=== PATIENT | female | born 1960 | race American Indian/Alaskan Native ===

== ENCOUNTER 2018-01-21 11:37 | Emergency (ER) | payer MEDICARE ==
[2018-01-21 12:00] VITALS: BP 120/43
--- NOTE | 2018-01-21 13:00 | Emergency Department Report ---
Blank Doc - Documentation Documentation: Patient is a 57-year-old black female who is presenting with shortness of breath. Patient has COPD and is on 3 L of oxygen at home at baseline but states that for the past 2 weeks she's had some increased shortness of breath feels like she just can't get enough air. Patient denies any cough but did have pneumonia approximately 2 weeks ago was only on antibiotics 5 days. Patient also was diagnosed with carbon monoxide poisoning as well. Patient's own brief focused physical exam does appear somewhat pale she has trace edema in the bilateral feet clear lungs. Patient be sent to the treatment room for continued workup and the patient be reassessed.
--- NOTE | 2018-01-21 13:11 | Emergency Department Report ---
ED Shortness of Breath HPI - General Chief Complaint: Dyspnea/Respdistress Stated Complaint: WEAK/BOTH FEET Time Seen by Provider: 01/21/18 12:41 Source: patient Mode of arrival: Ambulatory Limitations: No Limitations - History of Present Illness Initial Comments: Patient is a 57-year-old black female who is presenting with shortness of breath. Patient has COPD and is on 3 L of oxygen at home at baseline but states that for the past 2 weeks she's had some increased shortness of breath feels like she just can't get enough air. Patient denies any cough but did have pneumonia approximately 2 weeks ago was only on antibiotics 5 days. Patient also was diagnosed with carbon monoxide poisoning as well. Patient reports that she is having pain to both her feet at 8 out of 10 which is chronic. Pain is worse or walk-in better rest. She is currently at [facility] for substance abuse. 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 Patient still smoking and has multiple comorbidities MD Complaint: shortness of breath, cough (fatigue and burning to feet) Onset/Timin -: days(s) Radiation: other (none) Pain Scale: 8 Quality: burning Consistency: intermittent Improves With: rest Worsens With: nothing Known History Of: COPD, asthma, other (hepatitis C, mitral valve prolapse, bipolar, depression, PND, substance abuse) Context: smoke/fume exposure, other (pneumonia and carbon monoxide poisoning) Associated Symptoms: cough, sputum production, orhopnia, lower extremity pain ( burning to feet), other (feeling tired,) Treatments Prior to Arrival: oxygen, bronchodilator - Related Data Home Oxygen Therapy: Yes Home Oxygen Amount: 3 Liters Previous Rx's Medication Instructions Recorded Last Taken Type Amoxicillin/K Clav Tab [Augmentin 1 tab PO Q12HR 7 Days #14 tab 01/21/18 Unknown Rx 875 mg] Allergies Allergy/AdvReac Type Severity Reaction Status Date / Time No Known Allergies Allergy Verified 01/21/18 12:00 ED Review of Systems ROS: Stated complaint: WEAK/BOTH FEET Other details as noted in HPI Constitutional: weakness. denies: chills, fever Eyes: denies: eye pain, eye discharge, vision change ENT: denies: ear pain, throat pain, congestion Respiratory: cough, orthopnea, shortness of breath, SOB with exertion, SOB at rest. denies: stridor, wheezing Cardiovascular: dyspnea on exertion. denies: chest pain, palpitations, edema, syncope, paroxysmal nocturnal dyspnea Gastrointestinal: denies: abdominal pain, nausea, vomiting, diarrhea, constipation, hematemesis, melena, hematochezia Genitourinary: denies: urgency, dysuria, hematuria, discharge Musculoskeletal: arthralgia (burning pain to both feet). denies: back pain, joint swelling, myalgia Skin: denies: rash, lesions Neurological: weakness. denies: headache, numbness, paresthesias, abnormal gait , vertigo Psychiatric: depression. denies: anxiety, auditory hallucinations, visual hallucinations, homicidal thoughts, suicidal thoughts ED Past Medical Hx - Past Medical History Previous Medical History?: Yes Hx Hypertension: Yes Hx Psychiatric Treatment: Yes (bipolar, depression) Hx COPD: Yes ( on oxygen and she still smokes) Additional medical history: hep C, PNA, cocaine abuse, mitral valve prolapse - Surgical History Past Surgical History?: Yes Additional Surgical History: hysterectomy, back surgery - Family History Family history: hypertension - Social History Smoking Status: Current Every Day Smoker Substance Use Type: Cocaine (she is currently in a [facility] for substance abuse ) - Medications Home Medications: Home Medications Medication Instructions Recorded Confirmed Last Taken Type Amoxicillin/K Clav Tab [Augmentin 1 tab PO Q12HR 7 Days #14 tab 01/21/18 Unknown Rx 875 mg] ED Physical Exam - General Limitations: No Limitations General appearance: alert, in no apparent distress - Head Head exam: Present: atraumatic, normocephalic, normal inspection - Eye Eye exam: Present: normal appearance, PERRL, EOMI Pupils: Present: normal accommodation - ENT ENT exam: Present: normal exam, normal orophraynx, mucous membranes moist, normal external ear exam, other (bilateral nasal mucosa congested with clear drainage and no erythema. frontal and maxillary sinuses nontender to palpate). Absent: TM's normal bilaterally (bilateral team congested without erythema) - Neck Neck exam: Present: normal inspection, full ROM, other (no C-spine tenderness). Absent: tenderness, lymphadenopathy - Respiratory Respiratory exam: Present: respiratory distress, rhonchi (cleared with cough and ), decreased breath sounds, other (patient on O2 at 3 L 24 /7.). Absent: normal lung sounds bilaterally, wheezes, rales, stridor, chest wall tenderness, accessory muscle use, prolonged expiratory - Cardiovascular Cardiovascular Exam: Present: regular rate, normal rhythm, normal heart sounds. Absent: systolic murmur, diastolic murmur - GI/Abdominal GI/Abdominal exam: Present: soft, normal bowel sounds. Absent: distended, tenderness, guarding, rebound, rigid - Extremities Exam Extremities exam: Present: normal inspection, full ROM, normal capillary refill , pedal edema (trace swelling which is chronic), other (No cce. Except for trace sign to both feet which is chronic + 2 pulses in all extremities, no neurovascular compromise). Absent: tenderness, joint swelling, calf tenderness - Back Exam Back exam: Present: normal inspection, full ROM, other (ambulates without any difficulties). Absent: tenderness, CVA tenderness (R), CVA tenderness (L), muscle spasm, paraspinal tenderness, vertebral tenderness, rash noted - Neurological Exam Neurological exam: Present: alert, oriented X3, normal gait, reflexes normal, other (both feet normal exam. No restriction in movement. Nontender to palpate. She has trace swelling to both feet which is chronic). Absent: motor sensory deficit - Psychiatric Psychiatric exam: Present: normal affect, normal mood - Skin Skin exam: Present: warm, dry, intact, normal color. Absent: rash ED Course Vital Signs 01/21/18 01/21/18 11:42 13:08 Temperature 97.7 F Pulse Rate 76 Respiratory 18 Rate Blood Pressure 120/43 O2 Sat by Pulse 100 100 Oximetry - Reevaluation(s) Reevaluation #1: 01/21/18 15:35 Patient stable throughout ED course. ED Medical Decision Making - Lab Data Result diagrams: 01/21/18 13:03 01/21/18 13:03 Lab Results 01/21/18 01/21/18 01/21/18 Range/Units 13:03 13:03 13:08 WBC 8.9 (4.5-11.0) K/mm3 RBC 4.38 (3.65-5.03) M/mm3 Hgb 14.3 (10.1-14.3) gm/dl Hct 41.8 (30.3-42.9) % MCV 96 (79-97) fl MCH 33 H (28-32) pg MCHC 34 (30-34) % RDW 13.8 (13.2-15.2) % Plt Count 233 (140-440) K/mm3 Lymph % (Auto) 28.1 (13.4-35.0) % Divide % (Auto) 9.2 H (0.0-7.3) % Eos % (Auto) 4.7 H (0.0-4.3) % Baso % (Auto) 0.5 (0.0-1.8) % Lymph # 2.5 (1.2-5.4) K/mm3 Divide # 0.8 (0.0-0.8) K/mm3 Eos # 0.4 (0.0-0.4) K/mm3 Baso # 0.0 (0.0-0.1) K/mm3 Seg Neutrophils % 57.5 (40.0-70.0) % Seg Neutrophils # 5.1 (1.8-7.7) K/mm3 Sodium 140 (137-145) mmol/L Potassium 4.9 (3.6-5.0) mmol/L Chloride 103.4 (98-107) mmol/L Carbon Dioxide 25 (22-30) mmol/L Anion Gap 17 mmol/L BUN 23 H (7-17) mg/dL Creatinine 1.1 (0.7-1.2) mg/dL Estimated GFR > 60 ml/min BUN/Creatinine Ratio 21 % Glucose 72 (65-100) mg/dL Calcium 9.4 (8.4-10.2) mg/dL Urine Color Yellow (Yellow) Urine Turbidity Clear (Clear) Urine pH 5.0 (5.0-7.0) Ur Specific [place] 1.020 (1.003-1.030) Urine Protein <15 mg/dl (Negative) mg/dL Urine Glucose (UA) Neg (Negative) mg/dL Urine Ketones Neg (Negative) mg/dL Urine Blood Neg (Negative) Urine Nitrite Neg (Negative) Urine Bilirubin Neg (Negative) Urine Urobilinogen < 2.0 (<2.0) mg/dL Ur Leukocyte Esterase Mod (Negative) Urine WBC (Auto) 5.0 (0.0-6.0) /HPF Urine RBC (Auto) 3.0 (0.0-6.0) /HPF U Epithel Cells (Auto) 5.0 (0-13.0) /HPF Urine Bacteria (Auto) 1+ (Negative) /HPF Urine Mucus Few /HPF Urine culture sent - Radiology Data Radiology results: report reviewed Patient had chest x-ray done that was stated by radiologist and reported to myself. No acute processes. Chronic emphysema XRay Report Signed Patient: PETER GONZALES MR#: [id number] : 1960 Acct:[id number] Age/Sex: 57 / F ADM Date: 01/21/18 Loc: ED Attending Dr: Ordering Physician: SARAH VICTORIA MD Date of Service: 01/21/18 Procedure(s): XR chest 1V ap Accession Number(s): [id number] cc: SARAH VICTORIA MD Fluoro Time In Minutes: AP CHEST: HISTORY: Dyspnea No comparison. The lungs are hyperinflated suggesting underlying COPD. No evidence for pneumonia, pleural effusion or pneumothorax. Heart and mediastinal structures are within normal limits. The bony thorax is grossly intact. IMPRESSION: Emphysematous changes. No acute process. Transcribed By: TTR Dictated By: JOAQUÍN HURD JR, MD Electronically Authenticated By: JOAQUÍN HURD JR, MD Signed Date/Time: 01/21/181413 DD/ 13 TD/TT: 01/21/181413 - Medical Decision Making This is a 57-year-old female that was treated recently for carbon monoxide poisoning and pneumonia. She states she was on antibiotic. Patient's chief complaint shortness of breath and she has chronic emphysema and still smokes. She says she is feeling fatigued and she has burning to her feet which is chronic. Patient is here to be evaluated. Patient was screened by Dr. Nevarez orders placed. Patient examined by myself and she is stable with light exam with decreased air entry throughout from chronic emphysema she has cough with some rhonchi that is cleared with coughing. Her chemistry exam is normal to include CO2 and anion gap. CBC stable without any anemia. Neurologically patient is intact. Patient bilateral foot pain has decreased and she has been here she says she only has foot pain when she walks too much. She has trace pedal edema which she said is chronic but worse is when she stands on her feet too much. Patient also has urinary tract infection and urine culture sent. X-ray of chest done and dictated by radiologist and report reviewed by myself and normal findings except patient with chronic emphysema. Labs and x-ray communicative patient that she was nondistended. Patient will be started on antibiotic and discharged back to [facility]. Chronic emphysema with shortness of [id number] shows chronic emphysema with no acute findings. CO2 is normal and her anion gap was normal Increased fatigue-patient's stable. Upper respiratory with cough and congestion-patient will be placed on antibiotic due to increased risk of infection. She is to continue her nebulizer and Spiriva. A consultation on smoking cessation and she says she is trying. Arthralgia both feet-better since today. Nicotine ABuse-smoking cessation encouraged because the patient has chronic COPD and O2. I discussed the adverse effect that smoking can have on her and that her COPD is a progressive disease but cannot slow down with the cessation of smoking . I will also refer her to a pulmonary doctor as she does not have one Acute cystitis-patient will be started on medication to cover lung and bladder. Urine culture sent Patient voice understanding of all information that she was given and she will be discharged back home to review what hospital to continue her rehabilitation. PT discharged back to [facility] in stable condition. Her vital signs are stable she is afebrile and her O2 sat is 100% on 3 L nasal cannula. She reports that she will try to stop smoking and I discussed with her that she needs to follow-up with a pulmonary doctor which I will refer her to one. I encouraged her to continue with her albuterol nebulizer and her Spiriva and to keep oxygen on at all times until further notice from her primary care and for pulmonary doctor. She voiced understanding. Discharged home with prescription for Augmentin and Zyrtec. - Differential Diagnosis PNA, CO2 abnormality, COPD exacerbation, anemia. URI Critical care attestation.: If time is entered above; I have spent that time in minutes in the direct care of this critically ill patient, excluding procedure time. ED Disposition Clinical Impression: URI with cough and congestion, Supplemental oxygen dependent, Arthralgia of both feet, Acute cystitis without hematuria, Nicotine abuse Emphysema/COPD Qualifiers: Emphysema type: unspecified Qualified Code(s): J43.9 - Emphysema, unspecified Fatigue Qualifiers: Fatigue type: unspecified Qualified Code(s): R53.83 - Other fatigue Disposition: DC-01 TO HOME OR SELFCARE Is pt being admited?: No Does the pt Need Aspirin: No Condition: Stable Instructions: Chronic Obstructive Pulmonary Disease (ED), Arthralgia (ED), Cold Symptoms (ED), Urinary Tract Infection in Women (ED), Using Oxygen at Home (ED), Fatigue (ED), How to Stop Smoking (ED) Additional Instructions: Please stop smoking Follow-up with primary care and 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 See referral to pulmonary doctor and call on Wednesday to schedule appointment for visit regarding chronic emphysema, smoking status and chronic shortness of breath. Take Augmentin and this will cover upper respiratory infection and also urinary tract infection If you condition worsens, return to the emergency room Prescriptions: Amoxicillin/K Clav Tab [Augmentin 875 mg] 1 tab PO Q12HR 7 Days #14 tab Referrals: GRETCHEN GUTIERREZ MD [Staff Physician] - 3-5 Days PRIMARY CARE, [Primary Care Provider] - 01/24/18 follow-up, non emergency services ambulance driver in 3 days [Other] - 01/24/18 Forms: Accompanied Note
[2018-01-21 13:41] LABS: Basophils % (Auto) 0.5 % (0.0-1.8); Eosinophils # (Auto) 0.4 K/mm3 (0.0-0.4); Eosinophils % (Auto) 4.7 % (0.0-4.3); Hematocrit 41.8 % (30.3-42.9); Hemoglobin 14.3 gm/dl (10.1-14.3); Lymphocytes # (Auto) 2.5 K/mm3 (1.2-5.4); Lymphocytes % (Auto) 28.1 % (13.4-35.0); Mean Corpuscular HGB Conc 34 % (30-34); Mean Corpuscular Hemoglobin 33 pg (28-32); Mean Corpuscular Volume 96 fl (79-97); Monocytes # (Auto) 0.8 K/mm3 (0.0-0.8); Monocytes % (Auto) 9.2 % (0.0-7.3); Platelet Count 233 K/mm3 (140-440); Red Blood Count 4.38 M/mm3 (3.65-5.03); Red Cell Distribution Width 13.8 % (13.2-15.2)
[2018-01-21 13:42] LABS: Bacteria,Urine 1+ /HPF (Negative); Bilirubin,Urine NEG (Negative); Blood,Urine NEG (Negative); Color,Urine Yellow (Yellow); Mucus,Urine FEW /HPF; Protein,Urine <15 mg/dL mg/dL (Negative); Urobilinogen,Urine < 2.0 mg/dL (<2.0)
[2018-01-21 13:53] LABS: BUN/Creatinine Ratio 21; Blood Urea Nitrogen 23 mg/dL (7-17); Calcium 9.4 mg/dL (8.4-10.2); Hemolysis Index 7
--- NOTE | 2018-01-21 14:21 | XRay Report ---
AP CHEST: HISTORY: Dyspnea No comparison. The lungs are hyperinflated suggesting underlying COPD. No evidence for pneumonia, pleural effusion or pneumothorax. Heart and mediastinal structures are within normal limits. The bony thorax is grossly intact. IMPRESSION: Emphysematous changes. No acute process.
== END 2018-01-21 15:55 | disposition home or self-care (01) ==
LOC: ED 11:37
DX: J43.9 Emphysema, unspecified (principal); J06.9 Acute upper respiratory infection, unspecified; N30.00 Acute cystitis without hematuria; F17.200 Nicotine dependence, unspecified, uncomplicated; M79.671 Pain in right foot; M79.672 Pain in left foot; I10 Essential (primary) hypertension; F14.10 Cocaine abuse, uncomplicated; Z90.710 Acquired absence of both cervix and uterus; Z99.81 Dependence on supplemental oxygen
CPT/HCPCS: 36415; 71045; 80048; 81001; 85025; 87086; 99284

== ENCOUNTER 2018-02-02 10:29 | Emergency (ER) | payer MEDICARE ==
[2018-02-02 17:49] LABS: Basophils % (Auto) 0.3 % (0.0-1.8); Eosinophils # (Auto) 0.5 K/mm3 (0.0-0.4); Eosinophils % (Auto) 5.2 % (0.0-4.3); Hematocrit 48.2 % (30.3-42.9); Hemoglobin 15.5 gm/dl (10.1-14.3); Lymphocytes # (Auto) 3.2 K/mm3 (1.2-5.4); Lymphocytes % (Auto) 31.2 % (13.4-35.0); Mean Corpuscular HGB Conc 32 % (30-34); Mean Corpuscular Hemoglobin 32 pg (28-32); Mean Corpuscular Volume 100 fl (79-97); Monocytes # (Auto) 0.8 K/mm3 (0.0-0.8); Platelet Count 144 K/mm3 (140-440); Red Cell Distribution Width 14.7 % (13.2-15.2)
[2018-02-02 18:09] LABS: Alanine Aminotransferase 51 units/L (7-56); Albumin 4.2 g/dL (3.9-5); BUN/Creatinine Ratio 24; Blood Urea Nitrogen 19 mg/dL (7-17); Calcium 9.6 mg/dL (8.4-10.2); Hemolysis Index 80
--- NOTE | 2018-02-02 20:13 | Emergency Department Report ---
ED Medical Clearance HPI - General Chief complaint: Medical Clearance Stated complaint: BURNING SENSATION Time Seen by Provider: 02/02/18 20:08 Source: patient Mode of arrival: Ambulatory - History of Present Illness Initial comments: There is a 57-year-old [place]yan[place] female presented initially for bilateral foot tingling and burning now states mild cramps but states I hate water denies chest pain or shortness of breath with O2 2 L currently on oxygen tank patient a and O 3 and was irrigated steady no acute distress denies foot pain or burning at this time there is no cramping at this time patient is actually tolerating by mouth intake patient requested tooth be DC'd home Onset/Timin -: days(s) Reason for Medical Clearance: other ("dehydration") Place: home Alledged Intoxication: No Traumatic Symptoms: denies traumatic injury Associated Symptoms: other (leg cramps ). denies: chest pain, shortness of breath, palpitations, diaphoresis, denies other symptoms, confusion, cough, fever/chills, headaches, anorexia, malaise, nausea/vomiting, rash, seizure, syncope, weakness Treatments Prior to Arrival: none Home medications: Previous Rx's Medication Instructions Recorded Last Taken Type Amoxicillin/K Clav Tab [Augmentin 1 tab PO Q12HR 7 Days #14 tab 01/21/18 Unknown Rx 875 mg] Cetirizine HCl [ZyrTEC] 10 mg PO QDAY 14 Days #14 capsule 01/21/18 Unknown Rx Allergies/Adverse reactions: Allergies Allergy/AdvReac Type Severity Reaction Status Date / Time No Known Allergies Allergy Verified 01/21/18 12:00 ED Review of Systems ROS: Stated complaint: BURNING SENSATION Other details as noted in HPI Constitutional: denies: chills, fever Eyes: denies: eye pain, eye discharge, vision change ENT: denies: ear pain, throat pain Respiratory: denies: cough, shortness of breath, wheezing Cardiovascular: denies: chest pain, palpitations Endocrine: no symptoms reported Gastrointestinal: denies: abdominal pain, nausea, diarrhea Genitourinary: denies: urgency, dysuria, discharge Musculoskeletal: other (muscle spasm ). denies: back pain, joint swelling, arthralgia Skin: denies: rash, lesions Neurological: denies: headache, weakness, paresthesias Psychiatric: denies: anxiety, depression Hematological/Lymphatic: denies: easy bleeding, easy bruising ED Past Medical Hx - Past Medical History Hx Hypertension: Yes Hx Psychiatric Treatment: Yes (bipolar, depression) Hx COPD: Yes ( on oxygen and she still smokes) Additional medical history: hep C, PNA, cocaine abuse, mitral valve prolapse - Surgical History Additional Surgical History: hysterectomy, back surgery - Social History Smoking Status: Current Every Day Smoker Substance Use Type: None - Medications Home Medications: Home Medications Medication Instructions Recorded Confirmed Last Taken Type Amoxicillin/K Clav Tab [Augmentin 1 tab PO Q12HR 7 Days #14 tab 01/21/18 Unknown Rx 875 mg] Cetirizine HCl [ZyrTEC] 10 mg PO QDAY 14 Days #14 capsule 01/21/18 Unknown Rx ED Physical Exam - General Limitations: No Limitations General appearance: alert, in no apparent distress - Head Head exam: Present: atraumatic, normocephalic - Eye Eye exam: Present: normal appearance - ENT ENT exam: Present: mucous membranes moist - Neck Neck exam: Present: normal inspection - Respiratory Respiratory exam: Present: normal lung sounds bilaterally. Absent: respiratory distress, wheezes, stridor, chest wall tenderness - Cardiovascular Cardiovascular Exam: Present: regular rate, normal rhythm. Absent: systolic murmur, diastolic murmur, rubs, gallop - GI/Abdominal GI/Abdominal exam: Present: soft, normal bowel sounds. Absent: distended, tenderness, guarding, rebound, rigid, organomegaly, mass, bruit, pulsatile mass , hernia - Rectal Rectal exam: Present: deferred - External exam: Present: normal external exam - Extremities Exam Extremities exam: Present: normal inspection, full ROM, normal capillary refill. Absent: tenderness, pedal edema, joint swelling, calf tenderness - Expanded Lower Extremity Exam Left Lower Leg exam: Present: normal inspection, full ROM. Absent: tenderness Foot/Toe exam: Present: normal inspection, full ROM Neuro vascular tendon exam: Present: no vascular compromise. Absent: pulse deficit, abnormal cap refill, motor deficit, sensory deficit, tendon deficit, extremity cold to touch, pallor, abnormal 2-point discrimination, decreased fine /light touch, foot drop, peroneal nerve deficit, significant pain with passive ROM of distal joint Gait: Positive: observed and normal Right Lower Leg exam: Present: normal inspection, full ROM. Absent: tenderness Neuro vascular tendon exam: Present: no vascular compromise. Absent: pulse deficit, abnormal cap refill, motor deficit, sensory deficit, tendon deficit, extremity cold to touch, pallor, abnormal 2-point discrimination, decreased fine /light touch, foot drop, significant pain with passive ROM of distal joint Gait: Positive: observed and normal - Back Exam Back exam: Present: normal inspection, full ROM. Absent: tenderness, muscle spasm, paraspinal tenderness, vertebral tenderness - Expanded Back Exam Expanded Back exam: Absent: saddle anesthesia - Neurological Exam Neurological exam: Present: alert, oriented X3 - Expanded Neurological Exam Expanded Patient oriented to: Present: person, place, time Speech: Present: fluid speech Cranial nerves: EOM's Intact: Normal, Gag Reflex: Normal, Tongue Deviation: Normal, Nystagmus: Normal, Facial Sensation: Normal Cerebellar function: Finger to Nose: Normal, Heel to Bowden: Normal, Romberg: Normal Upper motor neuron: Carlos Neglect: Normal, Pronator Drift: Normal, Babinski Sign : Normal, Sensory Extinction: Normal Sensory exam: Upper Extremity Light Touch: Normal, Upper Extremity Pin Prick: Normal, Upper Extremity Temperature: Normal, UE 2 Point Discrimination: Normal, Lower Extremity Light Touch: Normal, Lower Extremity Pin Prick: Normal, Lower Extremity Temperature: Normal, LE 2 Point Discrimination: Normal Motor strength exam: RUE: 5, LUE: 5, RLE: 5, LLE: 5 DTR: bicep (R): 2+, bicep (L): 2+, tricep (R): 2+, tricep (L): 2+, knee (R): 2+ , knee (L): 2+, ankle (R): 2+, ankle (L): 2+ Best Eye Response (Des): (4) open spontaneously Best Motor Response (Bovey): (6) obeys commands Best Verbal Response (Des): (5) oriented Des Total: 15 - Psychiatric Psychiatric exam: Present: normal affect, normal mood. Absent: depressed, agitated, anxious, flat affect, manic, homicidal ideation, suicidal ideation - Skin Skin exam: Present: warm, dry, intact, normal color. Absent: rash ED Course Vital Signs 02/02/18 02/02/18 10:43 17:43 Temperature 98.4 F Pulse Rate 88 Respiratory 17 18 Rate Blood Pressure 129/61 O2 Sat by Pulse 95 99 Oximetry ED Medical Decision Making - Lab Data Result diagrams: 02/02/18 17:23 02/02/18 17:23 Laboratory Tests 02/02/18 02/02/18 02/02/18 17:23 17:23 17:23 WBC 10.3 RBC 4.80 Hgb 15.5 H Hct 48.2 H MCV 100 H MCH 32 MCHC 32 RDW 14.7 Plt Count 144 Lymph % (Auto) 31.2 [place] % (Auto) 8.0 H Eos % (Auto) 5.2 H Baso % (Auto) 0.3 Lymph # 3.2 [place]yer # 0.8 Eos # 0.5 H Baso # 0.0 Seg Neutrophils % 55.3 Seg Neutrophils # 5.7 Sodium 137 Potassium 5.1 H Chloride 99.8 Carbon Dioxide 21 L Anion Gap 21 BUN 19 H Creatinine 0.8 Estimated GFR > 60 BUN/Creatinine Ratio 24 Glucose 79 Calcium 9.6 Phosphorus 3.90 Magnesium 2.10 Total Bilirubin 0.30 AST 45 H ALT 51 Alkaline Phosphatase 125 Total Protein 7.9 Albumin 4.2 Albumin/Globulin Ratio 1.1 - Medical Decision Making Patient is by mouth hydrating at this time there is no nausea vomiting no diarrhea patient refuses IV fluids patient directed continue to hydrate as directed follow with PCP in 2-3 days return to ED if symptoms worsen or verbalized understanding and agreement with same DC to home in stable condition at this time patient is currently a and O 3 and with her gait is steady there is no muscle spasms no pain ED Disposition Clinical Impression: Muscle spasm, Mild dehydration Disposition: DC-01 TO HOME OR SELFCARE Is pt being admited?: No Does the pt Need Aspirin: No Condition: Good Instructions: Dehydration (ED), Muscle Spasm (ED) Referrals: KARLEY MORGAN MD [Primary Care Provider] - 3-5 Days Forms: Work/School Release Form(ED) Time of Disposition: 20:19
[2018-02-02 20:31] VITALS: BP 128/86
== END 2018-02-02 20:31 | disposition home or self-care (01) ==
LOC: ED 10:29
DX: E86.0 Dehydration (principal); M62.838 Other muscle spasm; I10 Essential (primary) hypertension; F31.9 Bipolar disorder, unspecified; F32.9 Major depressive disorder, single episode, unspecified; J44.9 Chronic obstructive pulmonary disease, unspecified; F17.200 Nicotine dependence, unspecified, uncomplicated; F14.10 Cocaine abuse, uncomplicated; I34.1 Nonrheumatic mitral (valve) prolapse; Z90.710 Acquired absence of both cervix and uterus
CPT/HCPCS: 36415; 80053; 83735; 84100; 85025; 99283

== ENCOUNTER 2018-02-14 10:21 | Emergency (ER) | payer MEDICARE ==
[2018-02-14] MEDS ORDERED: LIDOCAINE VISCOUS 2% PO ONE (11:18)
[2018-02-14] MEDS ORDERED: PROVENTIL IH ONE (11:18)
[2018-02-14] MEDS ORDERED: TYLENOL PO ONE (11:18)
--- NOTE | 2018-02-14 11:19 | Emergency Department Report ---
ED General Adult HPI - General Chief complaint: Dyspnea/Respdistress Stated complaint: HARD BREATHING/FEET SWELLING Time Seen by Provider: 02/14/18 10:55 Source: patient, RN notes reviewed Mode of arrival: Ambulatory Limitations: No Limitations - History of Present Illness Initial comments: This is a 57-year-old female who is not known to this provider previously, she endorses a past medical history of COPD, on chronic home oxygen, tobacco use, bipolar and polysubstance use. She presents to ER with complaint of painless shortness of breath, cough, mucus production, nontraumatic lower extremity swelling. She denies DVT, pulmonary embolus risk factors. Her symptoms are constant over the past few days, and do not have exacerbating or relieving factors and do not radiate anywhere. -: Gradual Location: left, right, lower extremity Radiation: non-radiation Quality: constant Consistency: constant Improves with: none Worsens with: none Associated Symptoms: cough, malaise, shortness of breath. denies: confusion, chest pain, diaphoresis, headaches, loss of appetite, nausea/vomiting, rash, seizure, syncope, weakness - Related Data Previous Rx's Medication Instructions Recorded Last Taken Type Amoxicillin/K Clav Tab [Augmentin 1 tab PO Q12HR 7 Days #14 tab 01/21/18 Unknown Rx 875 mg] Cetirizine HCl [ZyrTEC] 10 mg PO QDAY 14 Days #14 capsule 01/21/18 Unknown Rx Albuterol Sulfate [Proair 90 mcg IH Q4HR PRN #2 aer.pow.ba 02/14/18 Unknown Rx Respiclick] Benzonatate [Tessalon Perles] 100 mg PO Q8HR PRN #30 capsule 02/14/18 Unknown Rx Furosemide [Lasix] 20 mg PO QDAY #14 tablet 02/14/18 Unknown Rx Allergies Allergy/AdvReac Type Severity Reaction Status Date / Time laughing gas Allergy Unknown Uncoded 02/14/18 10:27 ED Review of Systems ROS: Stated complaint: HARD BREATHING/FEET SWELLING Other details as noted in HPI Comment: All other systems reviewed and negative ED Past Medical Hx - Past Medical History Previous Medical History?: Yes Hx Hypertension: Yes Hx Psychiatric Treatment: Yes (bipolar, depression) Hx COPD: Yes ( on oxygen and she still smokes) Additional medical history: hep C, PNA, cocaine abuse, mitral valve prolapse - Surgical History Past Surgical History?: Yes Additional Surgical History: hysterectomy, back surgery - Social History Smoking Status: Current Every Day Smoker Substance Use Type: None - Medications Home Medications: Home Medications Medication Instructions Recorded Confirmed Last Taken Type Amoxicillin/K Clav Tab [Augmentin 1 tab PO Q12HR 7 Days #14 tab 01/21/18 Unknown Rx 875 mg] Cetirizine HCl [ZyrTEC] 10 mg PO QDAY 14 Days #14 capsule 01/21/18 Unknown Rx Albuterol Sulfate [Proair 90 mcg IH Q4HR PRN #2 aer.pow.ba 02/14/18 Unknown Rx Respiclick] Benzonatate [Tessalon Perles] 100 mg PO Q8HR PRN #30 capsule 02/14/18 Unknown Rx Furosemide [Lasix] 20 mg PO QDAY #14 tablet 02/14/18 Unknown Rx ED Physical Exam - General Limitations: No Limitations General appearance: alert, in no apparent distress - Head Head exam: Present: atraumatic, normocephalic - Eye Eye exam: Present: normal appearance, EOMI. Absent: nystagmus - ENT ENT exam: Present: normal exam, normal orophraynx, mucous membranes moist, normal external ear exam - Neck Neck exam: Present: normal inspection, full ROM - Respiratory Respiratory exam: Present: decreased breath sounds. Absent: respiratory distress, wheezes, rales, rhonchi, stridor - Cardiovascular Cardiovascular Exam: Present: regular rate, normal rhythm, normal heart sounds. Absent: bradycardia, tachycardia, irregular rhythm, systolic murmur, diastolic murmur, rubs, gallop - GI/Abdominal GI/Abdominal exam: Present: soft, normal bowel sounds. Absent: distended, tenderness, guarding, rebound, rigid, pulsatile mass - Extremities Exam Extremities exam: Present: normal inspection, full ROM, normal capillary refill , pedal edema, other (2+ pulses noted in the bilateral upper, lower extremities. Compartments soft. No long bony tenderness. The pelvis is stable.). Absent: tenderness, calf tenderness - Back Exam Back exam: Present: normal inspection, full ROM. Absent: tenderness, CVA tenderness (R), paraspinal tenderness, vertebral tenderness - Neurological Exam Neurological exam: Present: alert, oriented X3, CN II-XII intact, other ( Extraocular movements intact. Tongue midline. No facial droop. Facial sensation intact to light touch in the V1, V2, V3 distribution bilaterally. 5 and 5 strength in 4 extremities.. Sensation is intact to light touch in 4 extremities.). Absent: motor sensory deficit - Psychiatric Psychiatric exam: Present: normal affect, normal mood - Skin Skin exam: Present: warm, dry, intact, normal color. Absent: rash ED Course Vital Signs 02/14/18 02/14/18 02/14/18 10:27 11:19 11:21 Temperature 98.5 F 97.6 F Pulse Rate 91 H 83 Respiratory 18 18 18 Rate Blood Pressure 108/64 Blood Pressure 104/45 [Right] O2 Sat by Pulse 93 100 100 Oximetry ED Medical Decision Making - Lab Data Result diagrams: 02/14/18 10:59 02/14/18 10:59 Vital Signs 02/14/18 02/14/18 02/14/18 10:27 11:19 11:21 Temperature 98.5 F 97.6 F Pulse Rate 91 H 83 Respiratory 18 18 18 Rate Blood Pressure 108/64 Blood Pressure 104/45 [Right] O2 Sat by Pulse 93 100 100 Oximetry Lab Results 02/14/18 02/14/18 02/14/18 Range/Units 10:59 10:59 10:59 WBC 10.9 (4.5-11.0) K/mm3 RBC 4.39 (3.65-5.03) M/mm3 Hgb 14.8 H (10.1-14.3) gm/dl Hct 42.1 (30.3-42.9) % MCV 96 (79-97) fl MCH 34 H (28-32) pg MCHC 35 H (30-34) % RDW 14.0 (13.2-15.2) % Plt Count 181 (140-440) K/mm3 Lymph % (Auto) 17.4 (13.4-35.0) % Bollinger % (Auto) 9.1 H (0.0-7.3) % Eos % (Auto) 5.3 H (0.0-4.3) % Baso % (Auto) 0.7 (0.0-1.8) % Lymph # 1.9 (1.2-5.4) K/mm3 Bollinger # 1.0 H (0.0-0.8) K/mm3 Eos # 0.6 H (0.0-0.4) K/mm3 Baso # 0.1 (0.0-0.1) K/mm3 Seg Neutrophils % 67.5 (40.0-70.0) % Seg Neutrophils # 7.3 (1.8-7.7) K/mm3 Sodium 139 (137-145) mmol/L Potassium 4.8 (3.6-5.0) mmol/L Chloride 105.6 (98-107) mmol/L Carbon Dioxide 23 (22-30) mmol/L Anion Gap 15 mmol/L BUN 24 H (7-17) mg/dL Creatinine 0.9 (0.7-1.2) mg/dL Estimated GFR > 60 ml/min BUN/Creatinine Ratio 27 % Glucose 91 (65-100) mg/dL Calcium 9.5 (8.4-10.2) mg/dL Total Bilirubin 0.40 (0.1-1.2) mg/dL Direct Bilirubin < 0.2 (0-0.2) mg/dL Indirect Bilirubin 0.2 mg/dL AST 50 H (5-40) units/L ALT 61 H (7-56) units/L Alkaline Phosphatase 119 (35-129) units/L NT-Pro-B Natriuret Pep 11.88 (0-900) pg/mL Total Protein 7.9 (6.3-8.2) g/dL Albumin 4.0 (3.9-5) g/dL Albumin/Globulin Ratio 1.0 % - EKG Data -: EKG Interpreted by Sd EKG shows normal: sinus rhythm Rate: normal - EKG Data 02/14/18 14:09 Sinus, 74 bpm, normal axis, QTC prolonged, poor wave progression, not a stemi - Radiology Data Radiology results: report reviewed, image reviewed X-ray of the chest demonstrates chronic emphysematous changes, no acute disease , no obvious pneumothorax LIVE [facility] PETER GONZALES Female : 1960 [facility]# [id number] 02/14/18 12:06 - Radiology Dept. Note by ELAINE EMMANUEL Acct Num: [id number] : 1960 Patient Age: 57 BLE VENOUS DUPLEX COMPLETED. VAS LAB PRELIMINARY REPORT; NO EVIDENCE OF DVT/SVT NOTED IN VESSELS/SEGMENTS EXAMINED, BLE. PHYSICIANS REPORT TO FOLLOW....(RSk) Initialized on 02/14/18 12:06 - END OF NOTE - Medical Decision Making Differential diagnosis, including but not limited to: Dependent edema, venous insufficiency, renal insufficiency, hepatic insufficiency, DVT, congestive heart failure, bronchitis, COPD, emphysema, pneumonia, pneumothorax Assessment and plan: 57-year-old female with chronic COPD, who denies DVT, pulmonary embolus risk factors, who is low risk by well's criteria, with a negative lower extremity DVT study, who is most likely having progression of her chronic emphysema. She is afebrile with reassuring vital signs, speaking in full sentences and is not in acute respiratory distress. Her objective laboratory studies did not demonstrate evidence of renal or liver insufficiency, and based on her exam, her lower extremity edema is more likely secondary to dependent edema rather than overt congestive heart failure. May have a minor component of right-sided dysfunction as well as pulmonary hypertension, but given her work of breathing which is normal, lack of JVD, lack of crackles, lack of rales, she does not require emergent workup or evaluation for this. I will start her empirically on low-dose Lasix, and sent her with outpatient instructions to follow-up with pulmonology, cardiology, as well as as needed albuterol. The patient is observed in the ER for hours without clinical decompensation and is medically suitable to follow-up. Critical care attestation.: If time is entered above; I have spent that time in minutes in the direct care of this critically ill patient, excluding procedure time. ED Disposition Clinical Impression: Edema, Emphysema lung Disposition: DC-01 TO HOME OR SELFCARE Is pt being admited?: No Does the pt Need Aspirin: No Condition: Stable Instructions: Heart Failure (ED), Chronic Obstructive Pulmonary Disease (ED) Additional Instructions: Continue current outpatient medications. Use the albuterol as needed for cough , wheezing, shortness of breath. Use Tessalon Perles as directed for cough. Take Lasix as directed for lower extremity peripheral edema. All with the primary care doctor or a lung specialist, such as Dr. Flores, within the next 2 weeks. Follow up with a heart doctor/manager women within the next month for lower extremity edema and evaluation for possible right-sided heart failure and pulmonary hypertension. Return to the ER right away with new pain, worsened pain, migration of pain, projectile vomiting, change in mental status, confusion , inability to tolerate liquid feeds, new, worsening or different symptoms. Prescriptions: Albuterol Sulfate [Proair Respiclick] 90 mcg IH Q4HR PRN #2 aer.pow.ba PRN Reason: Wheezing Benzonatate [Tessalon Perles] 100 mg PO Q8HR PRN #30 capsule PRN Reason: Cough Furosemide [Lasix] 20 mg PO QDAY #14 tablet Referrals: PRIMARY CAREMD [Primary Care Provider] - 3-5 Days VY FLORES MD [Staff Physician] - 3-5 Days [facility] [Provider Group] - 3-5 Days [facility] [Provider Group] - 3-5 Days
--- NOTE | 2018-02-14 11:21 | XRay Report ---
CHEST TWO VIEWS: 02/14/18 10:21:00 CLINICAL: Shortness of breath. COMPARISON: 01/21/18 FINDINGS: Normal heart and pulmonary vasculature. The lungs are mildly hyperexpanded and hyperlucent. Stable mild bibasal fibrotic changes and scattered tiny calcified granulomata. No airspace disease or pleural effusion. The bones and soft tissues are normal. IMPRESSION: Emphysematous changes and old granulomatous disease.No acute cardiopulmonary process.
[2018-02-14 11:25] LABS: Basophils # (Auto) 0.1 K/mm3 (0.0-0.1); Basophils % (Auto) 0.7 % (0.0-1.8); Eosinophils # (Auto) 0.6 K/mm3 (0.0-0.4); Eosinophils % (Auto) 5.3 % (0.0-4.3); Hematocrit 42.1 % (30.3-42.9); Hemoglobin 14.8 gm/dl (10.1-14.3); Lymphocytes # (Auto) 1.9 K/mm3 (1.2-5.4); Lymphocytes % (Auto) 17.4 % (13.4-35.0); Mean Corpuscular HGB Conc 35 % (30-34); Mean Corpuscular Hemoglobin 34 pg (28-32); Mean Corpuscular Volume 96 fl (79-97); Monocytes % (Auto) 9.1 % (0.0-7.3); Platelet Count 181 K/mm3 (140-440); Red Blood Count 4.39 M/mm3 (3.65-5.03)
[2018-02-14 11:35] LABS: BUN/Creatinine Ratio 27; Blood Urea Nitrogen 24 mg/dL (7-17); Calcium 9.5 mg/dL (8.4-10.2); Hemolysis Index 8
[2018-02-14 13:55] LABS: Alanine Aminotransferase 61 units/L (7-56)
[2018-02-14 13:59] LABS: Bilirubin,Direct < 0.2 mg/dL (0-0.2)
[2018-02-14 15:09] VITALS: BP 117/64
== END 2018-02-14 15:13 | disposition home or self-care (01) ==
LOC: ED 10:21
DX: J44.9 Chronic obstructive pulmonary disease, unspecified (principal); R22.43 Localized swelling, mass and lump, lower limb, bilateral; I10 Essential (primary) hypertension; F31.9 Bipolar disorder, unspecified; F17.200 Nicotine dependence, unspecified, uncomplicated; F14.10 Cocaine abuse, uncomplicated; Z90.710 Acquired absence of both cervix and uterus; Z79.899 Other long term (current) drug therapy; Z91.048 Other nonmedicinal substance allergy status
CPT/HCPCS: 36415; 71046; 80048; 80074; 83880; 85025; 93005; 93010; 93970

== ENCOUNTER 2018-10-04 22:34 | Emergency (ER) | payer SELFPAY ==
[2018-10-04] MEDS ORDERED: CARAFATE PO ONE (22:51)
[2018-10-04] MEDS ORDERED: PEPCID IV ONE (22:51)
[2018-10-04] MEDS ORDERED: PROVENTIL IH ONE (22:51)
--- NOTE | 2018-10-04 22:52 | Emergency Department Report ---
ED General Adult HPI - General Chief complaint: Adult Asthma Stated complaint: WILLIS Time Seen by Provider: 10/04/18 22:44 Source: patient, EMS, RN notes reviewed Mode of arrival: Stretcher Limitations: No Limitations - History of Present Illness Initial comments: This is a 57-year-old female. I have evaluated her in the past. She has a past medical history of COPD, emphysema. She also reportedly has a history of sleep apnea, and is noncompliant with her CPAP. She intermittently uses home oxygen. The patient presents to the hospital today with emergency medical services for resolved shortness of breath. In the field, EMS gave Solu-Medrol, 5 mg of albuterol, and 2 g of magnesium. they also give the patient positive pressure, CPAP. These interventions essentially resolved her symptoms. The patient denies DVT, pulmonary embolus risk factors. She denies headache, neck pain, abdominal pain, extremity weakness, numbness. The patient does admit to chronic epigastric pain which radiates to her back for one year. She reports this pain is typically improved with gabapentin. Of note, I have evaluated this patient for similar symptoms in 2018. The patient had extensive workup at that time, including a negative lower extremity DVT study. Patient reports that her symptoms today feel similar to the prior episode. -: Gradual, hour(s), week(s), month(s) Location: abdomen Radiation: back Quality: aching Consistency: other Improves with: other Worsens with: other Associated Symptoms: shortness of breath - Related Data Previous Rx's Medication Instructions Recorded Last Taken Type Amoxicillin/K Clav Tab [Augmentin 1 tab PO Q12HR 7 Days #14 tab 01/21/18 Unknown Rx 875 mg] Cetirizine HCl [ZyrTEC] 10 mg PO QDAY 14 Days #14 capsule 01/21/18 Unknown Rx Albuterol Sulfate [Proair 90 mcg IH Q4HR PRN #2 aer.pow.ba 02/14/18 Unknown Rx Respiclick] Benzonatate [Tessalon Perles] 100 mg PO Q8HR PRN #30 capsule 02/14/18 Unknown Rx Furosemide [Lasix] 20 mg PO QDAY #14 tablet 02/14/18 Unknown Rx Albuterol Sulfate [Proair 90 mcg IH Q4HR PRN #2 aer.pow.ba 10/05/18 Unknown Rx Respiclick] Aspirin [Aspirin BABY CHEW TAB] 81 mg PO QDAY #30 tab.chew 10/05/18 Unknown Rx Ipratropium [place] [Atrovent Hfa] 12.9 gm IH Q4HR PRN #1 hfa.aer.ad 10/05/18 Unknown Rx predniSONE [Deltasone] 40 mg PO QDAY #8 tab 10/05/18 Unknown Rx Allergies Allergy/AdvReac Type Severity Reaction Status Date / Time laughing gas Allergy Unknown Uncoded 02/14/18 10:27 ED Review of Systems ROS: Stated complaint: WILLIS Other details as noted in HPI Constitutional: denies: fever Eyes: denies: eye discharge ENT: denies: epistaxis Respiratory: shortness of breath Cardiovascular: denies: chest pain Musculoskeletal: back pain Skin: denies: lesions Psychiatric: denies: anxiety ED Past Medical Hx - Past Medical History Hx Hypertension: Yes Hx Psychiatric Treatment: Yes (bipolar, depression) Hx COPD: Yes ( on oxygen and she still smokes) Additional medical history: hep C, PNA, cocaine abuse, mitral valve prolapse - Surgical History Additional Surgical History: hysterectomy, back surgery - Social History Smoking Status: Current Every Day Smoker Substance Use Type: None - Medications Home Medications: Home Medications Medication Instructions Recorded Confirmed Last Taken Type Amoxicillin/K Clav Tab [Augmentin 1 tab PO Q12HR 7 Days #14 tab 01/21/18 Unknown Rx 875 mg] Cetirizine HCl [ZyrTEC] 10 mg PO QDAY 14 Days #14 capsule 01/21/18 Unknown Rx Albuterol Sulfate [Proair 90 mcg IH Q4HR PRN #2 aer.pow.ba 02/14/18 Unknown Rx Respiclick] Benzonatate [Tessalon Perles] 100 mg PO Q8HR PRN #30 capsule 02/14/18 Unknown Rx Furosemide [Lasix] 20 mg PO QDAY #14 tablet 02/14/18 Unknown Rx Albuterol Sulfate [Proair 90 mcg IH Q4HR PRN #2 aer.pow.ba 10/05/18 Unknown Rx Respiclick] Aspirin [Aspirin BABY CHEW TAB] 81 mg PO QDAY #30 tab.chew 10/05/18 Unknown Rx Ipratropium [place] [Atrovent Hfa] 12.9 gm IH Q4HR PRN #1 hfa.aer.ad 10/05/18 Unknown Rx predniSONE [Deltasone] 40 mg PO QDAY #8 tab 10/05/18 Unknown Rx ED Physical Exam - General General appearance: alert, in no apparent distress - Head Head exam: Present: atraumatic, normocephalic - Eye Eye exam: Present: normal appearance, EOMI - ENT ENT exam: Present: normal exam, normal orophraynx, mucous membranes moist, normal external ear exam - Neck Neck exam: Present: normal inspection, full ROM. Absent: tenderness, meningismus - Respiratory Respiratory exam: Present: decreased breath sounds. Absent: respiratory distress, rales, rhonchi, stridor - Cardiovascular Cardiovascular Exam: Present: regular rate, normal rhythm, normal heart sounds. Absent: bradycardia, tachycardia, irregular rhythm, systolic murmur, diastolic murmur, rubs, gallop - GI/Abdominal GI/Abdominal exam: Present: soft. Absent: distended, tenderness, guarding, rebound, rigid, pulsatile mass - Extremities Exam Extremities exam: Present: normal inspection, full ROM, other (2+ pulses noted in the bilateral upper, lower extremities. Compartments soft. No long bony tenderness. The pelvis is stable.). Absent: joint swelling - Back Exam Back exam: Present: normal inspection, full ROM. Absent: tenderness, CVA tenderness (R), paraspinal tenderness, vertebral tenderness - Neurological Exam Neurological exam: Present: alert, normal gait, other (Extraocular movements intact. Tongue midline. No facial droop. Facial sensation intact to light touch in the V1, V2, V3 distribution bilaterally. 5 and 5 strength in 4 extremities.. Sensation is intact to light touch in 4 extremities.). Absent: motor sensory deficit - Psychiatric Psychiatric exam: Present: anxious - Skin Skin exam: Present: warm, dry, intact, normal color. Absent: rash ED Course Vital Signs 10/04/18 22:53 Temperature 98.3 F Pulse Rate 80 Respiratory 20 Rate Blood Pressure 133/68 [Right] O2 Sat by Pulse 96 Oximetry ED Medical Decision Making - Lab Data Result diagrams: 10/04/18 23:18 Vital Signs 10/04/18 22:53 Temperature 98.3 F Pulse Rate 80 Respiratory 20 Rate Blood Pressure 133/68 [Right] O2 Sat by Pulse 96 Oximetry Lab Results 10/04/18 10/04/18 Range/Units 23:18 23:18 WBC 7.5 (4.5-11.0) K/mm3 RBC 4.84 (3.65-5.03) M/mm3 Hgb 15.7 H (10.1-14.3) gm/dl Hct 47.0 H (30.3-42.9) % MCV 97 (79-97) fl MCH 32 (28-32) pg MCHC 33 (30-34) % RDW 13.9 (13.2-15.2) % Plt Count 216 (140-440) K/mm3 Troponin T < 0.010 (0.00-0.029) ng/mL - EKG Data -: EKG Interpreted by Ny EKG shows normal: sinus rhythm Rate: normal - EKG Data 10/05/18 00:10 EKG #1 demonstrates normal sinus, 77 bpm, normal axis, QTC prolonged, poor R- wave progression, this is an abnormal EKG, this EKG is not consistent with ST elevation myocardial infarction. This EKG is unchanged from prior EKG from 04/16/2018. EKG #2 was unchanged from prior EKG an EKG from 2018. - Radiology Data Radiology results: report reviewed, image reviewed X-ray of the chest is negative for acute disease - Medical Decision Making Differential diagnosis, including but not limited to: COPD exacerbation, emphys luca, hiatal hernia, GERD, gastritis, pneumonia, acute coronary syndrome Assessment and plan: 57-year-old female with recurrent COPD exacerbation, now resolved. No pulmonary embolus/ DVT risk factors, low risk by well's criteria. Patient reports epigastric pain radiating to the back has been present for months to years. Patient low risk by the BRIANA score, low risk by heart score. Troponin negative 1, EKG unchanged 2, patient resting comfortably in her stretcher, and in no acute distress. Patient able to walk without significant desaturation or difficulty. Patient was counseled to follow up with outpatient pulmonology for her chronic emphysema and obstructive sleep apnea. She can follow up with a primary care doctor or a electronic calibration technician for her epigastric pain and abnormal EKG. Patient is observed in the emergency room for hours without clinical decompensation, and is medically suitable for follow-up at this point in time. Critical care attestation.: If time is entered above; I have spent that time in minutes in the direct care of this critically ill patient, excluding procedure time. ED Disposition Clinical Impression: COPD (chronic obstructive pulmonary disease), Chronic epigastric pain Disposition: DC-01 TO HOME OR SELFCARE Is pt being admited?: No Does the pt Need Aspirin: No Condition: Good Instructions: Chronic Obstructive Pulmonary Disease (ED) Additional Instructions: Take medications as needed/directed. Avoid consumption of Motrin, ibuprofen, Naprosyn, Aleve, heavy, spicy foods. Follow-up with a sheep or calf grader, sleep specialist within the next 7-[address] Flores is a local pulmonology specialist. Patient should remain compliant with the CPAP device. Long-term complications of untreated sleep apnea include pulmonary hypertension, stroke, heart disease, disability. Please follow up with any of the listed cardiologists for epigastric pain and abnormal EKG within the next 7-10 days. Please follow up with a primary care doctor within the next month. Return to the emergency room right away with new, worsening or different symptoms. Referrals: VY FLORES MD [Staff Physician] - 3-5 Days MARIOLA RAO MD [Staff Physician] - 3-5 Days DAR ELDER MD [Staff Physician] - 3-5 Days [facility] [Provider Group] - 3-5 Days [facility] [Provider Group] - 3-5 Days
--- NOTE | 2018-10-04 23:23 | XRay Report ---
PROCEDURE: Chest. TECHNIQUE: Portable AP view. HISTORY: Dyspnea. COMPARISONS: Chest 01/21/2018. FINDINGS: The heart and mediastinum appear normal. The lungs are clear and well expanded. There are no pleural effusions. The soft tissues and regional skeleton are unremarkable. IMPRESSION: Negative portable chest. This document is electronically signed by Arun Trevino MD., October 04 2018 11:21:28 PM ET
[2018-10-04 23:35] LABS: Hemoglobin 15.7 gm/dl (10.1-14.3); Mean Corpuscular HGB Conc 33 % (30-34); Mean Corpuscular Volume 97 fl (79-97); Platelet Count 216 K/mm3 (140-440); Red Blood Count 4.84 M/mm3 (3.65-5.03); Red Cell Distribution Width 13.9 % (13.2-15.2)
[2018-10-05 01:55] VITALS: BP 134/60
== END 2018-10-05 00:37 | disposition home or self-care (01) ==
LOC: ED 22:34
DX: J44.9 Chronic obstructive pulmonary disease, unspecified (principal); I10 Essential (primary) hypertension; F31.9 Bipolar disorder, unspecified; F17.200 Nicotine dependence, unspecified, uncomplicated; R10.13 Epigastric pain; G89.29 Other chronic pain; Z90.710 Acquired absence of both cervix and uterus; Z79.899 Other long term (current) drug therapy; Z91.09 Other allergy status, other than to drugs and biological substances
CPT/HCPCS: 36415; 71045; 84484; 85027

== ENCOUNTER 2018-10-05 02:33 | Inpatient (IN) | payer MEDICARE ==
[2018-10-05] MEDS ORDERED: PROVENTIL IH ONE (02:48)
[2018-10-05] MEDS ORDERED: ATROVENT IH ONE (02:48)
[2018-10-05] MEDS ORDERED: SUBLIMAZE IV PRN (02:50)
[2018-10-05] MEDS ORDERED: VASELINE LIP THERAPY TP PRN (02:50)
[2018-10-05] MEDS ORDERED: fentaNYL DRIP Premix 2,000 MCG/100 ML BAG IV ONE (02:50)
[2018-10-05] MEDS: fentaNYL DRIP Premix 2,000 MCG/100 ML BAG IV SCH ×3 (02:50→22:28)
[2018-10-05] MEDS ORDERED: ARTIFICIAL TEARS OPHTH OINT OU PRN (02:50)
[2018-10-05] MEDS: DIPRIVAN 10 MG/ML 1,000 MG/100 ML BOTTLE IV SCH ×2 (03:00→19:15)
[2018-10-05] MEDS ORDERED: NACL 0.9% 1000 ML 1,000 ML IV ONE (03:00)
--- NOTE | 2018-10-05 03:06 | Emergency Department Report ---
ED Shortness of Breath HPI - General Stated Complaint: RESPIRATORY DISTRESS Time Seen by Provider: 10/05/18 02:48 - History of Present Illness Initial Comments: Patient is 57 years old female with history of emphysema and obstructive sleep apnea, noncompliant with her CPAP. Patient brought to the emergency room via EMS after patient was found to be in respiratory arrest with oxygen saturation of 60%. EMS started patient on BiPAP. Upon arrival to the ER patient with oxygen saturation in the 80s and patient looks fatigued and altered. I immediately decided to intubate the patient due to acute respiratory failure. Patient intubated by me using a glidoscope. MD Complaint: shortness of breath - Related Data Previous Rx's Medication Instructions Recorded Last Taken Type Amoxicillin/K Clav Tab [Augmentin 1 tab PO Q12HR 7 Days #14 tab 01/21/18 Unknown Rx 875 mg] Cetirizine HCl [ZyrTEC] 10 mg PO QDAY 14 Days #14 capsule 01/21/18 Unknown Rx Albuterol Sulfate [Proair 90 mcg IH Q4HR PRN #2 aer.pow.ba 02/14/18 Unknown Rx Respiclick] Benzonatate [Tessalon Perles] 100 mg PO Q8HR PRN #30 capsule 02/14/18 Unknown Rx Furosemide [Lasix] 20 mg PO QDAY #14 tablet 02/14/18 Unknown Rx Albuterol Sulfate [Proair 90 mcg IH Q4HR PRN #2 aer.pow.ba 10/05/18 Unknown Rx Respiclick] Aspirin [Aspirin BABY CHEW TAB] 81 mg PO QDAY #30 tab.chew 10/05/18 Unknown Rx Famotidine [Pepcid] 20 mg PO BID #30 tablet 10/05/18 Unknown Rx Ipratropium Quail [Atrovent Hfa] 12.9 gm IH Q4HR PRN #1 hfa.aer.ad 10/05/18 Unknown Rx predniSONE [Deltasone] 40 mg PO QDAY #8 tab 10/05/18 Unknown Rx Allergies Allergy/AdvReac Type Severity Reaction Status Date / Time laughing gas Allergy Unknown Uncoded 02/14/18 10:27 ED Review of Systems ROS: Stated complaint: RESPIRATORY DISTRESS Other details as noted in HPI Comment: Unobtainable due to pts medical conditions ED Past Medical Hx - Past Medical History Hx Hypertension: Yes Hx Heart Attack/AMI: Yes (10 yrs ago) Hx Psychiatric Treatment: Yes (bipolar, depression) Hx Asthma: Yes Hx COPD: Yes ( on oxygen and she still smokes) Additional medical history: hep C, PNA, cocaine abuse, mitral valve prolapse - Surgical History Additional Surgical History: hysterectomy, back surgery - Social History Smoking Status: Current Every Day Smoker Substance Use Type: None - Medications Home Medications: Home Medications Medication Instructions Recorded Confirmed Last Taken Type Amoxicillin/K Clav Tab [Augmentin 1 tab PO Q12HR 7 Days #14 tab 01/21/18 Unknown Rx 875 mg] Cetirizine HCl [ZyrTEC] 10 mg PO QDAY 14 Days #14 capsule 01/21/18 Unknown Rx Albuterol Sulfate [Proair 90 mcg IH Q4HR PRN #2 aer.pow.ba 02/14/18 Unknown Rx Respiclick] Benzonatate [Tessalon Perles] 100 mg PO Q8HR PRN #30 capsule 02/14/18 Unknown Rx Furosemide [Lasix] 20 mg PO QDAY #14 tablet 02/14/18 Unknown Rx Albuterol Sulfate [Proair 90 mcg IH Q4HR PRN #2 aer.pow.ba 10/05/18 Unknown Rx Respiclick] Aspirin [Aspirin BABY CHEW TAB] 81 mg PO QDAY #30 tab.chew 10/05/18 Unknown Rx Famotidine [Pepcid] 20 mg PO BID #30 tablet 10/05/18 Unknown Rx Ipratropium Quail [Atrovent Hfa] 12.9 gm IH Q4HR PRN #1 hfa.aer.ad 10/05/18 Unknown Rx predniSONE [Deltasone] 40 mg PO QDAY #8 tab 10/05/18 Unknown Rx ED Physical Exam - General General appearance: lethargic, obtunded, in distress (acute respiratory distress) - Head Head exam: Present: atraumatic, normocephalic, normal inspection - Eye Eye exam: Present: PERRL - ENT ENT exam: Present: normal exam, normal orophraynx, mucous membranes moist - Neck Neck exam: Present: normal inspection, full ROM. Absent: tenderness, meningismus, lymphadenopathy, thyromegaly - Respiratory Respiratory exam: Present: respiratory distress, wheezes, rhonchi, accessory muscle use, decreased breath sounds, prolonged expiratory. Absent: stridor - Cardiovascular Cardiovascular Exam: Present: tachycardia - GI/Abdominal GI/Abdominal exam: Present: soft, normal bowel sounds. Absent: distended, tenderness, guarding, rebound, rigid, organomegaly, mass, bruit, pulsatile mass - Extremities Exam Extremities exam: Present: normal inspection, full ROM, normal capillary refill - Back Exam Back exam: Present: normal inspection, full ROM. Absent: tenderness, CVA tenderness (R), CVA tenderness (L), muscle spasm, paraspinal tenderness, vertebral tenderness - Neurological Exam Neurological exam: Present: altered - Skin Skin exam: Present: warm, intact, normal color ED Course Vital Signs 10/05/18 10/05/18 10/05/18 02:34 03:05 04:00 Pulse Rate 95 H 78 Respiratory 32 H Rate Blood Pressure 124/52 109/52 O2 Sat by Pulse 88 93 100 Oximetry - Intubation Time Out Performed: Yes Sedative: Etomidate Paralytic: Succinylcholine Laryngoscope: fiberoptic video scope Size: 4 ET Tube Size: 7.5 Tube Secured Location: teeth Tube Placement Confirmation: visualized tube passing t, equal breath sounds bilat, no breath sounds over epi, confirmation by capnometr Patient Tolerated Procedure: well, no complications ED Medical Decision Making - Lab Data Result diagrams: 10/05/18 03:23 10/05/18 03:23 - EKG Data -: EKG Interpreted by Me EKG shows normal: sinus rhythm Rate: normal - Radiology Data Radiology results: report reviewed This x-ray showed Endotracheal tube in good placement - Medical Decision Making Patient is 57 years old female with history of emphysema and obstructive sleep apnea, noncompliant with her CPAP. Patient brought to the emergency room via EMS after patient was found to be in respiratory arrest with oxygen saturation of 60%. EMS started patient on BiPAP. Upon arrival to the ER patient with oxygen saturation in the 80s and patient looks fatigued and altered. I immediately decided to intubate the patient due to acute respiratory failure. Patient intubated by me using a glidoscope. I discussed the patient is Dr. Betty Kelly, Dr. Betty Kelly accepted the patient to be admitted to medical service for further management. Critical Care Time: Yes Critical care time in (mins) excluding proc time.: 30 Critical care attestation.: If time is entered above; I have spent that time in minutes in the direct care of this critically ill patient, excluding procedure time. ED Disposition Clinical Impression: Respiratory arrest, Acute and chronic respiratory failure, Sepsis Disposition: [id number] OP ADMIT IP TO THIS HOSP Is pt being admited?: Yes Condition: Stable
[2018-10-05] MEDS ORDERED: VERSED IV ONE (03:14)
[2018-10-05] MEDS ORDERED: NACL 0.9% 1000 ML 1,000 ML ONE ×5 (03:15→14:08)
[2018-10-05] MEDS ORDERED: DIPRIVAN 10 MG/ML 1,000 MG/100 ML BOTTLE IV ONE (03:15)
--- NOTE | 2018-10-05 03:21 | XRay Report ---
PROCEDURE: XR CHEST 1V AP TECHNIQUE: A portable upright view the chest was obtained and compared to the study of 10/04/2018 HISTORY: T tube placement COMPARISONS: 10/04/2018 FINDINGS: Since the previous study the patient has been intubated with the tip of the ET tube 3.7 cm above the soha. There is also an NG tube coursing well into the stomach. The heart size is normal. The lungs are hyperinflated with interstitial changes. There are no localized infiltrates or effusions. The ske letal structures do not show any acute changes. IMPRESSION: Satisfactory intubation and placement of NG tube. Hyperinflation with bilateral interstitial changes. No acute infiltrates or effusions.. This document is electronically signed by Mihai Corona MD., October 05 2018 03:19:36 AM ET
[2018-10-05 03:38] LABS: Hematocrit 43.3 % (30.3-42.9); Hemoglobin 14.5 gm/dl (10.1-14.3); Mean Corpuscular HGB Conc 34 % (30-34); Mean Corpuscular Volume 98 fl (79-97); Platelet Count 213 K/mm3 (140-440); Red Blood Count 4.43 M/mm3 (3.65-5.03); Red Cell Distribution Width 14.1 % (13.2-15.2)
[2018-10-05 04:02] LABS: BUN/Creatinine Ratio 16; Blood Urea Nitrogen 14 mg/dL (7-17); Hemolysis Index 35
[2018-10-05] MEDS ORDERED: NACL 0.9% 1000 ML IV ONE (04:02)
[2018-10-05] MEDS ORDERED: ZOSYN/NS 3.375GM/50ML 3.375 GM/50 ML BAG IV ONE (04:04)
[2018-10-05 04:28] LABS: Eosinophils % (Manual) 0 % (0.0-4.3); Large Platelets Few; Platelet Estimate Consistent w Auto; RBC Morphology Normal; Total Cells Counted 100
[2018-10-05] MEDS ORDERED: AMIDATE IV ONE (05:00)
[2018-10-05] MEDS ORDERED: DIPRIVAN 10 MG/ML 1,000 MG/100 ML BOTTLE IV SCH (05:00)
[2018-10-05] MEDS ORDERED: QUELICIN ONE (05:00)
[2018-10-05] MEDS ORDERED: SODIUM CHLORIDE FLUSH SYRINGE 10 ML IV PRN (05:16)
[2018-10-05] MEDS ORDERED: ZOFRAN IV PRN (05:16)
[2018-10-05] MEDS ORDERED: TYLENOL PO PRN (05:16)
--- NOTE | 2018-10-05 05:19 | History and Physical Report ---
History of Present Illness Date of examination: 10/05/18 History of present illness: History was obtained from the chart. 57 -year-old woman with a history of COPD on home oxygen, hep C, mitral valve prolapse, bipolar was seen in the emergency room last night and was treated for COPD and discharged from the hospital. Lori fernandez went to check on her and found her in respiratory distress, EMS was called, she was placed on BiPAP and brought to the emergency room where she was intubated. History and review of system unobtainable, patient was given steroids, nebulizer treatments PAST MEDICAL HISTORY:COPD on home oxygen, hep C, mitral valve prolapse, bipolar PAST SURGICAL HISTORY: Unknown SOCIAL HISTORY: Unknown FAMILY HISTORY: Unknown Medications and Allergies Allergies Allergy/AdvReac Type Severity Reaction Status Date / Time laughing gas Allergy Unknown Uncoded 02/14/18 10:27 Home Medications Medication Instructions Recorded Confirmed Last Taken Type Cetirizine HCl [ZyrTEC] 10 mg PO QDAY 14 Days #14 capsule 01/21/18 10/11/18 Unknown Rx Albuterol Sulfate [Proair 90 mcg IH Q4HR PRN #2 aer.pow.ba 02/14/18 10/11/18 Unknown Rx Respiclick] Benzonatate [Tessalon Perles] 100 mg PO Q8HR PRN #30 capsule 02/14/18 10/11/18 Unknown Rx Aspirin [Aspirin BABY CHEW TAB] 81 mg PO QDAY #30 tab.chew 10/05/18 10/11/18 Unknown Rx Cymbalta 60 mg PO DAILY 10/05/18 10/11/18 Unknown History Albuterol 0.63% NEBS 3 ml INHALATION Q4H PRN 10/11/18 10/11/18 Unknown History Amlodipine Besylate 10 mg PO DAILY 10/11/18 10/11/18 Unknown History Metoprolol Tartrate 100 mg PO DAILY 10/11/18 10/11/18 Unknown History Protonix 40 mg PO DAILY 10/11/18 10/11/18 Unknown History SEROquel XR 50 mg PO DAILY 10/11/18 10/11/18 Unknown History Sucralfate [Carafate] 1 gm PO QID 10/11/18 10/11/18 Unknown History Active Meds: Active Medications Acetaminophen (Tylenol) 650 mg PO Q4H PRN PRN Reason: Pain MILD(1-3)/Fever >100.5/MIMS Albuterol/Ipratropium (Duoneb *Not For Prn Use*) 1 ampul IH Q6HRT [facility] Enoxaparin Sodium (Lovenox) 30 mg SUB-Q QDAY [facility] Fentanyl (Sublimaze) 50 mcg IV Q10MIN PRN PRN Reason: ANALGESIA Hydrophilic Ointment (Vaseline Lip Therapy) 1 applic TP Q2HR PRN PRN Reason: Dry Lips Fentanyl Citrate (Fentanyl Drip Premix) 2,000 mcg in 100 mls @ 4.035 mls/hr IV TITR [facility]; Protocol Last Titration: 10/05/18 03:25 Dose: 3 mcg/kg/hr, 12.105 mls/hr Documented by: Propofol (Diprivan 10 Mg/Ml) 1,000 mg in 100 mls @ 2.421 mls/hr IV TITR [facility]; Protocol Last Admin: 10/05/18 03:00 Dose: 5 mcg/kg/min, 2.421 mls/hr Documented by: Multi-Ingred Cream/Lotion/Oil/Oint (Artificial Tears Ophth Oint) 1 applic OU Q4HR PRN PRN Reason: Dry Eye(s) Ondansetron HCl (Zofran) 4 mg IV Q8H PRN PRN Reason: Nausea And Vomiting Sodium Chloride (Sodium Chloride Flush Syringe 10 Ml) 10 ml IV BID [facility] Sodium Chloride (Sodium Chloride Flush Syringe 10 Ml) 10 ml IV PRN PRN PRN Reason: LINE FLUSH Exam - Physical Exam Narrative exam: General Apperance: The patient lying in bed, breathing comfortable, intubated HEENT: Normocephalic, atraumatic. Pupils equally round and reactive to light, unable to do EOM, no sclericterus or JVD or thyromegaly or nodule. , no carotid bruit, mucous membranes moist, unable to examine oral cavity, ET tube in place Heart: S1-S2, regular is rhythm Lungs: Wheezing bilaterally, breathing comfortable Abdomen: Positive bowel sounds, soft, nondistended, no organomegaly Extremities: No edema cyanosis clubbing Skin: no rash, nodule, warm and dry Neuro: Sedated - Constitutional Vitals: Temp Pulse Resp BP Pulse Ox 97.6 F 76 20 109/52 100 10/05/18 03:00 10/05/18 04:00 10/05/18 04:00 10/05/18 04:00 10/05/18 04:00 Results - Labs CBC & Chem 7: 10/14/18 06:25 10/14/18 06:25 Labs: Abnormal lab results 10/05/18 10/05/18 10/05/18 Range/Units 03:23 03:23 03:23 Hgb 14.5 H (10.1-14.3) gm/dl Hct 43.3 H (30.3-42.9) % MCV 98 H (79-97) fl MCH 33 H (28-32) pg Seg Neuts % (Manual) 96.0 H (40.0-70.0) % Lymphocytes % (Manual) 2.0 L (13.4-35.0) % Seg Neutrophils # Man 8.3 H (1.8-7.7) K/mm3 Lymphocytes # (Manual) 0.2 L (1.2-5.4) K/mm3 POC ABG pH (7.35-7.45) POC ABG pO2 (80-105) Chloride 107.9 H (98-107) mmol/L Carbon Dioxide 20 L (22-30) mmol/L Glucose 157 H (65-100) mg/dL Lactic Acid 3.30 H* (0.7-2.0) mmol/L Calcium 8.0 L (8.4-10.2) mg/dL 10/05/18 Range/Units 04:21 Hgb (10.1-14.3) gm/dl Hct (30.3-42.9) % MCV (79-97) fl MCH (28-32) pg Seg Neuts % (Manual) (40.0-70.0) % Lymphocytes % (Manual) (13.4-35.0) % Seg Neutrophils # Man (1.8-7.7) K/mm3 Lymphocytes # (Manual) (1.2-5.4) K/mm3 POC ABG pH 7.096 L (7.35-7.45) POC ABG pO2 166 H (80-105) Chloride (98-107) mmol/L Carbon Dioxide (22-30) mmol/L Glucose (65-100) mg/dL Lactic Acid (0.7-2.0) mmol/L Calcium (8.4-10.2) mg/dL - Imaging and Cardiology EKG: image reviewed Chest x-ray: report reviewed Assessment and Plan Assessment Acute respiratory failure COPD exacerbation Bipolar History of mitral valve prolapse, hepatitis C Plan Admit to medicine Start high-dose steroids, nebulizer treatments Continue sedation, consult critical care DVT prophylaxis Patient was given Zosyn in the ER for elevated lactic acid, no sign of infection hold further antibiotic
[2018-10-05 05:28] LABS: Bilirubin,Urine NEG (Negative); Blood,Urine SM (Negative); Color,Urine Yellow (Yellow); Hyaline Casts,Urine 16 /LPF; Mucus,Urine 1+ /HPF; Urobilinogen,Urine < 2.0 mg/dL (<2.0); White Blood Cell Casts,Urine 3 /LPF
[2018-10-05] MEDS ORDERED: SOLU-Medrol IV SCH (06:00)
[2018-10-05] MEDS: DUONEB *Not for PRN Use IH SCH ×3 (07:42→19:33)
[2018-10-05] MEDS ORDERED: LOVENOX SUB-Q ONE (09:23)
[2018-10-05] MEDS ORDERED: PEPCID IV ONE (09:23)
[2018-10-05] MEDS: SODIUM CHLORIDE FLUSH SYRINGE 10 ML IV SCH ×2 (09:35→21:09)
[2018-10-05] MEDS: PEPCID IV SCH ×2 (09:35→21:07)
[2018-10-05] MEDS: LOVENOX SUB-Q SCH (09:35)
[2018-10-05] MEDS ORDERED: LOVENOX SUB-Q SCH (10:00)
--- NOTE | 2018-10-05 10:33 | Consultation ---
History of Present Illness Consult date: 10/05/18 Requesting physician: RULA SMILEY Reason for consult: COPD, other (acute hypoxemic resp failure) History of present illness: History was obtained from the medical records. She is orally intubated and sedated at this time. 57 -year-old woman with a history of COPD on home oxygen, hep C, mitral valve prolapse, bipolar was seen in the emergency room last night and was treated for COPD and discharged from the hospital. Family went to check on her and found her in respiratory distress, EMS was called, she was placed on BiPAP and brought to the emergency room where she was intubated. History and review of system unobtainable, patient was given steroids, nebulizer treatments. She has been admitted to the ICU, and I have been consulted for critical care and ventilator management. Patient was seen and examined. Vitals, labs, medications, chart and imaging were reviewed. PAST MEDICAL HISTORY: COPD on home oxygen, hep C, mitral valve prolapse, bipolar PAST SURGICAL HISTORY: Unknown SOCIAL HISTORY: Unknown FAMILY HISTORY: Unknown Medications and Allergies Allergies Allergy/AdvReac Type Severity Reaction Status Date / Time laughing gas Allergy Unknown Uncoded 02/14/18 10:27 Home Medications Medication Instructions Recorded Confirmed Last Taken Type Cetirizine HCl [ZyrTEC] 10 mg PO QDAY 14 Days #14 capsule 01/21/18 10/11/18 Unknown Rx Albuterol Sulfate [Proair 90 mcg IH Q4HR PRN #2 aer.pow.ba 02/14/18 10/11/18 Unknown Rx Respiclick] Benzonatate [Tessalon Perles] 100 mg PO Q8HR PRN #30 capsule 02/14/18 10/11/18 Unknown Rx Aspirin [Aspirin BABY CHEW TAB] 81 mg PO QDAY #30 tab.chew 10/05/18 10/11/18 Unknown Rx Cymbalta 60 mg PO DAILY 10/05/18 10/11/18 Unknown History Albuterol 0.63% NEBS 3 ml INHALATION Q4H PRN 10/11/18 10/11/18 Unknown History Amlodipine Besylate 10 mg PO DAILY 10/11/18 10/11/18 Unknown History Metoprolol Tartrate 100 mg PO DAILY 10/11/18 10/11/18 Unknown History Protonix 40 mg PO DAILY 10/11/18 10/11/18 Unknown History SEROquel XR 50 mg PO DAILY 10/11/18 10/11/18 Unknown History Sucralfate [Carafate] 1 gm PO QID 10/11/18 10/11/18 Unknown History Active Meds: Active Medications Acetaminophen (Tylenol) 650 mg PO Q4H PRN PRN Reason: Pain MILD(1-3)/Fever >100.5/MIMS Albuterol/Ipratropium (Duoneb *Not For Prn Use*) 1 ampul IH Q6HRT [facility] Last Admin: 10/05/18 07:42 Dose: 1 ampul Documented by: Enoxaparin Sodium (Lovenox) 40 mg SUB-Q QDAY@1000 [facility] Last Admin: 10/05/18 09:35 Dose: 40 mg Documented by: Famotidine (Pepcid) 20 mg IV BID [facility] Last Admin: 10/05/18 09:35 Dose: 20 mg Documented by: Fentanyl (Sublimaze) 50 mcg IV Q10MIN PRN PRN Reason: ANALGESIA Hydrophilic Ointment (Vaseline Lip Therapy) 1 applic TP Q2HR PRN PRN Reason: Dry Lips Fentanyl Citrate (Fentanyl Drip Premix) 2,000 mcg in 100 mls @ 4.035 mls/hr IV TITR [facility]; Protocol Last Titration: 10/05/18 03:25 Dose: 4 mcg/kg/hr, 16.14 mls/hr Documented by: Propofol (Diprivan 10 Mg/Ml) 1,000 mg in 100 mls @ 2.421 mls/hr IV TITR [facility]; Protocol Last Titration: 10/05/18 08:06 Dose: 2.5 mcg/kg/min, 1.211 mls/hr Documented by: Methylprednisolone Sodium Succinate (Solu-Medrol) 125 mg IV Q6H [facility] Last Admin: 10/05/18 07:20 Dose: 125 mg Documented by: Multi-Ingred Cream/Lotion/Oil/Oint (Artificial Tears Ophth Oint) 1 applic OU Q4HR PRN PRN Reason: Dry Eye(s) Ondansetron HCl (Zofran) 4 mg IV Q8H PRN PRN Reason: Nausea And Vomiting Sodium Chloride (Sodium Chloride Flush Syringe 10 Ml) 10 ml IV BID [facility] Last Admin: 10/05/18 09:35 Dose: 10 ml Documented by: Sodium Chloride (Sodium Chloride Flush Syringe 10 Ml) 10 ml IV PRN PRN PRN Reason: LINE FLUSH Review of Systems ROS unobtainable: due to endotracheal tube, due to mental status Physical Examination Vital signs: Vital Signs Pulse Ox 88 10/05/18 02:34 Constitutional: no acute distress, other (elderly looking AAF, normocephalic and with mildly increased resp effort at rest) Eyes: non-icteric ENT: oropharynx moist, other (ETT 23 cm JOHNNY) Neck: supple, no lymphadenopathy, no JVD, other (no thyromegaly) Effort: mildly labored Ascultation: Bilateral: diminished breath sounds, rhonchi, other (prolonged exp phase) Percussion: Bilateral: not dull Cardiovascular: regular rate and rhythm Gastrointestinal: normoactive bowel sounds, soft, non-tender, non-distended Integumentary: normal Extremities: no cyanosis, no edema, pulses normal, no ischemia or petechiae Neurologic: non-focal exam (grossly), pupils equal and round, motor strength normal and Psychiatric: other (sedated) Results - Laboratory Findings CBC and BMP: 10/14/18 06:25 10/14/18 06:25 ABG POC ABG pH 7.241 (7.35-7.45) L 10/05/18 06:39 POC ABG pCO2 45.2 (35-45) H 10/05/18 06:39 POC ABG pO2 57 (80-105) L 10/05/18 06:39 POC ABG HCO3 19.4 (22-26 mml/L) 10/05/18 06:39 POC ABG Total CO2 21 (23-27mmol/L) 10/05/18 06:39 POC ABG O2 Sat 84 10/05/18 06:39 Abnormal lab findings: Abnormal Labs 10/05/18 10/05/18 10/05/18 03:23 03:23 03:23 Hgb 14.5 H Hct 43.3 H MCV 98 H MCH 33 H Seg Neuts % (Manual) 96.0 H Lymphocytes % (Manual) 2.0 L Seg Neutrophils # Man 8.3 H Lymphocytes # (Manual) 0.2 L POC ABG pH POC ABG pCO2 POC ABG pO2 Chloride 107.9 H Carbon Dioxide 20 L Glucose 157 H Lactic Acid 3.30 H* Calcium 8.0 L Ur Specific [place] 10/05/18 10/05/18 10/05/18 03:47 04:21 06:10 Hgb Hct MCV MCH Seg Neuts % (Manual) Lymphocytes % (Manual) Seg Neutrophils # Man Lymphocytes # (Manual) POC ABG pH 7.096 L POC ABG pCO2 POC ABG pO2 166 H Chloride Carbon Dioxide Glucose Lactic Acid 2.60 H* Calcium Ur Specific [place] 1.031 H 10/05/18 10/05/18 06:39 07:09 Hgb Hct MCV MCH Seg Neuts % (Manual) Lymphocytes % (Manual) Seg Neutrophils # Man Lymphocytes # (Manual) POC ABG pH 7.241 L POC ABG pCO2 45.2 H POC ABG pO2 57 L Chloride Carbon Dioxide Glucose Lactic Acid 2.80 H* Calcium Ur Specific [place] - Diagnostic Findings Chest x-ray: image reviewed Assessment and Plan Acute Hypoxic Respiratory failure Polysubstance abuse, Cocaine and Benzos Pulmonary Edema Acute Toxic metabolic Encephalopathy ?secondary to drug abuse or other etiology Metabolic Acidosis Leukocytosis Vasogenic shock Bradycardia Hyperkalemia COPD- with acute exacerbatione Active Smoker Hepatitis C Bipolar disorder Atrial Fibrillation by hx Anxiety- and on Valium per family - continue MVS -Daily SAT and assessment for readiness for liberation from MVS trials -VAP bundle addressed - continue bronchodilators with pulmonary hygiene per RT - discontinue kwon - empiric antibiotics, follow up cultures, de-escalate based on JULIANNE and ID - get 2D ECHO - monitor for benzodiazepine withdrawal - Enteric nutrition -Analgesia and agitation management -VTE prophylaxis -Stress ulcer prophylaxis -Volume resuscitate, the patient continues to have metabolic acidosis with a large base deficit -Mobility for pressure ulcer prevention - Counselling on Drug abuse when more awake - smoking cessation counselling when liberated from MVS -Lung protective strategies -ABG and CXR in am -Accuchecks with glycemic control. Target blood glucose 140-180 mg/dL - flu & pneumovax per protocol .... care plan discussed at length with daughter and RN by bedside CONDITION: CRITICAL PROGNOSIS: GUARDED CODE STATUS: FULL The high probability of a clinically significant, sudden or life threatening deterioration of the [pulmonary, neurology] system(s) required my full and direct attention, intervention and personal management. The aggregate critical care time was [35] minutes. This time is in addition to time spent performing reported procedures but includes the following: [x] Data Review and interpretation [x] Patient assessment and monitoring of vital signs [x] Documentation [x] Medication orders and management
[2018-10-05] MEDS ORDERED: NACL 0.9% 250ML 250 ML IV SCH (11:00)
[2018-10-05] MEDS ORDERED: LEVAQUIN 750MG/150ML 750 MG/150 ML BAG IV SCH (11:00)
[2018-10-05] MEDS: SOLU-Medrol IV SCH ×2 (12:06→17:07)
--- NOTE | 2018-10-05 12:21 | XRay Report ---
AP ABDOMEN: HISTORY: Dobbhoff tube placement. The Dobbhoff tube is coiled in the proximal stomach with its tip in the gastric cardia. The abdominal gas pattern is unremarkable. No masses or organomegaly is identified and there is no gross evidence of free air or fluid. No significant soft tissue calcifications are noted. IMPRESSION: Unremarkable abdomen. Feeding tube as described.
[2018-10-05 13:02] LABS: Bacteria,Urine 1+ /HPF (Negative); Bilirubin,Urine NEG (Negative); Blood,Urine SM (Negative); Color,Urine Yellow (Yellow); Granular Casts,Urine 4 /LPF; Hyaline Casts,Urine 6 /LPF; Mucus,Urine 2+ /HPF; Urobilinogen,Urine < 2.0 mg/dL (<2.0)
[2018-10-05] MEDS ORDERED: PANCREAZE DR 10,500 UNIT FEEDTUBE PRN (13:59)
[2018-10-05] MEDS ORDERED: SODIUM BICARBONATE FEEDTUBE PRN (13:59)
[2018-10-05] MEDS ORDERED: SIMPLE SYRUP FEEDTUBE PRN ×2 (13:59)
[2018-10-05 14:29] LABS: Amphetamine Screen,Urine PRESUMPTIVE NEGATIVE; Cannabinoid Screen,Urine PRESUMPTIVE NEGATIVE; Methadone Screen,Urine PRESUMPTIVE NEGATIVE; Opiate Screen,Urine PRESUMPTIVE NEGATIVE
[2018-10-05 14:56] LABS: Benzodiazepines Screen,Urine PRESUMPTIVE POSITIVE; Cocaine Screen,Urine PRESUMPTIVE POSITIVE
[2018-10-05] MEDS ORDERED: NACL 0.9% 250ML 250 ML IV ONE (18:43)
[2018-10-05] MEDS ORDERED: NACL 0.9% 500 ML 500 ML IV ONE (19:46)
[2018-10-05] MEDS: ROCEPHIN/NS 1 GM/50 ML 1 GM/50 ML BAG IV SCH (21:10)
[2018-10-05] MEDS: ZITHROMAX 500 MG in NACL 0.9% 250ML 250 ML IV SCH (22:30)
[2018-10-06] MEDS: SOLU-Medrol IV SCH ×4 (00:22→20:52)
[2018-10-06] MEDS ORDERED: NACL 0.9% 1000 ML 1,000 ML IV SCH (01:00)
[2018-10-06] MEDS: DUONEB *Not for PRN Use IH SCH ×4 (02:00→19:54)
--- NOTE | 2018-10-06 03:48 | XRay Report ---
PROCEDURE: XR CHEST 1V AP TECHNIQUE: Chest radiograph single view. HISTORY: follow up respiratory failure COMPARISONS: 10/05/2018 . FINDINGS: Heart: The heart is enlarged. Mediastinum/Vessels: Normal. Lungs/Pleural space: There is bilateral perihilar pulmonary edema. There are no effusions or pneumot horaces.. Bony thorax: No acute osseous abnormality. Life support devices: Endotracheal tube is in the mid trachea. NG tube is in the stomach.. IMPRESSION: The heart is enlarged. There is bilateral perihilar pulmonary edema. There are no effusions or pneumothoraces.. Endotracheal tube is in the mid trachea. NG tube is in the stomach... This document is electronically signed by Ryne Betancourt MD., October 06 2018 03:46:27 AM ET
[2018-10-06 04:37] LABS: Hematocrit 39.9 % (30.3-42.9); Hemoglobin 12.9 gm/dl (10.1-14.3); Mean Corpuscular HGB Conc 32 % (30-34); Mean Corpuscular Volume 99 fl (79-97); Platelet Count 172 K/mm3 (140-440); Red Blood Count 4.03 M/mm3 (3.65-5.03); Red Cell Distribution Width 14.9 % (13.2-15.2)
[2018-10-06 05:07] LABS: Alanine Aminotransferase 20 units/L (7-56); Albumin 2.7 g/dL (3.9-5); BUN/Creatinine Ratio 16; Blood Urea Nitrogen 14 mg/dL (7-17); Calcium 7.8 mg/dL (8.4-10.2); Hemolysis Index 34
[2018-10-06] MEDS: fentaNYL DRIP Premix 2,000 MCG/100 ML BAG IV SCH ×2 (06:55→20:47)
[2018-10-06] MEDS: DIPRIVAN 10 MG/ML 1,000 MG/100 ML BOTTLE IV SCH ×2 (08:22→22:09)
--- NOTE | 2018-10-06 09:18 | Progress Note ---
Assessment and Plan Assessment and plan: 57 -year-old woman with a history of COPD on home oxygen, hep C, mitral valve prolapse, bipolar was seen in the emergency room last night and was treated for COPD and discharged from the hospital. Family went to check on her and found her in respiratory distress, EMS was called, she was placed on BiPAP and brought to the emergency room where she was intubated. History and review of system unobtainable, patient was given steroids, nebulizer treatments CXR: IMPRESSION: The heart is enlarged. There is bilateral perihilar pulmonary edema. There are no effusions or pneumothoraces.. Endotracheal tube is in the mid trachea. NG tube is in the stomach. Acute Hypoxic Respiratory failure Polysubstance abuse, Cocain and Benzos Pulmonary Edema Acute Toxic metabolic Encephalopathy ?secondary to drug abuse or other etiology Metabolic Acidosis Leukocytosis ?Aspiration- Per nursing staff, patient yesterday had some emesis and coughing prompting increase in sedation. Non so far since then Vasogenic shock Bradycardia Hyperkalemia COPD- with acute exacerbation. (Per Daughter) Active Smoker Hepatitis C Bipolar disorder Atrial Fibrillation by hx Anxiety- and on Valium per family Rollers still in Hair Per daughter patient just got large some of money and has a side of mouth burned likely from crack cocaine. She leaves with a roommate friend at home and is supposed to be on home oxygen due to emphysema but is not complaint. Plan: Continue ICU care Continue empiric abx, although imaging studies pulmonary edema, not sure if underlying PNA, although doubt VAP bundle and Aspiration precautions Sodium Bicarb given, monitor labs Dairy Feed Sales Consultant input Counselling on Drug abuse when more awake Check ECHO Give Kayxalate Continue Restraints for patient safety Will consult cardiology if condition is not improving Will obtain record from [place] The high probability of a clinically significant, sudden or life threatening deterioration of the [pulmonary, neurol] system(s) required my full and direct attention, intervention and personal management. The aggregate critical care time was [35] minutes. This time is in addition to time spent performing reported procedures but includes the following: [x] Data Review and interpretation [x] Patient assessment and monitoring of vital signs [x] Documentation [x] Medication orders and management History Interval history: Patient seen and examined, remains on mechanical ventilation. no other acute event reported Hospitalist Physical - Physical exam Narrative exam: VITAL SIGNS: Reviewed. GENERAL: The patient appeared well nourished and normally developed, on full mechanical ventilatory support Vital signs as documented. HEAD: No signs of head trauma. EYES: Pupils are equal. EARS: Hearing grossly intact. MOUTH: ET tube in place NECK: No adenopathy, no JVD. CHEST: Chest with bronchiovesicular breathsounds bilaterally. No wheezes, rales, or rhonchi. CARDIAC: Regular rate and rhythm. S1 and S2, without murmurs, gallops, or rubs. VASCULAR: No Edema. Peripheral pulses normal and equal in all extremities. ABDOMEN: Soft, non tender and non distended. No rebound or guarding, and no masses palpated. Bowel Sounds normal. MUSCULOSKELETAL: Extremities without clubbing, cyanosis or edema. NEUROLOGIC EXAM: sedated PSYCHIATRIC: sedated SKIN: oral lesion, burn appearance - Constitutional Vitals: Temp Pulse Resp BP Pulse Ox 98.4 F 57 L 30 H 97/45 92 10/06/18 08:00 10/06/18 08:30 10/06/18 08:30 10/06/18 08:30 10/06/18 08:30 Results - Labs CBC & Chem 7: 10/07/18 04:44 10/07/18 04:44 Labs: Laboratory Last Values WBC 14.0 K/mm3 (4.5-11.0) H 10/06/18 04:11 RBC 4.03 M/mm3 (3.65-5.03) 10/06/18 04:11 Hgb 12.9 gm/dl (10.1-14.3) 10/06/18 04:11 Hct 39.9 % (30.3-42.9) 10/06/18 04:11 MCV 99 fl (79-97) H 10/06/18 04:11 MCH 32 pg (28-32) 10/06/18 04:11 MCHC 32 % (30-34) 10/06/18 04:11 RDW 14.9 % (13.2-15.2) 10/06/18 04:11 Plt Count 172 K/mm3 (140-440) 10/06/18 04:11 Add Manual Diff Complete 10/05/18 03:23 Total Counted 100 10/05/18 03:23 Seg Neutrophils % Nuclear Logging Engineer 10/05/18 03:23 Seg Neuts % (Manual) 96.0 % (40.0-70.0) H 10/05/18 03:23 Band Neutrophils % 0 % 10/05/18 03:23 Lymphocytes % (Manual) 2.0 % (13.4-35.0) L 10/05/18 03:23 Reactive Lymphs % (Man) 0 % 10/05/18 03:23 Monocytes % (Manual) 1.0 % (0.0-7.3) 10/05/18 03:23 Eosinophils % (Manual) 0 % (0.0-4.3) 10/05/18 03:23 Basophils % (Manual) 1.0 % (0.0-1.8) 10/05/18 03:23 Metamyelocytes % 0 % 10/05/18 03:23 Myelocytes % 0 % 10/05/18 03:23 Promyelocytes % 0 % 10/05/18 03:23 Blast Cells % 0 % 10/05/18 03:23 Nucleated RBC % Not Reportable 10/05/18 03:23 Seg Neutrophils # Man 8.3 K/mm3 (1.8-7.7) H 10/05/18 03:23 Band Neutrophils # 0.0 K/mm3 10/05/18 03:23 Lymphocytes # (Manual) 0.2 K/mm3 (1.2-5.4) L 10/05/18 03:23 Abs React Lymphs (Man) 0.0 K/mm3 10/05/18 03:23 Monocytes # (Manual) 0.1 K/mm3 (0.0-0.8) 10/05/18 03:23 Eosinophils # (Manual) 0.0 K/mm3 (0.0-0.4) 10/05/18 03:23 Basophils # (Manual) 0.1 K/mm3 (0.0-0.1) 10/05/18 03:23 Metamyelocytes # 0.0 K/mm3 10/05/18 03:23 Myelocytes # 0.0 K/mm3 10/05/18 03:23 Promyelocytes # 0.0 K/mm3 10/05/18 03:23 Blast Cells # 0.0 K/mm3 10/05/18 03:23 WBC Morphology Not Reportable 10/05/18 03:23 Hypersegmented Neuts Not Reportable 10/05/18 03:23 Hyposegmented Neuts Not Reportable 10/05/18 03:23 Hypogranular Neuts Not Reportable 10/05/18 03:23 Smudge Cells Not Reportable 10/05/18 03:23 Toxic Granulation Not Reportable 10/05/18 03:23 Toxic Vacuolation Not Reportable 10/05/18 03:23 Dohle Bodies Not Reportable 10/05/18 03:23 Pelger-Huet Anomaly Not Reportable 10/05/18 03:23 Amanda Rods Not Reportable 10/05/18 03:23 Platelet Estimate Consistent w auto 10/05/18 03:23 Clumped Platelets Not Reportable 10/05/18 03:23 Plt Clumps, EDTA Not Reportable 10/05/18 03:23 Large Platelets Few 10/05/18 03:23 Giant Platelets Not Reportable 10/05/18 03:23 Platelet Satelliting Not Reportable 10/05/18 03:23 Plt Morphology Comment Not Reportable 10/05/18 03:23 RBC Morphology Normal 10/05/18 03:23 Dimorphic RBCs Not Reportable 10/05/18 03:23 Polychromasia Not Reportable 10/05/18 03:23 Hypochromasia Not Reportable 10/05/18 03:23 Poikilocytosis Not Reportable 10/05/18 03:23 Anisocytosis Not Reportable 10/05/18 03:23 Microcytosis Not Reportable 10/05/18 03:23 Macrocytosis Not Reportable 10/05/18 03:23 Spherocytes Not Reportable 10/05/18 03:23 Pappenheimer Bodies Not Reportable 10/05/18 03:23 Sickle Cells Not Reportable 10/05/18 03:23 Target Cells Not Reportable 10/05/18 03:23 Tear Drop Cells Not Reportable 10/05/18 03:23 Ovalocytes Not Reportable 10/05/18 03:23 Helmet Cells Not Reportable 10/05/18 03:23 [place] Bodies Not Reportable 10/05/18 03:23 [place] Rings Not Reportable 10/05/18 03:23 Doug Cells Not Reportable 10/05/18 03:23 Bite Cells Not Reportable 10/05/18 03:23 Crenated Cell Not Reportable 10/05/18 03:23 Elliptocytes Not Reportable 10/05/18 03:23 Acanthocytes (Spur) Not Reportable 10/05/18 03:23 Rouleaux Not Reportable 10/05/18 03:23 Hemoglobin C Crystals Not Reportable 10/05/18 03:23 Schistocytes Not Reportable 10/05/18 03:23 Malaria parasites Not Reportable 10/05/18 03:23 Polo Bodies Not Reportable 10/05/18 03:23 Hem Pathologist Commnt No 10/05/18 03:23 POC ABG pH 7.270 (7.35-7.45) L 10/06/18 04:18 POC ABG pCO2 42.3 (35-45) 10/06/18 04:18 POC ABG pO2 67 (80-105) L 10/06/18 04:18 POC ABG HCO3 19.4 (22-26 mml/L) 10/06/18 04:18 POC ABG Total CO2 21 (23-27mmol/L) 10/06/18 04:18 POC ABG O2 Sat 90 10/06/18 04:18 POC ABG Base Excess -7 ((-2) - (+3)mmol/L) 10/06/18 04:18 FiO2 50 % 10/06/18 04:18 Sodium 142 mmol/L (137-145) 10/06/18 04:11 Potassium 5.2 mmol/L (3.6-5.0) H D 10/06/18 04:11 Chloride 116.1 mmol/L (98-107) H 10/06/18 04:11 Carbon Dioxide 17 mmol/L (22-30) L 10/06/18 04:11 Anion Gap 14 mmol/L 10/06/18 04:11 BUN 14 mg/dL (7-17) 10/06/18 04:11 Creatinine 0.9 mg/dL (0.7-1.2) 10/06/18 04:11 Estimated GFR > 60 ml/min 10/06/18 04:11 BUN/Creatinine Ratio 16 % 10/06/18 04:11 Glucose 132 mg/dL (65-100) H 10/06/18 04:11 Lactic Acid 2.80 mmol/L (0.7-2.0) H* 10/05/18 07:09 Calcium 7.8 mg/dL (8.4-10.2) L 10/06/18 04:11 Total Bilirubin < 0.20 mg/dL (0.1-1.2) 10/06/18 04:11 AST 15 units/L (5-40) 10/06/18 04:11 ALT 20 units/L (7-56) 10/06/18 04:11 Alkaline Phosphatase 59 units/L (35-129) 10/06/18 04:11 Troponin T < 0.010 ng/mL (0.00-0.029) 10/05/18 06:10 Total Protein 6.4 g/dL (6.3-8.2) 10/06/18 04:11 Albumin 2.7 g/dL (3.9-5) L 10/06/18 04:11 Albumin/Globulin Ratio 0.7 % 10/06/18 04:11 Urine Color Yellow (Yellow) 10/05/18 12:42 Urine Turbidity Clear (Clear) 10/05/18 12:42 Urine pH 5.0 (5.0-7.0) 10/05/18 12:42 Ur Specific [place] 1.035 (1.003-1.030) H 10/05/18 12:42 Urine Protein 100 mg/dl mg/dL (Negative) 10/05/18 12:42 Urine Glucose (UA) 50 mg/dL (Negative) 10/05/18 12:42 Urine Ketones Neg mg/dL (Negative) 10/05/18 12:42 Urine Blood Sm (Negative) 10/05/18 12:42 Urine Nitrite Neg (Negative) 10/05/18 12:42 Urine Bilirubin Neg (Negative) 10/05/18 12:42 Urine Urobilinogen < 2.0 mg/dL (<2.0) 10/05/18 12:42 Ur Leukocyte Esterase Neg (Negative) 10/05/18 12:42 Urine WBC (Auto) 3.0 /HPF (0.0-6.0) 10/05/18 12:42 Urine RBC (Auto) 11.0 /HPF (0.0-6.0) 10/05/18 12:42 U Epithel Cells (Auto) 1.0 /HPF (0-13.0) 10/05/18 12:42 Urine Bacteria (Auto) 1+ /HPF (Negative) 10/05/18 12:42 Hyaline Casts 6 /LPF 10/05/18 12:42 Granular Casts 4 /LPF 10/05/18 12:42 WBC Casts 3 /LPF 10/05/18 03:47 Urine Mucus 2+ /HPF 10/05/18 12:42 Urine Opiates Screen Presumptive negative 10/05/18 12:42 Urine Methadone Screen Presumptive negative 10/05/18 12:42 Ur Barbiturates Screen Presumptive negative 10/05/18 12:42 Ur Phencyclidine Scrn Presumptive negative 10/05/18 12:42 Ur Amphetamines Screen Presumptive negative 10/05/18 12:42 U Benzodiazepines Scrn Presumptive positive 10/05/18 12:42 Urine Cocaine Screen Presumptive positive 10/05/18 12:42 U Marijuana (THC) Screen Presumptive negative 10/05/18 12:42 Drugs of Abuse Note Disclamer 10/05/18 12:42 Blood Type B POSITIVE 10/05/18 04:32 Antibody Screen Negative 10/05/18 04:32 Active Medications - Current Medications Current Medications: Generic Name Dose Route Start Last Admin Trade Name Freq PRN Reason Stop Dose Admin Acetaminophen 650 mg 10/05/18 05:16 Tylenol PO Q4H PRN Pain MILD(1-3)/Fever >100.5/MIMS Albuterol/Ipratropium 1 ampul 10/05/18 08:00 10/06/18 07:54 Duoneb *Not For Prn Use* IH 1 ampul Q6HRT HUMBERTO Administration Lipase/Protease/Amylase 1 each 10/05/18 13:59 Pancreaze 10,500 Unit FEEDTUBE PRN PRN For Clogged Feeding Tube Enoxaparin Sodium 40 mg 10/05/18 10:00 10/05/18 09:35 Lovenox SUB-Q 40 mg QDAY@1000 HUMBERTO Administration Famotidine 20 mg 10/05/18 10:00 10/05/18 21:07 Pepcid IV 20 mg BID HUMBERTO Administration Fentanyl 50 mcg 10/05/18 02:50 Sublimaze IV Q10MIN PRN ANALGESIA Hydrophilic Ointment 1 applic 10/05/18 02:50 Vaseline Lip Therapy TP Q2HR PRN Dry Lips Fentanyl Citrate 2,000 mcg in 100 mls @ 4.035 mls/hr 10/05/18 03:00 10/06/18 06:55 Fentanyl Drip Premix IV 3 mcg/kg/hr TITR HUMBERTO 12.105 mls/hr Administration Protocol 1 MCG/KG/HR Propofol 1,000 mg in 100 mls @ 2.421 mls/hr 10/05/18 03:15 10/06/18 08:22 Diprivan 10 Mg/Ml IV 15 mcg/kg/min TITR HUMBERTO 7.263 mls/hr Administration Protocol 5 MCG/KG/MIN Azithromycin 500 mg/ Sodium 250 mls @ 250 mls/hr 10/05/18 21:00 10/05/18 22:30 Chloride IV 250 mls/hr Q24H HUMBERTO Administration Ceftriaxone Sodium 1 gm in 50 mls @ 100 mls/hr 10/05/18 20:00 10/05/18 21:10 Rocephin/Ns 1 Gm/50 Ml IV 100 mls/hr Q24H HUMBERTO Administration Protocol Sodium Chloride 1,000 mls @ 75 mls/hr 10/06/18 01:00 10/06/18 01:15 Nacl 0.9% 1000 Ml IV 75 mls/hr DIRECT HUMBERTO Administration Methylprednisolone Sodium Succinate 60 mg 10/05/18 12:00 10/06/18 05:01 Solu-Medrol IV 60 mg Q6HR HUMBERTO Administration Multi-Ingred Cream/Lotion/Oil/Oint 1 applic 10/05/18 02:50 Artificial Tears Ophth Oint OU Q4HR PRN Dry Eye(s) Ondansetron HCl 4 mg 10/05/18 05:16 Zofran IV Q8H PRN Nausea And Vomiting Simple Syrup 15 ml 10/05/18 13:59 Simple Syrup FEEDTUBE PRN PRN Hypoglycemia Simple Syrup 30 ml 10/05/18 13:59 Simple Syrup FEEDTUBE PRN PRN Hypoglycemia Sodium Bicarbonate 325 mg 10/05/18 13:59 Sodium Bicarbonate FEEDTUBE PRN PRN For Clogged Feeding Tube Sodium Chloride 10 ml 10/05/18 10:00 10/05/18 21:09 Sodium Chloride Flush Syringe 10 Ml IV 10 ml BID HUMBERTO Administration Sodium Chloride 10 ml 10/05/18 05:16 Sodium Chloride Flush Syringe 10 Ml IV PRN PRN LINE FLUSH Sodium Polystyrene Sulfonate 30 gm 10/06/18 09:13 Kionex PO 10/06/18 09:14 ONCE ONE Nutrition/Malnutrition Assess - Dietary Evaluation Nutrition/Malnutrition Findings: Nutrition Notes Start: 10/05/18 12:40 Freq: Status: Active Protocol: Document 10/05/18 12:40 CT (Rec: 10/05/18 13:19 CT [id number]) Co-Sign 10/05/18 12:40 LP Nutrition Notes Need for Assessment generated from: MD Order Initial or Follow up Assessment Current Diagnosis COPD,Hypertension Other Pertinent Diagnosis lung CA, Asthma, [place], biploar Current Diet NPO Labs/Tests glucose: 157 Pertinent Medications Propofol. Solu-Medrol Height 5 ft 6 in Weight 80.7 kg [place] Body Weight (kg) 59.09 BMI 28.7 Weight Status Overweight Subjective/Other Information MD consult to write/manage TF. Burn Absent Trauma Absent #1 Nutrition Diagnosis Inadequate oral intake Etiology mechanical ventilation As Evidenced by Signs and Symptoms NPO Is patient on ventilator? Yes Is Patient Ambulatory and/or Out of Bed No REE-([facility]-confined to bed) 1683.192 Kcal/Kg value to use for calculation 14 Approximate Energy Requirements Using 1130 kcal/Kg Calculation Used for Recommendations [facility] Additional Notes PRO: 97g-161g PRO (1.2 - 2.0 g /day) Fluid: 1 mL/kcal or per MD Nutrition Intervention Change Diet Order: TF Nutrition Support: Vital AF 1.2 at 60mL/hr Water Flush 150 mL q4h Kcal 1,728 Protein (gm) 128 Fluid (mL) 811 Goal #1 TF tolerance Goal #2 TF to meet 75-100% of kcal and PRO needs Anticipated Discharge Needs: unable to determine at this time. Follow-Up By: 10/07/18 Additional Comments F/U: new TF
[2018-10-06] MEDS ORDERED: KIONEX PO ONE (10:00)
[2018-10-06] MEDS: LOVENOX SUB-Q SCH (10:35)
[2018-10-06] MEDS: PEPCID IV SCH (10:36)
[2018-10-06] MEDS: SODIUM CHLORIDE FLUSH SYRINGE 10 ML IV SCH ×2 (10:36→22:00)
--- NOTE | 2018-10-06 11:21 | Progress Note ---
Assessment and Plan Acute Hypoxic Respiratory failure Polysubstance abuse, Cocaine and Benzos Pulmonary Edema Acute Toxic metabolic Encephalopathy ?secondary to drug abuse or other etiology Metabolic Acidosis Leukocytosis ?Aspiration- Per nursing staff, patient yesterday had some emesis and coughing prompting increase in sedation. Non so far since then Vasogenic shock Bradycardia Hyperkalemia COPD- with acute exacerbatione Active Smoker Hepatitis C Bipolar disorder Atrial Fibrillation by hx Anxiety- and on Valium per family - continue weaning oxygen for sat's > 90% - continue bronchodilators with pulmonary hygiene per RT - clamp kwon catheter; discontinue if no retention - get CRP and trend lactic acid levels - begin D5W + 3 Amps MaHCO3/L at 75 mls/hr X 2 liters - get 2D ECHO - repeat ABG at 9 pm - Continue empiric abx ( ? underlying PNA) - VAP bundle and Aspiration precautions addressed - continue mobility protocol for pressure ulcer prophylaxis - enteral nutrition - Counselling on Drug abuse when more awake - tobacco absue counseling once improved - prn blood draws Continue Restraints for patient safety - GI & VTE prophylaxis - flu & pneumovax per protocol .... care plan discussed at length with daughter and RN by bedside The high probability of a clinically significant, sudden or life threatening deterioration of the [pulmonary, neurol] system(s) required my full and direct attention, intervention and personal management. The aggregate critical care time was [35] minutes. This time is in addition to time spent performing reported procedures but includes the following: [x] Data Review and interpretation [x] Patient assessment and monitoring of vital signs [x] Documentation [x] Medication orders and management Subjective Date of service: 10/06/18 Principal diagnosis: Acute Hypoxemic Resp failure; Polysubstance abuse;Acute Pulm Edema Interval history: Patient is seen today for: Acute Hypoxemic Respiratory failure; Polysubstance abuse (Cocaine and Benzos); Acute Pulmonary Edema; Acute Toxic metabolic Encephalopathy ?secondary to drug abuse or other etiology; Metabolic Acidosis; Leukocytosis Seen and examined at bedside; 24hour events reviewed; nursing and respiratory care staff consulted; no adverse overnight events reported to me; resting peacefully in bed; on propofol drip at 15 mics/min; no emesis or overt aspiration; agitated during sedation holiday; still with metabolic acidosis and lactic acidemia Objective Vital Signs - 12hr 10/05/18 10/05/18 10/05/18 23:30 23:41 23:51 Temperature Pulse Rate 70 67 61 Pulse Rate [ Bilateral] Pulse Rate [ Right Dorsalis Pedis] Respiratory 30 H 30 H 30 H Rate Respiratory Rate [Bilateral ] Blood Pressure 98/58 98/58 98/58 O2 Sat by Pulse 96 97 97 Oximetry 10/06/18 10/06/18 10/06/18 00:00 00:11 00:21 Temperature Pulse Rate 67 62 61 Pulse Rate [ Bilateral] Pulse Rate [ Right Dorsalis Pedis] Respiratory 27 H 30 H 30 H Rate Respiratory Rate [Bilateral ] Blood Pressure 98/58 98/49 98/49 O2 Sat by Pulse 97 96 97 Oximetry 10/06/18 10/06/18 10/06/18 00:30 00:41 00:51 Temperature Pulse Rate 59 L 56 L 56 L Pulse Rate [ Bilateral] Pulse Rate [ Right Dorsalis Pedis] Respiratory 30 H 30 H 30 H Rate Respiratory Rate [Bilateral ] Blood Pressure 101/59 101/59 98/49 O2 Sat by Pulse 93 96 96 Oximetry 10/06/18 10/06/18 10/06/18 01:00 01:11 01:21 Temperature 98.9 F Pulse Rate 59 L 58 L 56 L Pulse Rate [ Bilateral] Pulse Rate [ Right Dorsalis Pedis] Respiratory 30 H 30 H 30 H Rate Respiratory Rate [Bilateral ] Blood Pressure 101/57 101/57 101/57 O2 Sat by Pulse 91 96 Oximetry 10/06/18 10/06/18 10/06/18 01:30 01:41 01:51 Temperature Pulse Rate 61 69 66 Pulse Rate [ Bilateral] Pulse Rate [ Right Dorsalis Pedis] Respiratory 17 25 H 30 H Rate Respiratory Rate [Bilateral ] Blood Pressure 99/58 99/58 99/58 O2 Sat by Pulse 86 92 92 Oximetry 10/06/18 10/06/18 10/06/18 02:00 02:11 02:15 Temperature Pulse Rate 65 66 Pulse Rate [ 60 62 Bilateral] Pulse Rate [ Right Dorsalis Pedis] Respiratory 21 22 Rate Respiratory 30 H 30 H Rate [Bilateral ] Blood Pressure 104/55 104/55 O2 Sat by Pulse 91 91 Oximetry 10/06/18 10/06/18 10/06/18 02:21 02:30 02:41 Temperature Pulse Rate 86 68 67 Pulse Rate [ Bilateral] Pulse Rate [ Right Dorsalis Pedis] Respiratory 19 28 H 30 H Rate Respiratory Rate [Bilateral ] Blood Pressure 104/55 103/54 103/54 O2 Sat by Pulse 96 89 92 Oximetry 10/06/18 10/06/18 10/06/18 02:51 03:00 03:11 Temperature Pulse Rate 66 64 63 Pulse Rate [ Bilateral] Pulse Rate [ 60 Right Dorsalis Pedis] Respiratory 30 H 30 H 30 H Rate Respiratory Rate [Bilateral ] Blood Pressure 103/54 104/51 104/51 O2 Sat by Pulse 92 89 93 Oximetry 10/06/18 10/06/18 10/06/18 03:21 03:30 03:41 Temperature Pulse Rate 69 67 68 Pulse Rate [ Bilateral] Pulse Rate [ Right Dorsalis Pedis] Respiratory 30 H 30 H 30 H Rate Respiratory Rate [Bilateral ] Blood Pressure 104/51 103/48 103/48 O2 Sat by Pulse 93 90 92 Oximetry 10/06/18 10/06/18 10/06/18 03:51 03:53 04:00 Temperature Pulse Rate 59 L 64 59 L Pulse Rate [ Bilateral] Pulse Rate [ Right Dorsalis Pedis] Respiratory 30 H 30 H Rate Respiratory Rate [Bilateral ] Blood Pressure 104/51 103/48 98/45 O2 Sat by Pulse 94 94 95 Oximetry 10/06/18 10/06/18 10/06/18 04:11 04:20 04:30 Temperature Pulse Rate 54 L 59 L 61 Pulse Rate [ Bilateral] Pulse Rate [ Right Dorsalis Pedis] Respiratory 30 H 30 H 30 H Rate Respiratory Rate [Bilateral ] Blood Pressure 98/45 98/45 95/45 O2 Sat by Pulse 95 95 93 Oximetry 10/06/18 10/06/18 10/06/18 04:40 04:51 05:00 Temperature Pulse Rate 64 63 64 Pulse Rate [ Bilateral] Pulse Rate [ Right Dorsalis Pedis] Respiratory 30 H 30 H 30 H Rate Respiratory Rate [Bilateral ] Blood Pressure 95/45 95/45 102/48 O2 Sat by Pulse 94 94 92 Oximetry 10/06/18 10/06/18 10/06/18 05:11 05:21 05:30 Temperature Pulse Rate 64 63 63 Pulse Rate [ Bilateral] Pulse Rate [ Right Dorsalis Pedis] Respiratory 30 H 30 H 30 H Rate Respiratory Rate [Bilateral ] Blood Pressure 102/48 102/48 101/44 O2 Sat by Pulse 93 92 90 Oximetry 10/06/18 10/06/1810/06/19 05:41 05:51 06:00 Temperature Pulse Rate 71 67 67 Pulse Rate [ Bilateral] Pulse Rate [ Right Dorsalis Pedis] Respiratory 30 H 30 H 30 H Rate Respiratory Rate [Bilateral ] Blood Pressure 101/44 101/44 98/44 O2 Sat by Pulse 90 91 89 Oximetry 10/06/18 10/06/18 10/06/18 06:11 06:16 06:21 Temperature 98.8 F Pulse Rate 64 60 Pulse Rate [ Bilateral] Pulse Rate [ Right Dorsalis Pedis] Respiratory 30 H 30 H Rate Respiratory Rate [Bilateral ] Blood Pressure 98/44 98/44 O2 Sat by Pulse 92 92 Oximetry 10/06/18 10/06/18 10/06/18 06:30 06:41 06:51 Temperature Pulse Rate 60 56 L 55 L Pulse Rate [ Bilateral] Pulse Rate [ Right Dorsalis Pedis] Respiratory 30 H 30 H 30 H Rate Respiratory Rate [Bilateral ] Blood Pressure 93/41 93/41 93/41 O2 Sat by Pulse 92 93 94 Oximetry 10/06/18 10/06/18 10/06/18 07:00 07:11 07:20 Temperature Pulse Rate 56 L 57 L 72 Pulse Rate [ Bilateral] Pulse Rate [ Right Dorsalis Pedis] Respiratory 30 H 30 H 30 H Rate Respiratory Rate [Bilateral ] Blood Pressure 96/44 96/44 96/44 O2 Sat by Pulse 92 94 86 Oximetry 10/06/18 10/06/18 10/06/18 07:30 07:40 07:50 Temperature Pulse Rate 60 59 L 59 L Pulse Rate [ Bilateral] Pulse Rate [ Right Dorsalis Pedis] Respiratory 30 H 30 H 30 H Rate Respiratory Rate [Bilateral ] Blood Pressure 95/43 96/44 96/44 O2 Sat by Pulse 93 93 93 Oximetry 10/06/18 10/06/18 10/06/18 07:54 08:00 08:06 Temperature 98.4 F Pulse Rate 59 L 57 L Pulse Rate [ 60 59 L Bilateral] Pulse Rate [ Right Dorsalis Pedis] Respiratory 30 H Rate Respiratory 30 H 30 H Rate [Bilateral ] Blood Pressure 95/43 95/46 O2 Sat by Pulse 94 92 Oximetry 10/06/18 10/06/18 10/06/18 08:10 08:20 08:30 Temperature Pulse Rate 55 L 58 L 57 L Pulse Rate [ Bilateral] Pulse Rate [ Right Dorsalis Pedis] Respiratory 30 H 30 H 30 H Rate Respiratory Rate [Bilateral ] Blood Pressure 95/46 95/43 97/45 O2 Sat by Pulse 93 94 92 Oximetry 10/06/18 10/06/18 10/06/18 08:40 08:50 09:00 Temperature Pulse Rate 60 66 62 Pulse Rate [ Bilateral] Pulse Rate [ Right Dorsalis Pedis] Respiratory 30 H 30 H 30 H Rate Respiratory Rate [Bilateral ] Blood Pressure 97/45 97/45 96/44 O2 Sat by Pulse 93 93 92 Oximetry 10/06/18 10/06/18 10/06/18 09:10 09:20 09:30 Temperature Pulse Rate 64 60 55 L Pulse Rate [ Bilateral] Pulse Rate [ Right Dorsalis Pedis] Respiratory 22 30 H 30 H Rate Respiratory Rate [Bilateral ] Blood Pressure 96/44 96/44 98/46 O2 Sat by Pulse 93 94 95 Oximetry 10/06/18 10/06/18 10/06/18 09:40 09:50 10:00 Temperature Pulse Rate 62 57 L 57 L Pulse Rate [ Bilateral] Pulse Rate [ Right Dorsalis Pedis] Respiratory 30 H 30 H 30 H Rate Respiratory Rate [Bilateral ] Blood Pressure 98/46 98/46 98/44 O2 Sat by Pulse 93 95 93 Oximetry 10/06/18 10/06/18 10/06/18 10:10 10:20 10:30 Temperature Pulse Rate 55 L 53 L 55 L Pulse Rate [ Bilateral] Pulse Rate [ Right Dorsalis Pedis] Respiratory 30 H 30 H 30 H Rate Respiratory Rate [Bilateral ] Blood Pressure 98/44 98/44 100/45 O2 Sat by Pulse 95 96 93 Oximetry 10/06/18 10/06/18 10/06/18 10:40 10:50 11:00 Temperature Pulse Rate 55 L 56 L 58 L Pulse Rate [ Bilateral] Pulse Rate [ Right Dorsalis Pedis] Respiratory 30 H 30 H 30 H Rate Respiratory Rate [Bilateral ] Blood Pressure 100/45 100/45 99/46 O2 Sat by Pulse 95 96 92 Oximetry 10/06/18 11:10 Temperature Pulse Rate 58 L Pulse Rate [ Bilateral] Pulse Rate [ Right Dorsalis Pedis] Respiratory 30 H Rate Respiratory Rate [Bilateral ] Blood Pressure 99/46 O2 Sat by Pulse 94 Oximetry Constitutional: no acute distress, other (elderly looking AAF, normocephalic and with mildly increased resp effort at rest) Eyes: non-icteric ENT: oropharynx moist, other (ETT 23 cm JOHNNY) Neck: supple, no lymphadenopathy, no JVD, other (no thyromegaly) Effort: mildly labored Ascultation: Bilateral: diminished breath sounds, rhonchi, other (prolonged exp phase) Percussion: Bilateral: not dull Cardiovascular: regular rate and rhythm Gastrointestinal: normoactive bowel sounds, soft, non-tender, non-distended Integumentary: normal Extremities: no cyanosis, no edema, pulses normal, no ischemia or petechiae Neurologic: non-focal exam (grossly), pupils equal and round, motor strength no rmal and Psychiatric: other (sedated) CBC and BMP: 10/06/18 04:11 10/06/18 12:24 ABG, PT/INR, D-dimer: ABG POC ABG pH 7.270 (7.35-7.45) L 10/06/18 04:18 POC ABG pCO2 42.3 (35-45) 10/06/18 04:18 POC ABG pO2 67 (80-105) L 10/06/18 04:18 POC ABG HCO3 19.4 (22-26 mml/L) 10/06/18 04:18 POC ABG Total CO2 21 (23-27mmol/L) 10/06/18 04:18 POC ABG O2 Sat 90 10/06/18 04:18 Abnormal lab findings: Abnormal Labs 10/05/18 10/05/18 10/05/18 03:23 03:23 03:23 WBC Hgb 14.5 H Hct 43.3 H MCV 98 H MCH 33 H Seg Neuts % (Manual) 96.0 H Lymphocytes % (Manual) 2.0 L Seg Neutrophils # Man 8.3 H Lymphocytes # (Manual) 0.2 L POC ABG pH POC ABG pCO2 POC ABG pO2 Potassium Chloride 107.9 H Carbon Dioxide 20 L Glucose 157 H Lactic Acid 3.30 H* Calcium 8.0 L Albumin Ur Specific [place] 10/05/18 10/05/18 10/05/18 03:47 04:21 06:10 WBC Hgb Hct MCV MCH Seg Neuts % (Manual) Lymphocytes % (Manual) Seg Neutrophils # Man Lymphocytes # (Manual) POC ABG pH 7.096 L POC ABG pCO2 POC ABG pO2 166 H Potassium Chloride Carbon Dioxide Glucose Lactic Acid 2.60 H* Calcium Albumin Ur Specific [place] 1.031 H 10/05/18 10/05/18 10/05/18 06:39 07:09 10:48 WBC Hgb Hct MCV MCH Seg Neuts % (Manual) Lymphocytes % (Manual) Seg Neutrophils # Man Lymphocytes # (Manual) POC ABG pH 7.241 L 7.178 L POC ABG pCO2 45.2 H 49.3 H POC ABG pO2 57 L 62 L Potassium Chloride Carbon Dioxide Glucose Lactic Acid 2.80 H* Calcium Albumin Ur Specific [place] 10/05/18 10/05/18 10/06/18 12:42 17:11 04:11 WBC 14.0 H Hgb Hct MCV 99 H MCH Seg Neuts % (Manual) Lymphocytes % (Manual) Seg Neutrophils # Man Lymphocytes # (Manual) POC ABG pH 7.206 L POC ABG pCO2 POC ABG pO2 74 L Potassium Chloride Carbon Dioxide Glucose Lactic Acid Calcium Albumin Ur Specific [place] 1.035 H 10/06/18 10/06/18 10/06/18 04:11 04:18 09:32 WBC Hgb Hct MCV MCH Seg Neuts % (Manual) Lymphocytes % (Manual) Seg Neutrophils # Man Lymphocytes # (Manual) POC ABG pH 7.270 L POC ABG pCO2 POC ABG pO2 67 L Potassium 5.2 H D Chloride 116.1 H Carbon Dioxide 17 L Glucose 132 H Lactic Acid 2.70 H* Calcium 7.8 L Albumin 2.7 L Ur Specific [place] Chest x-ray: image reviewed (increased interstitial markings; mild interstitial edema; ? atypical pneunmonia; : aspiration) Allied health notes reviewed: nursing
--- NOTE | 2018-10-06 12:38 | Consultation ---
History of Present Illness Consult date: 10/06/18 Consult reason: congestive heart failure History of present illness: Patient is a 57 year old woman who was seen in the emergency department 10/04 with reports of shortness of breath ongoing to 2 weeks. It's reported the patient was out of her medications. She was treated for COPD exacerbation and discharged from the emergency department and advised to follow up as an outpatient with her it support consultant for her chronic emphysema and obstructive sleep apnea. Patient returned to the emergency department less than 12 hours later with respiratory distress with oxygen saturation of 80%. Patient was subsequently intubated and placed on mechanical ventilation. Chest x-ray shows pulmonary edema. Initial labs for lactic acidosis. Urine drug screen positive for poly- substance abuse. Her ECG shows a normal sinus rhythm. No acute ischemic changes. Medications and Allergies Allergies Allergy/AdvReac Type Severity Reaction Status Date / Time laughing gas Allergy Unknown Uncoded 02/14/18 10:27 Home Medications Medication Instructions Recorded Confirmed Last Taken Type Amoxicillin/K Clav Tab [Augmentin 1 tab PO Q12HR 7 Days #14 tab 01/21/18 Unknown Rx 875 mg] Cetirizine HCl [ZyrTEC] 10 mg PO QDAY 14 Days #14 capsule 01/21/18 Unknown Rx Albuterol Sulfate [Proair 90 mcg IH Q4HR PRN #2 aer.pow.ba 02/14/18 Unknown Rx Respiclick] Benzonatate [Tessalon Perles] 100 mg PO Q8HR PRN #30 capsule 02/14/18 Unknown Rx Furosemide [Lasix] 20 mg PO QDAY #14 tablet 02/14/18 Unknown Rx Albuterol Sulfate [Proair 90 mcg IH Q4HR PRN #2 aer.pow.ba 10/05/18 Unknown Rx Respiclick] Aspirin [Aspirin BABY CHEW TAB] 81 mg PO QDAY #30 tab.chew 10/05/18 Unknown Rx Cymbalta 60 mg PO DAILY 10/05/18 10/05/18 Unknown History Famotidine [Pepcid] 20 mg PO BID #30 tablet 10/05/18 Unknown Rx Gabapentin [Neurontin] 300 mg PO BID 10/05/18 10/05/18 Unknown History Ipratropium [place] [Atrovent Hfa] 12.9 gm IH Q4HR PRN #1 hfa.aer.ad 10/05/18 Unknown Rx Metoprolol [Lopressor] 100 mg PO DAILY 10/05/18 10/05/18 Unknown History Quetiapine Fumarate [Seroquel] 100 mg PO DAILY 10/05/18 10/05/18 Unknown History predniSONE [Deltasone] 40 mg PO QDAY #8 tab 10/05/18 Unknown Rx Active Meds: Active Medications Acetaminophen (Tylenol) 650 mg PO Q4H PRN PRN Reason: Pain MILD(1-3)/Fever >100.5/MIMS Albuterol/Ipratropium (Duoneb *Not For Prn Use*) 1 ampul IH Q6HRT [facility] Last Admin: 10/06/18 07:54 Dose: 1 ampul Documented by: Lipase/Protease/Amylase (Wandy Whittaker 10,500 Unit) 1 each FEEDTUBE PRN PRN PRN Reason: For Clogged Feeding Tube Enoxaparin Sodium (Lovenox) 40 mg SUB-Q QDAY@1000 HUMBERTO Last Admin: 10/06/18 10:35 Dose: 40 mg Documented by: Famotidine (Pepcid) 20 mg PO BID [facility] Fentanyl (Sublimaze) 50 mcg IV Q10MIN PRN PRN Reason: ANALGESIA Hydrophilic Ointment (Vaseline Lip Therapy) 1 applic TP Q2HR PRN PRN Reason: Dry Lips Fentanyl Citrate (Fentanyl Drip Premix) 2,000 mcg in 100 mls @ 4.035 mls/hr IV TITR [facility]; Protocol Last Admin: 10/06/18 06:55 Dose: 3 mcg/kg/hr, 12.105 mls/hr Documented by: Propofol (Diprivan 10 Mg/Ml) 1,000 mg in 100 mls @ 2.421 mls/hr IV TITR [facility]; P rotocol Last Admin: 10/06/18 08:22 Dose: 15 mcg/kg/min, 7.263 mls/hr Documented by: Azithromycin 500 mg/ Sodium (Chloride) 250 mls @ 250 mls/hr IV Q24H HUMBERTO Last Admin: 10/05/18 22:30 Dose: 250 mls/hr Documented by: Ceftriaxone Sodium (Rocephin/Ns 1 Gm/50 Ml) 1 gm in 50 mls @ 100 mls/hr IV Q24H [facility]; Protocol Last Admin: 10/05/18 21:10 Dose: 100 mls/hr Documented by: Sodium Bicarbonate 150 meq/ (Dextrose) 1,150 mls @ 75 mls/hr IV DIRECT HUMBERTO Stop: 10/08/18 04:19 Methylprednisolone Sodium Succinate (Solu-Medrol) 60 mg IV Q6HR [facility] Last Admin: 10/06/18 11:24 Dose: 60 mg Documented by: Multi-Ingred Cream/Lotion/Oil/Oint (Artificial Tears Ophth Oint) 1 applic OU Q4HR PRN PRN Reason: Dry Eye(s) Ondansetron HCl (Zofran) 4 mg IV Q8H PRN PRN Reason: Nausea And Vomiting Simple Syrup (Simple Syrup) 15 ml FEEDTUBE PRN PRN PRN Reason: Hypoglycemia Simple Syrup (Simple Syrup) 30 ml FEEDTUBE PRN PRN PRN Reason: Hypoglycemia Sodium Bicarbonate (Sodium Bicarbonate) 325 mg FEEDTUBE PRN PRN PRN Reason: For Clogged Feeding Tube Sodium Chloride (Sodium Chloride Flush Syringe 10 Ml) 10 ml IV BID [facility] Last Admin: 10/06/18 10:36 Dose: 10 ml Documented by: Sodium Chloride (Sodium Chloride Flush Syringe 10 Ml) 10 ml IV PRN PRN PRN Reason: LINE FLUSH Physical Examination Vital Signs Pulse Ox 88 10/05/18 02:34 General appearance: other (intubated on the vent) Cardiac: Positive: Bradycardia Results 10/06/18 04:11 10/06/18 12:24 Cardiac Enzymes 10/06/18 Range/Units 04:11 AST 15 (5-40) units/L CBC 10/06/18 Range/Units 04:11 WBC 14.0 H (4.5-11.0) K/mm3 RBC 4.03 (3.65-5.03) M/mm3 Hgb 12.9 (10.1-14.3) gm/dl Hct 39.9 (30.3-42.9) % Plt Count 172 (140-440) K/mm3 Comprehensive Metabolic Panel 10/06/18 Range/Units 04:11 Sodium 142 (137-145) mmol/L Potassium 5.2 H D (3.6-5.0) mmol/L Chloride 116.1 H (98-107) mmol/L Carbon Dioxide 17 L (22-30) mmol/L BUN 14 (7-17) mg/dL Creatinine 0.9 (0.7-1.2) mg/dL Glucose 132 H (65-100) mg/dL Calcium 7.8 L (8.4-10.2) mg/dL AST 15 (5-40) units/L ALT 20 (7-56) units/L Alkaline Phosphatase 59 (35-129) units/L Total Protein 6.4 (6.3-8.2) g/dL Albumin 2.7 L (3.9-5) g/dL Assessment and Plan Acute respiratory failure Pulmonary edema FRANCINE/Emphysema Poly-substance abuse Lactic acidosis Recommendations: Medical therapy for heart failure to include IV diuretics, afterload reduction agents and beta blockers with holding parameters. We will obtain an echocardiogram for LVEF assessment.
[2018-10-06 13:48] LABS: BUN/Creatinine Ratio 16; Blood Urea Nitrogen 14 mg/dL (7-17); Calcium 8.4 mg/dL (8.4-10.2); Hemolysis Index 5
[2018-10-06] MEDS: SODIUM BICARBONATE 150 MEQ in D5W 1,000 ML IV SCH (14:00)
[2018-10-06] MEDS ORDERED: ATIVAN IV PRN (16:46)
[2018-10-06] MEDS: LASIX IV SCH (18:23)
[2018-10-06] MEDS: ROCEPHIN/NS 1 GM/50 ML 1 GM/50 ML BAG IV SCH (20:52)
[2018-10-06] MEDS: COREG PO SCH (22:00)
[2018-10-06] MEDS: PEPCID PO SCH (22:00)
[2018-10-06] MEDS: ZITHROMAX 500 MG in NACL 0.9% 250ML 250 ML IV SCH (23:15)
[2018-10-07] MEDS: SOLU-Medrol IV SCH ×5 (00:47→23:08)
[2018-10-07] MEDS: fentaNYL DRIP Premix 2,000 MCG/100 ML BAG IV SCH ×4 (01:40→19:37)
[2018-10-07] MEDS: DUONEB *Not for PRN Use IH SCH ×4 (03:15→19:23)
[2018-10-07 05:06] LABS: BUN/Creatinine Ratio 14; Blood Urea Nitrogen 15 mg/dL (7-17); Calcium 8.7 mg/dL (8.4-10.2); Hemolysis Index 316
[2018-10-07 05:08] LABS: Hematocrit 41.8 % (30.3-42.9); Hemoglobin 13.5 gm/dl (10.1-14.3); Mean Corpuscular HGB Conc 32 % (30-34); Mean Corpuscular Volume 99 fl (79-97); Platelet Count 185 K/mm3 (140-440); Red Blood Count 4.21 M/mm3 (3.65-5.03); Red Cell Distribution Width 14.7 % (13.2-15.2)
[2018-10-07] MEDS: LASIX IV SCH ×2 (05:22→18:29)
[2018-10-07] MEDS ORDERED: D50W (25GM) Syringe IV ONE (08:00)
[2018-10-07] MEDS ORDERED: CALCIUM GLUCONATE 1,000 MG in NACL 0.9% 100 ML IV ONE (08:00)
[2018-10-07] MEDS: SODIUM BICARBONATE 150 MEQ in D5W 1,000 ML IV SCH (08:26)
[2018-10-07] MEDS ORDERED: KIONEX PO ONE (08:30)
[2018-10-07] MEDS ORDERED: HumuLIN R IV ONE (08:30)
[2018-10-07] MEDS ORDERED: LASIX IV ONE (08:30)
[2018-10-07] MEDS: DIPRIVAN 10 MG/ML 1,000 MG/100 ML BOTTLE IV SCH ×2 (08:44→19:15)
--- NOTE | 2018-10-07 09:15 | Progress Note ---
Assessment and Plan Acute Hypoxic Respiratory failure Polysubstance abuse, Cocaine and Benzos Pulmonary Edema Acute Toxic metabolic Encephalopathy ?secondary to drug abuse or other etiology Metabolic Acidosis Leukocytosis ?Aspiration- Per nursing staff, patient yesterday had some emesis and coughing prompting increase in sedation. Non so far since then Vasogenic shock Bradycardia Hyperkalemia COPD- with acute exacerbatione Active Smoker Hepatitis C Bipolar disorder Atrial Fibrillation by hx Anxiety- and on Valium per family - continue weaning oxygen for oxygen saturations > 90% - continue bronchodilators with pulmonary hygiene per RT - daily ABG, prn CXR - Continue empiric antibiotics for possible aspiration - VAP bundle addressed - continue mobility protocol for pressure ulcer prophylaxis - enteral nutrition - Aspiration precautions -Glycemic control, target blood glucose 140-180mg/dL -Stress ulcer prophylaxis -VTE prophylaxis -Daily SAT and SBT as tolerated -Early mobility per protocol - flu & pneumovax per protocol -Smoking cessation and substance abuse counselling when she is more awake -Monitor closely for benzodiazepine withdrawal .... care plan discussed at length with ICU-IDT on bedside rounds The high probability of a clinically significant, sudden or life threatening deterioration of the [pulmonary, neurology] system(s) required my full and direct attention, intervention and personal management. The aggregate critical care time was [35] minutes. This time is in addition to time spent performing reported procedures but includes the following: [x] Data Review and interpretation [x] Patient assessment and monitoring of vital signs [x] Documentation [x] Medication orders and management Subjective Date of service: 10/07/18 Principal diagnosis: Acute Hypoxemic Resp failure; Polysubstance abuse;Acute Pulm Edema Interval history: Patient is seen today for: Acute Hypoxemic Respiratory failure; Polysubstance abuse (Cocaine and Benzos); Acute Pulmonary Edema; Acute Toxic metabolic Encephalopathy ?secondary to drug abuse or other etiology; Metabolic Acidosis; Leukocytosis Seen and examined at bedside; 24hour events reviewed; nursing and respiratory care staff consulted; no adverse overnight events reported to me; resting peacefully in bed; on propofol ; no emesis or overt aspiration; agitated during sedation holiday; no fevers, no diarrhea, no patient-ventilator dys-synchrony Objective Vital Signs - 12hr 10/06/18 10/06/18 10/06/18 21:20 21:30 21:40 Temperature Pulse Rate 65 65 61 Pulse Rate [ Bilateral] Pulse Rate [ Right Dorsalis Pedis] Respiratory 30 H 30 H 30 H Rate Respiratory Rate [Bilateral ] Blood Pressure 102/46 103/44 102/46 O2 Sat by Pulse 96 96 97 Oximetry 10/06/18 10/06/18 10/06/18 21:50 22:00 22:10 Temperature Pulse Rate 67 68 57 L Pulse Rate [ Bilateral] Pulse Rate [ Right Dorsalis Pedis] Respiratory 30 H 30 H 30 H Rate Respiratory Rate [Bilateral ] Blood Pressure 102/46 102/46 103/44 O2 Sat by Pulse 93 97 97 Oximetry 10/06/18 10/06/18 10/06/18 22:20 22:30 22:39 Temperature Pulse Rate 54 L 54 L 52 L Pulse Rate [ Bilateral] Pulse Rate [ Right Dorsalis Pedis] Respiratory 30 H 30 H 30 H Rate Respiratory Rate [Bilateral ] Blood Pressure 103/44 103/48 103/48 O2 Sat by Pulse 96 95 96 Oximetry 10/06/18 10/06/18 10/06/18 22:40 22:50 23:00 Temperature Pulse Rate 53 L 52 L 67 Pulse Rate [ Bilateral] Pulse Rate [ Right Dorsalis Pedis] Respiratory 30 H 30 H 30 H Rate Respiratory Rate [Bilateral ] Blood Pressure 103/48 103/48 105/47 O2 Sat by Pulse 96 96 96 Oximetry 10/06/18 10/06/18 10/06/18 23:10 23:20 23:30 Temperature Pulse Rate 65 62 62 Pulse Rate [ Bilateral] Pulse Rate [ Right Dorsalis Pedis] Respiratory 30 H 30 H 30 H Rate Respiratory Rate [Bilateral ] Blood Pressure 103/48 103/48 113/53 O2 Sat by Pulse 97 97 95 Oximetry 10/06/18 10/06/18 10/06/18 23:38 23:40 23:50 Temperature Pulse Rate 62 61 61 Pulse Rate [ Bilateral] Pulse Rate [ Right Dorsalis Pedis] Respiratory 30 H 30 H Rate Respiratory Rate [Bilateral ] Blood Pressure 113/53 113/53 113/53 O2 Sat by Pulse 96 95 97 Oximetry 10/07/18 10/07/18 10/07/18 00:00 00:10 00:20 Temperature 98.5 F Pulse Rate 66 79 82 Pulse Rate [ Bilateral] Pulse Rate [ 62 Right Dorsalis Pedis] Respiratory 30 H 30 H 30 H Rate Respiratory Rate [Bilateral ] Blood Pressure 113/53 116/46 116/46 O2 Sat by Pulse 95 91 93 Oximetry 10/07/18 10/07/18 10/07/18 00:30 00:40 00:50 Temperature Pulse Rate 68 65 60 Pulse Rate [ Bilateral] Pulse Rate [ Right Dorsalis Pedis] Respiratory 22 30 H 30 H Rate Respiratory Rate [Bilateral ] Blood Pressure 116/46 106/49 106/49 O2 Sat by Pulse 93 95 96 Oximetry 10/07/18 10/07/18 10/07/18 01:00 01:10 01:20 Temperature Pulse Rate 55 L 57 L 56 L Pulse Rate [ Bilateral] Pulse Rate [ Right Dorsalis Pedis] Respiratory 30 H 30 H 30 H Rate Respiratory Rate [Bilateral ] Blood Pressure 107/48 107/48 107/48 O2 Sat by Pulse 96 96 97 Oximetry 10/07/18 10/07/18 10/07/18 01:30 01:40 01:50 Temperature Pulse Rate 52 L 52 L 52 L Pulse Rate [ Bilateral] Pulse Rate [ Right Dorsalis Pedis] Respiratory 30 H 30 H 30 H Rate Respiratory Rate [Bilateral ] Blood Pressure 108/58 108/58 108/58 O2 Sat by Pulse 96 96 96 Oximetry 10/07/18 10/07/18 10/07/18 02:00 02:10 02:20 Temperature Pulse Rate 53 L 63 61 Pulse Rate [ Bilateral] Pulse Rate [ Right Dorsalis Pedis] Respiratory 30 H 30 H 30 H Rate Respiratory Rate [Bilateral ] Blood Pressure 116/54 116/54 116/54 O2 Sat by Pulse 95 96 95 Oximetry 10/07/18 10/07/18 10/07/18 02:30 02:40 02:50 Temperature Pulse Rate 59 L 54 L 52 L Pulse Rate [ Bilateral] Pulse Rate [ Right Dorsalis Pedis] Respiratory 30 H 30 H 30 H Rate Respiratory Rate [Bilateral ] Blood Pressure 118/57 118/57 118/57 O2 Sat by Pulse 95 95 96 Oximetry 10/07/18 10/07/18 10/07/18 03:00 03:10 03:15 Temperature Pulse Rate 52 L 50 L 50 L Pulse Rate [ 50 L Bilateral] Pulse Rate [ Right Dorsalis Pedis] Respiratory 30 H 30 H Rate Respiratory 30 H Rate [Bilateral ] Blood Pressure 109/53 109/53 109/53 O2 Sat by Pulse 94 95 95 Oximetry 10/07/18 10/07/18 10/07/18 03:20 03:30 03:40 Temperature Pulse Rate 52 L 52 L 53 L Pulse Rate [ Bilateral] Pulse Rate [ Right Dorsalis Pedis] Respiratory 30 H 30 H 30 H Rate Respiratory Rate [Bilateral ] Blood Pressure 109/53 116/56 116/56 O2 Sat by Pulse 95 92 94 Oximetry 10/07/18 10/07/18 10/07/18 03:50 04:00 04:10 Temperature 98.3 F Pulse Rate 52 L 55 L 49 L Pulse Rate [ Bilateral] Pulse Rate [ 56 L Right Dorsalis Pedis] Respiratory 30 H 30 H 30 H Rate Respiratory Rate [Bilateral ] Blood Pressure 116/56 116/56 83/53 O2 Sat by Pulse 94 93 94 Oximetry 10/07/18 10/07/18 10/07/18 04:20 04:30 04:40 Temperature Pulse Rate 61 65 72 Pulse Rate [ Bilateral] Pulse Rate [ Right Dorsalis Pedis] Respiratory 30 H 30 H 30 H Rate Respiratory Rate [Bilateral ] Blood Pressure 116/56 116/56 116/56 O2 Sat by Pulse 95 94 94 Oximetry 10/07/18 10/07/18 10/07/18 04:50 05:00 05:10 Temperature Pulse Rate 68 67 63 Pulse Rate [ Bilateral] Pulse Rate [ Right Dorsalis Pedis] Respiratory 30 H 30 H 30 H Rate Respiratory Rate [Bilateral ] Blood Pressure 116/56 118/55 118/55 O2 Sat by Pulse 93 92 97 Oximetry 10/07/18 10/07/18 10/07/18 05:20 05:30 05:40 Temperature Pulse Rate 60 71 66 Pulse Rate [ Bilateral] Pulse Rate [ Right Dorsalis Pedis] Respiratory 30 H 30 H 30 H Rate Respiratory Rate [Bilateral ] Blood Pressure 118/55 126/85 126/85 O2 Sat by Pulse 97 91 96 Oximetry 10/07/18 10/07/18 10/07/18 05:50 06:00 06:10 Temperature Pulse Rate 61 54 L 54 L Pulse Rate [ Bilateral] Pulse Rate [ Right Dorsalis Pedis] Respiratory 30 H 30 H 30 H Rate Respiratory Rate [Bilateral ] Blood Pressure 126/85 120/55 120/55 O2 Sat by Pulse 96 94 94 Oximetry 10/07/18 10/07/18 10/07/18 06:20 06:30 06:40 Temperature Pulse Rate 52 L 52 L 54 L Pulse Rate [ Bilateral] Pulse Rate [ Right Dorsalis Pedis] Respiratory 30 H 30 H 30 H Rate Respiratory Rate [Bilateral ] Blood Pressure 126/85 126/85 107/60 O2 Sat by Pulse 94 96 95 Oximetry 10/07/18 10/07/18 10/07/18 06:50 08:51 09:01 Temperature Pulse Rate 54 L Pulse Rate [ 84 83 Bilateral] Pulse Rate [ Right Dorsalis Pedis] Respiratory 30 H Rate Respiratory 28 H 30 H Rate [Bilateral ] Blood Pressure 107/60 O2 Sat by Pulse 94 Oximetry Constitutional: no acute distress, other (elderly looking AAF, normocephalic and with mildly increased resp effort at rest) Eyes: non-icteric ENT: oropharynx moist, other (ETT 23 cm JOHNNY) Neck: supple, no lymphadenopathy, no JVD, other (no thyromegaly) Effort: mildly labored Ascultation: Bilateral: diminished breath sounds, rhonchi, other (prolonged exp phase) Percussion: Bilateral: not dull Cardiovascular: regular rate and rhythm Gastrointestinal: normoactive bowel sounds, soft, non-tender, non-distended Integumentary: normal Extremities: no cyanosis, no edema, pulses normal, no ischemia or petechiae Neurologic: non-focal exam (grossly), pupils equal and round, motor strength normal and Psychiatric: other (sedated) CBC and BMP: 10/14/18 06:25 10/14/18 06:25 ABG, PT/INR, D-dimer: ABG POC ABG pH 7.314 (7.35-7.45) L 10/06/18 22:10 POC ABG pCO2 48.5 (35-45) H 10/06/18 22:10 POC ABG pO2 64 (80-105) L 10/06/18 22:10 POC ABG HCO3 24.7 (22-26 mml/L) 10/06/18 22:10 POC ABG Total CO2 26 (23-27mmol/L) 10/06/18 22:10 POC ABG O2 Sat 90 10/06/18 22:10 Abnormal lab findings: Abnormal Labs 10/05/18 10/05/18 10/05/18 03:23 03:23 03:23 WBC Hgb 14.5 H Hct 43.3 H MCV 98 H MCH 33 H Seg Neuts % (Manual) 96.0 H Lymphocytes % (Manual) 2.0 L Seg Neutrophils # Man 8.3 H Lymphocytes # (Manual) 0.2 L POC ABG pH POC ABG pCO2 POC ABG pO2 Potassium Chloride 107.9 H Carbon Dioxide 20 L Glucose 157 H POC Glucose Lactic Acid 3.30 H* Calcium 8.0 L C-Reactive Protein Albumin Ur Specific [place] 10/05/18 10/05/18 10/05/18 03:47 04:21 06:10 WBC Hgb Hct MCV MCH Seg Neuts % (Manual) Lymphocytes % (Manual) Seg Neutrophils # Man Lymphocytes # (Manual) POC ABG pH 7.096 L POC ABG pCO2 POC ABG pO2 166 H Potassium Chloride Carbon Dioxide Glucose POC Glucose Lactic Acid 2.60 H* Calcium C-Reactive Protein Albumin Ur Specific [place] 1.031 H 10/05/18 10/05/18 10/05/18 06:39 07:09 10:48 WBC Hgb Hct MCV MCH Seg Neuts % (Manual) Lymphocytes % (Manual) Seg Neutrophils # Man Lymphocytes # (Manual) POC ABG pH 7.241 L 7.178 L POC ABG pCO2 45.2 H 49.3 H POC ABG pO2 57 L 62 L Potassium Chloride Carbon Dioxide Glucose POC Glucose Lactic Acid 2.80 H* Calcium C-Reactive Protein Albumin Ur Specific [place] 10/05/18 10/05/18 10/06/18 12:42 17:11 04:11 WBC 14.0 H Hgb Hct MCV 99 H MCH Seg Neuts % (Manual) Lymphocytes % (Manual) Seg Neutrophils # Man Lymphocytes # (Manual) POC ABG pH 7.206 L POC ABG pCO2 POC ABG pO2 74 L Potassium Chloride Carbon Dioxide Glucose POC Glucose Lactic Acid Calcium C-Reactive Protein Albumin Ur Specific [place] 1.035 H 10/06/18 10/06/18 10/06/18 04:11 04:18 09:32 WBC Hgb Hct MCV MCH Seg Neuts % (Manual) Lymphocytes % (Manual) Seg Neutrophils # Man Lymphocytes # (Manual) POC ABG pH 7.270 L POC ABG pCO2 POC ABG pO2 67 L Potassium 5.2 H D Chloride 116.1 H Carbon Dioxide 17 L Glucose 132 H POC Glucose Lactic Acid 2.70 H* Calcium 7.8 L C-Reactive Protein Albumin 2.7 L Ur Specific [place] 10/06/18 10/06/18 10/06/18 12:24 12:24 22:10 WBC Hgb Hct MCV MCH Seg Neuts % (Manual) Lymphocytes % (Manual) Seg Neutrophils # Man Lymphocytes # (Manual) POC ABG pH 7.314 L POC ABG pCO2 48.5 H POC ABG pO2 64 L Potassium Chloride 113.9 H Carbon Dioxide 20 L Glucose 134 H POC Glucose Lactic Acid Calcium C-Reactive Protein 3.70 H Albumin Ur Specific [place] 10/06/18 10/07/18 10/07/18 23:46 04:44 04:44 WBC 12.7 H Hgb Hct MCV 99 H MCH Seg Neuts % (Manual) Lymphocytes % (Manual) Seg Neutrophils # Man Lymphocytes # (Manual) POC ABG pH POC ABG pCO2 POC ABG pO2 Potassium 6.3 H* D Chloride 110.1 H Carbon Dioxide Glucose 168 H POC Glucose 135 H Lactic Acid Calcium C-Reactive Protein Albumin Ur Specific [place] 10/07/18 04:44 WBC Hgb Hct MCV MCH Seg Neuts % (Manual) Lymphocytes % (Manual) Seg Neutrophils # Man Lymphocytes # (Manual) POC ABG pH POC ABG pCO2 POC ABG pO2 Potassium Chloride Carbon Dioxide Glucose POC Glucose Lactic Acid 2.20 H* Calcium C-Reactive Protein Albumin Ur Specific [place] Allied health notes reviewed: nursing
--- NOTE | 2018-10-07 10:02 | XRay Report ---
ABDOMEN RADIOGRAPHS INDICATION: Tube placement. COMPARISON: 10/05/2018 FINDINGS: Frontal abdominal radiograph demonstrates mild retraction of the Dobbhoff tube, though its distal end again noted in the proximal stomach with its tip directed medially toward the GE junction. Nonobstructive bowel gas pattern. Coarse bibasilar lung markings/infiltrates. EKG leads. Demineralized bones. CONCLUSION: 1. Dobbhoff tube tip in the proximal stomach, as described. Further advancement/repositioning advised to attempt placement along the distal stomach, if so warranted. 2. Other findings, including bibasilar infiltrates. Thank you for the opportunity to participate in this patient's care.
[2018-10-07] MEDS: SODIUM CHLORIDE FLUSH SYRINGE 10 ML IV SCH ×2 (10:13→23:09)
[2018-10-07] MEDS: COREG PO SCH ×2 (10:19→23:09)
[2018-10-07] MEDS: LOVENOX SUB-Q SCH (10:29)
--- NOTE | 2018-10-07 11:31 | XRay Report ---
ABDOMEN RADIOGRAPH INDICATION: Dobbhoff placement. COMPARISON: 9:21 AM earlier today. FINDINGS: Frontal abdominal radiograph, 10:37 AM, 10/07/2018 now demonstrates Dobbhoff tube tip along the distal stomach pointing toward the pylorus, projecting over L3 vertebral body in the midline. Stable bibasilar prominent markings/infiltrates. CONCLUSION: Satisfactory Dobbhoff tube placement, as described. Thank you for the opportunity to participate in this patient's care.
[2018-10-07] MEDS: ZESTRIL PO SCH (11:42)
[2018-10-07] MEDS: PEPCID PO SCH ×2 (11:42→23:09)
--- NOTE | 2018-10-07 12:20 | Progress Note ---
Assessment and Plan Acute respiratory failure Pulmonary edema FRANCINE/Emphysema Poly-substance abuse Lactic acidosis An echocardiogram this admission reveals evidence of at least moderate pulmonary hypertension, RVSP 58 mmHg. Normal left ventricular systolic function, EF 60- 65%. Conservative cardiac management. Subjective Date of service: 10/07/18 Principal diagnosis: Acute Hypoxemic Resp failure; Polysubstance abuse;Acute Pulm Edema Interval history: Patient remains intubated on the vent. No cardiac events overnight. Objective Vital Signs Temp Pulse Pulse Pulse Resp Resp BP 10/07/18 11:42 50 L 115/59 10/07/18 10:19 55 L 112/45 10/07/18 09:14 77 141/98 10/07/18 09:01 83 30 H 10/07/18 08:51 84 28 H 10/07/18 06:50 54 L 30 H 107/60 10/07/18 06:40 54 L 30 H 107/60 10/07/18 06:30 52 L 30 H 126/85 10/07/18 06:20 52 L 30 H 126/85 10/07/18 06:10 54 L 30 H 120/55 10/07/18 06:00 54 L 30 H 120/55 10/07/18 05:50 61 30 H 126/85 10/07/18 05:40 66 30 H 126/85 10/07/18 05:30 71 30 H 126/85 10/07/18 05:20 60 30 H 118/55 10/07/18 05:10 63 30 H 118/55 10/07/18 05:00 67 30 H 118/55 10/07/18 04:50 68 30 H 116/56 10/07/18 04:40 72 30 H 116/56 10/07/18 04:30 65 30 H 116/56 10/07/18 04:20 61 30 H 116/56 10/07/18 04:10 49 L 30 H 83/53 10/07/18 04:00 98.3 F 55 L 56 L 30 H 116/56 10/07/18 03:50 52 L 30 H 116/56 10/07/18 03:40 53 L 30 H 116/56 10/07/18 03:30 52 L 30 H 116/56 10/07/18 03:20 52 L 30 H 109/53 10/07/18 03:15 50 L 50 L 30 H 109/53 10/07/18 03:10 50 L 30 H 109/53 10/07/18 03:00 52 L 30 H 109/53 10/07/18 02:50 52 L 30 H 118/57 10/07/18 02:40 54 L 30 H 118/57 10/07/18 02:30 59 L 30 H 118/57 10/07/18 02:20 61 30 H 116/54 10/07/18 02:10 63 30 H 116/54 10/07/18 02:00 53 L 30 H 116/54 10/07/18 01:50 52 L 30 H 108/58 10/07/18 01:40 52 L 30 H 108/58 10/07/18 01:30 52 L 30 H 108/58 10/07/18 01:20 56 L 30 H 107/48 10/07/18 01:10 57 L 30 H 107/48 10/07/18 01:00 55 L 30 H 107/48 10/07/18 00:50 60 30 H 106/49 10/07/18 00:40 65 30 H 106/49 10/07/18 00:30 68 22 116/46 10/07/18 00:20 82 30 H 116/46 10/07/18 00:10 79 30 H 116/46 10/07/18 00:00 98.5 F 66 62 30 H 113/53 10/06/18 23:50 61 30 H 113/53 10/06/18 23:40 61 30 H 113/53 10/06/18 23:38 62 113/53 10/06/18 23:30 62 30 H 113/53 10/06/18 23:20 62 30 H 103/48 10/06/18 23:10 65 30 H 103/48 10/06/18 23:00 67 30 H 105/47 10/06/18 22:50 52 L 30 H 103/48 10/06/18 22:40 53 L 30 H 103/48 10/06/18 22:39 52 L 30 H 103/48 10/06/18 22:30 54 L 30 H 103/48 10/06/18 22:20 54 L 30 H 103/44 10/06/18 22:10 57 L 30 H 103/44 10/06/18 22:00 68 30 H 102/46 04/18/19 21:50 67 30 H 102/46 04/18/19 21:40 61 30 H 102/46 04/18/19 21:30 65 30 H 103/44 04/18/19 21:20 65 30 H 102/46 04/18/19 21:10 60 30 H 102/46 04/18/19 21:00 62 30 H 102/46 04/18/19 20:50 62 30 H 99/44 04/18/19 20:40 56 L 30 H 99/44 04/18/19 20:30 60 30 H 99/44 04/18/19 20:20 59 L 30 H 106/53 04/18/19 20:10 64 30 H 106/53 04/18/19 20:05 76 30 H 0418/19 20:00 98.3 F 68 60 30 H 106/53 04/18/19 19:55 62 100/49 04/18/19 19:54 62 30 H 0418/19 19:50 62 30 H 108/48 04/18/19 19:40 70 30 H 108/48 04/18/19 19:30 66 30 H 100/49 04/18/19 19:20 60 30 H 101/46 04/18/19 19:10 59 L 30 H 101/46 04/18/19 19:00 60 30 H 108/48 04/18/19 18:50 59 L 30 H 101/46 04/18/19 18:40 59 L 30 H 101/46 04/18/19 18:30 54 L 30 H 101/46 04/18/19 18:20 56 L 30 H 100/49 04/18/19 18:10 53 L 30 H 100/49 04/18/19 18:00 58 L 30 H 100/49 04/18/19 17:50 64 30 H 104/46 04/18/19 17:40 64 30 H 104/46 04/18/19 17:30 66 30 H 104/46 04/18/19 17:23 67 112/49 04/18/19 17:20 69 30 H 112/49 04/18/19 17:10 70 30 H 112/49 04/18/19 17:00 73 30 H 112/49 04/18/19 16:50 76 30 H 97/46 04/18/19 16:40 72 27 H 97/46 04/18/19 16:30 58 L 30 H 97/46 04/18/19 16:20 61 30 H 110/48 0418/ 16:10 64 30 H 110/48 0418/ 16:00 63 30 H 110/48 04/ 15:50 67 30 H 104/45 04/18/19 15:40 67 30 H 104/45 04/18/19 15:30 66 30 H 104/45 04/18/19 15:20 66 30 H 98/48 0418/ 15:10 68 27 H 98/48 04/ 15:00 68 30 H 98/48 0418/ 14:50 68 30 H 106/46 04/18/ 14:40 66 30 H 106/46 0418/19 14:30 69 30 H 106/46 04/ 14:20 68 30 H 104/46 0418/19 14:10 68 30 H 104/46 04/ 14:00 70 30 H 104/46 04/18/19 13:50 83 30 H 104/45 18/19 13:45 83 30 H 0418/19 13:40 63 30 H 104/45 0418/19 13:32 67 30 H 10/06/ 13:30 66 30 H 104/45 18/19 13:20 66 30 H 100/46 10/06/19 13:10 65 30 H 100/46 0418/19 13:00 58 L 30 H 100/46 10/06/19 12:50 59 L 30 H 97/46 10/06/ 12:40 52 L 30 H 97/46 10/06/ 12:30 52 L 30 H 97/46 10/06/ 12:20 53 L 30 H 98/46 Pulse Ox 10/07/18 11:42 10/07/18 10:19 10/07/18 09:14 93 10/07/18 09:01 10/07/18 08:51 10/07/18 06:50 94 10/07/18 06:40 95 10/07/18 06:30 96 10/07/18 06:20 94 10/07/18 06:10 94 10/07/18 06:00 94 10/07/18 05:50 96 10/07/18 05:40 96 10/07/18 05:30 91 10/07/18 05:20 97 10/07/18 05:10 97 10/07/18 05:00 92 10/07/18 04:50 93 10/07/18 04:40 94 10/07/18 04:30 94 10/07/18 04:20 95 10/07/18 04:10 94 10/07/18 04:00 93 10/07/18 03:50 94 10/07/18 03:40 94 10/07/18 03:30 92 10/07/18 03:20 95 10/07/18 03:15 95 10/07/18 03:10 95 10/07/18 03:00 94 10/07/18 02:50 96 10/07/18 02:40 95 10/07/18 02:30 95 10/07/18 02:20 95 10/07/18 02:10 96 10/07/18 02:00 95 10/07/18 01:50 96 10/07/18 01:40 96 10/07/18 01:30 96 10/07/18 01:20 97 10/07/18 01:10 96 10/07/18 01:00 96 10/07/18 00:50 96 10/07/18 00:40 95 10/07/18 00:30 93 10/07/18 00:20 93 10/07/18 00:10 91 10/07/18 00:00 95 10/06/18 23:50 97 10/06/18 23:40 95 10/06/18 23:38 96 10/06/18 23:30 95 10/06/18 23:20 97 10/06/18 23:10 97 10/06/18 23:00 96 10/06/18 22:50 96 10/06/18 22:40 96 10/06/18 22:39 96 10/06/18 22:30 95 10/06/18 22:20 96 10/06/18 22:10 97 10/06/18 22:00 97 10/06/18 21:50 93 10/06/18 21:40 97 10/06/18 21:30 96 10/06/18 21:20 96 10/06/18 21:10 96 0418/19 21:00 94 10/06/18 20:50 96 10/06/18 20:40 96 10/06/18 20:30 95 10/06/18 20:20 96 10/06/18 20:10 94 10/06/18 20:05 10/06/18 20:00 92 10/06/18 19:55 94 10/06/18 19:54 10/06/18 19:50 94 10/06/18 19:40 93 10/06/18 19:30 89 10/06/18 19:20 96 10/06/18 19:10 96 10/06/18 19:00 95 10/06/18 18:50 96 10/06/18 18:40 96 10/06/18 18:30 96 10/06/18 18:20 97 10/06/18 18:10 96 10/06/18 18:00 95 10/06/18 17:50 97 10/06/18 17:40 96 10/06/18 17:30 94 10/06/18 17:23 95 10/06/18 17:20 95 10/06/18 17:10 94 10/06/18 17:00 90 10/06/18 16:50 93 10/06/18 16:40 92 10/06/18 16:30 93 10/06/18 16:20 95 10/06/18 16:10 95 10/06/18 16:00 93 10/06/18 15:50 94 10/06/18 15:40 94 10/06/18 15:30 91 10/06/18 15:20 94 10/06/18 15:10 95 10/06/18 15:00 91 10/06/18 14:50 94 10/06/18 14:40 95 10/06/18 14:30 94 10/06/18 14:20 96 10/06/18 14:10 96 10/06/18 14:00 93 10/06/18 13:50 59 L 10/06/18 13:45 18 13:40 94 10/06/18 13:32 10/06/18 13:30 92 10/06/18 13:20 94 10/06/18 13:10 94 10/06/18 13:00 93 10/06/18 12:50 96 04/18/19 12:40 95 10/06/18 12:30 91 10/06/18 12:20 93 - Physical Examination General: Other (intubated on mechanical ventilation) Cardiac: Positive: Bradycardia - Labs and Meds CBC 10/07/18 Range/Units 04:44 WBC 12.7 H (4.5-11.0) K/mm3 RBC 4.21 (3.65-5.03) M/mm3 Hgb 13.5 (10.1-14.3) gm/dl Hct 41.8 (30.3-42.9) % Plt Count 185 (140-440) K/mm3 Comprehensive Metabolic Panel 10/06/18 10/07/18 10/07/18 Range/Units 12:24 04:44 09:30 Sodium 143 144 (137-145) mmol/L Potassium 4.8 6.3 H* D 3.2 L D (3.6-5.0) mmol/L Chloride 113.9 H 110.1 H (98-107) mmol/L Carbon Dioxide 20 L 23 (22-30) mmol/L BUN 14 15 (7-17) mg/dL Creatinine 0.9 1.1 (0.7-1.2) mg/dL Glucose 134 H 168 H (65-100) mg/dL Calcium 8.4 8.7 (8.4-10.2) mg/dL - Allied health notes Allied health notes reviewed: nursing
[2018-10-07] MEDS: KCL 10MEQ/100ML 10 MEQ/100 ML BAG IV SCH ×2 (12:33→14:34)
--- NOTE | 2018-10-07 15:03 | XRay Report ---
AP CHEST: 10/07/18 14:24 CLINICAL: PICC line insertion. FINDINGS: Since the same day exam at 02:09, a left PICC line has been inserted. The PICC line tip appears to be in the right atrium. The endotracheal tube and the feeding tube are satisfactory and unchanged. No pneumothorax. He streaky opacities in the right lung base. IMPRESSION: Satisfactory placement of the PICC line. Right basal atelectasis or pneumonia.
--- NOTE | 2018-10-07 16:11 | XRay Report ---
AP CHEST: 10/07/18 15:35 CLINICAL: Readjustment of PICC line . FINDINGS: The PICC line tip is in the lower SVC at the cavoatrial junction. Improved aeration of the right lung base compared to the last exam. No pneumothorax. IMPRESSION: Satisfactory position of the PICC line at the cavoatrial junction. No right basal pneumonia.
--- NOTE | 2018-10-07 16:59 | Progress Note ---
Assessment and Plan Assessment and plan: 57 -year-old woman with a history of COPD on home oxygen, hep C, mitral valve prolapse, bipolar was seen in the emergency room last night and was treated for COPD and discharged from the hospital. Family went to check on her and found her in respiratory distress, EMS was called, she was placed on BiPAP and brought to the emergency room where she was intubated. History and review of system unobtainable, patient was given steroids, nebulizer treatments CXR: IMPRESSION: The heart is enlarged. There is bilateral perihilar pulmonary edema. There are no effusions or pneumothoraces.. Endotracheal tube is in the mid trachea. NG tube is in the stomach. Acute Hypoxic Respiratory failure Polysubstance abuse, Cocain and Benzos Pulmonary Edema Acute Toxic metabolic Encephalopathy ?secondary to drug abuse or other etiology Metabolic Acidosis Leukocytosis ?Aspiration- Per nursing staff, patient yesterday had some emesis and coughing prompting increase in sedation. Non so far since then Vasogenic shock Bradycardia Hyperkalemia COPD- with acute exacerbation. (Per Daughter) Active Smoker Hepatitis C Bipolar disorder Atrial Fibrillation by hx Anxiety- and on Valium per family Rollers still in Hair Per daughter patient just got large some of money and has a side of mouth burned likely from crack cocaine. She leaves with a roommate friend at home and is supposed to be on home oxygen due to emphysema but is not complaint. Plan: Continue ICU care Continue empiric abx, although imaging studies pulmonary edema, not sure if underlying PNA, although doubt VAP bundle and Aspiration precautions Sodium Bicarb given, monitor labs Photographic Lithographer input Counselling on Drug abuse when more awake Check ECHO Give Kayxalate Continue Restraints for patient safety Will consult cardiology if condition is not improving Will obtain record from [place] The high probability of a clinically significant, sudden or life threatening deterioration of the [pulmonary, neurol] system(s) required my full and direct attention, intervention and personal management. The aggregate critical care time was [35] minutes. This time is in addition to time spent performing reported procedures but includes the following: [x] Data Review and interpretation [x] Patient assessment and monitoring of vital signs [x] Documentation [x] Medication orders and management History Interval history: Patient seen and examined, remains on mechanical ventilation. no other acute event reported, NO SEIZURE EVENT NOTED Hospitalist Physical - Physical exam Narrative exam: VITAL SIGNS: Reviewed. GENERAL: The patient appeared well nourished and normally developed, on full mechanical ventilatory support Vital signs as documented. HEAD: No signs of head trauma. EYES: Pupils are equal. EARS: Hearing grossly intact. MOUTH: ET tube in place NECK: No adenopathy, no JVD. CHEST: Chest with bronchiovesicular breathsounds bilaterally. No wheezes, rales, or rhonchi. CARDIAC: Regular rate and rhythm. S1 and S2, without murmurs, gallops, or rubs. VASCULAR: No Edema. Peripheral pulses normal and equal in all extremities. ABDOMEN: Soft, non tender and non distended. No rebound or guarding, and no masses palpated. Bowel Sounds normal. MUSCULOSKELETAL: Extremities without clubbing, cyanosis or edema. NEUROLOGIC EXAM: sedated PSYCHIATRIC: sedated SKIN: oral lesion, burn appearance - Constitutional Vitals: Temp Pulse Resp BP Pulse Ox 98.5 F 57 L 30 H 109/48 93 10/07/18 16:00 10/07/18 16:30 10/07/18 16:30 10/07/18 16:30 10/07/18 16:30 General appearance: Present: other (intubated on the vent) Results - Labs CBC & Chem 7: 10/07/18 04:44 10/07/18 09:30 Labs: Laboratory Last Values WBC 12.7 K/mm3 (4.5-11.0) H 10/07/18 04:44 RBC 4.21 M/mm3 (3.65-5.03) 10/07/18 04:44 Hgb 13.5 gm/dl (10.1-14.3) 10/07/18 04:44 Hct 41.8 % (30.3-42.9) 10/07/18 04:44 MCV 99 fl (79-97) H 10/07/18 04:44 MCH 32 pg (28-32) 10/07/18 04:44 MCHC 32 % (30-34) 10/07/18 04:44 RDW 14.7 % (13.2-15.2) 10/07/18 04:44 Plt Count 185 K/mm3 (140-440) 10/07/18 04:44 Add Manual Diff Complete 10/05/18 03:23 Total Counted 100 10/05/18 03:23 Seg Neutrophils % Purchase Request Editor 10/05/18 03:23 Seg Neuts % (Manual) 96.0 % (40.0-70.0) H 10/05/18 03:23 Band Neutrophils % 0 % 10/05/18 03:23 Lymphocytes % (Manual) 2.0 % (13.4-35.0) L 10/05/18 03:23 Reactive Lymphs % (Man) 0 % 10/05/18 03:23 Monocytes % (Manual) 1.0 % (0.0-7.3) 10/05/18 03:23 Eosinophils % (Manual) 0 % (0.0-4.3) 10/05/18 03:23 Basophils % (Manual) 1.0 % (0.0-1.8) 10/05/18 03:23 Metamyelocytes % 0 % 10/05/18 03:23 Myelocytes % 0 % 10/05/18 03:23 Promyelocytes % 0 % 10/05/18 03:23 Blast Cells % 0 % 10/05/18 03:23 Nucleated RBC % Not Reportable 10/05/18 03:23 Seg Neutrophils # Man 8.3 K/mm3 (1.8-7.7) H 10/05/18 03:23 Band Neutrophils # 0.0 K/mm3 10/05/18 03:23 Lymphocytes # (Manual) 0.2 K/mm3 (1.2-5.4) L 10/05/18 03:23 Abs React Lymphs (Man) 0.0 K/mm3 10/05/18 03:23 Monocytes # (Manual) 0.1 K/mm3 (0.0-0.8) 10/05/18 03:23 Eosinophils # (Manual) 0.0 K/mm3 (0.0-0.4) 10/05/18 03:23 Basophils # (Manual) 0.1 K/mm3 (0.0-0.1) 10/05/18 03:23 Metamyelocytes # 0.0 K/mm3 10/05/18 03:23 Myelocytes # 0.0 K/mm3 10/05/18 03:23 Promyelocytes # 0.0 K/mm3 10/05/18 03:23 Blast Cells # 0.0 K/mm3 10/05/18 03:23 WBC Morphology Not Reportable 10/05/18 03:23 Hypersegmented Neuts Not Reportable 10/05/18 03:23 Hyposegmented Neuts Not Reportable 10/05/18 03:23 Hypogranular Neuts Not Reportable 10/05/18 03:23 Smudge Cells Not Reportable 10/05/18 03:23 Toxic Granulation Not Reportable 10/05/18 03:23 Toxic Vacuolation Not Reportable 10/05/18 03:23 Dohle Bodies Not Reportable 10/05/18 03:23 Pelger-Huet Anomaly Not Reportable 10/05/18 03:23 Amanda Rods Not Reportable 10/05/18 03:23 Platelet Estimate Consistent w auto 10/05/18 03:23 Clumped Platelets Not Reportable 10/05/18 03:23 Plt Clumps, EDTA Not Reportable 10/05/18 03:23 Large Platelets Few 10/05/18 03:23 Giant Platelets Not Reportable 10/05/18 03:23 Platelet Satelliting Not Reportable 10/05/18 03:23 Plt Morphology Comment Not Reportable 10/05/18 03:23 RBC Morphology Normal 10/05/18 03:23 Dimorphic RBCs Not Reportable 10/05/18 03:23 Polychromasia Not Reportable 10/05/18 03:23 Hypochromasia Not Reportable 10/05/18 03:23 Poikilocytosis Not Reportable 10/05/18 03:23 Anisocytosis Not Reportable 10/05/18 03:23 Microcytosis Not Reportable 10/05/18 03:23 Macrocytosis Not Reportable 10/05/18 03:23 Spherocytes Not Reportable 10/05/18 03:23 Pappenheimer Bodies Not Reportable 10/05/18 03:23 Sickle Cells Not Reportable 10/05/18 03:23 Target Cells Not Reportable 10/05/18 03:23 Tear Drop Cells Not Reportable 10/05/18 03:23 Ovalocytes Not Reportable 10/05/18 03:23 Helmet Cells Not Reportable 10/05/18 03:23 Clark-Ferrum Bodies Not Reportable 10/05/18 03:23 [place] Rings Not Reportable 10/05/18 03:23 [place] Cells Not Reportable 10/05/18 03:23 Bite Cells Not Reportable 10/05/18 03:23 Crenated Cell Not Reportable 10/05/18 03:23 Elliptocytes Not Reportable 10/05/18 03:23 Acanthocytes (Spur) Not Reportable 10/05/18 03:23 Rouleaux Not Reportable 10/05/18 03:23 Hemoglobin C Crystals Not Reportable 10/05/18 03:23 Schistocytes Not Reportable 10/05/18 03:23 Malaria parasites Not Reportable 10/05/18 03:23 Polo Bodies Not Reportable 10/05/18 03:23 Hem Pathologist Commnt No 10/05/18 03:23 POC ABG pH 7.335 (7.35-7.45) L 10/07/18 09:44 POC ABG pCO2 56.3 (35-45) H 10/07/18 09:44 POC ABG pO2 64 (80-105) L 10/07/18 09:44 POC ABG HCO3 30.0 (22-26 mml/L) 10/07/18 09:44 POC ABG Total CO2 32 (23-27mmol/L) 10/07/18 09:44 POC ABG O2 Sat 90 10/07/18 09:44 POC ABG Base Excess 4 ((-2) - (+3)mmol/L) 10/07/18 09:44 FiO2 50 % 10/07/18 09:44 Sodium 144 mmol/L (137-145) 10/07/18 04:44 Potassium 3.2 mmol/L (3.6-5.0) L D 10/07/18 09:30 Chloride 110.1 mmol/L (98-107) H 10/07/18 04:44 Carbon Dioxide 23 mmol/L (22-30) 10/07/18 04:44 Anion Gap 17 mmol/L 10/07/18 04:44 BUN 15 mg/dL (7-17) 10/07/18 04:44 Creatinine 1.1 mg/dL (0.7-1.2) 10/07/18 04:44 Estimated GFR > 60 ml/min 10/07/18 04:44 BUN/Creatinine Ratio 14 % 10/07/18 04:44 Glucose 168 mg/dL (65-100) H 10/07/18 04:44 POC Glucose 131 (70-105) H 10/07/18 12:06 Lactic Acid 2.00 mmol/L (0.7-2.0) 10/07/18 06:08 Calcium 8.7 mg/dL (8.4-10.2) 10/07/18 04:44 Total Bilirubin < 0.20 mg/dL (0.1-1.2) 10/06/18 04:11 AST 15 units/L (5-40) 10/06/18 04:11 ALT 20 units/L (7-56) 10/06/18 04:11 Alkaline Phosphatase 59 units/L (35-129) 10/06/18 04:11 Troponin T < 0.010 ng/mL (0.00-0.029) 10/05/18 06:10 C-Reactive Protein 3.70 mg/dL (0.00-1.30) H 10/06/18 12:24 Total Protein 6.4 g/dL (6.3-8.2) 10/06/18 04:11 Albumin 2.7 g/dL (3.9-5) L 10/06/18 04:11 Albumin/Globulin Ratio 0.7 % 10/06/18 04:11 Urine Color Yellow (Yellow) 10/05/18 12:42 Urine Turbidity Clear (Clear) 10/05/18 12:42 Urine pH 5.0 (5.0-7.0) 10/05/18 12:42 Ur Specific [place] 1.035 (1.003-1.030) H 10/05/18 12:42 Urine Protein 100 mg/dl mg/dL (Negative) 10/05/18 12:42 Urine Glucose (UA) 50 mg/dL (Negative) 10/05/18 12:42 Urine Ketones Neg mg/dL (Negative) 10/05/18 12:42 Urine Blood Sm (Negative) 10/05/18 12:42 Urine Nitrite Neg (Negative) 10/05/18 12:42 Urine Bilirubin Neg (Negative) 10/05/18 12:42 Urine Urobilinogen < 2.0 mg/dL (<2.0) 10/05/18 12:42 Ur Leukocyte Esterase Neg (Negative) 10/05/18 12:42 Urine WBC (Auto) 3.0 /HPF (0.0-6.0) 10/05/18 12:42 Urine RBC (Auto) 11.0 /HPF (0.0-6.0) 10/05/18 12:42 U Epithel Cells (Auto) 1.0 /HPF (0-13.0) 10/05/18 12:42 Urine Bacteria (Auto) 1+ /HPF (Negative) 10/05/18 12:42 Hyaline Casts 6 /LPF 10/05/18 12:42 Granular Casts 4 /LPF 10/05/18 12:42 WBC Casts 3 /LPF 10/05/18 03:47 Urine Mucus 2+ /HPF 10/05/18 12:42 Urine Opiates Screen Presumptive negative 10/05/18 12:42 Urine Methadone Screen Presumptive negative 10/05/18 12:42 Ur Barbiturates Screen Presumptive negative 10/05/18 12:42 Ur Phencyclidine Scrn Presumptive negative 10/05/18 12:42 Ur Amphetamines Screen Presumptive negative 10/05/18 12:42 U Benzodiazepines Scrn Presumptive positive 10/05/18 12:42 Urine Cocaine Screen Presumptive positive 10/05/18 12:42 U Marijuana (THC) Screen Presumptive negative 10/05/18 12:42 Drugs of Abuse Note Disclamer 10/05/18 12:42 Blood Type B POSITIVE 10/05/18 04:32 Antibody Screen Negative 10/05/18 04:32 Active Medications - Current Medications Current Medications: Generic Name Dose Route Start Last Admin Trade Name Freq PRN Reason Stop Dose Admin Acetaminophen 650 mg 10/05/18 05:16 Tylenol PO Q4H PRN Pain MILD(1-3)/Fever >100.5/MIMS Albuterol/Ipratropium 1 ampul 10/05/18 08:00 10/07/18 14:30 Duoneb *Not For Prn Use* IH 1 ampul Q6HRT [facility] Administration Lipase/Protease/Amylase 1 each 10/05/18 13:59 Pancreazsatya Whittaker 10,500 Unit FEEDTUBE PRN PRN For Clogged Feeding Tube Carvedilol 3.125 mg 10/06/18 22:00 10/07/18 10:19 Coreg PO Not Given BID [facility] Enoxaparin Sodium 40 mg 10/05/18 10:00 10/07/18 10:29 Lovenox SUB-Q 40 mg QDAY@1000 [facility] Administration Famotidine 20 mg 10/06/18 22:00 10/07/18 11:42 Pepcid PO Not Given BID HUMBERTO Fentanyl 50 mcg 10/05/18 02:50 Sublimaze IV Q10MIN PRN ANALGESIA Furosemide 20 mg 10/06/18 18:00 10/07/18 05:22 Lasix IV 20 mg 0600,1800 HUMBERTO Administration Hydrophilic Ointment 1 applic 10/05/18 02:50 Vaseline Lip Therapy TP Q2HR PRN Dry Lips Fentanyl Citrate 2,000 mcg in 100 mls @ 4.035 mls/hr 10/05/18 03:00 10/07/18 14:34 Fentanyl Drip Premix IV 4 mcg/kg/hr TITR HUMBERTO 16.14 mls/hr Administration Protocol 1 MCG/KG/HR Propofol 1,000 mg in 100 mls @ 2.421 mls/hr 10/05/18 03:15 10/07/18 13:14 Diprivan 10 Mg/Ml IV 20 mcg/kg/min TITR HUMBERTO 9.684 mls/hr Titration Protocol 5 MCG/KG/MIN Azithromycin 500 mg/ Sodium 250 mls @ 250 mls/hr 10/05/18 21:00 10/06/18 23:15 Chloride IV 250 mls/hr Q24H HUMBERTO Administration Ceftriaxone Sodium 1 gm in 50 mls @ 100 mls/hr 10/05/18 20:00 10/06/18 20:52 Rocephin/Ns 1 Gm/50 Ml IV 100 mls/hr Q24H HUMBERTO Administration Protocol Sodium Bicarbonate 150 meq/ 1,150 mls @ 75 mls/hr 10/06/18 13:00 10/07/18 08:26 Dextrose IV 10/08/18 04:19 75 mls/hr DIRECT HUMBERTO Administration Lisinopril 2.5 mg 10/07/18 10:00 10/07/18 11:42 Zestril PO Not Given QDAY HUMBERTO Lorazepam 1 mg 10/06/18 16:46 Ativan IV Q4H PRN Seizures Methylprednisolone Sodium Succinate 60 mg 10/05/18 12:00 10/07/18 11:52 Solu-Medrol IV 60 mg Q6HR HUMBERTO Administration Multi-Ingred Cream/Lotion/Oil/Oint 1 applic 10/05/18 02:50 Artificial Tears Ophth Oint OU Q4HR PRN Dry Eye(s) Ondansetron HCl 4 mg 10/05/18 05:16 Zofran IV Q8H PRN Nausea And Vomiting Simple Syrup 15 ml 10/05/18 13:59 Simple Syrup FEEDTUBE PRN PRN Hypoglycemia Simple Syrup 30 ml 10/05/18 13:59 Simple Syrup FEEDTUBE PRN PRN Hypoglycemia Sodium Bicarbonate 325 mg 10/05/18 13:59 Sodium Bicarbonate FEEDTUBE PRN PRN For Clogged Feeding Tube Sodium Chloride 10 ml 10/05/18 10:00 10/07/18 10:13 Sodium Chloride Flush Syringe 10 Ml IV 10 ml BID HUMBERTO Administration Sodium Chloride 10 ml 10/05/18 05:16 Sodium Chloride Flush Syringe 10 Ml IV PRN PRN LINE FLUSH Nutrition/Malnutrition Assess - Dietary Evaluation Nutrition/Malnutrition Findings: Nutrition Notes Start: 10/05/18 12:40 Freq: Status: Active Protocol: Document 10/07/18 10:31 TW (Rec: 10/07/18 10:41 TW [id number]) Co-Sign 10/07/18 10:31 LP Nutrition Notes Initial or Follow up Reassessment Current Diagnosis COPD,Hypertension Other Pertinent Diagnosis lung CA, Asthma, [place], biploar Current Diet Vital AF @ 60mL/hr Labs/Tests reviewed Pertinent Medications Propofol. Solu-Medrol Lasix Height 5 ft 6 in Weight 80.7 kg [place] Body Weight (kg) 59.09 BMI 28.7 Weight Status Overweight Subjective/Other Information F/U for TF tolerance/goal. Noted TF running at 30mL/hr. TF put on hold this am due to inadequate flow through tube. Per RN, pt was tolerating TF at goal preiously and rate will continue to goal today. Burn Absent Trauma Absent #1 Nutrition Diagnosis Inadequate oral intake Diagnosis Progress(for reassessment Continues documentation) Is patient on ventilator? Yes Is Patient Ambulatory and/or Out of Bed No REE-([facility]-confined to bed) 1683.192 Kcal/Kg value to use for calculation 14 Approximate Energy Requirements Using 1130 kcal/Kg Calculation Used for Recommendations [facility] Additional Notes PRO: 97g-161g PRO (1.2 - 2.0 g /day) Fluid: 1 mL/kcal or per MD Nutrition Intervention Change Diet Order: TF Nutrition Support: Vital AF 1.2 at 60mL/hr Water Flush 150 mL q4h Kcal 1,728 Protein (gm) 108 Fluid (mL) 1,168 Goal #1 TF tolerance Goal #2 TF to meet 75-100% of kcal and PRO needs Anticipated Discharge Needs: unable to determine at this time. Follow-Up By: 10/11/18 Additional Comments F/U stable TF
[2018-10-07] MEDS: ROCEPHIN/NS 1 GM/50 ML 1 GM/50 ML BAG IV SCH (19:45)
--- NOTE | 2018-10-07 20:49 | XRay Report ---
PROCEDURE: XR CHEST 1V AP TECHNIQUE: Chest AP HISTORY: follow up respiratory failure COMPARISONS: Comparison is October 06, 2018 FINDINGS: There is feeding tube present distal end overlying the body of the stomach. ET tube no longer identif ied. Cardiac and mediastinal contours unremarkable. There is mild vascular and interstitial prominenc e may reflect CHF IMPRESSION: NG tube in the stomach Findings suggestive of mild CHF. This document is electronically signed by Edu Watkins MD., October 07 2018 08:46:58 PM ET
[2018-10-07] MEDS: ZITHROMAX 500 MG in NACL 0.9% 250ML 250 ML IV SCH (21:00)
[2018-10-08] MEDS: DUONEB *Not for PRN Use IH SCH ×4 (02:31→19:14)
[2018-10-08] MEDS: DIPRIVAN 10 MG/ML 1,000 MG/100 ML BOTTLE IV SCH ×3 (02:48→20:30)
[2018-10-08] MEDS: fentaNYL DRIP Premix 2,000 MCG/100 ML BAG IV SCH ×4 (02:49→20:30)
--- NOTE | 2018-10-08 03:04 | XRay Report ---
PROCEDURE: XR CHEST 1V AP TECHNIQUE: Chest radiograph single view. HISTORY: Follow-up respiratory failure COMPARISONS: 10/07/2018 . FINDINGS: There is endotracheal tube in place that appears adequately positioned. There is a feeding tube in pl lucero and courses below the diaphragm below the lower margin of the film. There is a left arm PICC line in place with the tip in the distal SVC. There is left basilar linear opacity consistent with subsegmental atelectasis without change. The car diomediastinal silhouette appears normal. The bones and soft tissues are unremarkable. IMPRESSION: Stable chest x-ray. Mild left basilar subsegmental atelectasis This document is electronically signed by Erin Palmer MD., October 08 2018 03:02:11 AM ET
[2018-10-08] MEDS: LASIX IV SCH ×2 (05:33→17:56)
[2018-10-08] MEDS: SOLU-Medrol IV SCH ×3 (05:33→17:57)
[2018-10-08] MEDS: HumuLIN R SUB-Q SCH ×4 (08:21→21:55)
[2018-10-08 09:19] LABS: Basophils % (Auto) 0.2 % (0.0-1.8); Hematocrit 39.7 % (30.3-42.9); Hemoglobin 13.3 gm/dl (10.1-14.3); Lymphocytes # (Auto) 0.9 K/mm3 (1.2-5.4); Lymphocytes % (Auto) 7.5 % (13.4-35.0); Mean Corpuscular HGB Conc 34 % (30-34); Mean Corpuscular Volume 95 fl (79-97); Monocytes # (Auto) 0.7 K/mm3 (0.0-0.8); Monocytes % (Auto) 6.3 % (0.0-7.3); Platelet Count 199 K/mm3 (140-440); Red Blood Count 4.19 M/mm3 (3.65-5.03); Red Cell Distribution Width 14.2 % (13.2-15.2)
[2018-10-08 09:37] LABS: BUN/Creatinine Ratio 23; Blood Urea Nitrogen 18 mg/dL (7-17); Calcium 8.3 mg/dL (8.4-10.2); Hemolysis Index 8
--- NOTE | 2018-10-08 09:52 | Progress Note ---
Assessment and Plan Acute Hypoxic Respiratory failure Polysubstance abuse, Cocaine and Benzos Pulmonary Edema Acute Toxic metabolic Encephalopathy ?secondary to drug abuse or other etiology Metabolic Acidosis Leukocytosis ?Aspiration- Per nursing staff, patient yesterday had some emesis and coughing prompting increase in sedation. Non so far since then Vasogenic shock Bradycardia Hyperkalemia COPD- with acute exacerbatione Active Smoker Hepatitis C Bipolar disorder Atrial Fibrillation by hx Anxiety- and on Valium per family - continue weaning oxygen for sat's > 90% - will increase Peep to 8 if no progress weaning oxygen by tomorrow - continue bronchodilators with pulmonary hygiene per RT - kwon catheter in place due to retention; will clamp and pull if improved - CRP unremarkable and lactic acid level now WNL - complete empiric CAP AB's course - 2D ECHO reveals moderate pulm HTN - repeat ABG in am - VAP bundle and Aspiration precautions addressed - continue mobility protocol for pressure ulcer prophylaxis - enteral nutrition - Counselling on Drug abuse when more awake - tobacco absue counseling once improved - prn blood draws Continue Restraints for patient safety - GI & VTE prophylaxis - flu & pneumovax per protocol .... care plan discussed at length with daughter and RN by bedside The high probability of a clinically significant, sudden or life threatening deterioration of the [pulmonary, neurol] system(s) required my full and direct attention, intervention and personal management. The aggregate critical care t rboin was [32] minutes. This time is in addition to time spent performing reported procedures but includes the following: [x] Data Review and interpretation [x] Patient assessment and monitoring of vital signs [x] Documentation [x] Medication orders and management Subjective Date of service: 10/08/18 Principal diagnosis: Acute Hypoxemic Resp failure; Polysubstance abuse;Acute Pulm Edema Interval history: Patient is seen today for: Acute Hypoxemic Respiratory failure; Polysubstance abuse (Cocaine and Benzos); Acute Pulmonary Edema; Acute Toxic metabolic Encephalopathy ?secondary to drug abuse or other etiology; Metabolic Acidosis; Leukocytosis Seen and examined at bedside; 24hour events reviewed; nursing and respiratory care staff consulted; no adverse overnight events reported to me; remains opn MVS; FiO2 at 60% with some room to wean; No emesis or overt aspiration; agitated during SAT; no seizures and tolerating tube feeds Objective Vital Signs - 12hr 10/07/18 10/07/18 10/07/18 22:00 22:10 22:20 Temperature Pulse Rate 62 62 58 L Pulse Rate [ Bilateral] Pulse Rate [ Right Dorsalis Pedis] Respiratory 30 H 30 H 30 H Rate Respiratory Rate [Bilateral ] Blood Pressure 121/56 121/56 121/56 O2 Sat by Pulse 93 93 94 Oximetry 10/07/18 10/07/18 10/07/18 22:30 22:40 22:50 Temperature Pulse Rate 62 66 68 Pulse Rate [ Bilateral] Pulse Rate [ Right Dorsalis Pedis] Respiratory 30 H 30 H 30 H Rate Respiratory Rate [Bilateral ] Blood Pressure 124/57 124/57 124/57 O2 Sat by Pulse 94 94 93 Oximetry 10/07/18 10/07/18 10/07/18 23:00 23:08 23:09 Temperature 98.7 F Pulse Rate 76 68 66 Pulse Rate [ Bilateral] Pulse Rate [ 68 Right Dorsalis Pedis] Respiratory 30 H 30 H Rate Respiratory Rate [Bilateral ] Blood Pressure 138/62 129/66 138/62 O2 Sat by Pulse 94 92 Oximetry 10/07/18 10/07/18 10/07/18 23:10 23:20 23:30 Temperature Pulse Rate 72 74 69 Pulse Rate [ Bilateral] Pulse Rate [ Right Dorsalis Pedis] Respiratory 30 H 30 H 30 H Rate Respiratory Rate [Bilateral ] Blood Pressure 138/62 138/62 122/53 O2 Sat by Pulse 96 95 94 Oximetry 10/07/18 10/07/18 10/08/18 23:40 23:50 00:00 Temperature Pulse Rate 63 62 66 Pulse Rate [ Bilateral] Pulse Rate [ 68 Right Dorsalis Pedis] Respiratory 30 H 30 H 30 H Rate Respiratory Rate [Bilateral ] Blood Pressure 122/53 122/53 122/62 O2 Sat by Pulse 94 94 92 Oximetry 10/08/18 10/08/18 10/08/18 00:09 00:10 00:20 Temperature Pulse Rate 64 103 H 80 Pulse Rate [ Bilateral] Pulse Rate [ Right Dorsalis Pedis] Respiratory 28 H 30 H Rate Respiratory Rate [Bilateral ] Blood Pressure 122/62 122/62 122/62 O2 Sat by Pulse 94 96 95 Oximetry 10/08/18 10/08/18 10/08/18 00:30 00:40 00:50 Temperature Pulse Rate 74 68 67 Pulse Rate [ Bilateral] Pulse Rate [ Right Dorsalis Pedis] Respiratory 30 H 30 H 30 H Rate Respiratory Rate [Bilateral ] Blood Pressure 129/66 129/66 129/66 O2 Sat by Pulse 95 94 93 Oximetry 10/08/18 10/08/18 10/08/18 01:00 01:10 01:20 Temperature Pulse Rate 67 63 72 Pulse Rate [ Bilateral] Pulse Rate [ Right Dorsalis Pedis] Respiratory 30 H 30 H 30 H Rate Respiratory Rate [Bilateral ] Blood Pressure 129/66 125/70 125/70 O2 Sat by Pulse 94 94 95 Oximetry 10/08/18 10/08/18 10/08/18 01:30 01:40 01:50 Temperature Pulse Rate 76 125 H 110 H Pulse Rate [ Bilateral] Pulse Rate [ Right Dorsalis Pedis] Respiratory 26 H 20 22 Rate Respiratory Rate [Bilateral ] Blood Pressure 142/70 142/70 142/70 O2 Sat by Pulse 94 95 94 Oximetry 10/08/18 10/08/18 10/08/18 02:00 02:10 02:20 Temperature Pulse Rate 93 H 108 H 132 H Pulse Rate [ Bilateral] Pulse Rate [ Right Dorsalis Pedis] Respiratory 30 H 25 H 24 Rate Respiratory Rate [Bilateral ] Blood Pressure 144/64 144/64 144/64 O2 Sat by Pulse 93 95 94 Oximetry 10/08/18 10/08/18 10/08/18 02:30 02:31 02:40 Temperature Pulse Rate 114 H 102 H Pulse Rate [ 109 H Bilateral] Pulse Rate [ Right Dorsalis Pedis] Respiratory 20 29 H Rate Respiratory 30 H Rate [Bilateral ] Blood Pressure 144/64 169/79 O2 Sat by Pulse 95 95 Oximetry 10/08/18 10/08/18 10/08/18 02:41 02:48 02:50 Temperature Pulse Rate 72 80 Pulse Rate [ 100 H Bilateral] Pulse Rate [ Right Dorsalis Pedis] Respiratory 30 H 30 H Rate Respiratory 30 H Rate [Bilateral ] Blood Pressure 169/79 O2 Sat by Pulse 92 92 Oximetry 10/08/18 10/08/18 10/08/18 03:00 03:10 03:20 Temperature Pulse Rate 72 68 65 Pulse Rate [ Bilateral] Pulse Rate [ Right Dorsalis Pedis] Respiratory 30 H 30 H 30 H Rate Respiratory Rate [Bilateral ] Blood Pressure 117/49 117/49 117/49 O2 Sat by Pulse 93 92 92 Oximetry 10/08/18 10/08/18 10/08/18 03:30 03:40 03:50 Temperature Pulse Rate 64 63 62 Pulse Rate [ Bilateral] Pulse Rate [ Right Dorsalis Pedis] Respiratory 30 H 30 H 30 H Rate Respiratory Rate [Bilateral ] Blood Pressure 113/53 113/53 113/53 O2 Sat by Pulse 92 92 92 Oximetry 10/08/18 10/08/18 10/08/18 04:00 04:10 04:20 Temperature 98.7 F Pulse Rate 61 59 L 62 Pulse Rate [ Bilateral] Pulse Rate [ Right Dorsalis Pedis] Respiratory 30 H 30 H 30 H Rate Respiratory Rate [Bilateral ] Blood Pressure 120/55 120/55 120/55 O2 Sat by Pulse 92 93 94 Oximetry 10/08/18 10/08/18 10/08/18 04:30 04:40 04:49 Temperature Pulse Rate 88 76 62 Pulse Rate [ Bilateral] Pulse Rate [ Right Dorsalis Pedis] Respiratory 29 H 30 H Rate Respiratory Rate [Bilateral ] Blood Pressure 158/78 158/78 120/55 O2 Sat by Pulse 96 94 94 Oximetry 10/08/18 10/08/18 10/08/18 04:50 05:00 05:10 Temperature Pulse Rate 62 60 60 Pulse Rate [ Bilateral] Pulse Rate [ Right Dorsalis Pedis] Respiratory 30 H 30 H 30 H Rate Respiratory Rate [Bilateral ] Blood Pressure 158/78 119/54 119/54 O2 Sat by Pulse 96 95 95 Oximetry 10/08/18 10/08/18 10/08/18 05:20 05:30 05:40 Temperature Pulse Rate 58 L 59 L 55 L Pulse Rate [ Bilateral] Pulse Rate [ Right Dorsalis Pedis] Respiratory 30 H 30 H 30 H Rate Respiratory Rate [Bilateral ] Blood Pressure 119/54 123/52 123/52 O2 Sat by Pulse 94 94 94 Oximetry 10/08/18 10/08/18 10/08/18 05:50 06:00 06:10 Temperature Pulse Rate 57 L 55 L 55 L Pulse Rate [ Bilateral] Pulse Rate [ Right Dorsalis Pedis] Respiratory 30 H 30 H 30 H Rate Respiratory Rate [Bilateral ] Blood Pressure 123/52 113/52 113/52 O2 Sat by Pulse 93 93 93 Oximetry 10/08/18 10/08/18 10/08/18 06:20 06:30 07:37 Temperature Pulse Rate 55 L 54 L 65 Pulse Rate [ Bilateral] Pulse Rate [ Right Dorsalis Pedis] Respiratory 30 H 30 H Rate Respiratory Rate [Bilateral ] Blood Pressure 113/52 112/48 139/71 O2 Sat by Pulse 92 92 94 Oximetry 10/08/18 10/08/18 10/08/18 07:45 07:50 08:00 Temperature 98.6 F Pulse Rate Pulse Rate [ 65 66 Bilateral] Pulse Rate [ Right Dorsalis Pedis] Respiratory Rate Respiratory 30 H 30 H Rate [Bilateral ] Blood Pressure O2 Sat by Pulse Oximetry Constitutional: no acute distress, other (elderly looking AAF, normocephalic and with mildly increased resp effort at rest) Eyes: non-icteric ENT: oropharynx moist, other (ETT 23 cm JOHNNY) Neck: supple, no lymphadenopathy, no JVD, other (no thyromegaly) Effort: mildly labored Ascultation: Bilateral: diminished breath sounds, rhonchi, other (prolonged exp phase) Percussion: Bilateral: not dull Cardiovascular: regular rate and rhythm Gastrointestinal: normoactive bowel sounds, soft, non-tender, non-distended Integumentary: normal Extremities: no cyanosis, pulses normal, no ischemia or petechiae, edema (L > R lower extremity) Neurologic: non-focal exam (grossly), pupils equal and round, motor strength normal and Psychiatric: other (sedated) CBC and BMP: 10/09/18 04:20 10/09/18 04:20 ABG, PT/INR, D-dimer: ABG POC ABG pH 7.430 (7.35-7.45) 10/08/18 04:49 POC ABG pCO2 53.6 (35-45) H 10/08/18 04:49 POC ABG pO2 69 (80-105) L 10/08/18 04:49 POC ABG HCO3 35.6 (22-26 mml/L) 10/08/18 04:49 POC ABG Total CO2 37 (23-27mmol/L) 10/08/18 04:49 POC ABG O2 Sat 94 10/08/18 04:49 Abnormal lab findings: Abnormal Labs 10/05/18 10/05/18 10/05/18 03:23 03:23 03:23 WBC Hgb 14.5 H Hct 43.3 H MCV 98 H MCH 33 H Lymph % (Auto) Lymph # Seg Neutrophils % Seg Neuts % (Manual) 96.0 H Lymphocytes % (Manual) 2.0 L Seg Neutrophils # Seg Neutrophils # Man 8.3 H Lymphocytes # (Manual) 0.2 L POC ABG pH POC ABG pCO2 POC ABG pO2 Potassium Chloride 107.9 H Carbon Dioxide 20 L BUN Glucose 157 H POC Glucose Lactic Acid 3.30 H* Calcium 8.0 L C-Reactive Protein Albumin Ur Specific [place] 10/05/18 10/05/18 10/05/18 03:47 04:21 06:10 WBC Hgb Hct MCV MCH Lymph % (Auto) Lymph # Seg Neutrophils % Seg Neuts % (Manual) Lymphocytes % (Manual) Seg Neutrophils # Seg Neutrophils # Man Lymphocytes # (Manual) POC ABG pH 7.096 L POC ABG pCO2 POC ABG pO2 166 H Potassium Chloride Carbon Dioxide BUN Glucose POC Glucose Lactic Acid 2.60 H* Calcium C-Reactive Protein Albumin Ur Specific [place] 1.031 H 10/05/18 10/05/18 10/05/18 06:39 07:09 10:48 WBC Hgb Hct MCV MCH Lymph % (Auto) Lymph # Seg Neutrophils % Seg Neuts % (Manual) Lymphocytes % (Manual) Seg Neutrophils # Seg Neutrophils # Man Lymphocytes # (Manual) POC ABG pH 7.241 L 7.178 L POC ABG pCO2 45.2 H 49.3 H POC ABG pO2 57 L 62 L Potassium Chloride Carbon Dioxide BUN Glucose POC Glucose Lactic Acid 2.80 H* Calcium C-Reactive Protein Albumin Ur Specific [place] 10/05/18 10/05/18 10/06/18 12:42 17:11 04:11 WBC 14.0 H Hgb Hct MCV 99 H MCH Lymph % (Auto) Lymph # Seg Neutrophils % Seg Neuts % (Manual) Lymphocytes % (Manual) Seg Neutrophils # Seg Neutrophils # Man Lymphocytes # (Manual) POC ABG pH 7.206 L POC ABG pCO2 POC ABG pO2 74 L Potassium Chloride Carbon Dioxide BUN Glucose POC Glucose Lactic Acid Calcium C-Reactive Protein Albumin Ur Specific [place] 1.035 H 10/06/18 10/06/18 10/06/18 04:11 04:18 09:32 WBC Hgb Hct MCV MCH Lymph % (Auto) Lymph # Seg Neutrophils % Seg Neuts % (Manual) Lymphocytes % (Manual) Seg Neutrophils # Seg Neutrophils # Man Lymphocytes # (Manual) POC ABG pH 7.270 L POC ABG pCO2 POC ABG pO2 67 L Potassium 5.2 H D Chloride 116.1 H Carbon Dioxide 17 L BUN Glucose 132 H POC Glucose Lactic Acid 2.70 H* Calcium 7.8 L C-Reactive Protein Albumin 2.7 L Ur Specific [place] 10/06/18 10/06/18 10/06/18 12:24 12:24 22:10 WBC Hgb Hct MCV MCH Lymph % (Auto) Lymph # Seg Neutrophils % Seg Neuts % (Manual) Lymphocytes % (Manual) Seg Neutrophils # Seg Neutrophils # Man Lymphocytes # (Manual) POC ABG pH 7.314 L POC ABG pCO2 48.5 H POC ABG pO2 64 L Potassium Chloride 113.9 H Carbon Dioxide 20 L BUN Glucose 134 H POC Glucose Lactic Acid Calcium C-Reactive Protein 3.70 H Albumin Ur Specific [place] 10/06/18 10/07/18 10/07/18 23:46 04:44 04:44 WBC 12.7 H Hgb Hct MCV 99 H MCH Lymph % (Auto) Lymph # Seg Neutrophils % Seg Neuts % (Manual) Lymphocytes % (Manual) Seg Neutrophils # Seg Neutrophils # Man Lymphocytes # (Manual) POC ABG pH POC ABG pCO2 POC ABG pO2 Potassium 6.3 H* D Chloride 110.1 H Carbon Dioxide BUN Glucose 168 H POC Glucose 135 H Lactic Acid Calcium C-Reactive Protein Albumin Ur Specific [place] 10/07/18 10/07/18 10/07/18 04:44 09:30 09:44 WBC Hgb Hct MCV MCH Lymph % (Auto) Lymph # Seg Neutrophils % Seg Neuts % (Manual) Lymphocytes % (Manual) Seg Neutrophils # Seg Neutrophils # Man Lymphocytes # (Manual) POC ABG pH 7.335 L POC ABG pCO2 56.3 H POC ABG pO2 64 L Potassium 3.2 L D Chloride Carbon Dioxide BUN Glucose POC Glucose Lactic Acid 2.20 H* Calcium C-Reactive Protein Albumin Ur Specific [place] 10/07/18 10/07/18 10/08/18 12:06 18:38 04:33 WBC Hgb Hct MCV MCH Lymph % (Auto) Lymph # Seg Neutrophils % Seg Neuts % (Manual) Lymphocytes % (Manual) Seg Neutrophils # Seg Neutrophils # Man Lymphocytes # (Manual) POC ABG pH 7.510 H POC ABG pCO2 POC ABG pO2 50 L Potassium Chloride Carbon Dioxide BUN Glucose POC Glucose 131 H 134 H Lactic Acid Calcium C-Reactive Protein Albumin Ur Specific [place] 10/08/18 10/08/18 10/08/18 04:49 05:38 08:24 WBC 11.7 H Hgb Hct MCV MCH Lymph % (Auto) 7.5 L Lymph # 0.9 L Seg Neutrophils % 86.0 H Seg Neuts % (Manual) Lymphocytes % (Manual) Seg Neutrophils # 10.0 H Seg Neutrophils # Man Lymphocytes # (Manual) POC ABG pH POC ABG pCO2 53.6 H POC ABG pO2 69 L Potassium Chloride Carbon Dioxide BUN Glucose POC Glucose 179 H Lactic Acid Calcium C-Reactive Protein Albumin Ur Specific [place] 10/08/18 10/08/18 08:24 09:12 WBC Hgb Hct MCV MCH Lymph % (Auto) Lymph # Seg Neutrophils % Seg Neuts % (Manual) Lymphocytes % (Manual) Seg Neutrophils # Seg Neutrophils # Man Lymphocytes # (Manual) POC ABG pH POC ABG pCO2 POC ABG pO2 Potassium 2.7 L* Chloride Carbon Dioxide 33 H D BUN 18 H Glucose 182 H POC Glucose 194 H Lactic Acid Calcium 8.3 L C-Reactive Protein Albumin Ur Specific [place] Chest x-ray: image reviewed (basilar infiltrates) Allied health notes reviewed: nursing
--- NOTE | 2018-10-08 10:23 | Progress Note ---
Assessment and Plan Assessment and plan: 57 -year-old woman with a history of COPD on home oxygen, hep C, mitral valve prolapse, bipolar was seen in the emergency room last night and was treated for COPD and discharged from the hospital. Family went to check on her and found her in respiratory distress, EMS was called, she was placed on BiPAP and brought to the emergency room where she was intubated. History and review of system unobtainable, patient was given steroids, nebulizer treatments CXR: IMPRESSION: The heart is enlarged. There is bilateral perihilar pulmonary edema. There are no effusions or pneumothoraces.. Endotracheal tube is in the mid trachea. NG tube is in the stomach. Acute Hypoxic Respiratory failure Polysubstance abuse, Cocain and Benzos Pulmonary Edema Acute Toxic metabolic Encephalopathy ?secondary to drug abuse or other etiology Metabolic Acidosis Leukocytosis ?Aspiration- Per nursing staff, patient yesterday had some emesis and coughing prompting increase in sedation. Non so far since then Vasogenic shock Bradycardia Hyperkalemia COPD- with acute exacerbation. (Per Daughter) Active Smoker Hepatitis C Bipolar disorder Atrial Fibrillation by hx Anxiety- and on Valium per family Rollers still in Hair Per daughter patient just got large some of money and has a side of mouth burned likely from crack cocaine. She leaves with a roommate friend at home and is supposed to be on home oxygen due to emphysema but is not complaint. Plan: Continue ICU care Continue empiric abx, although imaging studies pulmonary edema, not sure if underlying PNA, although doubt VAP bundle and Aspiration precautions Sodium Bicarb given, monitor labs Bandoleer Packer input Counselling on Drug abuse when more awake Check ECHO Give Kayxalate Continue Restraints for patient safety Will consult cardiology if condition is not improving Will obtain record from [place] The high probability of a clinically significant, sudden or life threatening deterioration of the [pulmonary, neurol] system(s) required my full and direct attention, intervention and personal management. The aggregate critical care time was [35] minutes. This time is in addition to time spent performing reported procedures but includes the following: [x] Data Review and interpretation [x] Patient assessment and monitoring of vital signs [x] Documentation [x] Medication orders and management History Interval history: Patient seen and examined, remains on mechanical ventilation. no other acute event reported, NO SEIZURE EVENT NOTED Hospitalist Physical - Physical exam Narrative exam: VITAL SIGNS: Reviewed. GENERAL: The patient appeared well nourished and normally developed, on full mechanical ventilatory support Vital signs as documented. HEAD: No signs of head trauma. EYES: Pupils are equal. EARS: Hearing grossly intact. MOUTH: ET tube in place NECK: No adenopathy, no JVD. CHEST: Chest with bronchiovesicular breathsounds bilaterally. No wheezes, rales, or rhonchi. CARDIAC: Regular rate and rhythm. S1 and S2, without murmurs, gallops, or rubs. VASCULAR: No Edema. Peripheral pulses normal and equal in all extremities. ABDOMEN: Soft, non tender and non distended. No rebound or guarding, and no masses palpated. Bowel Sounds normal. MUSCULOSKELETAL: Extremities without clubbing, cyanosis or edema. NEUROLOGIC EXAM: sedated PSYCHIATRIC: sedated SKIN: oral lesion, burn appearance - Constitutional Vitals: Temp Pulse Resp BP Pulse Ox 98.6 F 66 30 H 139/71 94 10/08/18 08:00 10/08/18 07:50 10/08/18 07:50 10/08/18 07:37 10/08/18 07:37 General appearance: Present: other (intubated on the vent) Results - Labs CBC & Chem 7: 10/09/18 04:20 10/09/18 04:20 Labs: Laboratory Last Values WBC 11.7 K/mm3 (4.5-11.0) H 10/08/18 08:24 RBC 4.19 M/mm3 (3.65-5.03) 10/08/18 08:24 Hgb 13.3 gm/dl (10.1-14.3) 10/08/18 08:24 Hct 39.7 % (30.3-42.9) 10/08/18 08:24 MCV 95 fl (79-97) 10/08/18 08:24 MCH 32 pg (28-32) 10/08/18 08:24 MCHC 34 % (30-34) 10/08/18 08:24 RDW 14.2 % (13.2-15.2) 10/08/18 08:24 Plt Count 199 K/mm3 (140-440) 10/08/18 08:24 Lymph % (Auto) 7.5 % (13.4-35.0) L 10/08/18 08:24 [place] % (Auto) 6.3 % (0.0-7.3) 10/08/18 08:24 Eos % (Auto) 0.0 % (0.0-4.3) 10/08/18 08:24 Baso % (Auto) 0.2 % (0.0-1.8) 10/08/18 08:24 Lymph # 0.9 K/mm3 (1.2-5.4) L 10/08/18 08:24 [place] # 0.7 K/mm3 (0.0-0.8) 10/08/18 08:24 Eos # 0.0 K/mm3 (0.0-0.4) 10/08/18 08:24 Baso # 0.0 K/mm3 (0.0-0.1) 10/08/18 08:24 Add Manual Diff Complete 10/05/18 03:23 Total Counted 100 10/05/18 03:23 Seg Neutrophils % 86.0 % (40.0-70.0) H 10/08/18 08:24 Seg Neuts % (Manual) 96.0 % (40.0-70.0) H 10/05/18 03:23 Band Neutrophils % 0 % 10/05/18 03:23 Lymphocytes % (Manual) 2.0 % (13.4-35.0) L 10/05/18 03:23 Reactive Lymphs % (Man) 0 % 10/05/18 03:23 Monocytes % (Manual) 1.0 % (0.0-7.3) 10/05/18 03:23 Eosinophils % (Manual) 0 % (0.0-4.3) 10/05/18 03:23 Basophils % (Manual) 1.0 % (0.0-1.8) 10/05/18 03:23 Metamyelocytes % 0 % 10/05/18 03:23 Myelocytes % 0 % 10/05/18 03:23 Promyelocytes % 0 % 10/05/18 03:23 Blast Cells % 0 % 10/05/18 03:23 Nucleated RBC % Not Reportable 10/05/18 03:23 Seg Neutrophils # 10.0 K/mm3 (1.8-7.7) H 10/08/18 08:24 Seg Neutrophils # Man 8.3 K/mm3 (1.8-7.7) H 10/05/18 03:23 Band Neutrophils # 0.0 K/mm3 10/05/18 03:23 Lymphocytes # (Manual) 0.2 K/mm3 (1.2-5.4) L 10/05/18 03:23 Abs React Lymphs (Man) 0.0 K/mm3 10/05/18 03:23 Monocytes # (Manual) 0.1 K/mm3 (0.0-0.8) 10/05/18 03:23 Eosinophils # (Manual) 0.0 K/mm3 (0.0-0.4) 10/05/18 03:23 Basophils # (Manual) 0.1 K/mm3 (0.0-0.1) 10/05/18 03:23 Metamyelocytes # 0.0 K/mm3 10/05/18 03:23 Myelocytes # 0.0 K/mm3 10/05/18 03:23 Promyelocytes # 0.0 K/mm3 10/05/18 03:23 Blast Cells # 0.0 K/mm3 10/05/18 03:23 WBC Morphology Not Reportable 10/05/18 03:23 Hypersegmented Neuts Not Reportable 10/05/18 03:23 Hyposegmented Neuts Not Reportable 10/05/18 03:23 Hypogranular Neuts Not Reportable 10/05/18 03:23 Smudge Cells Not Reportable 10/05/18 03:23 Toxic Granulation Not Reportable 10/05/18 03:23 Toxic Vacuolation Not Reportable 10/05/18 03:23 Dohle Bodies Not Reportable 10/05/18 03:23 Pelger-Huet Anomaly Not Reportable 10/05/18 03:23 Amanda Rods Not Reportable 10/05/18 03:23 Platelet Estimate Consistent w auto 10/05/18 03:23 Clumped Platelets Not Reportable 10/05/18 03:23 Plt Clumps, EDTA Not Reportable 10/05/18 03:23 Large Platelets Few 10/05/18 03:23 Giant Platelets Not Reportable 10/05/18 03:23 Platelet Satelliting Not Reportable 10/05/18 03:23 Plt Morphology Comment Not Reportable 10/05/18 03:23 RBC Morphology Normal 10/05/18 03:23 Dimorphic RBCs Not Reportable 10/05/18 03:23 Polychromasia Not Reportable 10/05/18 03:23 Hypochromasia Not Reportable 10/05/18 03:23 Poikilocytosis Not Reportable 10/05/18 03:23 Anisocytosis Not Reportable 10/05/18 03:23 Microcytosis Not Reportable 10/05/18 03:23 Macrocytosis Not Reportable 10/05/18 03:23 Spherocytes Not Reportable 10/05/18 03:23 Pappenheimer Bodies Not Reportable 10/05/18 03:23 Sickle Cells Not Reportable 10/05/18 03:23 Target Cells Not Reportable 10/05/18 03:23 Tear Drop Cells Not Reportable 10/05/18 03:23 Ovalocytes Not Reportable 10/05/18 03:23 Helmet Cells Not Reportable 10/05/18 03:23 [place] Bodies Not Reportable 10/05/18 03:23 [place] Rings Not Reportable 10/05/18 03:23 [place] Cells Not Reportable 10/05/18 03:23 Bite Cells Not Reportable 10/05/18 03:23 Crenated Cell Not Reportable 10/05/18 03:23 Elliptocytes Not Reportable 10/05/18 03:23 Acanthocytes (Spur) Not Reportable 10/05/18 03:23 Rouleaux Not Reportable 10/05/18 03:23 Hemoglobin C Crystals Not Reportable 10/05/18 03:23 Schistocytes Not Reportable 10/05/18 03:23 Malaria parasites Not Reportable 10/05/18 03:23 Polo Bodies Not Reportable 10/05/18 03:23 Hem Pathologist Commnt No 10/05/18 03:23 POC ABG pH 7.430 (7.35-7.45) 10/08/18 04:49 POC ABG pCO2 53.6 (35-45) H 10/08/18 04:49 POC ABG pO2 69 (80-105) L 10/08/18 04:49 POC ABG HCO3 35.6 (22-26 mml/L) 10/08/18 04:49 POC ABG Total CO2 37 (23-27mmol/L) 10/08/18 04:49 POC ABG O2 Sat 94 10/08/18 04:49 POC ABG Base Excess 11 ((-2) - (+3)mmol/L) 10/08/18 04:49 FiO2 50 % 10/08/18 04:49 Sodium 144 mmol/L (137-145) 10/08/18 08:24 Potassium 2.7 mmol/L (3.6-5.0) L* 10/08/18 08:24 Chloride 100.6 mmol/L (98-107) 10/08/18 08:24 Carbon Dioxide 33 mmol/L (22-30) H D 10/08/18 08:24 Anion Gap 13 mmol/L 10/08/18 08:24 BUN 18 mg/dL (7-17) H 10/08/18 08:24 Creatinine 0.8 mg/dL (0.7-1.2) 10/08/18 08:24 Estimated GFR > 60 ml/min 10/08/18 08:24 BUN/Creatinine Ratio 23 % 10/08/18 08:24 Glucose 182 mg/dL (65-100) H 10/08/18 08:24 POC Glucose 194 (70-105) H 10/08/18 09:12 Lactic Acid 2.00 mmol/L (0.7-2.0) 10/07/18 06:08 Calcium 8.3 mg/dL (8.4-10.2) L 10/08/18 08:24 Total Bilirubin < 0.20 mg/dL (0.1-1.2) 10/06/18 04:11 AST 15 units/L (5-40) 10/06/18 04:11 ALT 20 units/L (7-56) 10/06/18 04:11 Alkaline Phosphatase 59 units/L (35-129) 10/06/18 04:11 Troponin T < 0.010 ng/mL (0.00-0.029) 10/05/18 06:10 C-Reactive Protein 3.70 mg/dL (0.00-1.30) H 10/06/18 12:24 Total Protein 6.4 g/dL (6.3-8.2) 10/06/18 04:11 Albumin 2.7 g/dL (3.9-5) L 10/06/18 04:11 Albumin/Globulin Ratio 0.7 % 10/06/18 04:11 Urine Color Yellow (Yellow) 10/05/18 12:42 Urine Turbidity Clear (Clear) 10/05/18 12:42 Urine pH 5.0 (5.0-7.0) 10/05/18 12:42 Ur Specific [place] 1.035 (1.003-1.030) H 10/05/18 12:42 Urine Protein 100 mg/dl mg/dL (Negative) 10/05/18 12:42 Urine Glucose (UA) 50 mg/dL (Negative) 10/05/18 12:42 Urine Ketones Neg mg/dL (Negative) 10/05/18 12:42 Urine Blood Sm (Negative) 10/05/18 12:42 Urine Nitrite Neg (Negative) 10/05/18 12:42 Urine Bilirubin Neg (Negative) 10/05/18 12:42 Urine Urobilinogen < 2.0 mg/dL (<2.0) 10/05/18 12:42 Ur Leukocyte Esterase Neg (Negative) 10/05/18 12:42 Urine WBC (Auto) 3.0 /HPF (0.0-6.0) 10/05/18 12:42 Urine RBC (Auto) 11.0 /HPF (0.0-6.0) 10/05/18 12:42 U Epithel Cells (Auto) 1.0 /HPF (0-13.0) 10/05/18 12:42 Urine Bacteria (Auto) 1+ /HPF (Negative) 10/05/18 12:42 Hyaline Casts 6 /LPF 10/05/18 12:42 Granular Casts 4 /LPF 10/05/18 12:42 WBC Casts 3 /LPF 10/05/18 03:47 Urine Mucus 2+ /HPF 10/05/18 12:42 Urine Opiates Screen Presumptive negative 10/05/18 12:42 Urine Methadone Screen Presumptive negative 10/05/18 12:42 Ur Barbiturates Screen Presumptive negative 10/05/18 12:42 Ur Phencyclidine Scrn Presumptive negative 10/05/18 12:42 Ur Amphetamines Screen Presumptive negative 10/05/18 12:42 U Benzodiazepines Scrn Presumptive positive 10/05/18 12:42 Urine Cocaine Screen Presumptive positive 10/05/18 12:42 U Marijuana (THC) Screen Presumptive negative 10/05/18 12:42 Drugs of Abuse Note Disclamer 10/05/18 12:42 Blood Type B POSITIVE 10/05/18 04:32 Antibody Screen Negative 10/05/18 04:32 Active Medications - Current Medications Current Medications: Generic Name Dose Route Start Last Admin Trade Name Echo PRN Reason Stop Dose Admin Acetaminophen 650 mg 10/05/18 05:16 Tylenol PO Q4H PRN Pain MILD(1-3)/Fever >100.5/MIMS Albuterol/Ipratropium 1 ampul 10/05/18 08:00 10/08/18 07:45 Duoneb *Not For Prn Use* IH 1 ampul Q6HRT HUMBERTO Administration Lipase/Protease/Amylase 1 each 10/05/18 13:[address] 10,500 Unit FEEDTUBE PRN PRN For Clogged Feeding Tube Carvedilol 3.125 mg 10/06/18 22:00 10/07/18 23:09 Coreg PO 3.125 mg BID HUMBERTO Administration Enoxaparin Sodium 40 mg 10/05/18 10:00 10/07/18 10:29 Lovenox SUB-Q 40 mg QDAY@1000 HUMBERTO Administration Famotidine 20 mg 10/06/18 22:00 10/07/18 23:09 Pepcid PO 20 mg BID HUMBERTO Administration Fentanyl 50 mcg 10/05/18 02:50 Sublimaze IV Q10MIN PRN ANALGESIA Furosemide 20 mg 10/06/18 18:00 10/08/18 05:33 Lasix IV 20 mg 0600,1800 HUMBERTO Administration Hydrophilic Ointment 1 applic 10/05/18 02:50 Vaseline Lip Therapy TP Q2HR PRN Dry Lips Fentanyl Citrate 2,000 mcg in 100 mls @ 4.035 mls/hr 10/05/18 03:00 10/08/18 07:44 Fentanyl Drip Premix IV 4 mcg/kg/hr TITR HUMBERTO 16.14 mls/hr Administration Protocol 1 MCG/KG/HR Propofol 1,000 mg in 100 mls @ 2.421 mls/hr 10/05/18 03:15 10/08/18 02:48 Diprivan 10 Mg/Ml IV 20 mcg/kg/min TITR HUMBERTO 9.684 mls/hr Administration Protocol 5 MCG/KG/MIN Azithromycin 500 mg/ Sodium 250 mls @ 250 mls/hr 10/05/18 21:00 10/07/18 21:0 0 Chloride IV 250 mls/hr Q24H HUMBEROT Administration Ceftriaxone Sodium 1 gm in 50 mls @ 100 mls/hr 10/05/18 20:00 10/07/18 19:45 Rocephin/Ns 1 Gm/50 Ml IV 100 mls/hr Q24H HUMBERTO Administration Protocol Insulin Human Regular 0 units 10/08/18 07:30 Humulin R SUB-Q ACHS [facility] Protocol Lisinopril 2.5 mg 10/07/18 10:00 10/07/18 11:42 Zestril PO Not Given QDAY HUMBERTO Lorazepam 1 mg 10/06/18 16:46 Ativan IV Q4H PRN Seizures Methylprednisolone Sodium Succinate 60 mg 10/05/18 12:00 10/08/18 05:33 Solu-Medrol IV 60 mg Q6HR HUMBERTO Administration Multi-Ingred Cream/Lotion/Oil/Oint 1 applic 10/05/18 02:50 Artificial Tears Ophth Oint OU Q4HR PRN Dry Eye(s) Ondansetron HCl 4 mg 10/05/18 05:16 Zofran IV Q8H PRN Nausea And Vomiting Simple Syrup 15 ml 10/05/18 13:59 Simple Syrup FEEDTUBE PRN PRN Hypoglycemia Simple Syrup 30 ml 10/05/18 13:59 Simple Syrup FEEDTUBE PRN PRN Hypoglycemia Sodium Bicarbonate 325 mg 10/05/18 13:59 Sodium Bicarbonate FEEDTUBE PRN PRN For Clogged Feeding Tube Sodium Chloride 10 ml 10/05/18 10:00 10/07/18 23:09 Sodium Chloride Flush Syringe 10 Ml IV 10 ml BID HUMBERTO Administration Sodium Chloride 10 ml 10/05/18 05:16 Sodium Chloride Flush Syringe 10 Ml IV PRN PRN LINE FLUSH Nutrition/Malnutrition Assess - Dietary Evaluation Nutrition/Malnutrition Findings: Nutrition Notes Start: 10/05/18 12:40 Freq: Status: Active Protocol: Document 10/07/18 10:31 TW (Rec: 10/07/18 10:41 TW [id number]) Co-Sign 10/07/18 10:31 LP Nutrition Notes Initial or Follow up Reassessment Current Diagnosis COPD,Hypertension Other Pertinent Diagnosis lung CA, Asthma, ME, biploar Current Diet Vital AF @ 60mL/hr Labs/Tests reviewed Pertinent Medications Propofol. Solu-Medrol Lasix Height 5 ft 6 in Weight 80.7 kg [place] Body Weight (kg) 59.09 BMI 28.7 Weight Status Overweight Subjective/Other Information F/U for TF tolerance/goal. Noted TF running at 30mL/hr. TF put on hold this am due to inadequate flow through tube. Per RN, pt was tolerating TF at goal preiously and rate will continue to goal today. Burn Absent Trauma Absent #1 Nutrition Diagnosis Inadequate oral intake Diagnosis Progress(for reassessment Continues documentation) Is patient on ventilator? Yes Is Patient Ambulatory and/or Out of Bed No REE-([place]-confined to bed) 1683.192 Kcal/Kg value to use for calculation 14 Approximate Energy Requirements Using 1130 kcal/Kg Calculation Used for Recommendations [facility] Additional Notes PRO: 97g-161g PRO (1.2 - 2.0 g /day) Fluid: 1 mL/kcal or per MD Nutrition Intervention Change Diet Order: TF Nutrition Support: Vital AF 1.2 at 60mL/hr Water Flush 150 mL q4h Kcal 1,728 Protein (gm) 108 Fluid (mL) 1,168 Goal #1 TF tolerance Goal #2 TF to meet 75-100% of kcal and PRO needs Anticipated Discharge Needs: unable to determine at this time. Follow-Up By: 10/11/18 Additional Comments F/U stable TF
[2018-10-08] MEDS: LOVENOX SUB-Q SCH (10:55)
[2018-10-08] MEDS: ZESTRIL PO SCH (10:55)
[2018-10-08] MEDS: PEPCID PO SCH ×2 (10:55→21:52)
[2018-10-08] MEDS: COREG PO SCH ×2 (10:56→21:52)
[2018-10-08] MEDS: SODIUM CHLORIDE FLUSH SYRINGE 10 ML IV SCH ×2 (10:58→21:53)
[2018-10-08] MEDS: KCL 10MEQ/100ML 10 MEQ/100 ML BAG IV SCH ×4 (11:18→15:11)
--- NOTE | 2018-10-08 11:40 | Progress Note ---
Assessment and Plan Acute respiratory failure currently intubated Pulmonary edema FRANCINE/Emphysema Poly-substance abuse Lactic acidosis Recommendations: Medical therapy for heart failure to include IV diuretics, afterload reduction agents and beta blockers with holding parameters. Supportive care. Subjective Date of service: 10/08/18 Principal diagnosis: Acute Hypoxemic Resp failure; Polysubstance abuse;Acute Pulm Edema Interval history: Gen. condition the same Objective Vital Signs Temp Pulse Pulse Pulse Resp Resp BP 10/08/18 10:56 50 L 121/55 10/08/18 10:55 50 L 121/55 10/08/18 10:43 68 10/08/18 08:00 98.6 F 10/08/18 07:50 66 30 H 10/08/18 07:45 65 30 H 10/08/18 07:37 65 139/71 10/08/18 06:30 54 L 30 H 112/48 10/08/18 06:20 55 L 30 H 113/52 10/08/18 06:10 55 L 30 H 113/52 10/08/18 06:00 55 L 30 H 113/52 10/08/18 05:50 57 L 30 H 123/52 10/08/18 05:40 55 L 30 H 123/52 10/08/18 05:30 59 L 30 H 123/52 10/08/18 05:20 58 L 30 H 119/54 10/08/18 05:10 60 30 H 119/54 10/08/18 05:00 60 30 H 119/54 10/08/18 04:50 62 30 H 158/78 10/08/18 04:49 62 120/55 10/08/18 04:40 76 30 H 158/78 10/08/18 04:30 88 29 H 158/78 10/08/18 04:20 62 30 H 120/55 10/08/18 04:10 59 L 30 H 120/55 10/08/18 04:00 98.7 F 61 30 H 120/55 10/08/18 03:50 62 30 H 113/53 10/08/18 03:40 63 30 H 113/53 10/08/18 03:30 64 30 H 113/53 10/08/18 03:20 65 30 H 117/49 10/08/18 03:10 68 30 H 117/49 10/08/18 03:00 72 30 H 117/49 04/20/19 02:50 80 30 H 169/79 10/08/18 02:48 72 30 H 10/08/18 02:41 100 H 30 H 10/08/18 02:40 102 H 29 H 169/79 10/08/18 02:31 109 H 30 H 10/08/18 02:30 114 H 20 144/64 10/08/18 02:20 132 H 24 144/64 10/08/18 02:10 108 H 25 H 144/64 10/08/18 02:00 93 H 30 H 144/64 10/08/18 01:50 110 H 22 142/70 10/08/18 01:40 125 H 20 142/70 10/08/18 01:30 76 26 H 142/70 10/08/18 01:20 72 30 H 125/70 10/08/18 01:10 63 30 H 125/70 10/08/18 01:00 67 30 H 129/66 10/08/18 00:50 67 30 H 129/66 10/08/18 00:40 68 30 H 129/66 10/08/18 00:30 74 30 H 129/66 10/08/18 00:20 80 30 H 122/62 10/08/18 00:10 103 H 28 H 122/62 10/08/18 00:09 64 122/62 10/08/18 00:00 66 68 30 H 122/62 10/07/18 23:50 62 30 H 122/53 10/07/18 23:40 63 30 H 122/53 10/07/18 23:30 69 30 H 122/53 10/07/18 23:20 74 30 H 138/62 10/07/18 23:10 72 30 H 138/62 10/07/18 23:09 66 138/62 10/07/18 23:08 98.7 F 68 68 30 H 129/66 10/07/18 23:00 76 30 H 138/62 10/07/18 22:50 68 30 H 124/57 10/07/18 22:40 66 30 H 124/57 10/07/18 22:30 62 30 H 124/57 10/07/18 22:20 58 L 30 H 121/56 10/07/18 22:10 62 30 H 121/56 10/07/18 22:00 62 30 H 121/56 10/07/18 21:50 64 30 H 116/55 10/07/18 21:40 65 30 H 116/55 10/07/18 21:30 61 30 H 116/55 10/07/18 21:20 66 30 H 120/54 10/07/18 21:10 62 30 H 120/54 10/07/18 21:00 63 30 H 120/54 10/07/18 20:50 66 30 H 120/57 10/07/18 20:40 68 30 H 120/57 10/07/18 20:30 65 30 H 120/57 10/07/18 20:20 69 30 H 110/47 10/07/18 20:10 69 30 H 110/47 10/07/18 20:04 72 30 H 116/47 10/07/18 20:00 71 30 H 110/47 10/07/18 19:50 69 30 H 116/47 10/07/18 19:40 66 24 107/45 10/07/18 19:33 66 30 H 10/07/18 19:30 64 30 H 107/45 10/07/18 19:23 61 61 30 H 116/47 10/07/18 19:20 60 23 118/55 10/07/18 19:15 98.7 F 57 L 68 30 H 116/47 10/07/18 19:10 53 L 30 H 116/47 10/07/18 19:00 54 L 30 H 116/47 10/07/18 18:50 59 L 30 H 111/57 10/07/18 18:40 60 30 H 111/57 10/07/18 18:30 59 L 30 H 118/55 10/07/18 18:20 62 30 H 108/51 10/07/18 18:10 70 30 H 108/51 10/07/18 18:00 63 30 H 111/57 10/07/18 17:50 62 30 H 108/51 10/07/18 17:40 69 13 108/51 10/07/18 17:30 54 L 30 H 108/51 10/07/18 17:20 57 L 30 H 109/48 10/07/18 17:10 61 30 H 109/48 10/07/18 17:00 61 30 H 112/52 10/07/18 16:50 62 30 H 109/48 10/07/18 16:40 55 L 30 H 109/48 10/07/18 16:30 57 L 30 H 109/48 10/07/18 16:20 63 30 H 117/58 10/07/18 16:10 68 30 H 117/58 10/07/18 16:05 68 10/07/18 16:00 98.5 F 67 57 L 30 H 112/50 10/07/18 15:50 66 30 H 118/59 10/07/18 15:40 61 30 H 118/59 10/07/18 15:30 59 L 30 H 117/58 10/07/18 15:20 53 L 30 H 110/73 10/07/18 15:10 59 L 30 H 110/73 10/07/18 15:00 58 L 30 H 118/59 10/07/18 14:50 61 30 H 101/45 10/07/18 14:40 57 L 30 H 101/45 10/07/18 14:36 77 22 10/07/18 14:30 50 L 30 H 110/73 10/07/18 14:28 88 28 H 10/07/18 14:20 53 L 30 H 122/97 10/07/18 14:10 55 L 30 H 122/97 10/07/18 14:00 55 L 30 H 101/45 10/07/18 13:50 62 30 H 122/97 10/07/18 13:40 62 30 H 122/97 10/07/18 13:30 76 30 H 122/97 10/07/18 13:20 69 30 H 118/63 10/07/18 13:10 78 25 H 118/63 10/07/18 13:00 49 L 30 H 118/63 10/07/18 12:50 51 L 30 H 124/62 10/07/18 12:40 50 L 30 H 124/62 10/07/18 12:30 50 L 30 H 124/62 10/07/18 12:20 50 L 30 H 115/59 10/07/18 12:10 51 L 30 H 115/59 10/07/18 12:00 98.5 F 62 60 30 H 122/97 10/07/18 11:50 52 L 30 H 115/59 10/07/18 11:42 50 L 115/59 10/07/18 11:40 53 L 30 H 115/59 Pulse Ox 10/08/18 10:56 10/08/18 10:55 10/08/18 10:43 93 10/08/18 08:00 10/08/18 07:50 10/08/18 07:45 10/08/18 07:37 94 10/08/18 06:30 92 10/08/18 06:20 92 10/08/18 06:10 93 10/08/18 06:00 93 10/08/18 05:50 93 10/08/18 05:40 94 10/08/18 05:30 94 10/08/18 05:20 94 10/08/18 05:10 95 10/08/18 05:00 95 10/08/18 04:50 96 10/08/18 04:49 94 10/08/18 04:40 94 10/08/18 04:30 96 10/08/18 04:20 94 10/08/18 04:10 93 10/08/18 04:00 92 10/08/18 03:50 92 10/08/18 03:40 92 10/08/18 03:30 92 10/08/18 03:20 92 10/08/18 03:10 92 10/08/18 03:00 93 10/08/18 02:50 92 10/08/18 02:48 92 10/08/18 02:41 10/08/18 02:40 95 10/08/18 02:31 10/08/18 02:30 95 10/08/18 02:20 94 10/08/18 02:10 95 10/08/18 02:00 93 10/08/18 01:50 94 10/08/18 01:40 95 10/08/18 01:30 94 10/08/18 01:20 95 10/08/18 01:10 94 10/08/18 01:00 94 10/08/18 00:50 93 10/08/18 00:40 94 10/08/18 00:30 95 10/08/18 00:20 95 10/08/18 00:10 96 10/08/18 00:09 94 10/08/18 00:00 92 10/07/18 23:50 94 10/07/18 23:40 94 10/07/18 23:30 94 10/07/18 23:20 95 10/07/18 23:10 96 10/07/18 23:09 10/07/18 23:08 92 10/07/18 23:00 94 10/07/18 22:50 93 10/07/18 22:40 94 10/07/18 22:30 94 10/07/18 22:20 94 10/07/18 22:10 93 10/07/18 22:00 93 10/07/18 21:50 93 10/07/18 21:40 93 10/07/18 21:30 93 10/07/18 21:20 93 10/07/18 21:10 93 10/07/18 21:00 93 10/07/18 20:50 94 10/07/18 20:40 94 10/07/18 20:30 93 10/07/18 20:20 93 10/07/18 20:10 93 10/07/18 20:04 92 10/07/18 20:00 92 10/07/18 19:50 91 10/07/18 19:40 92 10/07/18 19:33 10/07/18 19:30 95 10/07/18 19:23 94 10/07/18 19:20 92 10/07/18 19:15 92 10/07/18 19:10 94 10/07/18 19:00 94 10/07/18 18:50 95 10/07/18 18:40 96 10/07/18 18:30 96 10/07/18 18:20 97 10/07/18 18:10 94 10/07/18 18:00 93 10/07/18 17:50 95 10/07/18 17:40 90 10/07/18 17:30 90 10/07/18 17:20 92 10/07/18 17:10 92 10/07/18 17:00 93 10/07/18 16:50 92 10/07/18 16:40 93 10/07/18 16:30 93 10/07/18 16:20 93 10/07/18 16:10 93 10/07/18 16:05 95 10/07/18 16:00 94 10/07/18 15:50 94 10/07/18 15:40 92 10/07/18 15:30 92 10/07/18 15:20 10/07/18 15:10 89 10/07/18 15:00 91 10/07/18 14:50 90 10/07/18 14:40 90 10/07/18 14:36 10/07/18 14:30 92 10/07/18 14:28 10/07/18 14:20 92 10/07/18 14:10 92 10/07/18 14:00 93 10/07/18 13:50 92 10/07/18 13:40 92 10/07/18 13:30 90 10/07/18 13:20 92 10/07/18 13:10 88 10/07/18 13:00 88 10/07/18 12:50 90 10/07/18 12:40 92 10/07/18 12:30 90 10/07/18 12:20 92 10/07/18 12:10 92 10/07/18 12:00 92 10/07/18 11:50 94 10/07/18 11:42 10/07/18 11:40 94 - Physical Examination Narrative exam: Physical examination Vitals reviewed GEN: Patient intubated HEENT: Carotids 2+ NECK: Supple CVS: S1 and S2 heard no significant murmur or gallop noted LUNGS/CHEST: Normal auscultation ABD: Soft nontender Extremities: No edema noted normal color PSY: Stable General: Other (intubated on mechanical ventilation) - Labs and Meds CBC 10/08/18 Range/Units 08:24 WBC 11.7 H (4.5-11.0) K/mm3 RBC 4.19 (3.65-5.03) M/mm3 Hgb 13.3 (10.1-14.3) gm/dl Hct 39.7 (30.3-42.9) % Plt Count 199 (140-440) K/mm3 Lymph # 0.9 L (1.2-5.4) K/mm3 [place] # 0.7 (0.0-0.8) K/mm3 Eos # 0.0 (0.0-0.4) K/mm3 Baso # 0.0 (0.0-0.1) K/mm3 Comprehensive Metabolic Panel 10/08/18 Range/Units 08:24 Sodium 144 (137-145) mmol/L Potassium 2.7 L* (3.6-5.0) mmol/L Chloride 100.6 (98-107) mmol/L Carbon Dioxide 33 H D (22-30) mmol/L BUN 18 H (7-17) mg/dL Creatinine 0.8 (0.7-1.2) mg/dL Glucose 182 H (65-100) mg/dL Calcium 8.3 L (8.4-10.2) mg/dL - Imaging and Cardiology EKG: image reviewed - Allied health notes Allied health notes reviewed: nursing
[2018-10-08] MEDS: ROCEPHIN/NS 1 GM/50 ML 1 GM/50 ML BAG IV SCH (20:46)
[2018-10-08] MEDS: ZITHROMAX 500 MG in NACL 0.9% 250ML 250 ML IV SCH (21:52)
[2018-10-09] MEDS: SOLU-Medrol IV SCH ×4 (00:45→18:46)
[2018-10-09] MEDS: DUONEB *Not for PRN Use IH SCH ×4 (02:00→20:08)
--- NOTE | 2018-10-09 03:02 | XRay Report ---
XR CHEST 1V AP CLINICAL INDICATION: Female, 57 years of age. follow up respiratory failure COMPARISON: October 08, 2018. Findings: Frontal view(s) of the chest obtained. Cardiac silhouette is within normal limits. ET tu be in satisfactory position. Distal tip approximately 4.5 cm from the soha. Feeding tube is in plac e. Distal tip not visualized. Left PICC line is present with distal tip projecting over the mid to di stal SVC. Mild prominence of pulmonary vasculature centrally. Stable patchy linear opacities at the lung bases concerning for mild pulmonary congestion. No gross pneumothorax. IMPRESSION: 1. Lines and tubes grossly in stable position. 2. Nonspecific pulmonary findings which may relate to mild pulmonary congestion. Small focus of devel oping pneumonia in the left lung base is not excluded. This document is electronically signed by Monica Crandall DO., October 09 2018 03:00:39 AM ET
[2018-10-09] MEDS: fentaNYL DRIP Premix 2,000 MCG/100 ML BAG IV SCH ×2 (03:05→13:41)
[2018-10-09 04:42] LABS: Hematocrit 41.5 % (30.3-42.9); Hemoglobin 13.8 gm/dl (10.1-14.3); Mean Corpuscular HGB Conc 33 % (30-34); Mean Corpuscular Volume 96 fl (79-97); Platelet Count 195 K/mm3 (140-440); Red Blood Count 4.33 M/mm3 (3.65-5.03); Red Cell Distribution Width 13.9 % (13.2-15.2)
[2018-10-09] MEDS: LASIX IV SCH ×2 (05:25→18:46)
[2018-10-09 05:27] LABS: BUN/Creatinine Ratio 26; Blood Urea Nitrogen 26 mg/dL (7-17); Calcium 8.6 mg/dL (8.4-10.2); Hemolysis Index 6
[2018-10-09] MEDS: DIPRIVAN 10 MG/ML 1,000 MG/100 ML BOTTLE IV SCH ×2 (06:54→17:13)
[2018-10-09] MEDS: HumuLIN R SUB-Q SCH ×4 (07:53→22:14)
--- NOTE | 2018-10-09 08:47 | Progress Note ---
Assessment and Plan Assessment and plan: 57 -year-old woman with a history of COPD on home oxygen, hep C, mitral valve prolapse, bipolar was seen in the emergency room last night and was treated for COPD and discharged from the hospital. Family went to check on her and found her in respiratory distress, EMS was called, she was placed on BiPAP and brought to the emergency room where she was intubated. History and review of system unobtainable, patient was given steroids, nebulizer treatments CXR: IMPRESSION: The heart is enlarged. There is bilateral perihilar pulmonary edema. There are no effusions or pneumothoraces.. Endotracheal tube is in the mid trachea. NG tube is in the stomach. Acute Hypoxic Respiratory failure Polysubstance abuse, Cocain and Benzos Pulmonary Edema Acute Toxic metabolic Encephalopathy ?secondary to drug abuse or other etiology Metabolic Acidosis Leukocytosis ?Aspiration- Per nursing staff, patient yesterday had some emesis and coughing prompting increase in sedation. Non so far since then Vasogenic shock Bradycardia Hyperkalemia COPD- with acute exacerbation. (Per Daughter) Active Smoker Hepatitis C Bipolar disorder Atrial Fibrillation by hx Anxiety- and on Valium per family Rollers still in Hair Per daughter patient just got large some of money and has a side of mouth burned likely from crack cocaine. She leaves with a roommate friend at home and is supposed to be on home oxygen due to emphysema but is not complaint. Plan: Continue ICU care eeg PENDING CARDIOLOGY INPUT NOTED Neurology consult due to profound encephalopathy Continue empiric abx, although imaging studies pulmonary edema, not sure if underlying PNA, although doubt VAP bundle and Aspiration precautions Sodium Bicarb given, monitor labs Administrator Of Home Health input Counselling on Drug abuse when more awake Check ECHO Give Kayxalate Continue Restraints for patient safety Will obtain record from [place] The high probability of a clinically significant, sudden or life threatening deterioration of the [pulmonary, neurol] system(s) required my full and direct attention, intervention and personal management. The aggregate critical care time was [35] minutes. This time is in addition to time spent performing reported procedures but includes the following: [x] Data Review and interpretation [x] Patient assessment and monitoring of vital signs [x] Documentation [x] Medication orders and management History Interval history: Patient seen and examined, remains on mechanical ventilation. no other acute event reported, NO SEIZURE EVENT NOTED. still confused, not following commands Hospitalist Physical - Physical exam Narrative exam: VITAL SIGNS: Reviewed. GENERAL: The patient appeared well nourished and normally developed, on full mechanical ventilatory support Vital signs as documented. HEAD: No signs of head trauma. EYES: Pupils are equal. EARS: Hearing grossly intact. MOUTH: ET tube in place NECK: No adenopathy, no JVD. CHEST: Chest with bronchiovesicular breathsounds bilaterally. No wheezes, rales, or rhonchi. CARDIAC: Regular rate and rhythm. S1 and S2, without murmurs, gallops, or rubs. VASCULAR: No Edema. Peripheral pulses normal and equal in all extremities. ABDOMEN: Soft, non tender and non distended. No rebound or guarding, and no masses palpated. Bowel Sounds normal. MUSCULOSKELETAL: Extremities without clubbing, cyanosis or edema. NEUROLOGIC EXAM: not following commands off sedation but awakes and tries to cough PSYCHIATRIC: sedated SKIN: oral lesion, burn appearance - Constitutional Vitals: Temp Pulse Resp BP Pulse Ox 98.9 F 50 L 30 H 116/64 96 10/09/18 04:00 10/09/18 06:00 10/09/18 06:00 10/09/18 06:00 10/09/18 06:00 General appearance: Present: other (intubated on the vent) Results - Labs CBC & Chem 7: 10/10/18 03:30 10/10/18 03:30 Labs: Laboratory Last Values WBC 11.9 K/mm3 (4.5-11.0) H 10/09/18 04:20 RBC 4.33 M/mm3 (3.65-5.03) 10/09/18 04:20 Hgb 13.8 gm/dl (10.1-14.3) 10/09/18 04:20 Hct 41.5 % (30.3-42.9) 10/09/18 04:20 MCV 96 fl (79-97) 10/09/18 04:20 MCH 32 pg (28-32) 10/09/18 04:20 MCHC 33 % (30-34) 10/09/18 04:20 RDW 13.9 % (13.2-15.2) 10/09/18 04:20 Plt Count 195 K/mm3 (140-440) 10/09/18 04:20 Lymph % (Auto) 7.5 % (13.4-35.0) L 10/08/18 08:24 [place] % (Auto) 6.3 % (0.0-7.3) 10/08/18 08:24 Eos % (Auto) 0.0 % (0.0-4.3) 10/08/18 08:24 Baso % (Auto) 0.2 % (0.0-1.8) 10/08/18 08:24 Lymph # 0.9 K/mm3 (1.2-5.4) L 10/08/18 08:24 [place] # 0.7 K/mm3 (0.0-0.8) 10/08/18 08:24 Eos # 0.0 K/mm3 (0.0-0.4) 10/08/18 08:24 Baso # 0.0 K/mm3 (0.0-0.1) 10/08/18 08:24 Add Manual Diff Complete 10/05/18 03:23 Total Counted 100 10/05/18 03:23 Seg Neutrophils % 86.0 % (40.0-70.0) H 10/08/18 08:24 Seg Neuts % (Manual) 96.0 % (40.0-70.0) H 10/05/18 03:23 Band Neutrophils % 0 % 10/05/18 03:23 Lymphocytes % (Manual) 2.0 % (13.4-35.0) L 10/05/18 03:23 Reactive Lymphs % (Man) 0 % 10/05/18 03:23 Monocytes % (Manual) 1.0 % (0.0-7.3) 10/05/18 03:23 Eosinophils % (Manual) 0 % (0.0-4.3) 10/05/18 03:23 Basophils % (Manual) 1.0 % (0.0-1.8) 10/05/18 03:23 Metamyelocytes % 0 % 10/05/18 03:23 Myelocytes % 0 % 10/05/18 03:23 Promyelocytes % 0 % 10/05/18 03:23 Blast Cells % 0 % 10/05/18 03:23 Nucleated RBC % Not Reportable 10/05/18 03:23 Seg Neutrophils # 10.0 K/mm3 (1.8-7.7) H 10/08/18 08:24 Seg Neutrophils # Man 8.3 K/mm3 (1.8-7.7) H 10/05/18 03:23 Band Neutrophils # 0.0 K/mm3 10/05/18 03:23 Lymphocytes # (Manual) 0.2 K/mm3 (1.2-5.4) L 10/05/18 03:23 Abs React Lymphs (Man) 0.0 K/mm3 10/05/18 03:23 Monocytes # (Manual) 0.1 K/mm3 (0.0-0.8) 10/05/18 03:23 Eosinophils # (Manual) 0.0 K/mm3 (0.0-0.4) 10/05/18 03:23 Basophils # (Manual) 0.1 K/mm3 (0.0-0.1) 10/05/18 03:23 Metamyelocytes # 0.0 K/mm3 10/05/18 03:23 Myelocytes # 0.0 K/mm3 10/05/18 03:23 Promyelocytes # 0.0 K/mm3 10/05/18 03:23 Blast Cells # 0.0 K/mm3 10/05/18 03:23 WBC Morphology Not Reportable 10/05/18 03:23 Hypersegmented Neuts Not Reportable 10/05/18 03:23 Hyposegmented Neuts Not Reportable 10/05/18 03:23 Hypogranular Neuts Not Reportable 10/05/18 03:23 Smudge Cells Not Reportable 10/05/18 03:23 Toxic Granulation Not Reportable 10/05/18 03:23 Toxic Vacuolation Not Reportable 10/05/18 03:23 Dohle Bodies Not Reportable 10/05/18 03:23 Pelger-Huet Anomaly Not Reportable 10/05/18 03:23 Amanda Rods Not Reportable 10/05/18 03:23 Platelet Estimate Consistent w auto 10/05/18 03:23 Clumped Platelets Not Reportable 10/05/18 03:23 Plt Clumps, EDTA Not Reportable 10/05/18 03:23 Large Platelets Few 10/05/18 03:23 Giant Platelets Not Reportable 10/05/18 03:23 Platelet Satelliting Not Reportable 10/05/18 03:23 Plt Morphology Comment Not Reportable 10/05/18 03:23 RBC Morphology Normal 10/05/18 03:23 Dimorphic RBCs Not Reportable 10/05/18 03:23 Polychromasia Not Reportable 10/05/18 03:23 Hypochromasia Not Reportable 10/05/18 03:23 Poikilocytosis Not Reportable 10/05/18 03:23 Anisocytosis Not Reportable 10/05/18 03:23 Microcytosis Not Reportable 10/05/18 03:23 Macrocytosis Not Reportable 10/05/18 03:23 Spherocytes Not Reportable 10/05/18 03:23 Pappenheimer Bodies Not Reportable 10/05/18 03:23 Sickle Cells Not Reportable 10/05/18 03:23 Target Cells Not Reportable 10/05/18 03:23 Tear Drop Cells Not Reportable 10/05/18 03:23 Ovalocytes Not Reportable 10/05/18 03:23 Helmet Cells Not Reportable 10/05/18 03:23 [place] Bodies Not Reportable 10/05/18 03:23 [place] Rings Not Reportable 10/05/18 03:23 [place] Cells Not Reportable 10/05/18 03:23 Bite Cells Not Reportable 10/05/18 03:23 Crenated Cell Not Reportable 10/05/18 03:23 Elliptocytes Not Reportable 10/05/18 03:23 Acanthocytes (Spur) Not Reportable 10/05/18 03:23 Rouleaux Not Reportable 10/05/18 03:23 Hemoglobin C Crystals Not Reportable 10/05/18 03:23 Schistocytes Not Reportable 10/05/18 03:23 Malaria parasites Not Reportable 10/05/18 03:23 [place]o Bodies Not Reportable 10/05/18 03:23 Hem Pathologist Commnt No 10/05/18 03:23 POC ABG pH 7.465 (7.35-7.45) H 10/08/18 21:18 POC ABG pCO2 49.3 (35-45) H 10/08/18 21:18 POC ABG pO2 69 (80-105) L 10/08/18 21:18 POC ABG HCO3 35.5 (22-26 mml/L) 10/08/18 21:18 POC ABG Total CO2 37 (23-27mmol/L) 10/08/18 21:18 POC ABG O2 Sat 94 10/08/18 21:18 POC ABG Base Excess 12 ((-2) - (+3)mmol/L) 10/08/18 21:18 FiO2 50 % 10/08/18 21:18 Sodium 146 mmol/L (137-145) H 10/09/18 04:20 Potassium 3.0 mmol/L (3.6-5.0) L 10/09/18 04:20 Chloride 102.6 mmol/L (98-107) 10/09/18 04:20 Carbon Dioxide 34 mmol/L (22-30) H 10/09/18 04:20 Anion Gap 12 mmol/L 10/09/18 04:20 BUN 26 mg/dL (7-17) H 10/09/18 04:20 Creatinine 1.0 mg/dL (0.7-1.2) 10/09/18 04:20 Estimated GFR > 60 ml/min 10/09/18 04:20 BUN/Creatinine Ratio 26 % 10/09/18 04:20 Glucose 171 mg/dL (65-100) H 10/09/18 04:20 POC Glucose 142 (70-105) H 10/09/18 07:51 Lactic Acid 2.00 mmol/L (0.7-2.0) 10/07/18 06:08 Calcium 8.6 mg/dL (8.4-10.2) 10/09/18 04:20 Magnesium 2.00 mg/dL (1.7-2.3) 10/08/18 08:42 Total Bilirubin < 0.20 mg/dL (0.1-1.2) 10/06/18 04:11 AST 15 units/L (5-40) 10/06/18 04:11 ALT 20 units/L (7-56) 10/06/18 04:11 Alkaline Phosphatase 59 units/L (35-129) 10/06/18 04:11 Troponin T < 0.010 ng/mL (0.00-0.029) 10/05/18 06:10 C-Reactive Protein 3.70 mg/dL (0.00-1.30) H 10/06/18 12:24 Total Protein 6.4 g/dL (6.3-8.2) 10/06/18 04:11 Albumin 2.7 g/dL (3.9-5) L 10/06/18 04:11 Albumin/Globulin Ratio 0.7 % 10/06/18 04:11 Urine Color Yellow (Yellow) 10/05/18 12:42 Urine Turbidity Clear (Clear) 10/05/18 12:42 Urine pH 5.0 (5.0-7.0) 10/05/18 12:42 Ur Specific [place] 1.035 (1.003-1.030) H 10/05/18 12:42 Urine Protein 100 mg/dl mg/dL (Negative) 10/05/18 12:42 Urine Glucose (UA) 50 mg/dL (Negative) 10/05/18 12:42 Urine Ketones Neg mg/dL (Negative) 10/05/18 12:42 Urine Blood Sm (Negative) 10/05/18 12:42 Urine Nitrite Neg (Negative) 10/05/18 12:42 Urine Bilirubin Neg (Negative) 10/05/18 12:42 Urine Urobilinogen < 2.0 mg/dL (<2.0) 10/05/18 12:42 Ur Leukocyte Esterase Neg (Negative) 10/05/18 12:42 Urine WBC (Auto) 3.0 /HPF (0.0-6.0) 10/05/18 12:42 Urine RBC (Auto) 11.0 /HPF (0.0-6.0) 10/05/18 12:42 U Epithel Cells (Auto) 1.0 /HPF (0-13.0) 10/05/18 12:42 Urine Bacteria (Auto) 1+ /HPF (Negative) 10/05/18 12:42 Hyaline Casts 6 /LPF 10/05/18 12:42 Granular Casts 4 /LPF 10/05/18 12:42 WBC Casts 3 /LPF 10/05/18 03:47 Urine Mucus 2+ /HPF 10/05/18 12:42 Urine Opiates Screen Presumptive negative 10/05/18 12:42 Urine Methadone Screen Presumptive negative 10/05/18 12:42 Ur Barbiturates Screen Presumptive negative 10/05/18 12:42 Ur Phencyclidine Scrn Presumptive negative 10/05/18 12:42 Ur Amphetamines Screen Presumptive negative 10/05/18 12:42 U Benzodiazepines Scrn Presumptive positive 04/17/19 12:42 Urine Cocaine Screen Presumptive positive 10/05/18 12:42 U Marijuana (THC) Screen Presumptive negative 10/05/18 12:42 Drugs of Abuse Note Disclamer 10/05/18 12:42 Blood Type B POSITIVE 10/05/18 04:32 Antibody Screen Negative 10/05/18 04:32 Active Medications - Current Medications Current Medications: Generic Name Dose Route Start Last Admin Trade Name Freq PRN Reason Stop Dose Admin Acetaminophen 650 mg 10/05/18 05:16 Tylenol PO Q4H PRN Pain MILD(1-3)/Fever >100.5/MIMS Albuterol/Ipratropium 1 ampul 10/05/18 08:00 10/09/18 02:00 Duoneb *Not For Prn Use* IH 1 ampul Q6HRT HUMBERTO Administration Lipase/Protease/Amylase 1 each 10/05/18 13:59 Pancreaze 10,500 Unit FEEDTUBE PRN PRN For Clogged Feeding Tube Carvedilol 3.125 mg 10/06/18 22:00 10/08/18 21:52 Coreg PO 3.125 mg BID [facility] Administration Enoxaparin Sodium 40 mg 10/05/18 10:00 10/08/18 10:55 Lovenox SUB-Q 40 mg QDAY@1000 HUMBERTO Administration Famotidine 20 mg 10/06/18 22:00 10/08/18 21:52 Pepcid PO 20 mg BID HUMBERTO Administration Fentanyl 50 mcg 10/05/18 02:50 Sublimaze IV Q10MIN PRN ANALGESIA Furosemide 20 mg 10/06/18 18:00 10/09/18 05:25 Lasix IV 20 mg 0600,1800 [facility] Administration Hydrophilic Ointment 1 applic 10/05/18 02:50 Vaseline Lip Therapy TP Q2HR PRN Dry Lips Fentanyl Citrate 2,000 mcg in 100 mls @ 4.035 mls/hr 10/05/18 03:00 10/09/18 05:30 Fentanyl Drip Premix IV 3 mcg/kg/hr TITR HUMBERTO 12.105 mls/hr Titration Protocol 1 MCG/KG/HR Propofol 1,000 mg in 100 mls @ 2.421 mls/hr 10/05/18 03:15 10/09/18 06:54 Diprivan 10 Mg/Ml IV 20 mcg/kg/min TITR HUMBERTO 9.684 mls/hr Administration Protocol 5 MCG/KG/MIN Azithromycin 500 mg/ Sodium 250 mls @ 250 mls/hr 10/05/18 21:00 10/08/18 21:52 Chloride IV 250 mls/hr Q24H HUMBERTO Administration Ceftriaxone Sodium 1 gm in 50 mls @ 100 mls/hr 10/05/18 20:00 10/08/18 20:46 Rocephin/Ns 1 Gm/50 Ml IV 100 mls/hr Q24H HUMBERTO Administration Protocol Insulin Human Regular 0 units 10/08/18 07:30 10/08/18 21:55 Humulin R SUB-Q Not Given ACHS [facility] Protocol Lisinopril 2.5 mg 10/07/18 10:00 10/08/18 10:55 Zestril PO 2.5 mg QDAY HUMBERTO Administration Lorazepam 1 mg 10/06/18 16:46 Ativan IV Q4H PRN Seizures Methylprednisolone Sodium Succinate 60 mg 10/05/18 12:00 10/09/18 05:25 Solu-Medrol IV 60 mg Q6HR HUMBERTO Administration Multi-Ingred Cream/Lotion/Oil/Oint 1 applic 10/05/18 02:50 Artificial Tears Ophth Oint OU Q4HR PRN Dry Eye(s) Ondansetron HCl 4 mg 10/05/18 05:16 Zofran IV Q8H PRN Nausea And Vomiting Simple Syrup 15 ml 10/05/18 13:59 Simple Syrup FEEDTUBE PRN PRN Hypoglycemia Simple Syrup 30 ml 10/05/18 13:59 Simple Syrup FEEDTUBE PRN PRN Hypoglycemia Sodium Bicarbonate 325 mg 10/05/18 13:59 Sodium Bicarbonate FEEDTUBE PRN PRN For Clogged Feeding Tube Sodium Chloride 10 ml 10/05/18 10:00 10/08/18 21:53 Sodium Chloride Flush Syringe 10 Ml IV 10 ml BID HUMBERTO Administration Sodium Chloride 10 ml 10/05/18 05:16 Sodium Chloride Flush Syringe 10 Ml IV PRN PRN LINE FLUSH Nutrition/Malnutrition Assess - Dietary Evaluation Nutrition/Malnutrition Findings: Nutrition Notes Start: 10/05/18 12:40 Freq: Status: Active Protocol: Document 10/07/18 10:31 TW (Rec: 10/07/18 10:41 TW [id number]) Co-Sign 10/07/18 10:31 LP Nutrition Notes Initial or Follow up Reassessment Current Diagnosis COPD,Hypertension Other Pertinent Diagnosis lung CA, Asthma, ID, biploar Current Diet Vital AF @ 60mL/hr Labs/Tests reviewed Pertinent Medications Propofol. Solu-Medrol Lasix Height 5 ft 6 in Weight 80.7 kg [place] Body Weight (kg) 59.09 BMI 28.7 Weight Status Overweight Subjective/Other Information F/U for TF tolerance/goal. Noted TF running at 30mL/hr. TF put on hold this am due to inadequate flow through tube. Per RN, pt was tolerating TF at goal preiously and rate will continue to goal today. Burn Absent Trauma Absent #1 Nutrition Diagnosis Inadequate oral intake Diagnosis Progress(for reassessment Continues documentation) Is patient on ventilator? Yes Is Patient Ambulatory and/or Out of Bed No REE-([place]-St. Jeor-confined to bed) 1683.192 Kcal/Kg value to use for calculation 14 Approximate Energy Requirements Using 1130 kcal/Kg Calculation Used for Recommendations [facility] Additional Notes PRO: 97g-161g PRO (1.2 - 2.0 g /day) Fluid: 1 mL/kcal or per MD Nutrition Intervention Change Diet Order: TF Nutrition Support: Vital AF 1.2 at 60mL/hr Water Flush 150 mL q4h Kcal 1,728 Protein (gm) 108 Fluid (mL) 1,168 Goal #1 TF tolerance Goal #2 TF to meet 75-100% of kcal and PRO needs Anticipated Discharge Needs: unable to determine at this time. Follow-Up By: 10/11/18 Additional Comments F/U stable TF
[2018-10-09] MEDS: LOVENOX SUB-Q SCH (09:51)
[2018-10-09] MEDS: COREG PO SCH (09:52)
[2018-10-09] MEDS: KCL 10MEQ/100ML 10 MEQ/100 ML BAG IV SCH ×4 (09:53→15:01)
[2018-10-09] MEDS: SODIUM CHLORIDE FLUSH SYRINGE 10 ML IV SCH ×2 (09:54→22:38)
[2018-10-09] MEDS: ZESTRIL PO SCH (09:54)
[2018-10-09] MEDS: PEPCID PO SCH ×2 (09:54→22:38)
--- NOTE | 2018-10-09 10:36 | Progress Note ---
Subjective Date of service: 10/09/18 Principal diagnosis: Acute Hypoxemic Resp failure; Polysubstance abuse;Acute Pulm Edema Interval history: spoke to hospitalist patient has multifactorial encephalopathy cocaine benzo withdrawal and low oxygen etc. imaging study ordered full note dictated Objective - Vital Sign Vital Signs - 12hr 10/08/18 10/08/18 10/08/18 22:40 22:50 23:00 Temperature Pulse Rate 57 L 53 L 51 L Pulse Rate [ Bilateral] Pulse Rate [ Right Dorsalis Pedis] Respiratory 30 H 30 H 12 Rate Respiratory Rate [Bilateral ] Blood Pressure 125/62 125/62 124/63 O2 Sat by Pulse 100 100 100 Oximetry 10/08/18 10/08/18 10/08/18 23:10 23:20 23:29 Temperature Pulse Rate 51 L 51 L 52 L Pulse Rate [ Bilateral] Pulse Rate [ Right Dorsalis Pedis] Respiratory 30 H 30 H Rate Respiratory Rate [Bilateral ] Blood Pressure 124/63 124/63 124/63 O2 Sat by Pulse 100 100 100 Oximetry 10/08/18 10/08/18 10/09/18 23:30 23:40 00:00 Temperature 98.8 F Pulse Rate 52 L 53 L 51 L Pulse Rate [ Bilateral] Pulse Rate [ Right Dorsalis Pedis] Respiratory 26 H 30 H 29 H Rate Respiratory Rate [Bilateral ] Blood Pressure 120/61 120/61 121/59 O2 Sat by Pulse 100 100 100 Oximetry 10/09/18 10/09/18 10/09/18 00:30 01:00 01:30 Temperature Pulse Rate 54 L 50 L 55 L Pulse Rate [ Bilateral] Pulse Rate [ 50 L Right Dorsalis Pedis] Respiratory 17 30 H 30 H Rate Respiratory Rate [Bilateral ] Blood Pressure 121/59 123/61 120/58 O2 Sat by Pulse 100 100 100 Oximetry 10/09/18 10/09/18 10/09/18 02:00 02:08 02:30 Temperature Pulse Rate 57 L 81 Pulse Rate [ 67 92 H Bilateral] Pulse Rate [ Right Dorsalis Pedis] Respiratory 30 H 21 Rate Respiratory 30 H 33 H Rate [Bilateral ] Blood Pressure 149/78 139/70 O2 Sat by Pulse 100 100 Oximetry 10/09/18 10/09/18 10/09/18 03:00 03:30 04:00 Temperature 98.9 F Pulse Rate 74 65 54 L Pulse Rate [ Bilateral] Pulse Rate [ Right Dorsalis Pedis] Respiratory 25 H 30 H 30 H Rate Respiratory Rate [Bilateral ] Blood Pressure 141/65 130/60 117/55 O2 Sat by Pulse 96 98 98 Oximetry 10/09/18 10/09/18 10/09/18 04:30 05:00 05:01 Temperature Pulse Rate 52 L 50 L Pulse Rate [ Bilateral] Pulse Rate [ 50 L Right Dorsalis Pedis] Respiratory 28 H 30 H 30 H Rate Respiratory Rate [Bilateral ] Blood Pressure 123/57 123/57 O2 Sat by Pulse 100 96 Oximetry 10/09/18 10/09/18 10/09/18 05:30 06:00 08:50 Temperature Pulse Rate 49 L 50 L 50 L Pulse Rate [ Bilateral] Pulse Rate [ Right Dorsalis Pedis] Respiratory 30 H 30 H Rate Respiratory Rate [Bilateral ] Blood Pressure 117/63 116/64 132/54 O2 Sat by Pulse 95 96 96 Oximetry 10/09/18 10/09/18 10/09/18 08:59 09:09 09:52 Temperature Pulse Rate 52 L Pulse Rate [ 50 L 50 L Bilateral] Pulse Rate [ Right Dorsalis Pedis] Respiratory Rate Respiratory 30 H 30 H Rate [Bilateral ] Blood Pressure 133/61 O2 Sat by Pulse Oximetry 10/09/18 09:54 Temperature Pulse Rate 51 L Pulse Rate [ Bilateral] Pulse Rate [ Right Dorsalis Pedis] Respiratory Rate Respiratory Rate [Bilateral ] Blood Pressure 133/61 O2 Sat by Pulse Oximetry - Laboratory Findings CBC and BMP: 10/09/18 04:20 10/09/18 04:20 Abnormal Lab Findings: Abnormal Labs 10/05/18 10/05/18 10/05/18 03:23 03:23 03:23 WBC Hgb 14.5 H Hct 43.3 H MCV 98 H MCH 33 H Lymph % (Auto) Lymph # Seg Neutrophils % Seg Neuts % (Manual) 96.0 H Lymphocytes % (Manual) 2.0 L Seg Neutrophils # Seg Neutrophils # Man 8.3 H Lymphocytes # (Manual) 0.2 L POC ABG pH POC ABG pCO2 POC ABG pO2 Sodium Potassium Chloride 107.9 H Carbon Dioxide 20 L BUN Glucose 157 H POC Glucose Lactic Acid 3.30 H* Calcium 8.0 L C-Reactive Protein Albumin Ur Specific [place] 10/05/18 10/05/18 10/05/18 03:47 04:21 06:10 WBC Hgb Hct MCV MCH Lymph % (Auto) Lymph # Seg Neutrophils % Seg Neuts % (Manual) Lymphocytes % (Manual) Seg Neutrophils # Seg Neutrophils # Man Lymphocytes # (Manual) POC ABG pH 7.096 L POC ABG pCO2 POC ABG pO2 166 H Sodium Potassium Chloride Carbon Dioxide BUN Glucose POC Glucose Lactic Acid 2.60 H* Calcium C-Reactive Protein Albumin Ur Specific [place] 1.031 H 10/05/18 10/05/18 10/05/18 06:39 07:09 10:48 WBC Hgb Hct MCV MCH Lymph % (Auto) Lymph # Seg Neutrophils % Seg Neuts % (Manual) Lymphocytes % (Manual) Seg Neutrophils # Seg Neutrophils # Man Lymphocytes # (Manual) POC ABG pH 7.241 L 7.178 L POC ABG pCO2 45.2 H 49.3 H POC ABG pO2 57 L 62 L Sodium Potassium Chloride Carbon Dioxide BUN Glucose POC Glucose Lactic Acid 2.80 H* Calcium C-Reactive Protein Albumin Ur Specific [place] 10/05/18 10/05/18 10/06/18 12:42 17:11 04:11 WBC 14.0 H Hgb Hct MCV 99 H MCH Lymph % (Auto) Lymph # Seg Neutrophils % Seg Neuts % (Manual) Lymphocytes % (Manual) Seg Neutrophils # Seg Neutrophils # Man Lymphocytes # (Manual) POC ABG pH 7.206 L POC ABG pCO2 POC ABG pO2 74 L Sodium Potassium Chloride Carbon Dioxide BUN Glucose POC Glucose Lactic Acid Calcium C-Reactive Protein Albumin Ur Specific [place] 1.035 H 10/06/18 10/06/18 10/06/18 04:11 04:18 09:32 WBC Hgb Hct MCV MCH Lymph % (Auto) Lymph # Seg Neutrophils % Seg Neuts % (Manual) Lymphocytes % (Manual) Seg Neutrophils # Seg Neutrophils # Man Lymphocytes # (Manual) POC ABG pH 7.270 L POC ABG pCO2 POC ABG pO2 67 L Sodium Potassium 5.2 H D Chloride 116.1 H Carbon Dioxide 17 L BUN Glucose 132 H POC Glucose Lactic Acid 2.70 H* Calcium 7.8 L C-Reactive Protein Albumin 2.7 L Ur Specific [place] 10/06/18 10/06/18 10/06/18 12:24 12:24 22:10 WBC Hgb Hct MCV MCH Lymph % (Auto) Lymph # Seg Neutrophils % Seg Neuts % (Manual) Lymphocytes % (Manual) Seg Neutrophils # Seg Neutrophils # Man Lymphocytes # (Manual) POC ABG pH 7.314 L POC ABG pCO2 48.5 H POC ABG pO2 64 L Sodium Potassium Chloride 113.9 H Carbon Dioxide 20 L BUN Glucose 134 H POC Glucose Lactic Acid Calcium C-Reactive Protein 3.70 H Albumin Ur Specific [place] 10/06/18 10/07/18 10/07/18 23:46 04:44 04:44 WBC 12.7 H Hgb Hct MCV 99 H MCH Lymph % (Auto) Lymph # Seg Neutrophils % Seg Neuts % (Manual) Lymphocytes % (Manual) Seg Neutrophils # Seg Neutrophils # Man Lymphocytes # (Manual) POC ABG pH POC ABG pCO2 POC ABG pO2 Sodium Potassium 6.3 H* D Chloride 110.1 H Carbon Dioxide BUN Glucose 168 H POC Glucose 135 H Lactic Acid Calcium C-Reactive Protein Albumin Ur Specific [place] 10/07/18 10/07/18 10/07/18 04:44 09:30 09:44 WBC Hgb Hct MCV MCH Lymph % (Auto) Lymph # Seg Neutrophils % Seg Neuts % (Manual) Lymphocytes % (Manual) Seg Neutrophils # Seg Neutrophils # Man Lymphocytes # (Manual) POC ABG pH 7.335 L POC ABG pCO2 56.3 H POC ABG pO2 64 L Sodium Potassium 3.2 L D Chloride Carbon Dioxide BUN Glucose POC Glucose Lactic Acid 2.20 H* Calcium C-Reactive Protein Albumin Ur Specific [place] 10/07/18 10/07/18 10/08/18 12:06 18:38 04:33 WBC Hgb Hct MCV MCH Lymph % (Auto) Lymph # Seg Neutrophils % Seg Neuts % (Manual) Lymphocytes % (Manual) Seg Neutrophils # Seg Neutrophils # Man Lymphocytes # (Manual) POC ABG pH 7.510 H POC ABG pCO2 POC ABG pO2 50 L Sodium Potassium Chloride Carbon Dioxide BUN Glucose POC Glucose 131 H 134 H Lactic Acid Calcium C-Reactive Protein Albumin Ur Specific [place] 10/08/18 10/08/18 10/08/18 04:49 05:38 08:24 WBC 11.7 H Hgb Hct MCV MCH Lymph % (Auto) 7.5 L Lymph # 0.9 L Seg Neutrophils % 86.0 H Seg Neuts % (Manual) Lymphocytes % (Manual) Seg Neutrophils # 10.0 H Seg Neutrophils # Man Lymphocytes # (Manual) POC ABG pH POC ABG pCO2 53.6 H POC ABG pO2 69 L Sodium Potassium Chloride Carbon Dioxide BUN Glucose POC Glucose 179 H Lactic Acid Calcium C-Reactive Protein Albumin Ur Specific [place] 10/08/18 10/08/18 10/08/18 08:24 09:12 13:05 WBC Hgb Hct MCV MCH Lymph % (Auto) Lymph # Seg Neutrophils % Seg Neuts % (Manual) Lymphocytes % (Manual) Seg Neutrophils # Seg Neutrophils # Man Lymphocytes # (Manual) POC ABG pH POC ABG pCO2 POC ABG pO2 Sodium Potassium 2.7 L* Chloride Carbon Dioxide 33 H D BUN 18 H Glucose 182 H POC Glucose 194 H 139 H Lactic Acid Calcium 8.3 L C-Reactive Protein Albumin Ur Specific [place] 10/08/18 10/08/18 10/08/18 17:55 21:18 21:29 WBC Hgb Hct MCV MCH Lymph % (Auto) Lymph # Seg Neutrophils % Seg Neuts % (Manual) Lymphocytes % (Manual) Seg Neutrophils # Seg Neutrophils # Man Lymphocytes # (Manual) POC ABG pH 7.465 H POC ABG pCO2 49.3 H POC ABG pO2 69 L Sodium Potassium Chloride Carbon Dioxide BUN Glucose POC Glucose 157 H 134 H Lactic Acid Calcium C-Reactive Protein Albumin Ur Specific [place] 10/09/18 10/09/18 10/09/18 04:20 04:20 07:51 WBC 11.9 H Hgb Hct MCV MCH Lymph % (Auto) Lymph # Seg Neutrophils % Seg Neuts % (Manual) Lymphocytes % (Manual) Seg Neutrophils # Seg Neutrophils # Man Lymphocytes # (Manual) POC ABG pH POC ABG pCO2 POC ABG pO2 Sodium 146 H Potassium 3.0 L Chloride Carbon Dioxide 34 H BUN 26 H Glucose 171 H POC Glucose 142 H Lactic Acid Calcium C-Reactive Protein Albumin Ur Specific [place]
--- NOTE | 2018-10-09 11:04 | Progress Note ---
Assessment and Plan Acute respiratory failure currently intubated Pulmonary edema FRANCINE/Emphysema Poly-substance abuse Lactic acidosis Sinus bradycardia stable Recommendations: Continue current treatment Supportive care. Subjective Date of service: 10/09/18 Principal diagnosis: Acute Hypoxemic Resp failure; Polysubstance abuse;Acute Pulm Edema Interval history: Gen. condition the same Objective Vital Signs Temp Pulse Pulse Pulse Resp Resp BP 10/09/18 09:54 51 L 133/61 10/09/18 09:52 52 L 133/61 10/09/18 09:09 50 L 30 H 10/09/18 08:59 50 L 30 H 10/09/18 08:50 50 L 132/54 10/09/18 06:00 50 L 30 H 116/64 10/09/18 05:30 49 L 30 H 117/63 10/09/18 05:01 50 L 30 H 123/57 10/09/18 05:00 50 L 30 H 10/09/18 04:30 52 L 28 H 123/57 10/09/18 04:00 98.9 F 54 L 30 H 117/55 10/09/18 03:30 65 30 H 130/60 10/09/18 03:00 74 25 H 141/65 10/09/18 02:30 81 21 139/70 10/09/18 02:08 92 H 33 H 10/09/18 02:00 57 L 67 30 H 30 H 149/78 10/09/18 01:30 55 L 30 H 120/58 10/09/18 01:00 50 L 50 L 30 H 123/61 10/09/18 00:30 54 L 17 121/59 10/09/18 00:00 98.8 F 51 L 29 H 121/59 10/08/18 23:40 53 L 30 H 120/61 10/08/18 23:30 52 L 26 H 120/61 10/08/18 23:29 52 L 124/63 10/08/18 23:20 51 L 30 H 124/63 10/08/18 23:10 51 L 30 H 124/63 10/08/18 23:00 51 L 12 124/63 10/08/18 22:50 53 L 30 H 125/62 10/08/18 22:40 57 L 30 H 125/62 10/08/18 22:30 60 23 125/62 10/08/18 22:20 60 30 H 148/75 10/08/18 22:10 65 30 H 148/75 10/08/18 22:00 72 30 H 148/75 10/08/18 21:52 86 137/66 10/08/18 21:50 75 30 H 137/66 10/08/18 21:40 66 30 H 137/66 10/08/18 21:30 68 30 H 137/66 10/08/18 21:20 62 30 H 137/62 10/08/18 21:17 64 119/55 10/08/18 21:10 66 30 H 119/55 10/08/18 21:00 67 65 30 H 119/55 10/08/18 20:50 77 30 H 137/62 10/08/18 20:40 87 30 H 137/62 10/08/18 20:30 73 22 137/62 10/08/18 20:20 68 31 H 145/70 10/08/18 20:10 68 30 H 131/65 10/08/18 20:00 99.2 F 72 30 H 131/65 10/08/18 19:50 70 30 H 145/70 10/08/18 19:40 71 30 H 145/70 10/08/18 19:30 84 15 145/70 10/08/18 19:25 70 30 H 10/08/18 19:20 66 30 H 110/62 10/08/18 19:14 54 L 54 L 30 H 111/51 10/08/18 19:10 55 L 30 H 111/51 10/08/18 19:00 56 L 30 H 111/51 10/08/18 18:50 58 L 30 H 110/62 10/08/18 18:40 64 30 H 110/62 10/08/18 18:30 63 30 H 110/62 10/08/18 18:20 86 28 H 109/52 10/08/18 18:10 50 L 30 H 109/52 10/08/18 18:00 51 L 30 H 109/52 10/08/18 17:50 52 L 30 H 117/59 10/08/18 17:40 52 L 30 H 117/59 10/08/18 17:30 53 L 30 H 117/59 10/08/18 17:20 53 L 30 H 120/54 10/08/18 17:10 52 L 30 H 120/54 10/08/18 17:00 50 L 67 30 H 120/54 10/08/18 16:50 52 L 30 H 119/55 10/08/18 16:40 54 L 30 H 119/55 10/08/18 16:30 52 L 30 H 119/55 10/08/18 16:20 55 L 30 H 120/54 10/08/18 16:10 56 L 30 H 132/59 10/08/18 16:00 98.3 F 60 30 H 132/59 10/08/18 15:50 50 L 30 H 113/54 10/08/18 15:40 51 L 30 H 120/54 10/08/18 15:35 70 10/08/18 15:30 51 L 30 H 120/54 10/08/18 15:20 50 L 30 H 113/54 10/08/18 15:10 50 L 30 H 113/54 10/08/18 15:00 50 L 30 H 113/54 10/08/18 14:50 51 L 30 H 115/55 10/08/18 14:40 50 L 30 H 115/55 10/08/18 14:30 54 L 30 H 115/55 10/08/18 14:20 52 L 30 H 112/54 10/08/18 14:10 54 L 30 H 112/54 10/08/18 14:00 52 L 30 H 114/56 10/08/18 13:50 52 L 30 H 113/53 10/08/18 13:40 54 L 30 H 113/53 10/08/18 13:30 52 L 30 H 112/54 10/08/18 13:20 53 L 30 H 115/53 10/08/18 13:10 53 L 66 30 H 30 H 115/53 10/08/18 13:03 65 30 H 10/08/18 13:00 57 L 51 L 30 H 113/53 10/08/18 12:50 60 30 H 115/53 10/08/18 12:40 54 L 30 H 115/53 10/08/18 12:30 54 L 30 H 115/53 10/08/18 12:20 53 L 30 H 113/54 10/08/18 12:10 53 L 30 H 113/54 10/08/18 12:00 98.5 F 54 L 30 H 113/54 10/08/18 11:50 52 L 30 H 127/58 10/08/18 11:40 54 L 30 H 127/58 10/08/18 11:30 56 L 30 H 127/58 10/08/18 11:20 55 L 30 H 121/55 10/08/18 11:10 50 L 30 H 121/55 Pulse Ox 10/09/18 09:54 10/09/18 09:52 10/09/18 09:09 10/09/18 08:59 10/09/18 08:50 96 10/09/18 06:00 96 10/09/18 05:30 95 10/09/18 05:01 10/09/18 05:00 96 10/09/18 04:30 100 10/09/18 04:00 98 10/09/18 03:30 98 10/09/18 03:00 96 10/09/18 02:30 100 10/09/18 02:08 10/09/18 02:00 100 10/09/18 01:30 100 10/09/18 01:00 100 10/09/18 00:30 100 10/09/18 00:00 100 10/08/18 23:40 100 10/08/18 23:30 100 10/08/18 23:29 100 10/08/18 23:20 100 10/08/18 23:10 100 10/08/18 23:00 100 10/08/18 22:50 100 10/08/18 22:40 100 10/08/18 22:30 100 10/08/18 22:20 100 10/08/18 22:10 100 10/08/18 22:00 100 10/08/18 21:52 10/08/18 21:50 100 10/08/18 21:40 99 10/08/18 21:30 99 10/08/18 21:20 96 10/08/18 21:17 97 10/08/18 21:10 97 10/08/18 21:00 94 10/08/18 20:50 100 10/08/18 20:40 98 10/08/18 20:30 94 10/08/18 20:20 93 10/08/18 20:10 93 10/08/18 20:00 93 10/08/18 19:50 95 10/08/18 19:40 95 04 19:30 96 10/08/18 19:25 04 19:20 94 10/08/18 19:14 94 10/08/18 19:10 94 10/08/18 19:00 93 10/08/18 18:50 94 10/08/18 18:40 94 10/08/18 18:30 94 10/08/18 18:20 95 10/08/18 18:10 94 10/08/18 18:00 94 10/08/18 17:50 93 10/08/18 17:40 94 10/08/18 17:30 94 10/08/18 17:20 94 10/08/18 17:10 94 10/08/18 17:00 92 10/08/18 16:50 94 10/08/18 16:40 93 10/08/18 16:30 94 10/08/18 16:20 94 10/08/18 16:10 95 10/08/18 16:00 95 10/08/18 15:50 94 10/08/18 15:40 93 10/08/18 15:35 94 10/08/18 15:30 93 10/08/18 15:20 93 10/08/18 15:10 93 10/08/18 15:00 93 10/08/18 14:50 93 10/08/18 14:40 94 10/08/18 14:30 93 10/08/18 14:20 94 10/08/18 14:10 94 10/08/18 14:00 94 10/08/18 13:50 94 10/08/18 13:40 94 10/08/18 13:30 94 10/08/18 13:20 95 10/08/18 13:10 94 10/08/18 13:03 10/08/18 13:00 92 10/08/18 12:50 95 10/08/18 12:40 93 10/08/18 12:30 92 10/08/18 12:20 93 10/08/18 12:10 93 10/08/18 12:00 93 10/08/18 11:50 92 10/08/18 11:40 92 10/08/18 11:30 92 10/08/18 11:20 92 04/20/19 11:10 92 - Physical Examination Narrative exam: Physical examination Vitals reviewed GEN: Patient intubated HEENT: Carotids 2+ NECK: Supple CVS: S1 and S2 heard no significant murmur or gallop noted LUNGS/CHEST: Normal auscultation ABD: Soft nontender Extremities: No edema noted normal color General: Other (intubated on mechanical ventilation) - Labs and Meds CBC 10/09/18 Range/Units 04:20 WBC 11.9 H (4.5-11.0) K/mm3 RBC 4.33 (3.65-5.03) M/mm3 Hgb 13.8 (10.1-14.3) gm/dl Hct 41.5 (30.3-42.9) % Plt Count 195 (140-440) K/mm3 Comprehensive Metabolic Panel 10/09/18 Range/Units 04:20 Sodium 146 H (137-145) mmol/L Potassium 3.0 L (3.6-5.0) mmol/L Chloride 102.6 (98-107) mmol/L Carbon Dioxide 34 H (22-30) mmol/L BUN 26 H (7-17) mg/dL Creatinine 1.0 (0.7-1.2) mg/dL Glucose 171 H (65-100) mg/dL Calcium 8.6 (8.4-10.2) mg/dL - Imaging and Cardiology EKG: image reviewed - Allied health notes Allied health notes reviewed: nursing
--- NOTE | 2018-10-09 11:44 | Progress Note ---
Assessment and Plan Acute Hypoxic Respiratory failure Polysubstance abuse, Cocaine and Benzos Pulmonary Edema Acute Toxic metabolic Encephalopathy ?secondary to drug abuse or other etiology Metabolic Acidosis Leukocytosis ?Aspiration- Per nursing staff, patient yesterday had some emesis and coughing prompting increase in sedation. Non so far since then Vasogenic shock Bradycardia Hyperkalemia COPD- with acute exacerbatione Active Smoker Hepatitis C Bipolar disorder Atrial Fibrillation by hx Anxiety- and on Valium per family - increased Peep to 8 - continue weaning oxygen for sat's > 90% - discontinued kwon catheter - continue bronchodilators with pulmonary hygiene per RT - CRP unremarkable and lactic acid level now WNL - complete empiric CAP AB's course - 2D ECHO reveals moderate pulm HTN - VAP bundle and Aspiration precautions addressed - continue mobility protocol for pressure ulcer prophylaxis - continue enteral nutrition - Counselling on Drug abuse when more awake - tobacco absue counseling once improved - prn blood draws - continue Restraints for patient safety - continue GI & VTE prophylaxis - flu & pneumovax per protocol ....no family in room ... re-evaluate in am & prn The high probability of a clinically significant, sudden or life threatening deterioration of the [pulmonary, neurol] system(s) required my full and direct attention, intervention and personal management. The aggregate critical care time was [32] minutes. This time is in addition to time spent performing reported procedures but includes the following: [x] Data Review and interpretation [x] Patient assessment and monitoring of vital signs [x] Documentation [x] Medication orders and management Subjective Date of service: 10/09/18 Principal diagnosis: Acute Hypoxemic Resp failure; Polysubstance abuse;Acute Pulm Edema Interval history: Patient is seen today for: Acute Hypoxemic Respiratory failure; Polysubstance abuse (Cocaine and Benzos); Acute Pulmonary Edema; Acute Toxic metabolic Encephalopathy ?secondary to drug abuse or other etiology; Metabolic Acidosis; Leukocytosis Seen and examined at bedside; 24hour events reviewed; nursing and respiratory care staff consulted; no adverse overnight events reported to me; remains on MVS; agitated during SAT's and not following prompt's; no emesis or overt aspiration; no high grade fevers; FiO2 at 50% Objective Vital Signs - 12hr 10/09/18 10/09/18 10/09/18 00:00 00:30 01:00 Temperature 98.8 F Pulse Rate 51 L 54 L 50 L Pulse Rate [ Bilateral] Pulse Rate [ 50 L Right Dorsalis Pedis] Respiratory 29 H 17 30 H Rate Respiratory Rate [Bilateral ] Blood Pressure 121/59 121/59 123/61 O2 Sat by Pulse 100 100 100 Oximetry 10/09/18 10/09/18 10/09/18 01:30 02:00 02:08 Temperature Pulse Rate 55 L 57 L Pulse Rate [ 67 92 H Bilateral] Pulse Rate [ Right Dorsalis Pedis] Respiratory 30 H 30 H Rate Respiratory 30 H 33 H Rate [Bilateral ] Blood Pressure 120/58 149/78 O2 Sat by Pulse 100 100 Oximetry 10/09/18 10/09/18 10/09/18 02:30 03:00 03:30 Temperature Pulse Rate 81 74 65 Pulse Rate [ Bilateral] Pulse Rate [ Right Dorsalis Pedis] Respiratory 21 25 H 30 H Rate Respiratory Rate [Bilateral ] Blood Pressure 139/70 141/65 130/60 O2 Sat by Pulse 100 96 98 Oximetry 10/09/18 10/09/18 10/09/18 04:00 04:30 05:00 Temperature 98.9 F Pulse Rate 54 L 52 L Pulse Rate [ Bilateral] Pulse Rate [ 50 L Right Dorsalis Pedis] Respiratory 30 H 28 H 30 H Rate Respiratory Rate [Bilateral ] Blood Pressure 117/55 123/57 O2 Sat by Pulse 98 100 96 Oximetry 10/09/18 10/09/18 10/09/18 05:01 05:30 06:00 Temperature Pulse Rate 50 L 49 L 50 L Pulse Rate [ Bilateral] Pulse Rate [ Right Dorsalis Pedis] Respiratory 30 H 30 H 30 H Rate Respiratory Rate [Bilateral ] Blood Pressure 123/57 117/63 116/64 O2 Sat by Pulse 95 96 Oximetry 10/09/18 10/09/18 10/09/18 08:50 08:59 09:09 Temperature Pulse Rate 50 L Pulse Rate [ 50 L 50 L Bilateral] Pulse Rate [ Right Dorsalis Pedis] Respiratory Rate Respiratory 30 H 30 H Rate [Bilateral ] Blood Pressure 132/54 O2 Sat by Pulse 96 Oximetry 10/09/18 10/09/18 10/09/18 09:52 09:54 11:27 Temperature Pulse Rate 52 L 51 L 71 Pulse Rate [ Bilateral] Pulse Rate [ Right Dorsalis Pedis] Respiratory Rate Respiratory Rate [Bilateral ] Blood Pressure 133/61 133/61 123/61 O2 Sat by Pulse 95 Oximetry Constitutional: no acute distress, other (elderly looking AAF, normocephalic and with mildly increased resp effort at rest) Eyes: non-icteric ENT: oropharynx moist, other (ETT 23 cm JOHNNY) Neck: supple, no lymphadenopathy, no JVD, other (no thyromegaly) Effort: mildly labored Ascultation: Bilateral: diminished breath sounds, rhonchi, other (prolonged exp phase) Percussion: Bilateral: not dull Cardiovascular: regular rate and rhythm Gastrointestinal: normoactive bowel sounds, soft, non-tender, non-distended Integumentary: normal Extremities: no cyanosis, pulses normal, no ischemia or petechiae, edema (L > R lower extremity) Neurologic: non-focal exam (grossly), pupils equal and round, motor strength no rmal and Psychiatric: other (sedated) CBC and BMP: 10/09/18 04:20 10/09/18 04:20 ABG, PT/INR, D-dimer: ABG POC ABG pH 7.465 (7.35-7.45) H 10/08/18 21:18 POC ABG pCO2 49.3 (35-45) H 10/08/18 21:18 POC ABG pO2 69 (80-105) L 10/08/18 21:18 POC ABG HCO3 35.5 (22-26 mml/L) 10/08/18 21:18 POC ABG Total CO2 37 (23-27mmol/L) 10/08/18 21:18 POC ABG O2 Sat 94 10/08/18 21:18 Abnormal lab findings: Abnormal Labs 10/05/18 10/05/18 10/05/18 03:23 03:23 03:23 WBC Hgb 14.5 H Hct 43.3 H MCV 98 H MCH 33 H Lymph % (Auto) Lymph # Seg Neutrophils % Seg Neuts % (Manual) 96.0 H Lymphocytes % (Manual) 2.0 L Seg Neutrophils # Seg Neutrophils # Man 8.3 H Lymphocytes # (Manual) 0.2 L POC ABG pH POC ABG pCO2 POC ABG pO2 Sodium Potassium Chloride 107.9 H Carbon Dioxide 20 L BUN Glucose 157 H POC Glucose Lactic Acid 3.30 H* Calcium 8.0 L C-Reactive Protein Albumin Ur Specific Kennedy 10/05/18 10/05/1819 03:47 04:21 06:10 WBC Hgb Hct MCV MCH Lymph % (Auto) Lymph # Seg Neutrophils % Seg Neuts % (Manual) Lymphocytes % (Manual) Seg Neutrophils # Seg Neutrophils # Man Lymphocytes # (Manual) POC ABG pH 7.096 L POC ABG pCO2 POC ABG pO2 166 H Sodium Potassium Chloride Carbon Dioxide BUN Glucose POC Glucose Lactic Acid 2.60 H* Calcium C-Reactive Protein Albumin Ur Specific [place] 1.031 H 10/05/18 10/05/18 10/05/18 06:39 07:09 10:48 WBC Hgb Hct MCV MCH Lymph % (Auto) Lymph # Seg Neutrophils % Seg Neuts % (Manual) Lymphocytes % (Manual) Seg Neutrophils # Seg Neutrophils # Man Lymphocytes # (Manual) POC ABG pH 7.241 L 7.178 L POC ABG pCO2 45.2 H 49.3 H POC ABG pO2 57 L 62 L Sodium Potassium Chloride Carbon Dioxide BUN Glucose POC Glucose Lactic Acid 2.80 H* Calcium C-Reactive Protein Albumin Ur Specific [place] 10/05/18 10/05/18 10/06/18 12:42 17:11 04:11 WBC 14.0 H Hgb Hct MCV 99 H MCH Lymph % (Auto) Lymph # Seg Neutrophils % Seg Neuts % (Manual) Lymphocytes % (Manual) Seg Neutrophils # Seg Neutrophils # Man Lymphocytes # (Manual) POC ABG pH 7.206 L POC ABG pCO2 POC ABG pO2 74 L Sodium Potassium Chloride Carbon Dioxide BUN Glucose POC Glucose Lactic Acid Calcium C-Reactive Protein Albumin Ur Specific [place] 1.035 H 10/06/18 10/06/18 10/06/18 04:11 04:18 09:32 WBC Hgb Hct MCV MCH Lymph % (Auto) Lymph # Seg Neutrophils % Seg Neuts % (Manual) Lymphocytes % (Manual) Seg Neutrophils # Seg Neutrophils # Man Lymphocytes # (Manual) POC ABG pH 7.270 L POC ABG pCO2 POC ABG pO2 67 L Sodium Potassium 5.2 H D Chloride 116.1 H Carbon Dioxide 17 L BUN Glucose 132 H POC Glucose Lactic Acid 2.70 H* Calcium 7.8 L C-Reactive Protein Albumin 2.7 L Ur Specific [place] 10/06/18 10/06/18 10/06/18 12:24 12:24 22:10 WBC Hgb Hct MCV MCH Lymph % (Auto) Lymph # Seg Neutrophils % Seg Neuts % (Manual) Lymphocytes % (Manual) Seg Neutrophils # Seg Neutrophils # Man Lymphocytes # (Manual) POC ABG pH 7.314 L POC ABG pCO2 48.5 H POC ABG pO2 64 L Sodium Potassium Chloride 113.9 H Carbon Dioxide 20 L BUN Glucose 134 H POC Glucose Lactic Acid Calcium C-Reactive Protein 3.70 H Albumin Ur Specific [place] 10/06/18 10/07/18 10/07/18 23:46 04:44 04:44 WBC 12.7 H Hgb Hct MCV 99 H MCH Lymph % (Auto) Lymph # Seg Neutrophils % Seg Neuts % (Manual) Lymphocytes % (Manual) Seg Neutrophils # Seg Neutrophils # Man Lymphocytes # (Manual) POC ABG pH POC ABG pCO2 POC ABG pO2 Sodium Potassium 6.3 H* D Chloride 110.1 H Carbon Dioxide BUN Glucose 168 H POC Glucose 135 H Lactic Acid Calcium C-Reactive Protein Albumin Ur Specific [place] 10/07/18 10/07/18 10/07/18 04:44 09:30 09:44 WBC Hgb Hct MCV MCH Lymph % (Auto) Lymph # Seg Neutrophils % Seg Neuts % (Manual) Lymphocytes % (Manual) Seg Neutrophils # Seg Neutrophils # Man Lymphocytes # (Manual) POC ABG pH 7.335 L POC ABG pCO2 56.3 H POC ABG pO2 64 L Sodium Potassium 3.2 L D Chloride Carbon Dioxide BUN Glucose POC Glucose Lactic Acid 2.20 H* Calcium C-Reactive Protein Albumin Ur Specific [place] 10/07/18 10/07/18 10/08/18 12:06 18:38 04:33 WBC Hgb Hct MCV MCH Lymph % (Auto) Lymph # Seg Neutrophils % Seg Neuts % (Manual) Lymphocytes % (Manual) Seg Neutrophils # Seg Neutrophils # Man Lymphocytes # (Manual) POC ABG pH 7.510 H POC ABG pCO2 POC ABG pO2 50 L Sodium Potassium Chloride Carbon Dioxide BUN Glucose POC Glucose 131 H 134 H Lactic Acid Calcium C-Reactive Protein Albumin Ur Specific [place] 10/08/18 10/08/18 10/08/18 04:49 05:38 08:24 WBC 11.7 H Hgb Hct MCV MCH Lymph % (Auto) 7.5 L Lymph # 0.9 L Seg Neutrophils % 86.0 H Seg Neuts % (Manual) Lymphocytes % (Manual) Seg Neutrophils # 10.0 H Seg Neutrophils # Man Lymphocytes # (Manual) POC ABG pH POC ABG pCO2 53.6 H POC ABG pO2 69 L Sodium Potassium Chloride Carbon Dioxide BUN Glucose POC Glucose 179 H Lactic Acid Calcium C-Reactive Protein Albumin Ur Specific [place] 10/08/18 10/08/18 10/08/18 08:24 09:12 13:05 WBC Hgb Hct MCV MCH Lymph % (Auto) Lymph # Seg Neutrophils % Seg Neuts % (Manual) Lymphocytes % (Manual) Seg Neutrophils # Seg Neutrophils # Man Lymphocytes # (Manual) POC ABG pH POC ABG pCO2 POC ABG pO2 Sodium Potassium 2.7 L* Chloride Carbon Dioxide 33 H D BUN 18 H Glucose 182 H POC Glucose 194 H 139 H Lactic Acid Calcium 8.3 L C-Reactive Protein Albumin Ur Specific [place] 10/08/18 10/08/18 10/08/18 17:55 21:18 21:29 WBC Hgb Hct MCV MCH Lymph % (Auto) Lymph # Seg Neutrophils % Seg Neuts % (Manual) Lymphocytes % (Manual) Seg Neutrophils # Seg Neutrophils # Man Lymphocytes # (Manual) POC ABG pH 7.465 H POC ABG pCO2 49.3 H POC ABG pO2 69 L Sodium Potassium Chloride Carbon Dioxide BUN Glucose POC Glucose 157 H 134 H Lactic Acid Calcium C-Reactive Protein Albumin Ur Specific [place] 10/09/18 10/09/18 10/09/18 04:20 04:20 07:51 WBC 11.9 H Hgb Hct MCV MCH Lymph % (Auto) Lymph # Seg Neutrophils % Seg Neuts % (Manual) Lymphocytes % (Manual) Seg Neutrophils # Seg Neutrophils # Man Lymphocytes # (Manual) POC ABG pH POC ABG pCO2 POC ABG pO2 Sodium 146 H Potassium 3.0 L Chloride Carbon Dioxide 34 H BUN 26 H Glucose 171 H POC Glucose 142 H Lactic Acid Calcium C-Reactive Protein Albumin Ur Specific [place] Allied health notes reviewed: nursing
--- NOTE | 2018-10-09 11:56 | Consultation ---
HISTORY OF PRESENT ILLNESS: This is a 57-year-old black female admitted to [facility] initially on 10/05/2018 she presented with a history of emphysema, obstructive lung disease. His O2 sats were 60%, she was placed on BiPAP, she became confused, was subsequently intubated and she had been taking albuterol, Lasix, Tessalon Perles, ProAir, Pepcid, Atrovent, and prednisone 40 mg daily. On presentation to the hospital, she was noted to have a high blood sugar of 157. She had a respiratory arrest and subsequently was admitted, which also questions sepsis. The patient subsequently after admission was found on laboratory testing to have low potassium at 2.7 and toxicology screen was positive for benzodiazepines and cocaine. PHYSICAL EXAMINATION: The patient at this point shows her to be confused, moving about at times, eyes are closed. She does not respond to verbal command. However, good strong gag and respiratory stimulation cough reflex with the suction cannula through the ET tube. She move all extremities spontaneously, does not have any focal seizure activity. The patient on forced opening of the eyes, she has full ocular movements. Does not have any forced deviation of the eyes. Her pupils are 4 mm, reactive to light. No tremors or asterixis. The patient does not have any focal jerking or myoclonic activity. IMPRESSION: Severe encephalopathy, presumably related to withdrawal from benzodiazepines and cocaine as well as intervening respiratory issue. She has also been on high dose steroid therapy. This is hyperglycemic as well as having a hypokalemic encephalopathy. Recommend getting a CT, EEG. We will follow up. [facility]# [id number] RAMIRO/NTS
[2018-10-09] MEDS: ROCEPHIN/NS 1 GM/50 ML 1 GM/50 ML BAG IV SCH (20:26)
[2018-10-09] MEDS: ZITHROMAX 500 MG in NACL 0.9% 250ML 250 ML IV SCH (21:15)
[2018-10-10] MEDS: SOLU-Medrol IV SCH ×4 (01:04→17:15)
[2018-10-10] MEDS: fentaNYL DRIP Premix 2,000 MCG/100 ML BAG IV SCH ×2 (02:14→18:23)
[2018-10-10] MEDS: COREG PO SCH ×2 (02:36→09:38)
[2018-10-10] MEDS: DUONEB *Not for PRN Use IH SCH ×2 (03:34→08:29)
[2018-10-10 04:27] LABS: Hemoglobin 14.4 gm/dl (10.1-14.3); Mean Corpuscular HGB Conc 33 % (30-34); Mean Corpuscular Volume 97 fl (79-97); Platelet Count 211 K/mm3 (140-440); Red Blood Count 4.54 M/mm3 (3.65-5.03); Red Cell Distribution Width 14.2 % (13.2-15.2)
[2018-10-10 04:42] LABS: BUN/Creatinine Ratio 34; Blood Urea Nitrogen 31 mg/dL (7-17); Calcium 8.4 mg/dL (8.4-10.2); Hemolysis Index 4
--- NOTE | 2018-10-10 05:11 | XRay Report ---
PROCEDURE: XR CHEST 1V AP TECHNIQUE: Chest radiograph single view. HISTORY: follow up respiratory failure COMPARISONS: 10/09/2018 . FINDINGS: Heart: Normal. Mediastinum/Vessels: Central pulmonary vessels remain prominent and indistinct from mild pulmonary co ngestion. Lungs/Pleural space: No significant change in focal opacity in the left lower lobe, suspect atelectas is versus pneumonia. No discernible pneumothorax. Bony thorax: No acute osseous abnormality. Life support devices: Satisfactory position of feeding tube catheter and left-sided PICC line cathete r. ET catheter tip is 4 cm above the soha. IMPRESSION: No significant interval change. This document is electronically signed by Veena Wilson MD., October 10 2018 05:09:26 AM ET
[2018-10-10] MEDS: LASIX IV SCH (06:37)
[2018-10-10] MEDS: DIPRIVAN 10 MG/ML 1,000 MG/100 ML BOTTLE IV SCH (06:37)
[2018-10-10] MEDS: HumuLIN R SUB-Q SCH ×3 (07:25→17:15)
[2018-10-10] MEDS: PEPCID PO SCH ×2 (09:38→22:07)
[2018-10-10] MEDS: ZESTRIL PO SCH (09:40)
[2018-10-10] MEDS: LOVENOX SUB-Q SCH (09:40)
[2018-10-10] MEDS: SODIUM CHLORIDE FLUSH SYRINGE 10 ML IV SCH ×2 (09:41→22:07)
--- NOTE | 2018-10-10 11:11 | Cat Scan Report ---
CT HEAD WITHOUT CONTRAST: HISTORY: Altered mental status. TECHNIQUE: Sequential 2.5mm CT images. COMPARISON: none. FINDINGS: Cerebral Parenchyma: Within normal limits. Cerebellum: Within normal limits. Brainstem: Within normal limits. Ventricles: Normal. Sella: Normal. Extra-axial spaces: Normal. Basal Cisterns: Normal. Intracranial Hemorrhage: None. Midline Shift: None. Calvarium: Normal. Sinuses: Normal. Mastoid Air Cells: Normal. Visualized Orbits: Normal. IMPRESSION: Cranial CT scan within normal limits.
--- NOTE | 2018-10-10 11:46 | Progress Note ---
Assessment and Plan Acute respiratory failure Pulmonary edema FRANCINE/Emphysema Poly-substance abuse Lactic acidosis An echocardiogram this admission reveals evidence of at least moderate pulmonary hypertension, RVSP 58 mmHg. Normal left ventricular systolic function, EF 60- 65%. Conservative cardiac management. Subjective Date of service: 10/10/18 Principal diagnosis: Acute Hypoxemic Resp failure; Polysubstance abuse;Acute Pulm Edema Interval history: Patient remains intubated on the vent. No cardiac events overnight. Objective Vital Signs Temp Pulse Pulse Pulse Resp Resp BP 10/10/18 11:37 67 125/64 10/10/18 09:40 82 180/88 10/10/18 09:38 88 180/88 10/10/18 08:39 112 H 30 H 10/10/18 08:33 101 H 167/72 10/10/18 08:29 116 H 29 H 10/10/18 08:08 70 10/10/18 08:00 99.2 F 71 71 16 145/70 10/10/18 07:31 112 H 21 152/79 10/10/18 07:00 59 L 17 117/62 10/10/18 06:30 57 L 17 111/56 10/10/18 06:00 58 L 17 109/56 10/10/18 05:30 69 17 118/62 10/10/18 05:00 66 58 L 15 120/63 10/10/18 04:50 67 138/73 10/10/18 04:30 62 11 L 138/73 10/10/18 04:00 97.8 F 63 12 140/73 10/10/18 03:35 79 14 10/10/18 03:30 62 13 146/73 10/10/18 03:25 80 20 10/10/18 03:00 54 L 12 119/64 10/10/18 02:36 66 128/62 10/10/18 02:30 61 13 116/61 10/10/18 02:01 60 14 114/55 10/10/18 01:30 63 12 133/66 10/10/18 01:00 69 63 18 143/65 10/10/18 00:30 81 11 L 151/74 10/10/18 00:00 98.5 F 63 14 142/70 10/09/18 23:57 65 140/70 10/09/18 23:30 66 12 140/70 10/09/18 23:00 64 12 116/63 10/09/18 22:30 66 15 128/62 10/09/18 22:07 77 15 130/72 10/09/18 22:00 68 12 130/72 10/09/18 21:59 74 12 128/71 10/09/18 21:30 71 12 128/71 10/09/18 21:00 77 75 11 L 124/66 10/09/18 20:30 73 13 125/65 10/09/18 20:15 67 12 10/09/18 20:13 69 113/57 10/09/18 20:05 68 24 10/09/18 20:00 98.8 F 61 14 113/57 10/09/18 19:31 59 L 12 116/55 10/09/18 19:00 60 13 148/71 10/09/18 18:30 55 L 12 133/61 10/09/18 18:00 56 L 10 L 128/62 10/09/18 17:30 56 L 8 L 127/63 10/09/18 17:00 60 55 L 10 L 128/64 10/09/18 16:30 59 L 13 139/66 10/09/18 16:08 59 L 154/68 10/09/18 16:00 98.5 F 70 13 154/68 10/09/18 15:31 64 13 134/68 10/09/18 15:20 48 L 12 10/09/18 15:10 50 L 12 10/09/18 15:00 64 20 132/76 10/09/18 14:30 49 L 20 121/60 10/09/18 14:00 46 L 20 118/60 10/09/18 13:30 48 L 20 119/58 10/09/18 13:24 51 L 112/52 10/09/18 13:00 46 L 68 11 L 112/52 10/09/18 12:31 49 L 19 117/54 10/09/18 12:00 97.6 F 58 L 20 146/74 Pulse Ox 10/10/18 11:37 96 10/10/18 09:40 10/10/18 09:38 10/10/18 08:39 10/10/18 08:33 95 10/10/18 08:29 10/10/18 08:08 10/10/18 08:00 93 04/22/19 07:31 96 10/10/18 07:00 94 10/10/18 06:30 92 10/10/18 06:00 92 10/10/18 05:30 95 10/10/18 05:00 92 10/10/18 04:50 97 10/10/18 04:30 95 10/10/18 04:00 92 10/10/18 03:35 10/10/18 03:30 97 10/10/18 03:25 10/10/18 03:00 95 10/10/18 02:36 10/10/18 02:30 94 10/10/18 02:01 94 10/10/18 01:30 93 10/10/18 01:00 96 10/10/18 00:30 96 10/10/18 00:00 99 10/09/18 23:57 94 10/09/18 23:30 96 10/09/18 23:00 94 10/09/18 22:30 96 10/09/18 22:07 97 10/09/18 22:00 95 10/09/18 21:59 92 10/09/18 21:30 96 10/09/18 21:00 93 10/09/18 20:30 95 10/09/18 20:15 10/09/18 20:13 95 10/09/18 20:05 10/09/18 20:00 94 10/09/18 19:31 92 10/09/18 19:00 97 10/09/18 18:30 97 10/09/18 18:00 96 10/09/18 17:30 94 10/09/18 17:00 95 10/09/18 16:30 97 10/09/18 16:08 96 10/09/18 16:00 96 10/09/18 15:31 95 10/09/18 15:20 10/09/18 15:10 10/09/18 15:00 96 10/09/18 14:30 96 10/09/18 14:00 96 10/09/18 13:30 96 10/09/18 13:24 96 10/09/18 13:00 96 10/09/18 12:31 95 10/09/18 12:00 96 - Physical Examination General: Other (intubated on mechanical ventilation) Cardiac: Positive: Reg Rate and Rhythm - Labs and Meds Lipids 10/10/18 Range/Units 03:30 Triglycerides 188 H (2-149) mg/dL CBC 10/10/18 Range/Units 03:30 WBC 15.2 H (4.5-11.0) K/mm3 RBC 4.54 (3.65-5.03) M/mm3 Hgb 14.4 H (10.1-14.3) gm/dl Hct 44.0 H (30.3-42.9) % Plt Count 211 (140-440) K/mm3 Comprehensive Metabolic Panel 10/10/18 Range/Units 03:30 Sodium 146 H (137-145) mmol/L Potassium 3.7 D (3.6-5.0) mmol/L Chloride 101.4 (98-107) mmol/L Carbon Dioxide 34 H (22-30) mmol/L BUN 31 H (7-17) mg/dL Creatinine 0.9 (0.7-1.2) mg/dL Glucose 133 H (65-100) mg/dL Calcium 8.4 (8.4-10.2) mg/dL - Allied health notes Allied health notes reviewed: nursing
[2018-10-10] MEDS: APRESOLINE PO SCH ×2 (12:43→22:05)
[2018-10-10] MEDS ORDERED: PROVENTIL IH PRN (13:29)
--- NOTE | 2018-10-10 14:27 | Progress Note ---
Assessment and Plan Acute Hypoxic Respiratory failure Polysubstance abuse, Cocaine and Benzos Pulmonary Edema Acute Toxic metabolic Encephalopathy ?secondary to drug abuse or other etiology Metabolic Acidosis Leukocytosis ?Aspiration- Per nursing staff, patient yesterday had some emesis and coughing prompting increase in sedation. Non so far since then Vasogenic shock Bradycardia Hyperkalemia COPD- with acute exacerbatione Active Smoker Hepatitis C Bipolar disorder Atrial Fibrillation by hx Anxiety- and on Valium per family - keep Peep at 8 - reduce set rate to 12 - begin PSV trials 1-2 hours thereafter - reduce daytime seroquel dose to 100 mg - daily SAT's and SBT's - continue weaning oxygen for sat's > 90% - discontinued kwon catheter - continue bronchodilators with pulmonary hygiene per RT - CRP unremarkable and lactic acid level now WNL - complete empiric CAP AB's course - 2D ECHO reveals moderate pulm HTN - VAP bundle and Aspiration precautions addressed - continue mobility protocol for pressure ulcer prophylaxis - continue enteral nutrition - Counselling on Drug abuse when more awake - tobacco absue counseling once improved - prn blood draws - continue Restraints for patient safety - continue GI & VTE prophylaxis - flu & pneumovax per protocol .... care plan discussed at length with daughter in room ... re-evaluate in am & prn The high probability of a clinically significant, sudden or life threatening deterioration of the [pulmonary, neurology] system(s) required my full and direc t attention, intervention and personal management. The aggregate critical care time was [32] minutes. This time is in addition to time spent performing reported procedures but includes the following: [x] Data Review and interpretation [x] Patient assessment and monitoring of vital signs [x] Documentation [x] Medication orders and management Subjective Date of service: 10/10/18 Principal diagnosis: Acute Hypoxemic Resp failure; Polysubstance abuse;Acute Pulm Edema Interval history: Patient is seen today for: Acute Hypoxemic Respiratory failure; Polysubstance abuse (Cocaine and Benzos); Acute Pulmonary Edema; Acute Toxic metabolic Encephalopathy ?secondary to drug abuse or other etiology; Metabolic Acidosis; Leukocytosis Seen and examined at bedside; 24hour events reviewed; nursing and respiratory care staff consulted; no adverse overnight events reported to me; remains on MVS; a little more alert today; daughter visiting; not following prompts well so far though; no N/V/F/C Objective Vital Signs - 12hr 10/10/18 10/10/18 10/10/18 02:30 02:36 03:00 Temperature Pulse Rate 61 66 54 L Pulse Rate [ Bilateral] Pulse Rate [ Right Dorsalis Pedis] Respiratory 13 12 Rate Respiratory Rate [Bilateral ] Blood Pressure 116/61 128/62 119/64 O2 Sat by Pulse 94 95 Oximetry 10/10/18 10/10/18 10/10/18 03:25 03:30 03:35 Temperature Pulse Rate 62 Pulse Rate [ 80 79 Bilateral] Pulse Rate [ Right Dorsalis Pedis] Respiratory 13 Rate Respiratory 20 14 Rate [Bilateral ] Blood Pressure 146/73 O2 Sat by Pulse 97 Oximetry 10/10/18 10/10/18 10/10/18 04:00 04:30 04:50 Temperature 97.8 F Pulse Rate 63 62 67 Pulse Rate [ Bilateral] Pulse Rate [ Right Dorsalis Pedis] Respiratory 12 11 L Rate Respiratory Rate [Bilateral ] Blood Pressure 140/73 138/73 138/73 O2 Sat by Pulse 92 95 97 Oximetry 10/10/18 10/10/18 10/10/18 05:00 05:30 06:00 Temperature Pulse Rate 66 69 58 L Pulse Rate [ Bilateral] Pulse Rate [ 58 L Right Dorsalis Pedis] Respiratory 15 17 17 Rate Respiratory Rate [Bilateral ] Blood Pressure 120/63 118/62 109/56 O2 Sat by Pulse 92 95 92 Oximetry 10/10/18 10/10/18 10/10/18 06:30 07:00 07:31 Temperature Pulse Rate 57 L 59 L 112 H Pulse Rate [ Bilateral] Pulse Rate [ Right Dorsalis Pedis] Respiratory 17 17 21 Rate Respiratory Rate [Bilateral ] Blood Pressure 111/56 117/62 152/79 O2 Sat by Pulse 92 94 96 Oximetry 10/10/18 10/10/18 10/10/18 08:00 08:08 08:29 Temperature 99.2 F Pulse Rate 71 70 Pulse Rate [ 116 H Bilateral] Pulse Rate [ 71 Right Dorsalis Pedis] Respiratory 16 Rate Respiratory 29 H Rate [Bilateral ] Blood Pressure 145/70 O2 Sat by Pulse 93 Oximetry 10/10/18 10/10/18 10/10/18 08:30 08:33 08:39 Temperature Pulse Rate 115 H 101 H Pulse Rate [ 112 H Bilateral] Pulse Rate [ Right Dorsalis Pedis] Respiratory 21 Rate Respiratory 30 H Rate [Bilateral ] Blood Pressure 167/72 167/72 O2 Sat by Pulse 94 95 Oximetry 10/10/18 10/10/18 10/10/18 09:00 09:31 09:38 Temperature Pulse Rate 92 H 119 H 88 Pulse Rate [ Bilateral] Pulse Rate [ Right Dorsalis Pedis] Respiratory 19 27 H Rate Respiratory Rate [Bilateral ] Blood Pressure 161/77 180/88 180/88 O2 Sat by Pulse 95 91 Oximetry 10/10/18 10/10/18 10/10/18 09:40 10:00 10:56 Temperature Pulse Rate 82 72 72 Pulse Rate [ Bilateral] Pulse Rate [ Right Dorsalis Pedis] Respiratory 15 15 Rate Respiratory Rate [Bilateral ] Blood Pressure 180/88 125/56 121/58 O2 Sat by Pulse 91 94 Oximetry 10/10/18 10/10/18 10/10/18 11:00 11:30 11:37 Temperature Pulse Rate 73 68 67 Pulse Rate [ Bilateral] Pulse Rate [ Right Dorsalis Pedis] Respiratory 16 16 Rate Respiratory Rate [Bilateral ] Blood Pressure 112/53 125/64 125/64 O2 Sat by Pulse 92 94 96 Oximetry 10/10/18 10/10/18 10/10/18 12:00 12:30 12:43 Temperature 97.7 F Pulse Rate 67 68 69 Pulse Rate [ Bilateral] Pulse Rate [ 67 Right Dorsalis Pedis] Respiratory 15 17 Rate Respiratory Rate [Bilateral ] Blood Pressure 114/50 108/56 108/56 O2 Sat by Pulse 93 92 Oximetry 10/10/18 13:00 Temperature Pulse Rate 62 Pulse Rate [ Bilateral] Pulse Rate [ Right Dorsalis Pedis] Respiratory 16 Rate Respiratory Rate [Bilateral ] Blood Pressure 108/54 O2 Sat by Pulse 93 Oximetry Constitutional: no acute distress, other (elderly looking AAF, normocephalic and with mildly increased resp effort at rest) Eyes: non-icteric ENT: oropharynx moist, other (ETT 23 cm JOHNNY) Neck: supple, no lymphadenopathy, no JVD, other (no thyromegaly) Effort: mildly labored Ascultation: Bilateral: diminished breath sounds, rhonchi (bases), other (prolonged exp phase) Percussion: Bilateral: not dull Cardiovascular: regular rate and rhythm Gastrointestinal: normoactive bowel sounds, soft, non-tender, non-distended Integumentary: normal Extremities: no cyanosis, no edema, pulses normal, no ischemia or petechiae Neurologic: non-focal exam (grossly), pupils equal and round, CN II-XII normal, motor strength normal and Psychiatric: other (flat affect) CBC and BMP: 10/11/18 04:51 10/11/18 04:51 ABG, PT/INR, D-dimer: ABG POC ABG pH 7.374 (7.35-7.45) 10/10/18 04:53 POC ABG pCO2 63.5 (35-45) H 10/10/18 04:53 POC ABG pO2 91 (80-105) 10/10/18 04:53 POC ABG HCO3 37.1 (22-26 mml/L) 10/10/18 04:53 POC ABG Total CO2 39 (23-27mmol/L) 10/10/18 04:53 POC ABG O2 Sat 96 10/10/18 04:53 Abnormal lab findings: Abnormal Labs 10/05/18 10/05/18 10/05/18 03:23 03:23 03:23 WBC Hgb 14.5 H Hct 43.3 H MCV 98 H MCH 33 H Lymph % (Auto) Lymph # Seg Neutrophils % Seg Neuts % (Manual) 96.0 H Lymphocytes % (Manual) 2.0 L Seg Neutrophils # Seg Neutrophils # Man 8.3 H Lymphocytes # (Manual) 0.2 L POC ABG pH POC ABG pCO2 POC ABG pO2 Sodium Potassium Chloride 107.9 H Carbon Dioxide 20 L BUN Glucose 157 H POC Glucose Lactic Acid 3.30 H* Calcium 8.0 L C-Reactive Protein Albumin Triglycerides Ur Specific [place] 10/05/18 10/05/18 10/05/18 03:47 04:21 06:10 WBC Hgb Hct MCV MCH Lymph % (Auto) Lymph # Seg Neutrophils % Seg Neuts % (Manual) Lymphocytes % (Manual) Seg Neutrophils # Seg Neutrophils # Man Lymphocytes # (Manual) POC ABG pH 7.096 L POC ABG pCO2 POC ABG pO2 166 H Sodium Potassium Chloride Carbon Dioxide BUN Glucose POC Glucose Lactic Acid 2.60 H* Calcium C-Reactive Protein Albumin Triglycerides Ur Specific [place] 1.031 H 10/05/18 10/05/18 10/05/18 06:39 07:09 10:48 WBC Hgb Hct MCV MCH Lymph % (Auto) Lymph # Seg Neutrophils % Seg Neuts % (Manual) Lymphocytes % (Manual) Seg Neutrophils # Seg Neutrophils # Man Lymphocytes # (Manual) POC ABG pH 7.241 L 7.178 L POC ABG pCO2 45.2 H 49.3 H POC ABG pO2 57 L 62 L Sodium Potassium Chloride Carbon Dioxide BUN Glucose POC Glucose Lactic Acid 2.80 H* Calcium C-Reactive Protein Albumin Triglycerides Ur Specific [place] 10/05/18 10/05/18 10/06/18 12:42 17:11 04:11 WBC 14.0 H Hgb Hct MCV 99 H MCH Lymph % (Auto) Lymph # Seg Neutrophils % Seg Neuts % (Manual) Lymphocytes % (Manual) Seg Neutrophils # Seg Neutrophils # Man Lymphocytes # (Manual) POC ABG pH 7.206 L POC ABG pCO2 POC ABG pO2 74 L Sodium Potassium Chloride Carbon Dioxide BUN Glucose POC Glucose Lactic Acid Calcium C-Reactive Protein Albumin Triglycerides Ur Specific [place] 1.035 H 10/06/18 10/06/18 10/06/18 04:11 04:18 09:32 WBC Hgb Hct MCV MCH Lymph % (Auto) Lymph # Seg Neutrophils % Seg Neuts % (Manual) Lymphocytes % (Manual) Seg Neutrophils # Seg Neutrophils # Man Lymphocytes # (Manual) POC ABG pH 7.270 L POC ABG pCO2 POC ABG pO2 67 L Sodium Potassium 5.2 H D Chloride 116.1 H Carbon Dioxide 17 L BUN Glucose 132 H POC Glucose Lactic Acid 2.70 H* Calcium 7.8 L C-Reactive Protein Albumin 2.7 L Triglycerides Ur Specific [place] 10/06/18 10/06/18 10/06/18 12:24 12:24 22:10 WBC Hgb Hct MCV MCH Lymph % (Auto) Lymph # Seg Neutrophils % Seg Neuts % (Manual) Lymphocytes % (Manual) Seg Neutrophils # Seg Neutrophils # Man Lymphocytes # (Manual) POC ABG pH 7.314 L POC ABG pCO2 48.5 H POC ABG pO2 64 L Sodium Potassium Chloride 113.9 H Carbon Dioxide 20 L BUN Glucose 134 H POC Glucose Lactic Acid Calcium C-Reactive Protein 3.70 H Albumin Triglycerides Ur Specific [place] 10/06/18 10/07/18 10/07/18 23:46 04:44 04:44 WBC 12.7 H Hgb Hct MCV 99 H MCH Lymph % (Auto) Lymph # Seg Neutrophils % Seg Neuts % (Manual) Lymphocytes % (Manual) Seg Neutrophils # Seg Neutrophils # Man Lymphocytes # (Manual) POC ABG pH POC ABG pCO2 POC ABG pO2 Sodium Potassium 6.3 H* D Chloride 110.1 H Carbon Dioxide BUN Glucose 168 H POC Glucose 135 H Lactic Acid Calcium C-Reactive Protein Albumin Triglycerides Ur Specific [place] 10/07/18 10/07/18 10/07/18 04:44 09:30 09:44 WBC Hgb Hct MCV MCH Lymph % (Auto) Lymph # Seg Neutrophils % Seg Neuts % (Manual) Lymphocytes % (Manual) Seg Neutrophils # Seg Neutrophils # Man Lymphocytes # (Manual) POC ABG pH 7.335 L POC ABG pCO2 56.3 H POC ABG pO2 64 L Sodium Potassium 3.2 L D Chloride Carbon Dioxide BUN Glucose POC Glucose Lactic Acid 2.20 H* Calcium C-Reactive Protein Albumin Triglycerides Ur Specific [place] 10/07/18 10/07/18 10/08/18 12:06 18:38 04:33 WBC Hgb Hct MCV MCH Lymph % (Auto) Lymph # Seg Neutrophils % Seg Neuts % (Manual) Lymphocytes % (Manual) Seg Neutrophils # Seg Neutrophils # Man Lymphocytes # (Manual) POC ABG pH 7.510 H POC ABG pCO2 POC ABG pO2 50 L Sodium Potassium Chloride Carbon Dioxide BUN Glucose POC Glucose 131 H 134 H Lactic Acid Calcium C-Reactive Protein Albumin Triglycerides Ur Specific [place] 10/08/18 10/08/18 10/08/18 04:49 05:38 08:24 WBC 11.7 H Hgb Hct MCV MCH Lymph % (Auto) 7.5 L Lymph # 0.9 L Seg Neutrophils % 86.0 H Seg Neuts % (Manual) Lymphocytes % (Manual) Seg Neutrophils # 10.0 H Seg Neutrophils # Man Lymphocytes # (Manual) POC ABG pH POC ABG pCO2 53.6 H POC ABG pO2 69 L Sodium Potassium Chloride Carbon Dioxide BUN Glucose POC Glucose 179 H Lactic Acid Calcium C-Reactive Protein Albumin Triglycerides Ur Specific [place] 10/08/18 10/08/18 10/08/18 08:24 09:12 13:05 WBC Hgb Hct MCV MCH Lymph % (Auto) Lymph # Seg Neutrophils % Seg Neuts % (Manual) Lymphocytes % (Manual) Seg Neutrophils # Seg Neutrophils # Man Lymphocytes # (Manual) POC ABG pH POC ABG pCO2 POC ABG pO2 Sodium Potassium 2.7 L* Chloride Carbon Dioxide 33 H D BUN 18 H Glucose 182 H POC Glucose 194 H 139 H Lactic Acid Calcium 8.3 L C-Reactive Protein Albumin Triglycerides Ur Specific [place] 10/08/18 10/08/18 10/08/18 17:55 21:18 21:29 WBC Hgb Hct MCV MCH Lymph % (Auto) Lymph # Seg Neutrophils % Seg Neuts % (Manual) Lymphocytes % (Manual) Seg Neutrophils # Seg Neutrophils # Man Lymphocytes # (Manual) POC ABG pH 7.465 H POC ABG pCO2 49.3 H POC ABG pO2 69 L Sodium Potassium Chloride Carbon Dioxide BUN Glucose POC Glucose 157 H 134 H Lactic Acid Calcium C-Reactive Protein Albumin Triglycerides Ur Specific [place] 10/09/18 10/09/18 10/09/18 04:20 04:20 07:51 WBC 11.9 H Hgb Hct MCV MCH Lymph % (Auto) Lymph # Seg Neutrophils % Seg Neuts % (Manual) Lymphocytes % (Manual) Seg Neutrophils # Seg Neutrophils # Man Lymphocytes # (Manual) POC ABG pH POC ABG pCO2 POC ABG pO2 Sodium 146 H Potassium 3.0 L Chloride Carbon Dioxide 34 H BUN 26 H Glucose 171 H POC Glucose 142 H Lactic Acid Calcium C-Reactive Protein Albumin Triglycerides Ur Specific [place] 10/09/18 10/09/18 10/09/18 11:48 13:24 17:22 WBC Hgb Hct MCV MCH Lymph % (Auto) Lymph # Seg Neutrophils % Seg Neuts % (Manual) Lymphocytes % (Manual) Seg Neutrophils # Seg Neutrophils # Man Lymphocytes # (Manual) POC ABG pH 7.492 H POC ABG pCO2 45.1 H POC ABG pO2 72 L Sodium Potassium Chloride Carbon Dioxide BUN Glucose POC Glucose 131 H 117 H Lactic Acid Calcium C-Reactive Protein Albumin Triglycerides Ur Specific [place] 10/09/18 10/10/18 10/10/18 21:53 03:30 03:30 WBC 15.2 H Hgb 14.4 H Hct 44.0 H MCV MCH Lymph % (Auto) Lymph # Seg Neutrophils % Seg Neuts % (Manual) Lymphocytes % (Manual) Seg Neutrophils # Seg Neutrophils # Man Lymphocytes # (Manual) POC ABG pH POC ABG pCO2 POC ABG pO2 Sodium 146 H Potassium Chloride Carbon Dioxide 34 H BUN 31 H Glucose 133 H POC Glucose 143 H Lactic Acid Calcium C-Reactive Protein Albumin Triglycerides Ur Specific [place] 10/10/18 10/10/18 10/10/18 03:30 04:53 07:43 WBC Hgb Hct MCV MCH Lymph % (Auto) Lymph # Seg Neutrophils % Seg Neuts % (Manual) Lymphocytes % (Manual) Seg Neutrophils # Seg Neutrophils # Man Lymphocytes # (Manual) POC ABG pH POC ABG pCO2 63.5 H POC ABG pO2 Sodium Potassium Chloride Carbon Dioxide BUN Glucose POC Glucose 149 H Lactic Acid Calcium C-Reactive Protein Albumin Triglycerides 188 H Ur Specific [place] 10/10/18 12:58 WBC Hgb Hct MCV MCH Lymph % (Auto) Lymph # Seg Neutrophils % Seg Neuts % (Manual) Lymphocytes % (Manual) Seg Neutrophils # Seg Neutrophils # Man Lymphocytes # (Manual) POC ABG pH POC ABG pCO2 POC ABG pO2 Sodium Potassium Chloride Carbon Dioxide BUN Glucose POC Glucose 174 H Lactic Acid Calcium C-Reactive Protein Albumin Triglycerides Ur Specific [place] Chest x-ray: image reviewed (LLL ifiltrate vs atelectasis) Allied health notes reviewed: nursing
--- NOTE | 2018-10-10 19:25 | Progress Note ---
Assessment and Plan Assessment and plan: 57 -year-old woman with a history of COPD on home oxygen, hep C, mitral valve prolapse, bipolar was seen in the emergency room last night and was treated for COPD and discharged from the hospital. Family went to check on her and found her in respiratory distress, EMS was called, she was placed on BiPAP and brought to the emergency room where she was intubated. History and review of system unobtainable, patient was given steroids, nebulizer treatments CXR: IMPRESSION: The heart is enlarged. There is bilateral perihilar pulmonary edema. There are no effusions or pneumothoraces.. Endotracheal tube is in the mid trachea. NG tube is in the stomach. Acute Hypoxic Respiratory failure Polysubstance abuse, Cocain and Benzos Pulmonary Edema Acute Toxic metabolic Encephalopathy ?secondary to drug abuse or other etiology Metabolic Acidosis Leukocytosis ?Aspiration- Per nursing staff, patient yesterday had some emesis and coughing prompting increase in sedation. Non so far since then Vasogenic shock Bradycardia Hyperkalemia COPD- with acute exacerbation. (Per Daughter) Active Smoker Hepatitis C Bipolar disorder Atrial Fibrillation by hx Anxiety- and on Valium per family Rollers still in Hair Per daughter patient just got large some of money and has a side of mouth burned likely from crack cocaine. She leaves with a roommate friend at home and is supposed to be on home oxygen due to emphysema but is not complaint. Plan: Continue ICU care EEG Pending CARDIOLOGY INPUT NOTED Neurology consulted due to profound encephalopathy Check CT head, TSH, FREE T4 Resume Seroquel Continue empiric abx, although imaging studies pulmonary edema, not sure if underlying PNA, although doubt VAP bundle and Aspiration precautions Sodium Bicarb given, monitor labs Garage Door Installer input Counselling on Drug abuse when more awake Give Kayxalate Continue Restraints for patient safety Will obtain record from [place] The high probability of a clinically significant, sudden or life threatening deterioration of the [pulmonary, neurol] system(s) required my full and direct attention, intervention and personal management. The aggregate critical care time was [35] minutes. This time is in addition to time spent performing reported procedures but includes the following: [x] Data Review and interpretation [x] Patient assessment and monitoring of vital signs [x] Documentation [x] Medication orders and management History Interval history: Patient seen and examined, remains on mechanical ventilation. no other acute event reported, still confused, not following commands Hospitalist Physical - Physical exam Narrative exam: VITAL SIGNS: Reviewed. GENERAL: The patient appeared well nourished and normally developed, on full mechanical ventilatory support Vital signs as documented. HEAD: No signs of head trauma. EYES: Pupils are equal. EARS: Hearing grossly intact. MOUTH: ET tube in place NECK: No adenopathy, no JVD. CHEST: Chest with bronchiovesicular breath sounds bilaterally. CARDIAC: Regular rate and rhythm. S1 and S2, without murmurs, gallops, or rubs. VASCULAR: No Edema. Peripheral pulses normal and equal in all extremities. ABDOMEN: Soft, non tender and non distended. No rebound or guarding, and no masses palpated. Bowel Sounds normal. MUSCULOSKELETAL: Extremities without clubbing, cyanosis or edema. NEUROLOGIC EXAM: not following commands off sedation but awakes and tries to cough PSYCHIATRIC: sedated SKIN: oral lesion, burn appearance - Constitutional Vitals: Temp Pulse Resp BP Pulse Ox 98.4 F 67 16 126/72 96 10/10/18 16:00 10/10/18 18:01 10/10/18 18:01 10/10/18 18:01 10/10/18 18:01 General appearance: Present: other (intubated on the vent) Results - Labs CBC & Chem 7: 10/10/18 03:30 10/10/18 03:30 Labs: Laboratory Last Values WBC 15.2 K/mm3 (4.5-11.0) H 10/10/18 03:30 RBC 4.54 M/mm3 (3.65-5.03) 10/10/18 03:30 Hgb 14.4 gm/dl (10.1-14.3) H 10/10/18 03:30 Hct 44.0 % (30.3-42.9) H 10/10/18 03:30 MCV 97 fl (79-97) 10/10/18 03:30 MCH 32 pg (28-32) 10/10/18 03:30 MCHC 33 % (30-34) 10/10/18 03:30 RDW 14.2 % (13.2-15.2) 10/10/18 03:30 Plt Count 211 K/mm3 (140-440) 10/10/18 03:30 Lymph % (Auto) 7.5 % (13.4-35.0) L 10/08/18 08:24 [place] % (Auto) 6.3 % (0.0-7.3) 10/08/18 08:24 Eos % (Auto) 0.0 % (0.0-4.3) 10/08/18 08:24 Baso % (Auto) 0.2 % (0.0-1.8) 10/08/18 08:24 Lymph # 0.9 K/mm3 (1.2-5.4) L 10/08/18 08:24 [place] # 0.7 K/mm3 (0.0-0.8) 10/08/18 08:24 Eos # 0.0 K/mm3 (0.0-0.4) 10/08/18 08:24 Baso # 0.0 K/mm3 (0.0-0.1) 10/08/18 08:24 Add Manual Diff Complete 10/05/18 03:23 Total Counted 100 10/05/18 03:23 Seg Neutrophils % 86.0 % (40.0-70.0) H 10/08/18 08:24 Seg Neuts % (Manual) 96.0 % (40.0-70.0) H 10/05/18 03:23 Band Neutrophils % 0 % 10/05/18 03:23 Lymphocytes % (Manual) 2.0 % (13.4-35.0) L 10/05/18 03:23 Reactive Lymphs % (Man) 0 % 10/05/18 03:23 Monocytes % (Manual) 1.0 % (0.0-7.3) 10/05/18 03:23 Eosinophils % (Manual) 0 % (0.0-4.3) 10/05/18 03:23 Basophils % (Manual) 1.0 % (0.0-1.8) 10/05/18 03:23 Metamyelocytes % 0 % 10/05/18 03:23 Myelocytes % 0 % 10/05/18 03:23 Promyelocytes % 0 % 10/05/18 03:23 Blast Cells % 0 % 10/05/18 03:23 Nucleated RBC % Not Reportable 10/05/18 03:23 Seg Neutrophils # 10.0 K/mm3 (1.8-7.7) H 10/08/18 08:24 Seg Neutrophils # Man 8.3 K/mm3 (1.8-7.7) H 10/05/18 03:23 Band Neutrophils # 0.0 K/mm3 10/05/18 03:23 Lymphocytes # (Manual) 0.2 K/mm3 (1.2-5.4) L 10/05/18 03:23 Abs React Lymphs (Man) 0.0 K/mm3 10/05/18 03:23 Monocytes # (Manual) 0.1 K/mm3 (0.0-0.8) 10/05/18 03:23 Eosinophils # (Manual) 0.0 K/mm3 (0.0-0.4) 10/05/18 03:23 Basophils # (Manual) 0.1 K/mm3 (0.0-0.1) 10/05/18 03:23 Metamyelocytes # 0.0 K/mm3 10/05/18 03:23 Myelocytes # 0.0 K/mm3 10/05/18 03:23 Promyelocytes # 0.0 K/mm3 10/05/18 03:23 Blast Cells # 0.0 K/mm3 10/05/18 03:23 WBC Morphology Not Reportable 10/05/18 03:23 Hypersegmented Neuts Not Reportable 10/05/18 03:23 Hyposegmented Neuts Not Reportable 10/05/18 03:23 Hypogranular Neuts Not Reportable 10/05/18 03:23 Smudge Cells Not Reportable 10/05/18 03:23 Toxic Granulation Not Reportable 10/05/18 03:23 Toxic Vacuolation Not Reportable 10/05/18 03:23 Dohle Bodies Not Reportable 10/05/18 03:23 Pelger-Huet Anomaly Not Reportable 10/05/18 03:23 Amanda Rods Not Reportable 10/05/18 03:23 Platelet Estimate Consistent w auto 10/05/18 03:23 Clumped Platelets Not Reportable 10/05/18 03:23 Plt Clumps, EDTA Not Reportable 10/05/18 03:23 Large Platelets Few 10/05/18 03:23 Giant Platelets Not Reportable 10/05/18 03:23 Platelet Satelliting Not Reportable 10/05/18 03:23 Plt Morphology Comment Not Reportable 10/05/18 03:23 RBC Morphology Normal 10/05/18 03:23 Dimorphic RBCs Not Reportable 10/05/18 03:23 Polychromasia Not Reportable 10/05/18 03:23 Hypochromasia Not Reportable 10/05/18 03:23 Poikilocytosis Not Reportable 10/05/18 03:23 Anisocytosis Not Reportable 10/05/18 03:23 Microcytosis Not Reportable 10/05/18 03:23 Macrocytosis Not Reportable 10/05/18 03:23 Spherocytes Not Reportable 10/05/18 03:23 Pappenheimer Bodies Not Reportable 10/05/18 03:23 Sickle Cells Not Reportable 10/05/18 03:23 Target Cells Not Reportable 10/05/18 03:23 Tear Drop Cells Not Reportable 10/05/18 03:23 Ovalocytes Not Reportable 10/05/18 03:23 Helmet Cells Not Reportable 10/05/18 03:23 Clark-Olds Bodies Not Reportable 10/05/18 03:23 [place] Rings Not Reportable 10/05/18 03:23 Doug Cells Not Reportable 10/05/18 03:23 Bite Cells Not Reportable 10/05/18 03:23 Crenated Cell Not Reportable 10/05/18 03:23 Elliptocytes Not Reportable 10/05/18 03:23 Acanthocytes (Spur) Not Reportable 10/05/18 03:23 Rouleaux Not Reportable 10/05/18 03:23 Hemoglobin C Crystals Not Reportable 10/05/18 03:23 Schistocytes Not Reportable 10/05/18 03:23 Malaria parasites Not Reportable 10/05/18 03:23 Polo Bodies Not Reportable 10/05/18 03:23 Hem Pathologist Commnt No 10/05/18 03:23 POC ABG pH 7.374 (7.35-7.45) 10/10/18 04:53 POC ABG pCO2 63.5 (35-45) H 10/10/18 04:53 POC ABG pO2 91 (80-105) 10/10/18 04:53 POC ABG HCO3 37.1 (22-26 mml/L) 10/10/18 04:53 POC ABG Total CO2 39 (23-27mmol/L) 10/10/18 04:53 POC ABG O2 Sat 96 10/10/18 04:53 POC ABG Base Excess 12 ((-2) - (+3)mmol/L) 10/10/18 04:53 FiO2 40 % 10/10/18 04:53 Sodium 146 mmol/L (137-145) H 10/10/18 03:30 Potassium 3.7 mmol/L (3.6-5.0) D 10/10/18 03:30 Chloride 101.4 mmol/L (98-107) 10/10/18 03:30 Carbon Dioxide 34 mmol/L (22-30) H 10/10/18 03:30 Anion Gap 14 mmol/L 10/10/18 03:30 BUN 31 mg/dL (7-17) H 10/10/18 03:30 Creatinine 0.9 mg/dL (0.7-1.2) 10/10/18 03:30 Estimated GFR > 60 ml/min 10/10/18 03:30 BUN/Creatinine Ratio 34 % 10/10/18 03:30 Glucose 133 mg/dL (65-100) H 10/10/18 03:30 POC Glucose 174 (70-105) H 10/10/18 12:58 Lactic Acid 2.00 mmol/L (0.7-2.0) 10/07/18 06:08 Calcium 8.4 mg/dL (8.4-10.2) 10/10/18 03:30 Magnesium 2.00 mg/dL (1.7-2.3) 10/08/18 08:42 Total Bilirubin < 0.20 mg/dL (0.1-1.2) 10/06/18 04:11 AST 15 units/L (5-40) 10/06/18 04:11 ALT 20 units/L (7-56) 10/06/18 04:11 Alkaline Phosphatase 59 units/L (35-129) 10/06/18 04:11 Troponin T < 0.010 ng/mL (0.00-0.029) 10/05/18 06:10 C-Reactive Protein 3.70 mg/dL (0.00-1.30) H 10/06/18 12:24 Total Protein 6.4 g/dL (6.3-8.2) 10/06/18 04:11 Albumin 2.7 g/dL (3.9-5) L 04/18/19 04:11 Albumin/Globulin Ratio 0.7 % 10/06/18 04:11 Triglycerides 188 mg/dL (2-149) H 10/10/18 03:30 TSH 0.301 mlU/mL (0.270-4.200) 10/10/18 09:30 Free T4 0.84 ng/dL (0.76-1.46) 10/10/18 09:30 Urine Color Yellow (Yellow) 10/05/18 12:42 Urine Turbidity Clear (Clear) 10/05/18 12:42 Urine pH 5.0 (5.0-7.0) 10/05/18 12:42 Ur Specific [place] 1.035 (1.003-1.030) H 10/05/18 12:42 Urine Protein 100 mg/dl mg/dL (Negative) 10/05/18 12:42 Urine Glucose (UA) 50 mg/dL (Negative) 10/05/18 12:42 Urine Ketones Neg mg/dL (Negative) 10/05/18 12:42 Urine Blood Sm (Negative) 10/05/18 12:42 Urine Nitrite Neg (Negative) 10/05/18 12:42 Urine Bilirubin Neg (Negative) 10/05/18 12:42 Urine Urobilinogen < 2.0 mg/dL (<2.0) 10/05/18 12:42 Ur Leukocyte Esterase Neg (Negative) 10/05/18 12:42 Urine WBC (Auto) 3.0 /HPF (0.0-6.0) 10/05/18 12:42 Urine RBC (Auto) 11.0 /HPF (0.0-6.0) 10/05/18 12:42 U Epithel Cells (Auto) 1.0 /HPF (0-13.0) 10/05/18 12:42 Urine Bacteria (Auto) 1+ /HPF (Negative) 10/05/18 12:42 Hyaline Casts 6 /LPF 10/05/18 12:42 Granular Casts 4 /LPF 10/05/18 12:42 WBC Casts 3 /LPF 10/05/18 03:47 Urine Mucus 2+ /HPF 10/05/18 12:42 Urine Opiates Screen Presumptive negative 10/05/18 12:42 Urine Methadone Screen Presumptive negative 10/05/18 12:42 Ur Barbiturates Screen Presumptive negative 10/05/18 12:42 Ur Phencyclidine Scrn Presumptive negative 10/05/18 12:42 Ur Amphetamines Screen Presumptive negative 10/05/18 12:42 U Benzodiazepines Scrn Presumptive positive 10/05/18 12:42 Urine Cocaine Screen Presumptive positive 10/05/18 12:42 U Marijuana (THC) Screen Presumptive negative 10/05/18 12:42 Drugs of Abuse Note Disclamer 10/05/18 12:42 Blood Type B POSITIVE 10/05/18 04:32 Antibody Screen Negative 10/05/18 04:32 Active Medications - Current Medications Current Medications: Generic Name Dose Route Start Last Admin Trade Name Freq PRN Reason Stop Dose Admin Acetaminophen 650 mg 10/05/18 05:16 Tylenol PO Q4H PRN Pain MILD(1-3)/Fever >100.5/MIMS Albuterol 2.5 mg 10/10/18 13:29 Proventil IH Q4HRT PRN Shortness Of Breath Lipase/Protease/Amylase 1 each 10/05/18 13:59 Pancreaze 10,500 Unit FEEDTUBE PRN PRN For Clogged Feeding Tube Arformoterol Tartrate 15 mcg 10/10/18 20:00 Brovana Nebu IH Q12HRT HUMBERTO Budesonide 0.5 mg 10/10/18 20:00 Pulmicort IH Q12HRT HUMBERTO Carvedilol 3.125 mg 10/06/18 22:00 10/10/18 09:38 Coreg PO 3.125 mg BID HUMBERTO Administration Enoxaparin Sodium 40 mg 10/05/18 10:00 10/10/18 09:40 Lovenox SUB-Q 40 mg QDAY@1000 HUMBERTO Administration Famotidine 20 mg 10/06/18 22:00 10/10/18 09:38 Pepcid PO 20 mg BID HUMBERTO Administration Fentanyl 50 mcg 10/05/18 02:50 Sublimaze IV Q10MIN PRN ANALGESIA Hydralazine HCl 25 mg 10/10/18 11:00 10/10/18 12:43 Apresoline PO Not Given Q12HR HUMBERTO Hydrophilic Ointment 1 applic 10/05/18 02:50 Vaseline Lip Therapy TP Q2HR PRN Dry Lips Fentanyl Citrate 2,000 mcg in 100 mls @ 4.035 mls/hr 10/05/18 03:00 04/22/19 18:45 Fentanyl Drip Premix IV 1 mcg/kg/hr TITR HUMBERTO 4.035 mls/hr Titration Protocol 1 MCG/KG/HR Propofol 1,000 mg in 100 mls @ 2.421 mls/hr 10/05/18 03:15 10/10/18 18:00 Diprivan 10 Mg/Ml IV 5 mcg/kg/min TITR HUMBERTO 2.421 mls/hr Titration Protocol 5 MCG/KG/MIN Azithromycin 500 mg/ Sodium 250 mls @ 250 mls/hr 10/05/18 21:00 10/09/18 21:15 Chloride IV 10/11/18 21:59 250 mls/hr Q24H HUMBERTO Administration Ceftriaxone Sodium 1 gm in 50 mls @ 100 mls/hr 10/05/18 20:00 10/09/18 20:26 Rocephin/Ns 1 Gm/50 Ml IV 10/11/18 20:29 100 mls/hr Q24H HUMBERTO Administration Protocol Insulin Human Regular 0 units 10/08/18 07:30 10/10/18 17:15 Humulin R SUB-Q 2 units ACHS HUMBERTO Administration Protocol Lisinopril 2.5 mg 10/07/18 10:00 10/10/18 09:40 Zestril PO 2.5 mg QDAY HUMBERTO Administration Lorazepam 1 mg 10/06/18 16:46 10/10/18 09:30 Ativan IV 1 mg Q4H PRN Administration Seizures Methylprednisolone Sodium Succinate 60 mg 10/05/18 12:00 10/10/18 17:15 Solu-Medrol IV 60 mg Q6HR HUMBERTO Administration Multi-Ingred Cream/Lotion/Oil/Oint 1 applic 10/05/18 02:50 Artificial Tears Ophth Oint OU Q4HR PRN Dry Eye(s) Ondansetron HCl 4 mg 10/05/18 05:16 Zofran IV Q8H PRN Nausea And Vomiting Quetiapine Fumarate 200 mg 10/10/18 22:00 Seroquel PO BID HUMBERTO Simple Syrup 15 ml 10/05/18 13:59 Simple Syrup FEEDTUBE PRN PRN Hypoglycemia Simple Syrup 30 ml 10/05/18 13:59 Simple Syrup FEEDTUBE PRN PRN Hypoglycemia Sodium Bicarbonate 325 mg 10/05/18 13:59 Sodium Bicarbonate FEEDTUBE PRN PRN For Clogged Feeding Tube Sodium Chloride 10 ml 10/05/18 10:00 10/10/18 09:41 Sodium Chloride Flush Syringe 10 Ml IV 10 ml BID HUMBERTO Administration Sodium Chloride 10 ml 10/05/18 05:16 Sodium Chloride Flush Syringe 10 Ml IV PRN PRN LINE FLUSH Nutrition/Malnutrition Assess - Dietary Evaluation Nutrition/Malnutrition Findings: Nutrition Notes Start: 10/05/18 12:40 Freq: Status: Active Protocol: Document 10/07/18 10:31 TW (Rec: 10/07/18 10:41 TW [id number]) Co-Sign 10/07/18 10:31 LP Nutrition Notes Initial or Follow up Reassessment Current Diagnosis COPD,Hypertension Other Pertinent Diagnosis lung CA, Asthma, [place], biploar Current Diet Vital AF @ 60mL/hr Labs/Tests reviewed Pertinent Medications Propofol. Solu-Medrol Lasix Height 5 ft 6 in Weight 80.7 kg [place] Body Weight (kg) 59.09 BMI 28.7 Weight Status Overweight Subjective/Other Information F/U for TF tolerance/goal. Noted TF running at 30mL/hr. TF put on hold this am due to inadequate flow through tube. Per RN, pt was tolerating TF at goal preiously and rate will continue to goal today. Burn Absent Trauma Absent #1 Nutrition Diagnosis Inadequate oral intake Diagnosis Progress(for reassessment Continues documentation) Is patient on ventilator? Yes Is Patient Ambulatory and/or Out of Bed No REE-([facility]-confined to bed) 1683.192 Kcal/Kg value to use for calculation 14 Approximate Energy Requirements Using 1130 kcal/Kg Calculation Used for Recommendations [facility] Additional Notes PRO: 97g-161g PRO (1.2 - 2.0 g /day) Fluid: 1 mL/kcal or per MD Nutrition Intervention Change Diet Order: TF Nutrition Support: Vital AF 1.2 at 60mL/hr Water Flush 150 mL q4h Kcal 1,728 Protein (gm) 108 Fluid (mL) 1,168 Goal #1 TF tolerance Goal #2 TF to meet 75-100% of kcal and PRO needs Anticipated Discharge Needs: unable to determine at this time. Follow-Up By: 10/11/18 Additional Comments F/U stable TF - Attestation Statement I have reviewed and agreed w/ Malnutrition eval & tx plan: Yes
[2018-10-10] MEDS: PULMICORT IH SCH (19:26)
[2018-10-10] MEDS: BROVANA NEBU IH SCH (19:26)
[2018-10-10] MEDS: ROCEPHIN/NS 1 GM/50 ML 1 GM/50 ML BAG IV SCH (20:15)
[2018-10-10] MEDS: ZITHROMAX 500 MG in NACL 0.9% 250ML 250 ML IV SCH (21:16)
[2018-10-11] MEDS: HumuLIN R SUB-Q SCH ×4 (00:13→17:51)
[2018-10-11] MEDS: SOLU-Medrol IV SCH ×4 (00:58→17:53)
[2018-10-11] MEDS: COREG PO SCH ×3 (00:59→22:11)
[2018-10-11 05:06] LABS: Hematocrit 43.7 % (30.3-42.9); Hemoglobin 14.8 gm/dl (10.1-14.3); Mean Corpuscular HGB Conc 34 % (30-34); Mean Corpuscular Volume 95 fl (79-97); Platelet Count 201 K/mm3 (140-440)
--- NOTE | 2018-10-11 05:13 | XRay Report ---
PROCEDURE: XR CHEST 1V AP TECHNIQUE: A portable upright view the chest was obtained. HISTORY: follow up respiratory failure COMPARISONS: 10/10/2018 FINDINGS: The heart size is normal. The lungs remain mildly congested. There is stable patchy airspace disease in both lower lobes. There is additional airspace disease now in the left upper lobe. The ET tube and NG tube appear in good position. The tip of the left-sided PICC line is in good position in the SVC. IMPRESSION: Stable patchy airspace disease in both lower lobes along with additional airspace disease in the left upper lobe. Stable mild congestion. Satisfactory position of tubes and lines.. This document is electronically signed by Mihai Corona MD., October 11 2018 05:11:33 AM ET
[2018-10-11 05:26] LABS: Alanine Aminotransferase 15 units/L (7-56); Albumin 2.9 g/dL (3.9-5); BUN/Creatinine Ratio 44; Blood Urea Nitrogen 35 mg/dL (7-17); Calcium 8.6 mg/dL (8.4-10.2); Hemolysis Index 9
[2018-10-11] MEDS: PULMICORT IH SCH ×2 (07:11→19:46)
[2018-10-11] MEDS: BROVANA NEBU IH SCH ×2 (07:11→19:46)
--- NOTE | 2018-10-11 09:20 | Progress Note ---
Assessment and Plan Assessment and plan: 57 -year-old woman with a history of COPD on home oxygen, hep C, mitral valve prolapse, bipolar was seen in the emergency room, was treated for COPD and discharged from the hospital. Family went to check on her and found her in respiratory distress, EMS was called, she was placed on BiPAP and brought to the emergency room where she was intubated. History and review of system unobtainable, patient was given steroids, nebulizer treatments Acute Hypoxic Respiratory failure Polysubstance abuse, Cocain and Benzos Pulmonary Edema Acute Toxic metabolic Encephalopathy ?secondary to drug abuse or other etiology Metabolic Acidosis Leukocytosis ?Aspiration- Per nursing staff, patient yesterday had some emesis and coughing prompting increase in sedation. Non so far since then Vasogenic shock Bradycardia Hyperkalemia COPD- with acute exacerbation. (Per Daughter) Active Smoker Hepatitis C Bipolar disorder Atrial Fibrillation by hx Anxiety- and on Valium per family She leaves with a roommate friend at home and is supposed to be on home oxygen due to emphysema but is not complaint. Plan: Continue ICU care hyperkalemia resolved EEG Pending CARDIOLOGY INPUT NOTED Neurology consulted due to profound encephalopathy Continue empiric abx, although imaging studies pulmonary edema, not sure if unde rlying PNA, although doubt VAP bundle and Aspiration precautions Sodium Bicarb given, monitor labs Wildlife Policy Professional input Counselling on Drug abuse when more awake Give Kayexalate Continue Restraints for patient safety Will obtain record from [place] The high probability of a clinically significant, sudden or life threatening deterioration of the [pulmonary, neurol] system(s) required my full and direct attention, intervention and personal management. The aggregate critical care time was [33] minutes. This time is in addition to time spent performing reported procedures but includes the following: [x] Data Review and interpretation [x] Patient assessment and monitoring of vital signs [x] Documentation [x] Medication orders and management History Interval history: Still intubated Hospitalist Physical - Physical exam Narrative exam: Gen:Intubated HEENT: Normocephalic, atraumatic Neck: supple, no JVD Heart: S1 and S2 reg, no murmurs, rubs or gallop Lungs: Clear, no crackles Abd: soft, non tender, non distended, normal BS Ext: No edema, no clubbing, no cyanosis, Neuro: Intubated, eyes open, does not follow commands - Constitutional Vitals: Temp Pulse Resp BP Pulse Ox 100.0 F H 62 15 134/64 96 10/11/18 07:47 10/11/18 09:00 10/11/18 09:00 10/11/18 09:00 10/11/18 09:00 General appearance: Present: other (intubated on the vent) Results - Labs CBC & Chem 7: 10/11/18 04:51 10/11/18 04:51 Labs: Laboratory Last Values WBC 17.6 K/mm3 (4.5-11.0) H 10/11/18 04:51 RBC 4.60 M/mm3 (3.65-5.03) 10/11/18 04:51 Hgb 14.8 gm/dl (10.1-14.3) H 10/11/18 04:51 Hct 43.7 % (30.3-42.9) H 10/11/18 04:51 MCV 95 fl (79-97) 10/11/18 04:51 MCH 32 pg (28-32) 10/11/18 04:51 MCHC 34 % (30-34) 10/11/18 04:51 RDW 14.0 % (13.2-15.2) 10/11/18 04:51 Plt Count 201 K/mm3 (140-440) 10/11/18 04:51 Lymph % (Auto) 7.5 % (13.4-35.0) L 10/08/18 08:24 Craig % (Auto) 6.3 % (0.0-7.3) 10/08/18 08:24 Eos % (Auto) 0.0 % (0.0-4.3) 10/08/18 08:24 Baso % (Auto) 0.2 % (0.0-1.8) 10/08/18 08:24 Lymph # 0.9 K/mm3 (1.2-5.4) L 10/08/18 08:24 Craig # 0.7 K/mm3 (0.0-0.8) 10/08/18 08:24 Eos # 0.0 K/mm3 (0.0-0.4) 10/08/18 08:24 Baso # 0.0 K/mm3 (0.0-0.1) 10/08/18 08:24 Add Manual Diff Complete 10/05/18 03:23 Total Counted 100 10/05/18 03:23 Seg Neutrophils % 86.0 % (40.0-70.0) H 10/08/18 08:24 Seg Neuts % (Manual) 96.0 % (40.0-70.0) H 10/05/18 03:23 Band Neutrophils % 0 % 10/05/18 03:23 Lymphocytes % (Manual) 2.0 % (13.4-35.0) L 10/05/18 03:23 Reactive Lymphs % (Man) 0 % 10/05/18 03:23 Monocytes % (Manual) 1.0 % (0.0-7.3) 10/05/18 03:23 Eosinophils % (Manual) 0 % (0.0-4.3) 10/05/18 03:23 Basophils % (Manual) 1.0 % (0.0-1.8) 10/05/18 03:23 Metamyelocytes % 0 % 10/05/18 03:23 Myelocytes % 0 % 10/05/18 03:23 Promyelocytes % 0 % 10/05/18 03:23 Blast Cells % 0 % 10/05/18 03:23 Nucleated RBC % Not Reportable 10/05/18 03:23 Seg Neutrophils # 10.0 K/mm3 (1.8-7.7) H 10/08/18 08:24 Seg Neutrophils # Man 8.3 K/mm3 (1.8-7.7) H 10/05/18 03:23 Band Neutrophils # 0.0 K/mm3 10/05/18 03:23 Lymphocytes # (Manual) 0.2 K/mm3 (1.2-5.4) L 10/05/18 03:23 Abs React Lymphs (Man) 0.0 K/mm3 10/05/18 03:23 Monocytes # (Manual) 0.1 K/mm3 (0.0-0.8) 10/05/18 03:23 Eosinophils # (Manual) 0.0 K/mm3 (0.0-0.4) 10/05/18 03:23 Basophils # (Manual) 0.1 K/mm3 (0.0-0.1) 10/05/18 03:23 Metamyelocytes # 0.0 K/mm3 10/05/18 03:23 Myelocytes # 0.0 K/mm3 10/05/18 03:23 Promyelocytes # 0.0 K/mm3 10/05/18 03:23 Blast Cells # 0.0 K/mm3 10/05/18 03:23 WBC Morphology Not Reportable 10/05/18 03:23 Hypersegmented Neuts Not Reportable 10/05/18 03:23 Hyposegmented Neuts Not Reportable 10/05/18 03:23 Hypogranular Neuts Not Reportable 10/05/18 03:23 Smudge Cells Not Reportable 10/05/18 03:23 Toxic Granulation Not Reportable 10/05/18 03:23 Toxic Vacuolation Not Reportable 10/05/18 03:23 Dohle Bodies Not Reportable 10/05/18 03:23 Pelger-Huet Anomaly Not Reportable 10/05/18 03:23 Amanda Rods Not Reportable 10/05/18 03:23 Platelet Estimate Consistent w auto 10/05/18 03:23 Clumped Platelets Not Reportable 10/05/18 03:23 Plt Clumps, EDTA Not Reportable 10/05/18 03:23 Large Platelets Few 10/05/18 03:23 Giant Platelets Not Reportable 10/05/18 03:23 Platelet Satelliting Not Reportable 10/05/18 03:23 Plt Morphology Comment Not Reportable 10/05/18 03:23 RBC Morphology Normal 10/05/18 03:23 Dimorphic RBCs Not Reportable 10/05/18 03:23 Polychromasia Not Reportable 10/05/18 03:23 Hypochromasia Not Reportable 10/05/18 03:23 Poikilocytosis Not Reportable 10/05/18 03:23 Anisocytosis Not Reportable 10/05/18 03:23 Microcytosis Not Reportable 10/05/18 03:23 Macrocytosis Not Reportable 10/05/18 03:23 Spherocytes Not Reportable 10/05/18 03:23 Pappenheimer Bodies Not Reportable 10/05/18 03:23 Sickle Cells Not Reportable 10/05/18 03:23 Target Cells Not Reportable 10/05/18 03:23 Tear Drop Cells Not Reportable 10/05/18 03:23 Ovalocytes Not Reportable 10/05/18 03:23 Helmet Cells Not Reportable 10/05/18 03:23 Clark-Hendrum Bodies Not Reportable 10/05/18 03:23 Dolph Rings Not Reportable 10/05/18 03:23 Doug Cells Not Reportable 10/05/18 03:23 Bite Cells Not Reportable 10/05/18 03:23 Crenated Cell Not Reportable 10/05/18 03:23 Elliptocytes Not Reportable 10/05/18 03:23 Acanthocytes (Spur) Not Reportable 10/05/18 03:23 Rouleaux Not Reportable 10/05/18 03:23 Hemoglobin C Crystals Not Reportable 10/05/18 03:23 Schistocytes Not Reportable 10/05/18 03:23 Malaria parasites Not Reportable 10/05/18 03:23 Polo Bodies Not Reportable 10/05/18 03:23 Hem Pathologist Commnt No 10/05/18 03:23 POC ABG pH 7.517 (7.35-7.45) H 10/11/18 04:13 POC ABG pCO2 43.8 (35-45) 10/11/18 04:13 POC ABG pO2 62 (80-105) L 10/11/18 04:13 POC ABG HCO3 35.5 (22-26 mml/L) 10/11/18 04:13 POC ABG Total CO2 37 (23-27mmol/L) 10/11/18 04:13 POC ABG O2 Sat 93 10/11/18 04:13 POC ABG Base Excess 13 ((-2) - (+3)mmol/L) 10/11/18 04:13 FiO2 35 % 10/11/18 04:13 Sodium 145 mmol/L (137-145) 10/11/18 04:51 Potassium 3.6 mmol/L (3.6-5.0) 10/11/18 04:51 Chloride 101.3 mmol/L (98-107) 10/11/18 04:51 Carbon Dioxide 32 mmol/L (22-30) H 10/11/18 04:51 Anion Gap 15 mmol/L 10/11/18 04:51 BUN 35 mg/dL (7-17) H 10/11/18 04:51 Creatinine 0.8 mg/dL (0.7-1.2) 10/11/18 04:51 Estimated GFR > 60 ml/min 10/11/18 04:51 BUN/Creatinine Ratio 44 % 10/11/18 04:51 Glucose 151 mg/dL (65-100) H 10/11/18 04:51 POC Glucose 167 (70-105) H 10/11/18 07:25 Lactic Acid 2.00 mmol/L (0.7-2.0) 10/07/18 06:08 Calcium 8.6 mg/dL (8.4-10.2) 10/11/18 04:51 Magnesium 2.00 mg/dL (1.7-2.3) 10/08/18 08:42 Total Bilirubin 0.30 mg/dL (0.1-1.2) 10/11/18 04:51 AST 10 units/L (5-40) 10/11/18 04:51 ALT 15 units/L (7-56) 10/11/18 04:51 Alkaline Phosphatase 58 units/L (35-129) 10/11/18 04:51 Troponin T < 0.010 ng/mL (0.00-0.029) 10/05/18 06:10 C-Reactive Protein 3.70 mg/dL (0.00-1.30) H 10/06/18 12:24 Total Protein 6.3 g/dL (6.3-8.2) 10/11/18 04:51 Albumin 2.9 g/dL (3.9-5) L 10/11/18 04:51 Albumin/Globulin Ratio 0.9 % 10/11/18 04:51 Triglycerides 188 mg/dL (2-149) H 10/10/18 03:30 TSH 0.301 mlU/mL (0.270-4.200) 10/10/18 09:30 Free T4 0.84 ng/dL (0.76-1.46) 10/10/18 09:30 Urine Color Yellow (Yellow) 10/05/18 12:42 Urine Turbidity Clear (Clear) 10/05/18 12:42 Urine pH 5.0 (5.0-7.0) 10/05/18 12:42 Ur Specific [place] 1.035 (1.003-1.030) H 10/05/18 12:42 Urine Protein 100 mg/dl mg/dL (Negative) 10/05/18 12:42 Urine Glucose (UA) 50 mg/dL (Negative) 10/05/18 12:42 Urine Ketones Neg mg/dL (Negative) 10/05/18 12:42 Urine Blood Sm (Negative) 10/05/18 12:42 Urine Nitrite Neg (Negative) 10/05/18 12:42 Urine Bilirubin Neg (Negative) 10/05/18 12:42 Urine Urobilinogen < 2.0 mg/dL (<2.0) 10/05/18 12:42 Ur Leukocyte Esterase Neg (Negative) 10/05/18 12:42 Urine WBC (Auto) 3.0 /HPF (0.0-6.0) 10/05/18 12:42 Urine RBC (Auto) 11.0 /HPF (0.0-6.0) 10/05/18 12:42 U Epithel Cells (Auto) 1.0 /HPF (0-13.0) 10/05/18 12:42 Urine Bacteria (Auto) 1+ /HPF (Negative) 10/05/18 12:42 Hyaline Casts 6 /LPF 10/05/18 12:42 Granular Casts 4 /LPF 10/05/18 12:42 WBC Casts 3 /LPF 10/05/18 03:47 Urine Mucus 2+ /HPF 10/05/18 12:42 Urine Opiates Screen Presumptive negative 10/05/18 12:42 Urine Methadone Screen Presumptive negative 10/05/18 12:42 Ur Barbiturates Screen Presumptive negative 10/05/18 12:42 Ur Phencyclidine Scrn Presumptive negative 10/05/18 12:42 Ur Amphetamines Screen Presumptive negative 10/05/18 12:42 U Benzodiazepines Scrn Presumptive positive 10/05/18 12:42 Urine Cocaine Screen Presumptive positive 10/05/18 12:42 U Marijuana (THC) Screen Presumptive negative 10/05/18 12:42 Drugs of Abuse Note Disclamer 10/05/18 12:42 Blood Type B POSITIVE 10/05/18 04:32 Antibody Screen Negative 10/05/18 04:32 Active Medications - Current Medications Current Medications: Generic Name Dose Route Start Last Admin Trade Name Freq PRN Reason Stop Dose Admin Acetaminophen 650 mg 10/05/18 05:16 Tylenol PO Q4H PRN Pain MILD(1-3)/Fever >100.5/MIMS Albuterol 2.5 mg 10/10/18 13:29 Proventil IH Q4HRT PRN Shortness Of Breath Lipase/Protease/Amylase 1 each 10/05/18 13:59 Pancremarcia Whittaker 10,500 Unit FEEDTUBE PRN PRN For Clogged Feeding Tube Arformoterol Tartrate 15 mcg 10/10/18 20:00 10/11/18 07:11 Brovana Nebu IH 15 mcg Q12HRT HUMBERTO Administration Budesonide 0.5 mg 10/10/18 20:00 10/11/18 07:11 Pulmicort IH 0.5 mg Q12HRT HUMBERTO Administration Carvedilol 3.125 mg 10/06/18 22:00 10/11/18 00:59 Coreg PO 3.125 mg BID HUMBERTO Administration Enoxaparin Sodium 40 mg 10/05/18 10:00 10/10/18 09:40 Lovenox SUB-Q 40 mg QDAY@1000 HUMBERTO Administration Famotidine 20 mg 10/06/18 22:00 10/10/18 22:07 Pepcid PO 20 mg BID HUMBERTO Administration Fentanyl 50 mcg 10/05/18 02:50 Sublimaze IV Q10MIN PRN ANALGESIA Hydralazine HCl 25 mg 10/10/18 11:00 10/10/18 22:05 Apresoline PO 25 mg Q12HR HUMBERTO Administration Hydrophilic Ointment 1 applic 10/05/18 02:50 Vaseline Lip Therapy TP Q2HR PRN Dry Lips Fentanyl Citrate 2,000 mcg in 100 mls @ 4.035 mls/hr 10/05/18 03:00 10/10/18 18:45 Fentanyl Drip Premix IV 1 mcg/kg/hr TITR HUMBERTO 4.035 mls/hr Titration Protocol 1 MCG/KG/HR Propofol 1,000 mg in 100 mls @ 2.421 mls/hr 10/05/18 03:15 10/10/18 23:30 Diprivan 10 Mg/Ml IV 5 mcg/kg/min TITR HUMBERTO 2.421 mls/hr Titration Protocol 5 MCG/KG/MIN Azithromycin 500 mg/ Sodium 250 mls @ 250 mls/hr 10/05/18 21:00 10/10/18 21:16 Chloride IV 10/11/18 21:59 250 mls/hr Q24H HUMBERTO Administration Ceftriaxone Sodium 1 gm in 50 mls @ 100 mls/hr 10/05/18 20:00 10/10/18 20:15 Rocephin/Ns 1 Gm/50 Ml IV 10/11/18 20:29 100 mls/hr Q24H HUMBERTO Administration Protocol Insulin Human Regular 0 units 10/11/18 12:00 Humulin R SUB-Q Q6HR HUMBERTO Protocol Lisinopril 2.5 mg 10/07/18 10:00 10/10/18 09:40 Zestril PO 2.5 mg QDAY HUMBERTO Administration Lorazepam 1 mg 10/06/18 16:46 10/10/18 09:30 Ativan IV 1 mg Q4H PRN Administration Seizures Methylprednisolone Sodium Succinate 60 mg 10/05/18 12:00 10/11/18 05:31 Solu-Medrol IV 60 mg Q6HR HUMBERTO Administration Multi-Ingred Cream/Lotion/Oil/Oint 1 applic 10/05/18 02:50 Artificial Tears Ophth Oint OU Q4HR PRN Dry Eye(s) Ondansetron HCl 4 mg 10/05/18 05:16 Zofran IV Q8H PRN Nausea And Vomiting Quetiapine Fumarate 200 mg 10/10/18 22:00 10/10/18 22:06 Seroquel PO 200 mg BID HUMBERTO Administration Simple Syrup 15 ml 10/05/18 13:59 Simple Syrup FEEDTUBE PRN PRN Hypoglycemia Simple Syrup 30 ml 10/05/18 13:59 Simple Syrup FEEDTUBE PRN PRN Hypoglycemia Sodium Bicarbonate 325 mg 10/05/18 13:59 Sodium Bicarbonate FEEDTUBE PRN PRN For Clogged Feeding Tube Sodium Chloride 10 ml 10/05/18 10:00 10/10/18 22:07 Sodium Chloride Flush Syringe 10 Ml IV 10 ml BID HUMBERTO Administration Sodium Chloride 10 ml 10/05/18 05:16 Sodium Chloride Flush Syringe 10 Ml IV PRN PRN LINE FLUSH Nutrition/Malnutrition Assess - Dietary Evaluation Nutrition/Malnutrition Findings: Nutrition Notes Start: 10/05/18 12:40 Freq: Status: Active Protocol: Document 10/07/18 10:31 TW (Rec: 10/07/18 10:41 TW [id number]) Co-Sign 10/07/18 10:31 LP Nutrition Notes Initial or Follow up Reassessment Current Diagnosis COPD,Hypertension Other Pertinent Diagnosis lung CA, Asthma, [place], biploar Current Diet Vital AF @ 60mL/hr Labs/Tests reviewed Pertinent Medications Propofol. Solu-Medrol Lasix Height 5 ft 6 in Weight 80.7 kg [place] Body Weight (kg) 59.09 BMI 28.7 Weight Status Overweight Subjective/Other Information F/U for TF tolerance/goal. Noted TF running at 30mL/hr. TF put on hold this am due to inadequate flow through tube. Per RN, pt was tolerating TF at goal preiously and rate will continue to goal today. Burn Absent Trauma Absent #1 Nutrition Diagnosis Inadequate oral intake Diagnosis Progress(for reassessment Continues documentation) Is patient on ventilator? Yes Is Patient Ambulatory and/or Out of Bed No REE-([facility]-confined to bed) 1683.192 Kcal/Kg value to use for calculation 14 Approximate Energy Requirements Using 1130 kcal/Kg Calculation Used for Recommendations [facility] Additional Notes PRO: 97g-161g PRO (1.2 - 2.0 g /day) Fluid: 1 mL/kcal or per MD Nutrition Intervention Change Diet Order: TF Nutrition Support: Vital AF 1.2 at 60mL/hr Water Flush 150 mL q4h Kcal 1,728 Protein (gm) 108 Fluid (mL) 1,168 Goal #1 TF tolerance Goal #2 TF to meet 75-100% of kcal and PRO needs Anticipated Discharge Needs: unable to determine at this time. Follow-Up By: 10/11/18 Additional Comments F/U stable TF
[2018-10-11] MEDS: PEPCID PO SCH ×2 (10:12→22:12)
[2018-10-11] MEDS: APRESOLINE PO SCH ×2 (10:12→22:11)
[2018-10-11] MEDS: ZESTRIL PO SCH (10:13)
[2018-10-11] MEDS: SODIUM CHLORIDE FLUSH SYRINGE 10 ML IV SCH (10:13)
[2018-10-11] MEDS: LOVENOX SUB-Q SCH (10:13)
[2018-10-11] MEDS: ROCEPHIN/NS 1 GM/50 ML 1 GM/50 ML BAG IV SCH (20:34)
[2018-10-11] MEDS: ZITHROMAX 500 MG in NACL 0.9% 250ML 250 ML IV SCH (20:40)
[2018-10-11] MEDS: GEODON IM PRN (22:13)
[2018-10-12] MEDS: SOLU-Medrol IV SCH ×3 (00:44→22:50)
[2018-10-12] MEDS: HumuLIN R SUB-Q SCH ×4 (00:45→22:50)
[2018-10-12] MEDS: SODIUM CHLORIDE FLUSH SYRINGE 10 ML IV SCH ×3 (00:46→22:50)
[2018-10-12 05:01] LABS: Hematocrit 47.8 % (30.3-42.9); Hemoglobin 15.9 gm/dl (10.1-14.3); Mean Corpuscular HGB Conc 33 % (30-34); Mean Corpuscular Volume 96 fl (79-97); Platelet Count 184 K/mm3 (140-440); Red Blood Count 4.97 M/mm3 (3.65-5.03); Red Cell Distribution Width 13.6 % (13.2-15.2)
[2018-10-12 05:25] LABS: BUN/Creatinine Ratio 33; Blood Urea Nitrogen 26 mg/dL (7-17); Calcium 8.7 mg/dL (8.4-10.2); Hemolysis Index 24
[2018-10-12] MEDS: BROVANA NEBU IH SCH ×2 (07:53→21:40)
[2018-10-12] MEDS: PULMICORT IH SCH ×2 (07:53→21:40)
[2018-10-12] MEDS ORDERED: POTASSIUM CHLORIDE FEEDTUBE ONE (09:00)
--- NOTE | 2018-10-12 10:05 | Progress Note ---
Assessment and Plan Assessment and plan: 57 -year-old woman with a history of COPD on home oxygen, hep C, mitral valve prolapse, bipolar was seen in the emergency room, was treated for COPD and discharged from the hospital. Family went to check on her and found her in respiratory distress, EMS was called, she was placed on BiPAP and brought to the emergency room where she was intubated, admitted to ICU, now extubated Acute Hypoxic Respiratory failure was intubated, now extubated Polysubstance abuse, Cocain and Benzos Pulmonary Edema Acute Toxic metabolic Encephalopathy ?secondary to drug abuse or other etiology Metabolic Acidosis Leukocytosis ?Aspiration- Per nursing staff, patient yesterday had some emesis and coughing prompting increase in sedation. Non so far since then Vasogenic shock Bradycardia Hyperkalemia COPD- with acute exacerbation. (Per Daughter) Active Smoker Hepatitis C Bipolar disorder Atrial Fibrillation by hx Anxiety- and on Valium per family She lives with a roommate friend at home and is supposed to be on home oxygen due to emphysema but is not compliant. Agitation, combative last night, wanted to leave hospital Plan: Continue ICU care Cont 1013. consult psych for evaluation hyperkalemia resolved EEG Pending CARDIOLOGY INPUT NOTED Neurology consulted due to profound encephalopathy Continue empiric abx, although imaging studies pulmonary edema, not sure if underlying PNA, although doubt VAP bundle and Aspiration precautions Sodium Bicarb given, monitor labs Switch Repairer input Counselling on Drug abuse when more awake Give Kayexalate Continue Restraints for patient safety The high probability of a clinically significant, sudden or life threatening deterioration of the [pulmonary, neurol] system(s) required my full and direct attention, intervention and personal management. The aggregate critical care time was [31] minutes. This time is in addition to time spent performing reported procedures but includes the following: [x] Data Review and interpretation [x] Patient assessment and monitoring of vital signs [x] Documentation [x] Medication orders and management History Interval history: Extubated yesterday Hungry- asking about eating food Last night was agitated, combative, wanted to leave hospital and made 1013 Hospitalist Physical - Physical exam Narrative exam: Gen:Awake,alert, not in acute distress HEENT: Normocephalic, atraumatic Neck: supple, no JVD Heart: S1 and S2 reg, no murmurs, rubs or gallop Lungs: Clear, no crackles Abd: soft, non tender, non distended, normal BS Ext: No edema, no clubbing, no cyanosis, Neuro: [place],alert, oriented X 3, moves all ext - Constitutional Vitals: Temp Pulse Resp BP Pulse Ox 98.6 F 60 14 148/74 92 10/12/18 04:00 10/12/18 08:08 10/12/18 08:08 10/12/18 07:30 10/12/18 07:52 General appearance: Present: other (intubated on the vent) Results - Labs CBC & Chem 7: 10/12/18 04:17 10/12/18 04:17 Labs: Laboratory Last Values WBC 13.3 K/mm3 (4.5-11.0) H 10/12/18 04:17 RBC 4.97 M/mm3 (3.65-5.03) 10/12/18 04:17 Hgb 15.9 gm/dl (10.1-14.3) H 10/12/18 04:17 Hct 47.8 % (30.3-42.9) H 10/12/18 04:17 MCV 96 fl (79-97) 10/12/18 04:17 MCH 32 pg (28-32) 10/12/18 04:17 MCHC 33 % (30-34) 10/12/18 04:17 RDW 13.6 % (13.2-15.2) 10/12/18 04:17 Plt Count 184 K/mm3 (140-440) 10/12/18 04:17 Lymph % (Auto) 7.5 % (13.4-35.0) L 10/08/18 08:24 [place] % (Auto) 6.3 % (0.0-7.3) 10/08/18 08:24 Eos % (Auto) 0.0 % (0.0-4.3) 10/08/18 08:24 Baso % (Auto) 0.2 % (0.0-1.8) 10/08/18 08:24 Lymph # 0.9 K/mm3 (1.2-5.4) L 10/08/18 08:24 [place] # 0.7 K/mm3 (0.0-0.8) 10/08/18 08:24 Eos # 0.0 K/mm3 (0.0-0.4) 10/08/18 08:24 Baso # 0.0 K/mm3 (0.0-0.1) 10/08/18 08:24 Add Manual Diff Complete 10/05/18 03:23 Total Counted 100 10/05/18 03:23 Seg Neutrophils % 86.0 % (40.0-70.0) H 10/08/18 08:24 Seg Neuts % (Manual) 96.0 % (40.0-70.0) H 10/05/18 03:23 Band Neutrophils % 0 % 10/05/18 03:23 Lymphocytes % (Manual) 2.0 % (13.4-35.0) L 10/05/18 03:23 Reactive Lymphs % (Man) 0 % 10/05/18 03:23 Monocytes % (Manual) 1.0 % (0.0-7.3) 10/05/18 03:23 Eosinophils % (Manual) 0 % (0.0-4.3) 10/05/18 03:23 Basophils % (Manual) 1.0 % (0.0-1.8) 10/05/18 03:23 Metamyelocytes % 0 % 10/05/18 03:23 Myelocytes % 0 % 10/05/18 03:23 Promyelocytes % 0 % 10/05/18 03:23 Blast Cells % 0 % 10/05/18 03:23 Nucleated RBC % Not Reportable 10/05/18 03:23 Seg Neutrophils # 10.0 K/mm3 (1.8-7.7) H 10/08/18 08:24 Seg Neutrophils # Man 8.3 K/mm3 (1.8-7.7) H 10/05/18 03:23 Band Neutrophils # 0.0 K/mm3 10/05/18 03:23 Lymphocytes # (Manual) 0.2 K/mm3 (1.2-5.4) L 10/05/18 03:23 Abs React Lymphs (Man) 0.0 K/mm3 10/05/18 03:23 Monocytes # (Manual) 0.1 K/mm3 (0.0-0.8) 10/05/18 03:23 Eosinophils # (Manual) 0.0 K/mm3 (0.0-0.4) 10/05/18 03:23 Basophils # (Manual) 0.1 K/mm3 (0.0-0.1) 10/05/18 03:23 Metamyelocytes # 0.0 K/mm3 10/05/18 03:23 Myelocytes # 0.0 K/mm3 10/05/18 03:23 Promyelocytes # 0.0 K/mm3 10/05/18 03:23 Blast Cells # 0.0 K/mm3 10/05/18 03:23 WBC Morphology Not Reportable 10/05/18 03:23 Hypersegmented Neuts Not Reportable 10/05/18 03:23 Hyposegmented Neuts Not Reportable 10/05/18 03:23 Hypogranular Neuts Not Reportable 10/05/18 03:23 Smudge Cells Not Reportable 10/05/18 03:23 Toxic Granulation Not Reportable 10/05/18 03:23 Toxic Vacuolation Not Reportable 10/05/18 03:23 Dohle Bodies Not Reportable 10/05/18 03:23 Pelger-Huet Anomaly Not Reportable 10/05/18 03:23 Amanda Rods Not Reportable 10/05/18 03:23 Platelet Estimate Consistent w auto 10/05/18 03:23 Clumped Platelets Not Reportable 10/05/18 03:23 Plt Clumps, EDTA Not Reportable 10/05/18 03:23 Large Platelets Few 10/05/18 03:23 Giant Platelets Not Reportable 10/05/18 03:23 Platelet Satelliting Not Reportable 10/05/18 03:23 Plt Morphology Comment Not Reportable 10/05/18 03:23 RBC Morphology Normal 10/05/18 03:23 Dimorphic RBCs Not Reportable 10/05/18 03:23 Polychromasia Not Reportable 10/05/18 03:23 Hypochromasia Not Reportable 10/05/18 03:23 Poikilocytosis Not Reportable 10/05/18 03:23 Anisocytosis Not Reportable 10/05/18 03:23 Microcytosis Not Reportable 10/05/18 03:23 Macrocytosis Not Reportable 10/05/18 03:23 Spherocytes Not Reportable 10/05/18 03:23 Pappenheimer Bodies Not Reportable 10/05/18 03:23 Sickle Cells Not Reportable 10/05/18 03:23 Target Cells Not Reportable 10/05/18 03:23 Tear Drop Cells Not Reportable 10/05/18 03:23 Ovalocytes Not Reportable 10/05/18 03:23 Helmet Cells Not Reportable 10/05/18 03:23 [place] Bodies Not Reportable 10/05/18 03:23 [place] Rings Not Reportable 10/05/18 03:23 [place] Cells Not Reportable 10/05/18 03:23 Bite Cells Not Reportable 10/05/18 03:23 Crenated Cell Not Reportable 10/05/18 03:23 Elliptocytes Not Reportable 10/05/18 03:23 Acanthocytes (Spur) Not Reportable 10/05/18 03:23 Rouleaux Not Reportable 10/05/18 03:23 Hemoglobin C Crystals Not Reportable 10/05/18 03:23 Schistocytes Not Reportable 10/05/18 03:23 Malaria parasites Not Reportable 10/05/18 03:23 Polo Bodies Not Reportable 10/05/18 03:23 Hem Pathologist Commnt No 10/05/18 03:23 POC ABG pH 7.514 (7.35-7.45) H 10/11/18 16:43 POC ABG pCO2 41.6 (35-45) 10/11/18 16:43 POC ABG pO2 80 (80-105) 10/11/18 16:43 POC ABG HCO3 33.5 (22-26 mml/L) 10/11/18 16:43 POC ABG Total CO2 35 (23-27mmol/L) 10/11/18 16:43 POC ABG O2 Sat 97 10/11/18 16:43 POC ABG Base Excess 11 ((-2) - (+3)mmol/L) 10/11/18 16:43 FiO2 35 % 10/11/18 16:43 Sodium 141 mmol/L (137-145) 10/12/18 04:17 Potassium 3.5 mmol/L (3.6-5.0) L 10/12/18 04:17 Chloride 97.7 mmol/L (98-107) L 10/12/18 04:17 Carbon Dioxide 30 mmol/L (22-30) 10/12/18 04:17 Anion Gap 17 mmol/L 10/12/18 04:17 BUN 26 mg/dL (7-17) H 10/12/18 04:17 Creatinine 0.8 mg/dL (0.7-1.2) 10/12/18 04:17 Estimated GFR > 60 ml/min 10/12/18 04:17 BUN/Creatinine Ratio 33 % 10/12/18 04:17 Glucose 125 mg/dL (65-100) H 10/12/18 04:17 POC Glucose 147 (70-105) H 10/12/18 08:48 Lactic Acid 2.00 mmol/L (0.7-2.0) 10/07/18 06:08 Calcium 8.7 mg/dL (8.4-10.2) 10/12/18 04:17 Magnesium 2.00 mg/dL (1.7-2.3) 10/08/18 08:42 Total Bilirubin 0.30 mg/dL (0.1-1.2) 10/11/18 04:51 AST 10 units/L (5-40) 10/11/18 04:51 ALT 15 units/L (7-56) 10/11/18 04:51 Alkaline Phosphatase 58 units/L (35-129) 10/11/18 04:51 Troponin T < 0.010 ng/mL (0.00-0.029) 10/05/18 06:10 C-Reactive Protein 3.70 mg/dL (0.00-1.30) H 10/06/18 12:24 Total Protein 6.3 g/dL (6.3-8.2) 10/11/18 04:51 Albumin 2.9 g/dL (3.9-5) L 10/11/18 04:51 Albumin/Globulin Ratio 0.9 % 10/11/18 04:51 Triglycerides 188 mg/dL (2-149) H 10/10/18 03:30 TSH 0.301 mlU/mL (0.270-4.200) 10/10/18 09:30 Free T4 0.84 ng/dL (0.76-1.46) 10/10/18 09:30 Urine Color Yellow (Yellow) 10/05/18 12:42 Urine Turbidity Clear (Clear) 10/05/18 12:42 Urine pH 5.0 (5.0-7.0) 10/05/18 12:42 Ur Specific [place] 1.035 (1.003-1.030) H 10/05/18 12:42 Urine Protein 100 mg/dl mg/dL (Negative) 10/05/18 12:42 Urine Glucose (UA) 50 mg/dL (Negative) 10/05/18 12:42 Urine Ketones Neg mg/dL (Negative) 10/05/18 12:42 Urine Blood Sm (Negative) 10/05/18 12:42 Urine Nitrite Neg (Negative) 10/05/18 12:42 Urine Bilirubin Neg (Negative) 10/05/18 12:42 Urine Urobilinogen < 2.0 mg/dL (<2.0) 10/05/18 12:42 Ur Leukocyte Esterase Neg (Negative) 10/05/18 12:42 Urine WBC (Auto) 3.0 /HPF (0.0-6.0) 10/05/18 12:42 Urine RBC (Auto) 11.0 /HPF (0.0-6.0) 10/05/18 12:42 U Epithel Cells (Auto) 1.0 /HPF (0-13.0) 10/05/18 12:42 Urine Bacteria (Auto) 1+ /HPF (Negative) 10/05/18 12:42 Hyaline Casts 6 /LPF 10/05/18 12:42 Granular Casts 4 /LPF 10/05/18 12:42 WBC Casts 3 /LPF 10/05/18 03:47 Urine Mucus 2+ /HPF 10/05/18 12:42 Urine Opiates Screen Presumptive negative 10/05/18 12:42 Urine Methadone Screen Presumptive negative 10/05/18 12:42 Ur Barbiturates Screen Presumptive negative 10/05/18 12:42 Ur Phencyclidine Scrn Presumptive negative 10/05/18 12:42 Ur Amphetamines Screen Presumptive negative 10/05/18 12:42 U Benzodiazepines Scrn Presumptive positive 10/05/18 12:42 Urine Cocaine Screen Presumptive positive 10/05/18 12:42 U Marijuana (THC) Screen Presumptive negative 10/05/18 12:42 Drugs of Abuse Note Disclamer 10/05/18 12:42 Blood Type B POSITIVE 10/05/18 04:32 Antibody Screen Negative 10/05/18 04:32 Active Medications - Current Medications Current Medications: Generic Name Dose Route Start Last Admin Trade Name Freq PRN Reason Stop Dose Admin Acetaminophen 650 mg 10/05/18 05:16 Tylenol PO Q4H PRN Pain MILD(1-3)/Fever >100.5/MIMS Albuterol 2.5 mg 10/10/18 13:29 Proventil IH Q4HRT PRN Shortness Of Breath Lipase/Protease/Amylase 1 each 10/05/18 13:59 Wandy Whittaker 10,500 Unit FEEDTUBE PRN PRN For Clogged Feeding Tube Arformoterol Tartrate 15 mcg 10/10/18 20:00 10/12/18 07:53 Brovana Nebu IH 15 mcg Q12HRT HUMBERTO Administration Budesonide 0.5 mg 10/10/18 20:00 10/12/18 07:53 Pulmicort IH 0.5 mg Q12HRT HUMBERTO Administration Carvedilol 3.125 mg 10/06/18 22:00 10/11/18 22:11 Coreg PO 3.125 mg BID HUMBERTO Administration Enoxaparin Sodium 40 mg 10/05/18 10:00 10/11/18 10:13 Lovenox SUB-Q 40 mg QDAY@1000 HUMBERTO Administration Famotidine 20 mg 10/06/18 22:00 10/11/18 22:12 Pepcid PO 20 mg BID HUMBERTO Administration Hydralazine HCl 25 mg 10/10/18 11:00 10/11/18 22:11 Apresoline PO 25 mg Q12HR HUMBERTO Administration Hydrophilic Ointment 1 applic 10/05/18 02:50 Vaseline Lip Therapy TP Q2HR PRN Dry Lips Insulin Human Regular 0 units 10/12/18 11:30 Humulin R SUB-Q ACHS [facility] Protocol Lisinopril 2.5 mg 10/07/18 10:00 10/11/18 10:13 Zestril PO 2.5 mg QDAY HUMBERTO Administration Lorazepam 1 mg 10/06/18 16:46 10/10/18 09:30 Ativan IV 1 mg Q4H PRN Administration Seizures Methylprednisolone Sodium Succinate 60 mg 10/05/18 12:00 10/12/18 05:55 Solu-Medrol IV 60 mg Q6HR HUMBERTO Administration Multi-Ingred Cream/Lotion/Oil/Oint 1 applic 10/05/18 02:50 Artificial Tears Ophth Oint OU Q4HR PRN Dry Eye(s) Ondansetron HCl 4 mg 10/05/18 05:16 Zofran IV Q8H PRN Nausea And Vomiting Quetiapine Fumarate 200 mg 10/10/18 22:00 10/11/18 22:12 Seroquel PO 200 mg BID HUMBERTO Administration Simple Syrup 15 ml 10/05/18 13:59 Simple Syrup FEEDTUBE PRN PRN Hypoglycemia Simple Syrup 30 ml 10/05/18 13:59 Simple Syrup FEEDTUBE PRN PRN Hypoglycemia Sodium Bicarbonate 325 mg 10/05/18 13:59 Sodium Bicarbonate FEEDTUBE PRN PRN For Clogged Feeding Tube Sodium Chloride 10 ml 10/05/18 10:00 10/12/18 00:46 Sodium Chloride Flush Syringe 10 Ml IV 10 ml BID HUMBERTO Administration Sodium Chloride 10 ml 10/05/18 05:16 Sodium Chloride Flush Syringe 10 Ml IV PRN PRN LINE FLUSH Ziprasidone 20 mg 10/11/18 21:21 10/11/18 22:13 Geodon IM 20 mg Q4H PRN Administration Agitation Nutrition/Malnutrition Assess - Dietary Evaluation Nutrition/Malnutrition Findings: Nutrition Notes Start: 10/05/18 12:40 Freq: Status: Active Protocol: Document 10/11/18 10:44 SA (Rec: 10/11/18 10:51 [facility]-[id number]) Co-Sign 10/11/18 10:44 LP Nutrition Notes Initial or Follow up Reassessment Current Diagnosis COPD,Hypertension Other Pertinent Diagnosis lung CA, Asthma, [place], biploar Current Diet Vital AF @ 60mL/hr Labs/Tests BUN: 35 Glu: 151 POC: 167 Pertinent Medications Propofol. Solu-Medrol Height 5 ft 6 in Weight 80.7 kg [place] Body Weight (kg) 59.09 BMI 28.7 Weight Status Overweight Subjective/Other Information Observed patient's TF running at goal rate of 60ml/hr. Per pt nurse, pt tolerating TF. Percent of energy/protein needs met: 97%/100% Burn Absent Trauma Absent #1 Nutrition Diagnosis Inadequate oral intake Diagnosis Progress(for reassessment Continues documentation) Is patient on ventilator? Yes Is Patient Ambulatory and/or Out of Bed No REE-([place] Jeor-confined to bed) [phone] Calculation Used for Recommendations [facility] Additional Notes PRO: 97g-161g PRO (1.2 - 2.0 g /day) Fluid: 1 mL/kcal or per MD Nutrition Intervention Change Diet Order: TF Nutrition Support: Vital AF 1.2 at 60mL/hr Water Flush 150 mL q4h Kcal 1,728 Protein (gm) 108 Fluid (mL) 1,168 Goal #1 Continue to meet at least 75% of kcal and pro needs via TF Anticipated Discharge Needs: unable to determine at this time. Follow-Up By: 10/14/18 Additional Comments F/U: stable TF
[2018-10-12] MEDS: APRESOLINE PO SCH ×2 (10:12→22:50)
[2018-10-12] MEDS: PEPCID PO SCH ×2 (10:13→22:50)
[2018-10-12] MEDS: COREG PO SCH ×2 (10:13→22:50)
[2018-10-12] MEDS: LOVENOX SUB-Q SCH (10:14)
[2018-10-12] MEDS: ZESTRIL PO SCH (10:14)
--- NOTE | 2018-10-12 12:45 | Progress Note ---
Assessment and Plan Acute Hypoxic Respiratory failure Polysubstance abuse, Cocaine and Benzos Pulmonary Edema Acute Toxic metabolic Encephalopathy ?secondary to drug abuse or other etiology Metabolic Acidosis Leukocytosis ?Aspiration- Per nursing staff, patient yesterday had some emesis and coughing prompting increase in sedation. Non so far since then Vasogenic shock Bradycardia Hyperkalemia COPD- with acute exacerbatione Active Smoker Hepatitis C Bipolar disorder Atrial Fibrillation by hx Anxiety- and on Valium per family - continue weaning oxygen for sat's > 90% - continue Seroquel at lower dose re: delirium/agitation issues - ST evaluation and advance diet as tolerated - discontinued kwon catheter - continue bronchodilators with pulmonary hygiene per RT - CRP unremarkable and lactic acid level now WNL - complete empiric CAP AB's course - 2D ECHO reveals moderate pulm HTN - continue mobility protocol for pressure ulcer prophylaxis - Counselling on Drug abuse when more awake - tobacco absue counseling introduced slowly - prn blood draws - continue Restraints for patient safety - continue GI & VTE prophylaxis - flu & pneumovax per protocol ... re-evaluate in am & prn The high probability of a clinically significant, sudden or life threatening deterioration of the [pulmonary, neurology] system(s) required my full and direct attention, intervention and personal management. The aggregate critical care time was [32] minutes. This time is in addition to time spent performing reported procedures but includes the following: [x] Data Review and interpretation [x] Patient assessment and monitoring of vital signs [x] Documentation [x] Medication orders and management Subjective Date of service: 10/12/18 Principal diagnosis: Acute Hypoxemic Resp failure; Polysubstance abuse;Acute Pulm Edema Interval history: Patient is seen today for: Acute Hypoxemic Respiratory failure; Polysubstance abuse (Cocaine and Benzos); Acute Pulmonary Edema; Acute Toxic metabolic En cephalopathy ?secondary to drug abuse or other etiology; Metabolic Acidosis; Leukocytosis Seen and examined at bedside; 24hour events reviewed; nursing and respiratory care staff consulted; no adverse overnight events reported to me; did much better on SBT and extubated; still confused; denies acute chest pains; remains on supplemental oxygen; No new issues otherwise but was agitated overnight Objective Vital Signs - 12hr 10/12/18 10/12/18 10/12/18 01:00 01:30 02:00 Temperature Pulse Rate 64 57 L 53 L Pulse Rate [ Apical] Pulse Rate [ Bilateral] Pulse Rate [ Right Dorsalis Pedis] Pulse Rate [ Throughout] Respiratory 9 L 10 L 10 L Rate Respiratory Rate [Bilateral ] Respiratory Rate [Lower Anterior Pelvis ] Respiratory Rate [ Throughout] Blood Pressure 151/79 157/70 150/66 O2 Sat by Pulse 96 95 Oximetry 10/12/18 10/12/18 10/12/18 02:30 03:00 03:30 Temperature Pulse Rate 54 L 55 L 54 L Pulse Rate [ Apical] Pulse Rate [ Bilateral] Pulse Rate [ Right Dorsalis Pedis] Pulse Rate [ Throughout] Respiratory 11 L 9 L 9 L Rate Respiratory Rate [Bilateral ] Respiratory Rate [Lower Anterior Pelvis ] Respiratory Rate [ Throughout] Blood Pressure 150/66 153/77 145/75 O2 Sat by Pulse 94 94 93 Oximetry 10/12/18 10/12/18 10/12/18 04:00 04:30 05:00 Temperature 98.6 F Pulse Rate 53 L 60 55 L Pulse Rate [ 82 Apical] Pulse Rate [ Bilateral] Pulse Rate [ 82 Right Dorsalis Pedis] Pulse Rate [ Throughout] Respiratory 10 L 10 L 10 L Rate Respiratory Rate [Bilateral ] Respiratory Rate [Lower Anterior Pelvis ] Respiratory Rate [ Throughout] Blood Pressure 150/71 158/74 145/70 O2 Sat by Pulse 93 93 93 Oximetry 10/12/18 10/12/18 10/12/18 05:30 06:00 06:30 Temperature Pulse Rate 59 L 53 L 51 L Pulse Rate [ Apical] Pulse Rate [ Bilateral] Pulse Rate [ Right Dorsalis Pedis] Pulse Rate [ Throughout] Respiratory 9 L 9 L 9 L Rate Respiratory Rate [Bilateral ] Respiratory Rate [Lower Anterior Pelvis ] Respiratory Rate [ Throughout] Blood Pressure 145/70 145/73 143/76 O2 Sat by Pulse 93 91 91 Oximetry 10/12/18 10/12/18 10/12/18 07:00 07:30 07:52 Temperature Pulse Rate 51 L 54 L Pulse Rate [ Apical] Pulse Rate [ Bilateral] Pulse Rate [ Right Dorsalis Pedis] Pulse Rate [ Throughout] Respiratory 9 L 14 Rate Respiratory Rate [Bilateral ] Respiratory Rate [Lower Anterior Pelvis ] Respiratory Rate [ Throughout] Blood Pressure 135/71 148/74 O2 Sat by Pulse 91 92 92 Oximetry 10/12/18 10/12/18 10/12/18 07:54 08:08 09:00 Temperature Pulse Rate Pulse Rate [ Apical] Pulse Rate [ 60 Bilateral] Pulse Rate [ Right Dorsalis Pedis] Pulse Rate [ 51 L 60 Throughout] Respiratory Rate Respiratory 14 Rate [Bilateral ] Respiratory 16 Rate [Lower Anterior Pelvis ] Respiratory 16 14 Rate [ Throughout] Blood Pressure O2 Sat by Pulse Oximetry 10/12/18 10/12/18 10/12/18 10:12 10:13 10:14 Temperature Pulse Rate 74 74 65 Pulse Rate [ Apical] Pulse Rate [ Bilateral] Pulse Rate [ Right Dorsalis Pedis] Pulse Rate [ Throughout] Respiratory Rate Respiratory Rate [Bilateral ] Respiratory Rate [Lower Anterior Pelvis ] Respiratory Rate [ Throughout] Blood Pressure 126/78 126/78 126/78 O2 Sat by Pulse Oximetry 10/12/18 10/12/18 10:25 12:00 Temperature 98.6 F Pulse Rate Pulse Rate [ Apical] Pulse Rate [ Bilateral] Pulse Rate [ Right Dorsalis Pedis] Pulse Rate [ Throughout] Respiratory 16 Rate Respiratory Rate [Bilateral ] Respiratory Rate [Lower Anterior Pelvis ] Respiratory Rate [ Throughout] Blood Pressure O2 Sat by Pulse Oximetry Constitutional: no acute distress, other (elderly looking AAF, normocephalic and with mildly increased resp effort at rest) Eyes: non-icteric ENT: oropharynx moist, other (extubated) Neck: supple, no lymphadenopathy, no JVD, other (no thyromegaly) Effort: mildly labored Ascultation: Bilateral: diminished breath sounds, rhonchi (bases), other (prolon ged exp phase) Percussion: Bilateral: not dull Cardiovascular: regular rate and rhythm Gastrointestinal: normoactive bowel sounds, soft, non-tender, non-distended Integumentary: normal Extremities: no cyanosis, no edema, pulses normal, no ischemia or petechiae Neurologic: non-focal exam (grossly), pupils equal and round, CN II-XII normal, motor strength normal and Psychiatric: other (flat affect) CBC and BMP: 10/15/18 04:29 10/15/18 04:29 ABG, PT/INR, D-dimer: ABG POC ABG pH 7.514 (7.35-7.45) H 10/11/18 16:43 POC ABG pCO2 41.6 (35-45) 10/11/18 16:43 POC ABG pO2 80 (80-105) 10/11/18 16:43 POC ABG HCO3 33.5 (22-26 mml/L) 10/11/18 16:43 POC ABG Total CO2 35 (23-27mmol/L) 10/11/18 16:43 POC ABG O2 Sat 97 10/11/18 16:43 Abnormal lab findings: Abnormal Labs 10/05/18 10/05/18 10/05/18 03:23 03:23 03:23 WBC Hgb 14.5 H Hct 43.3 H MCV 98 H MCH 33 H Lymph % (Auto) Lymph # Seg Neutrophils % Seg Neuts % (Manual) 96.0 H Lymphocytes % (Manual) 2.0 L Seg Neutrophils # Seg Neutrophils # Man 8.3 H Lymphocytes # (Manual) 0.2 L POC ABG pH POC ABG pCO2 POC ABG pO2 Sodium Potassium Chloride 107.9 H Carbon Dioxide 20 L BUN Glucose 157 H POC Glucose Lactic Acid 3.30 H* Calcium 8.0 L C-Reactive Protein Albumin Triglycerides Ur Specific [place] 10/05/18 10/05/18 10/05/18 03:47 04:21 06:10 WBC Hgb Hct MCV MCH Lymph % (Auto) Lymph # Seg Neutrophils % Seg Neuts % (Manual) Lymphocytes % (Manual) Seg Neutrophils # Seg Neutrophils # Man Lymphocytes # (Manual) POC ABG pH 7.096 L POC ABG pCO2 POC ABG pO2 166 H Sodium Potassium Chloride Carbon Dioxide BUN Glucose POC Glucose Lactic Acid 2.60 H* Calcium C-Reactive Protein Albumin Triglycerides Ur Specific [place] 1.031 H 10/05/18 10/05/18 10/05/18 06:39 07:09 10:48 WBC Hgb Hct MCV MCH Lymph % (Auto) Lymph # Seg Neutrophils % Seg Neuts % (Manual) Lymphocytes % (Manual) Seg Neutrophils # Seg Neutrophils # Man Lymphocytes # (Manual) POC ABG pH 7.241 L 7.178 L POC ABG pCO2 45.2 H 49.3 H POC ABG pO2 57 L 62 L Sodium Potassium Chloride Carbon Dioxide BUN Glucose POC Glucose Lactic Acid 2.80 H* Calcium C-Reactive Protein Albumin Triglycerides Ur Specific [place] 10/05/18 10/05/18 10/06/18 12:42 17:11 04:11 WBC 14.0 H Hgb Hct MCV 99 H MCH Lymph % (Auto) Lymph # Seg Neutrophils % Seg Neuts % (Manual) Lymphocytes % (Manual) Seg Neutrophils # Seg Neutrophils # Man Lymphocytes # (Manual) POC ABG pH 7.206 L POC ABG pCO2 POC ABG pO2 74 L Sodium Potassium Chloride Carbon Dioxide BUN Glucose POC Glucose Lactic Acid Calcium C-Reactive Protein Albumin Triglycerides Ur Specific [place] 1.035 H 10/06/18 10/06/18 10/06/18 04:11 04:18 09:32 WBC Hgb Hct MCV MCH Lymph % (Auto) Lymph # Seg Neutrophils % Seg Neuts % (Manual) Lymphocytes % (Manual) Seg Neutrophils # Seg Neutrophils # Man Lymphocytes # (Manual) POC ABG pH 7.270 L POC ABG pCO2 POC ABG pO2 67 L Sodium Potassium 5.2 H D Chloride 116.1 H Carbon Dioxide 17 L BUN Glucose 132 H POC Glucose Lactic Acid 2.70 H* Calcium 7.8 L C-Reactive Protein Albumin 2.7 L Triglycerides Ur Specific [place] 10/06/18 10/06/18 10/06/18 12:24 12:24 22:10 WBC Hgb Hct MCV MCH Lymph % (Auto) Lymph # Seg Neutrophils % Seg Neuts % (Manual) Lymphocytes % (Manual) Seg Neutrophils # Seg Neutrophils # Man Lymphocytes # (Manual) POC ABG pH 7.314 L POC ABG pCO2 48.5 H POC ABG pO2 64 L Sodium Potassium Chloride 113.9 H Carbon Dioxide 20 L BUN Glucose 134 H POC Glucose Lactic Acid Calcium C-Reactive Protein 3.70 H Albumin Triglycerides Ur Specific [place] 10/06/18 10/07/18 10/07/18 23:46 04:44 04:44 WBC 12.7 H Hgb Hct MCV 99 H MCH Lymph % (Auto) Lymph # Seg Neutrophils % Seg Neuts % (Manual) Lymphocytes % (Manual) Seg Neutrophils # Seg Neutrophils # Man Lymphocytes # (Manual) POC ABG pH POC ABG pCO2 POC ABG pO2 Sodium Potassium 6.3 H* D Chloride 110.1 H Carbon Dioxide BUN Glucose 168 H POC Glucose 135 H Lactic Acid Calcium C-Reactive Protein Albumin Triglycerides Ur Specific [place] 10/07/18 10/07/18 10/07/18 04:44 09:30 09:44 WBC Hgb Hct MCV MCH Lymph % (Auto) Lymph # Seg Neutrophils % Seg Neuts % (Manual) Lymphocytes % (Manual) Seg Neutrophils # Seg Neutrophils # Man Lymphocytes # (Manual) POC ABG pH 7.335 L POC ABG pCO2 56.3 H POC ABG pO2 64 L Sodium Potassium 3.2 L D Chloride Carbon Dioxide BUN Glucose POC Glucose Lactic Acid 2.20 H* Calcium C-Reactive Protein Albumin Triglycerides Ur Specific [place] 10/07/18 10/07/18 10/08/18 12:06 18:38 04:33 WBC Hgb Hct MCV MCH Lymph % (Auto) Lymph # Seg Neutrophils % Seg Neuts % (Manual) Lymphocytes % (Manual) Seg Neutrophils # Seg Neutrophils # Man Lymphocytes # (Manual) POC ABG pH 7.510 H POC ABG pCO2 POC ABG pO2 50 L Sodium Potassium Chloride Carbon Dioxide BUN Glucose POC Glucose 131 H 134 H Lactic Acid Calcium C-Reactive Protein Albumin Triglycerides Ur Specific [place] 10/08/18 10/08/18 10/08/18 04:49 05:38 08:24 WBC 11.7 H Hgb Hct MCV MCH Lymph % (Auto) 7.5 L Lymph # 0.9 L Seg Neutrophils % 86.0 H Seg Neuts % (Manual) Lymphocytes % (Manual) Seg Neutrophils # 10.0 H Seg Neutrophils # Man Lymphocytes # (Manual) POC ABG pH POC ABG pCO2 53.6 H POC ABG pO2 69 L Sodium Potassium Chloride Carbon Dioxide BUN Glucose POC Glucose 179 H Lactic Acid Calcium C-Reactive Protein Albumin Triglycerides Ur Specific [place] 10/08/18 10/08/18 10/08/18 08:24 09:12 13:05 WBC Hgb Hct MCV MCH Lymph % (Auto) Lymph # Seg Neutrophils % Seg Neuts % (Manual) Lymphocytes % (Manual) Seg Neutrophils # Seg Neutrophils # Man Lymphocytes # (Manual) POC ABG pH POC ABG pCO2 POC ABG pO2 Sodium Potassium 2.7 L* Chloride Carbon Dioxide 33 H D BUN 18 H Glucose 182 H POC Glucose 194 H 139 H Lactic Acid Calcium 8.3 L C-Reactive Protein Albumin Triglycerides Ur Specific [place] 10/08/18 10/08/18 10/08/18 17:55 21:18 21:29 WBC Hgb Hct MCV MCH Lymph % (Auto) Lymph # Seg Neutrophils % Seg Neuts % (Manual) Lymphocytes % (Manual) Seg Neutrophils # Seg Neutrophils # Man Lymphocytes # (Manual) POC ABG pH 7.465 H POC ABG pCO2 49.3 H POC ABG pO2 69 L Sodium Potassium Chloride Carbon Dioxide BUN Glucose POC Glucose 157 H 134 H Lactic Acid Calcium C-Reactive Protein Albumin Triglycerides Ur Specific [place] 10/09/18 10/09/18 10/09/18 04:20 04:20 07:51 WBC 11.9 H Hgb Hct MCV MCH Lymph % (Auto) Lymph # Seg Neutrophils % Seg Neuts % (Manual) Lymphocytes % (Manual) Seg Neutrophils # Seg Neutrophils # Man Lymphocytes # (Manual) POC ABG pH POC ABG pCO2 POC ABG pO2 Sodium 146 H Potassium 3.0 L Chloride Carbon Dioxide 34 H BUN 26 H Glucose 171 H POC Glucose 142 H Lactic Acid Calcium C-Reactive Protein Albumin Triglycerides Ur Specific [place] 10/09/18 10/09/18 10/09/18 11:48 13:24 17:22 WBC Hgb Hct MCV MCH Lymph % (Auto) Lymph # Seg Neutrophils % Seg Neuts % (Manual) Lymphocytes % (Manual) Seg Neutrophils # Seg Neutrophils # Man Lymphocytes # (Manual) POC ABG pH 7.492 H POC ABG pCO2 45.1 H POC ABG pO2 72 L Sodium Potassium Chloride Carbon Dioxide BUN Glucose POC Glucose 131 H 117 H Lactic Acid Calcium C-Reactive Protein Albumin Triglycerides Ur Specific [place] 10/09/18 10/10/18 10/10/18 21:53 03:30 03:30 WBC 15.2 H Hgb 14.4 H Hct 44.0 H MCV MCH Lymph % (Auto) Lymph # Seg Neutrophils % Seg Neuts % (Manual) Lymphocytes % (Manual) Seg Neutrophils # Seg Neutrophils # Man Lymphocytes # (Manual) POC ABG pH POC ABG pCO2 POC ABG pO2 Sodium 146 H Potassium Chloride Carbon Dioxide 34 H BUN 31 H Glucose 133 H POC Glucose 143 H Lactic Acid Calcium C-Reactive Protein Albumin Triglycerides Ur Specific [place] 10/10/18 10/10/18 10/10/18 03:30 04:53 07:43 WBC Hgb Hct MCV MCH Lymph % (Auto) Lymph # Seg Neutrophils % Seg Neuts % (Manual) Lymphocytes % (Manual) Seg Neutrophils # Seg Neutrophils # Man Lymphocytes # (Manual) POC ABG pH POC ABG pCO2 63.5 H POC ABG pO2 Sodium Potassium Chloride Carbon Dioxide BUN Glucose POC Glucose 149 H Lactic Acid Calcium C-Reactive Protein Albumin Triglycerides 188 H Ur Specific [place] 10/10/18 10/10/18 10/10/18 12:58 17:11 22:43 WBC Hgb Hct MCV MCH Lymph % (Auto) Lymph # Seg Neutrophils % Seg Neuts % (Manual) Lymphocytes % (Manual) Seg Neutrophils # Seg Neutrophils # Man Lymphocytes # (Manual) POC ABG pH POC ABG pCO2 POC ABG pO2 Sodium Potassium Chloride Carbon Dioxide BUN Glucose POC Glucose 174 H 162 H 137 H Lactic Acid Calcium C-Reactive Protein Albumin Triglycerides Ur Specific [place] 10/11/18 10/11/18 10/11/18 04:13 04:51 04:51 WBC 17.6 H Hgb 14.8 H Hct 43.7 H MCV MCH Lymph % (Auto) Lymph # Seg Neutrophils % Seg Neuts % (Manual) Lymphocytes % (Manual) Seg Neutrophils # Seg Neutrophils # Man Lymphocytes # (Manual) POC ABG pH 7.517 H POC ABG pCO2 POC ABG pO2 62 L Sodium Potassium Chloride Carbon Dioxide 32 H BUN 35 H Glucose 151 H POC Glucose Lactic Acid Calcium C-Reactive Protein Albumin 2.9 L Triglycerides Ur Specific [place] 10/11/18 10/11/18 10/11/18 07:25 11:32 16:43 WBC Hgb Hct MCV MCH Lymph % (Auto) Lymph # Seg Neutrophils % Seg Neuts % (Manual) Lymphocytes % (Manual) Seg Neutrophils # Seg Neutrophils # Man Lymphocytes # (Manual) POC ABG pH 7.514 H POC ABG pCO2 POC ABG pO2 Sodium Potassium Chloride Carbon Dioxide BUN Glucose POC Glucose 167 H 164 H Lactic Acid Calcium C-Reactive Protein Albumin Triglycerides Ur Specific [place] 10/11/18 10/11/18 10/12/18 17:37 22:03 04:17 WBC 13.3 H Hgb 15.9 H Hct 47.8 H MCV MCH Lymph % (Auto) Lymph # Seg Neutrophils % Seg Neuts % (Manual) Lymphocytes % (Manual) Seg Neutrophils # Seg Neutrophils # Man Lymphocytes # (Manual) POC ABG pH POC ABG pCO2 POC ABG pO2 Sodium Potassium Chloride Carbon Dioxide BUN Glucose POC Glucose 131 H 131 H Lactic Acid Calcium C-Reactive Protein Albumin Triglycerides Ur Specific [place] 10/12/18 10/12/18 10/12/18 04:17 08:48 11:35 WBC Hgb Hct MCV MCH Lymph % (Auto) Lymph # Seg Neutrophils % Seg Neuts % (Manual) Lymphocytes % (Manual) Seg Neutrophils # Seg Neutrophils # Man Lymphocytes # (Manual) POC ABG pH POC ABG pCO2 POC ABG pO2 Sodium Potassium 3.5 L Chloride 97.7 L Carbon Dioxide BUN 26 H Glucose 125 H POC Glucose 147 H 187 H Lactic Acid Calcium C-Reactive Protein Albumin Triglycerides Ur Specific [place] Allied health notes reviewed: nursing
[2018-10-13] MEDS: GEODON IM PRN (02:25)
[2018-10-13 06:57] LABS: Hematocrit 45.5 % (30.3-42.9); Hemoglobin 15.3 gm/dl (10.1-14.3); Mean Corpuscular HGB Conc 34 % (30-34); Mean Corpuscular Volume 96 fl (79-97); Platelet Count 182 K/mm3 (140-440); Red Blood Count 4.77 M/mm3 (3.65-5.03); Red Cell Distribution Width 14.1 % (13.2-15.2)
[2018-10-13 07:20] LABS: BUN/Creatinine Ratio 34; Blood Urea Nitrogen 27 mg/dL (7-17); Calcium 8.6 mg/dL (8.4-10.2); Hemolysis Index 23
--- NOTE | 2018-10-13 09:04 | Progress Note ---
Assessment and Plan Acute Hypoxic Respiratory failure, extubated 10/11/18 Polysubstance abuse, Cocaine and Benzos Pulmonary Edema Acute Toxic metabolic Encephalopathy ?secondary to drug abuse or other etiology Metabolic Acidosis Leukocytosis Vasogenic shock Bradycardia Hyperkalemia COPD- with acute exacerbatione Active Smoker Hepatitis C Bipolar disorder Atrial Fibrillation by hx Anxiety- and on Valium per family - continue bronchodilators with pulmonary hygiene per RT -Supplemental oxygen to keep O2 sats>90% -Gentle diuresis while monitoring renal function and hemodynamics. Keep euvolemic - enteral nutrition - Counselling on Drug abuse - tobacco abuse counseling - prn blood draws - GI & VTE prophylaxis - flu & pneumovax per protocol Discharge planning per primary service Subjective Date of service: 10/13/18 Principal diagnosis: Acute Hypoxemic Resp failure; Polysubstance abuse;Acute Pulm Edema Interval history: Patient is seen today for: Acute Hypoxemic Respiratory failure; Polysubstance abuse (Cocaine and Benzos); Acute Pulmonary Edema; Acute Toxic metabolic Encephalopathy ?secondary to drug abuse or other etiology; Metabolic Acidosis; Leukocytosis Seen and examined at bedside; 24hour events reviewed; nursing and respiratory care staff consulted; no adverse overnight events reported to me; resting peacefully in bed, no emesis or overt aspiration; sitter at the bedside, "when can I go home" Objective Vital Signs - 12hr 10/12/18 10/12/18 10/12/18 21:22 21:40 22:00 Temperature 97.7 F Pulse Rate 71 73 Pulse Rate [ 80 Throughout] Respiratory 18 Rate Respiratory 18 Rate [ Throughout] Blood Pressure Blood Pressure 156/85 [Left] O2 Sat by Pulse 95 94 Oximetry 10/12/18 10/12/18 10/12/18 22:13 22:50 23:54 Temperature 97.7 F 97.7 F Pulse Rate 75 80 73 Pulse Rate [ Throughout] Respiratory 20 21 Rate Respiratory Rate [ Throughout] Blood Pressure 156/85 156/85 151/70 Blood Pressure [Left] O2 Sat by Pulse 95 94 Oximetry 10/13/18 04:27 Temperature 97.5 F L Pulse Rate 64 Pulse Rate [ Throughout] Respiratory 18 Rate Respiratory Rate [ Throughout] Blood Pressure 126/67 Blood Pressure [Left] O2 Sat by Pulse 95 Oximetry Constitutional: no acute distress, other (elderly looking AAF, normocephalic and with mildly increased resp effort at rest) Eyes: non-icteric ENT: oropharynx moist Neck: supple, no lymphadenopathy, no JVD, other (no thyromegaly) Effort: normal Ascultation: Bilateral: diminished breath sounds, rhonchi (bases), other (prolonged exp phase) Percussion: Bilateral: not dull Cardiovascular: regular rate and rhythm, other (S1,S2, no murmurs, gallops or rubs) Gastrointestinal: normoactive bowel sounds, soft, non-tender, non-distended Integumentary: normal Extremities: no cyanosis, no edema, pulses normal, no ischemia or petechiae Neurologic: non-focal exam (grossly), pupils equal and round, motor strength normal and Psychiatric: mood appropriate, affect normal CBC and BMP: 10/14/18 06:25 10/14/18 06:25 ABG, PT/INR, D-dimer: ABG POC ABG pH 7.514 (7.35-7.45) H 10/11/18 16:43 POC ABG pCO2 41.6 (35-45) 10/11/18 16:43 POC ABG pO2 80 (80-105) 10/11/18 16:43 POC ABG HCO3 33.5 (22-26 mml/L) 10/11/18 16:43 POC ABG Total CO2 35 (23-27mmol/L) 10/11/18 16:43 POC ABG O2 Sat 97 10/11/18 16:43 Abnormal lab findings: Abnormal Labs 10/05/18 10/05/18 10/05/18 03:23 03:23 03:23 WBC Hgb 14.5 H Hct 43.3 H MCV 98 H MCH 33 H Lymph % (Auto) Lymph # Seg Neutrophils % Seg Neuts % (Manual) 96.0 H Lymphocytes % (Manual) 2.0 L Seg Neutrophils # Seg Neutrophils # Man 8.3 H Lymphocytes # (Manual) 0.2 L POC ABG pH POC ABG pCO2 POC ABG pO2 Sodium Potassium Chloride 107.9 H Carbon Dioxide 20 L BUN Glucose 157 H POC Glucose Lactic Acid 3.30 H* Calcium 8.0 L C-Reactive Protein Albumin Triglycerides Ur Specific [place] 10/05/18 10/05/18 10/05/18 03:47 04:21 06:10 WBC Hgb Hct MCV MCH Lymph % (Auto) Lymph # Seg Neutrophils % Seg Neuts % (Manual) Lymphocytes % (Manual) Seg Neutrophils # Seg Neutrophils # Man Lymphocytes # (Manual) POC ABG pH 7.096 L POC ABG pCO2 POC ABG pO2 166 H Sodium Potassium Chloride Carbon Dioxide BUN Glucose POC Glucose Lactic Acid 2.60 H* Calcium C-Reactive Protein Albumin Triglycerides Ur Specific [place] 1.031 H 10/05/18 10/05/18 10/05/18 06:39 07:09 10:48 WBC Hgb Hct MCV MCH Lymph % (Auto) Lymph # Seg Neutrophils % Seg Neuts % (Manual) Lymphocytes % (Manual) Seg Neutrophils # Seg Neutrophils # Man Lymphocytes # (Manual) POC ABG pH 7.241 L 7.178 L POC ABG pCO2 45.2 H 49.3 H POC ABG pO2 57 L 62 L Sodium Potassium Chloride Carbon Dioxide BUN Glucose POC Glucose Lactic Acid 2.80 H* Calcium C-Reactive Protein Albumin Triglycerides Ur Specific [place] 10/05/18 10/05/18 10/06/18 12:42 17:11 04:11 WBC 14.0 H Hgb Hct MCV 99 H MCH Lymph % (Auto) Lymph # Seg Neutrophils % Seg Neuts % (Manual) Lymphocytes % (Manual) Seg Neutrophils # Seg Neutrophils # Man Lymphocytes # (Manual) POC ABG pH 7.206 L POC ABG pCO2 POC ABG pO2 74 L Sodium Potassium Chloride Carbon Dioxide BUN Glucose POC Glucose Lactic Acid Calcium C-Reactive Protein Albumin Triglycerides Ur Specific [place] 1.035 H 10/06/18 10/06/18 10/06/18 04:11 04:18 09:32 WBC Hgb Hct MCV MCH Lymph % (Auto) Lymph # Seg Neutrophils % Seg Neuts % (Manual) Lymphocytes % (Manual) Seg Neutrophils # Seg Neutrophils # Man Lymphocytes # (Manual) POC ABG pH 7.270 L POC ABG pCO2 POC ABG pO2 67 L Sodium Potassium 5.2 H D Chloride 116.1 H Carbon Dioxide 17 L BUN Glucose 132 H POC Glucose Lactic Acid 2.70 H* Calcium 7.8 L C-Reactive Protein Albumin 2.7 L Triglycerides Ur Specific [place] 10/06/18 10/06/18 10/06/18 12:24 12:24 22:10 WBC Hgb Hct MCV MCH Lymph % (Auto) Lymph # Seg Neutrophils % Seg Neuts % (Manual) Lymphocytes % (Manual) Seg Neutrophils # Seg Neutrophils # Man Lymphocytes # (Manual) POC ABG pH 7.314 L POC ABG pCO2 48.5 H POC ABG pO2 64 L Sodium Potassium Chloride 113.9 H Carbon Dioxide 20 L BUN Glucose 134 H POC Glucose Lactic Acid Calcium C-Reactive Protein 3.70 H Albumin Triglycerides Ur Specific [place] 10/06/18 10/07/18 10/07/18 23:46 04:44 04:44 WBC 12.7 H Hgb Hct MCV 99 H MCH Lymph % (Auto) Lymph # Seg Neutrophils % Seg Neuts % (Manual) Lymphocytes % (Manual) Seg Neutrophils # Seg Neutrophils # Man Lymphocytes # (Manual) POC ABG pH POC ABG pCO2 POC ABG pO2 Sodium Potassium 6.3 H* D Chloride 110.1 H Carbon Dioxide BUN Glucose 168 H POC Glucose 135 H Lactic Acid Calcium C-Reactive Protein Albumin Triglycerides Ur Specific [place] 10/07/18 10/07/18 10/07/18 04:44 09:30 09:44 WBC Hgb Hct MCV MCH Lymph % (Auto) Lymph # Seg Neutrophils % Seg Neuts % (Manual) Lymphocytes % (Manual) Seg Neutrophils # Seg Neutrophils # Man Lymphocytes # (Manual) POC ABG pH 7.335 L POC ABG pCO2 56.3 H POC ABG pO2 64 L Sodium Potassium 3.2 L D Chloride Carbon Dioxide BUN Glucose POC Glucose Lactic Acid 2.20 H* Calcium C-Reactive Protein Albumin Triglycerides Ur Specific [place] 10/07/18 10/07/18 10/08/18 12:06 18:38 04:33 WBC Hgb Hct MCV MCH Lymph % (Auto) Lymph # Seg Neutrophils % Seg Neuts % (Manual) Lymphocytes % (Manual) Seg Neutrophils # Seg Neutrophils # Man Lymphocytes # (Manual) POC ABG pH 7.510 H POC ABG pCO2 POC ABG pO2 50 L Sodium Potassium Chloride Carbon Dioxide BUN Glucose POC Glucose 131 H 134 H Lactic Acid Calcium C-Reactive Protein Albumin Triglycerides Ur Specific [place] 10/08/18 10/08/18 10/08/18 04:49 05:38 08:24 WBC 11.7 H Hgb Hct MCV MCH Lymph % (Auto) 7.5 L Lymph # 0.9 L Seg Neutrophils % 86.0 H Seg Neuts % (Manual) Lymphocytes % (Manual) Seg Neutrophils # 10.0 H Seg Neutrophils # Man Lymphocytes # (Manual) POC ABG pH POC ABG pCO2 53.6 H POC ABG pO2 69 L Sodium Potassium Chloride Carbon Dioxide BUN Glucose POC Glucose 179 H Lactic Acid Calcium C-Reactive Protein Albumin Triglycerides Ur Specific [place] 10/08/18 10/08/18 10/08/18 08:24 09:12 13:05 WBC Hgb Hct MCV MCH Lymph % (Auto) Lymph # Seg Neutrophils % Seg Neuts % (Manual) Lymphocytes % (Manual) Seg Neutrophils # Seg Neutrophils # Man Lymphocytes # (Manual) POC ABG pH POC ABG pCO2 POC ABG pO2 Sodium Potassium 2.7 L* Chloride Carbon Dioxide 33 H D BUN 18 H Glucose 182 H POC Glucose 194 H 139 H Lactic Acid Calcium 8.3 L C-Reactive Protein Albumin Triglycerides Ur Specific [place] 10/08/18 10/08/18 10/08/18 17:55 21:18 21:29 WBC Hgb Hct MCV MCH Lymph % (Auto) Lymph # Seg Neutrophils % Seg Neuts % (Manual) Lymphocytes % (Manual) Seg Neutrophils # Seg Neutrophils # Man Lymphocytes # (Manual) POC ABG pH 7.465 H POC ABG pCO2 49.3 H POC ABG pO2 69 L Sodium Potassium Chloride Carbon Dioxide BUN Glucose POC Glucose 157 H 134 H Lactic Acid Calcium C-Reactive Protein Albumin Triglycerides Ur Specific [place] 10/09/18 10/09/18 10/09/18 04:20 04:20 07:51 WBC 11.9 H Hgb Hct MCV MCH Lymph % (Auto) Lymph # Seg Neutrophils % Seg Neuts % (Manual) Lymphocytes % (Manual) Seg Neutrophils # Seg Neutrophils # Man Lymphocytes # (Manual) POC ABG pH POC ABG pCO2 POC ABG pO2 Sodium 146 H Potassium 3.0 L Chloride Carbon Dioxide 34 H BUN 26 H Glucose 171 H POC Glucose 142 H Lactic Acid Calcium C-Reactive Protein Albumin Triglycerides Ur Specific [place] 10/09/18 10/09/18 10/09/18 11:48 13:24 17:22 WBC Hgb Hct MCV MCH Lymph % (Auto) Lymph # Seg Neutrophils % Seg Neuts % (Manual) Lymphocytes % (Manual) Seg Neutrophils # Seg Neutrophils # Man Lymphocytes # (Manual) POC ABG pH 7.492 H POC ABG pCO2 45.1 H POC ABG pO2 72 L Sodium Potassium Chloride Carbon Dioxide BUN Glucose POC Glucose 131 H 117 H Lactic Acid Calcium C-Reactive Protein Albumin Triglycerides Ur Specific [place] 10/09/18 10/10/18 10/10/18 21:53 03:30 03:30 WBC 15.2 H Hgb 14.4 H Hct 44.0 H MCV MCH Lymph % (Auto) Lymph # Seg Neutrophils % Seg Neuts % (Manual) Lymphocytes % (Manual) Seg Neutrophils # Seg Neutrophils # Man Lymphocytes # (Manual) POC ABG pH POC ABG pCO2 POC ABG pO2 Sodium 146 H Potassium Chloride Carbon Dioxide 34 H BUN 31 H Glucose 133 H POC Glucose 143 H Lactic Acid Calcium C-Reactive Protein Albumin Triglycerides Ur Specific [place] 10/10/18 10/10/18 10/10/18 03:30 04:53 07:43 WBC Hgb Hct MCV MCH Lymph % (Auto) Lymph # Seg Neutrophils % Seg Neuts % (Manual) Lymphocytes % (Manual) Seg Neutrophils # Seg Neutrophils # Man Lymphocytes # (Manual) POC ABG pH POC ABG pCO2 63.5 H POC ABG pO2 Sodium Potassium Chloride Carbon Dioxide BUN Glucose POC Glucose 149 H Lactic Acid Calcium C-Reactive Protein Albumin Triglycerides 188 H Ur Specific [place] 10/10/18 10/10/18 10/10/18 12:58 17:11 22:43 WBC Hgb Hct MCV MCH Lymph % (Auto) Lymph # Seg Neutrophils % Seg Neuts % (Manual) Lymphocytes % (Manual) Seg Neutrophils # Seg Neutrophils # Man Lymphocytes # (Manual) POC ABG pH POC ABG pCO2 POC ABG pO2 Sodium Potassium Chloride Carbon Dioxide BUN Glucose POC Glucose 174 H 162 H 137 H Lactic Acid Calcium C-Reactive Protein Albumin Triglycerides Ur Specific [place] 10/11/18 10/11/18 10/11/18 04:13 04:51 04:51 WBC 17.6 H Hgb 14.8 H Hct 43.7 H MCV MCH Lymph % (Auto) Lymph # Seg Neutrophils % Seg Neuts % (Manual) Lymphocytes % (Manual) Seg Neutrophils # Seg Neutrophils # Man Lymphocytes # (Manual) POC ABG pH 7.517 H POC ABG pCO2 POC ABG pO2 62 L Sodium Potassium Chloride Carbon Dioxide 32 H BUN 35 H Glucose 151 H POC Glucose Lactic Acid Calcium C-Reactive Protein Albumin 2.9 L Triglycerides Ur Specific [place] 10/11/18 10/11/18 10/11/18 07:25 11:32 16:43 WBC Hgb Hct MCV MCH Lymph % (Auto) Lymph # Seg Neutrophils % Seg Neuts % (Manual) Lymphocytes % (Manual) Seg Neutrophils # Seg Neutrophils # Man Lymphocytes # (Manual) POC ABG pH 7.514 H POC ABG pCO2 POC ABG pO2 Sodium Potassium Chloride Carbon Dioxide BUN Glucose POC Glucose 167 H 164 H Lactic Acid Calcium C-Reactive Protein Albumin Triglycerides Ur Specific [place] 10/11/18 10/11/18 10/12/18 17:37 22:03 04:17 WBC 13.3 H Hgb 15.9 H Hct 47.8 H MCV MCH Lymph % (Auto) Lymph # Seg Neutrophils % Seg Neuts % (Manual) Lymphocytes % (Manual) Seg Neutrophils # Seg Neutrophils # Man Lymphocytes # (Manual) POC ABG pH POC ABG pCO2 POC ABG pO2 Sodium Potassium Chloride Carbon Dioxide BUN Glucose POC Glucose 131 H 131 H Lactic Acid Calcium C-Reactive Protein Albumin Triglycerides Ur Specific [place] 10/12/18 10/12/18 10/12/18 04:17 08:48 11:35 WBC Hgb Hct MCV MCH Lymph % (Auto) Lymph # Seg Neutrophils % Seg Neuts % (Manual) Lymphocytes % (Manual) Seg Neutrophils # Seg Neutrophils # Man Lymphocytes # (Manual) POC ABG pH POC ABG pCO2 POC ABG pO2 Sodium Potassium 3.5 L Chloride 97.7 L Carbon Dioxide BUN 26 H Glucose 125 H POC Glucose 147 H 187 H Lactic Acid Calcium C-Reactive Protein Albumin Triglycerides Ur Specific [place] 10/12/18 10/12/18 10/13/18 17:05 22:23 06:44 WBC 13.2 H Hgb 15.3 H Hct 45.5 H MCV MCH Lymph % (Auto) Lymph # Seg Neutrophils % Seg Neuts % (Manual) Lymphocytes % (Manual) Seg Neutrophils # Seg Neutrophils # Man Lymphocytes # (Manual) POC ABG pH POC ABG pCO2 POC ABG pO2 Sodium Potassium Chloride Carbon Dioxide BUN Glucose POC Glucose 201 H 152 H Lactic Acid Calcium C-Reactive Protein Albumin Triglycerides Ur Specific [place] 10/13/18 06:44 WBC Hgb Hct MCV MCH Lymph % (Auto) Lymph # Seg Neutrophils % Seg Neuts % (Manual) Lymphocytes % (Manual) Seg Neutrophils # Seg Neutrophils # Man Lymphocytes # (Manual) POC ABG pH POC ABG pCO2 POC ABG pO2 Sodium Potassium Chloride Carbon Dioxide BUN 27 H Glucose 160 H POC Glucose Lactic Acid Calcium C-Reactive Protein Albumin Triglycerides Ur Specific [place] Allied health notes reviewed: nursing
[2018-10-13] MEDS: SOLU-Medrol IV SCH ×2 (09:52→22:34)
[2018-10-13] MEDS: LOVENOX SUB-Q SCH (09:52)
[2018-10-13] MEDS: APRESOLINE PO SCH ×2 (09:53→22:34)
[2018-10-13] MEDS: COREG PO SCH ×2 (09:53→22:35)
[2018-10-13] MEDS: ZESTRIL PO SCH (09:53)
[2018-10-13] MEDS: SODIUM CHLORIDE FLUSH SYRINGE 10 ML IV SCH ×2 (09:54→22:34)
[2018-10-13] MEDS: PEPCID PO SCH ×2 (10:02→22:33)
[2018-10-13] MEDS: HumuLIN R SUB-Q SCH ×4 (10:03→22:36)
[2018-10-13] MEDS: BROVANA NEBU IH SCH ×2 (10:06→19:48)
[2018-10-13] MEDS: PULMICORT IH SCH ×2 (10:06→19:48)
--- NOTE | 2018-10-13 10:16 | Progress Note ---
Assessment and Plan Assessment and plan: 57 -year-old woman with a history of COPD on home oxygen, hep C, mitral valve prolapse, bipolar was seen in the emergency room, was treated for COPD and discharged from the hospital. Family went to check on her and found her in respiratory distress, EMS was called, she was placed on BiPAP and brought to the emergency room where she was intubated, admitted to ICU, now extubated Acute Hypoxic Respiratory failure was intubated, now extubated Polysubstance abuse, Cocain and Benzos Pulmonary Edema Acute Toxic metabolic Encephalopathy ?secondary to drug abuse or other etiology Metabolic Acidosis Leukocytosis ?Aspiration- Per nursing staff, patient yesterday had some emesis and coughing prompting increase in sedation. Non so far since then Vasogenic shock Bradycardia Hyperkalemia COPD- with acute exacerbation. (Per Daughter) Active Smoker Hepatitis C Bipolar disorder Atrial Fibrillation by hx Anxiety- and on Valium per family She lives with a roommate friend at home and is supposed to be on home oxygen due to emphysema but is not compliant. Agitation, combative, wanted to leave hospital night of 10/11 therefore 1013. psych to evaluate Plan: Cont Discussed case with Psych hyperkalemia resolved EEG Pending CARDIOLOGY INPUT NOTED Neurology consulted due to profound encephalopathy Continue empiric abx, although imaging studies pulmonary edema, not sure if underlying PNA, although doubt VAP bundle and Aspiration precautions Sodium Bicarb given, monitor labs Counselling on Drug abuse when more awake History Interval history: Extubated 10/11/18 On night of 10/11/18 was agitated, combative, wanted to leave hospital and made 1013 Hospitalist Physical - Physical exam Narrative exam: Gen:Awake,alert, not in acute distress, obese HEENT: Normocephalic, atraumatic Neck: supple, no JVD Heart: S1 and S2 reg, no murmurs, rubs or gallop Lungs: Clear, no crackles Abd: soft, non tender, non distended, normal BS Ext: No edema, no clubbing, no cyanosis, Neuro: Awaake,alert, oriented X 3, moves all ext - Constitutional Vitals: Temp Pulse Resp BP Pulse Ox 97.5 F L 64 18 126/67 95 10/13/18 04:27 10/13/18 04:27 10/13/18 04:27 10/13/18 04:27 10/13/18 04:27 General appearance: Present: other (intubated on the vent) Results - Labs CBC & Chem 7: 10/13/18 06:44 10/13/18 06:44 Labs: Laboratory Last Values WBC 13.2 K/mm3 (4.5-11.0) H 10/13/18 06:44 RBC 4.77 M/mm3 (3.65-5.03) 10/13/18 06:44 Hgb 15.3 gm/dl (10.1-14.3) H 10/13/18 06:44 Hct 45.5 % (30.3-42.9) H 10/13/18 06:44 MCV 96 fl (79-97) 10/13/18 06:44 MCH 32 pg (28-32) 10/13/18 06:44 MCHC 34 % (30-34) 10/13/18 06:44 RDW 14.1 % (13.2-15.2) 10/13/18 06:44 Plt Count 182 K/mm3 (140-440) 10/13/18 06:44 Lymph % (Auto) 7.5 % (13.4-35.0) L 10/08/18 08:24 [place] % (Auto) 6.3 % (0.0-7.3) 10/08/18 08:24 Eos % (Auto) 0.0 % (0.0-4.3) 10/08/18 08:24 Baso % (Auto) 0.2 % (0.0-1.8) 10/08/18 08:24 Lymph # 0.9 K/mm3 (1.2-5.4) L 10/08/18 08:24 Bladen # 0.7 K/mm3 (0.0-0.8) 10/08/18 08:24 Eos # 0.0 K/mm3 (0.0-0.4) 10/08/18 08:24 Baso # 0.0 K/mm3 (0.0-0.1) 10/08/18 08:24 Add Manual Diff Complete 10/05/18 03:23 Total Counted 100 10/05/18 03:23 Seg Neutrophils % 86.0 % (40.0-70.0) H 10/08/18 08:24 Seg Neuts % (Manual) 96.0 % (40.0-70.0) H 10/05/18 03:23 Band Neutrophils % 0 % 10/05/18 03:23 Lymphocytes % (Manual) 2.0 % (13.4-35.0) L 10/05/18 03:23 Reactive Lymphs % (Man) 0 % 10/05/18 03:23 Monocytes % (Manual) 1.0 % (0.0-7.3) 10/05/18 03:23 Eosinophils % (Manual) 0 % (0.0-4.3) 10/05/18 03:23 Basophils % (Manual) 1.0 % (0.0-1.8) 10/05/18 03:23 Metamyelocytes % 0 % 10/05/18 03:23 Myelocytes % 0 % 10/05/18 03:23 Promyelocytes % 0 % 10/05/18 03:23 Blast Cells % 0 % 10/05/18 03:23 Nucleated RBC % Not Reportable 10/05/18 03:23 Seg Neutrophils # 10.0 K/mm3 (1.8-7.7) H 10/08/18 08:24 Seg Neutrophils # Man 8.3 K/mm3 (1.8-7.7) H 10/05/18 03:23 Band Neutrophils # 0.0 K/mm3 10/05/18 03:23 Lymphocytes # (Manual) 0.2 K/mm3 (1.2-5.4) L 10/05/18 03:23 Abs React Lymphs (Man) 0.0 K/mm3 10/05/18 03:23 Monocytes # (Manual) 0.1 K/mm3 (0.0-0.8) 10/05/18 03:23 Eosinophils # (Manual) 0.0 K/mm3 (0.0-0.4) 10/05/18 03:23 Basophils # (Manual) 0.1 K/mm3 (0.0-0.1) 10/05/18 03:23 Metamyelocytes # 0.0 K/mm3 10/05/18 03:23 Myelocytes # 0.0 K/mm3 10/05/18 03:23 Promyelocytes # 0.0 K/mm3 10/05/18 03:23 Blast Cells # 0.0 K/mm3 10/05/18 03:23 WBC Morphology Not Reportable 10/05/18 03:23 Hypersegmented Neuts Not Reportable 10/05/18 03:23 Hyposegmented Neuts Not Reportable 10/05/18 03:23 Hypogranular Neuts Not Reportable 10/05/18 03:23 Smudge Cells Not Reportable 10/05/18 03:23 Toxic Granulation Not Reportable 10/05/18 03:23 Toxic Vacuolation Not Reportable 10/05/18 03:23 Dohle Bodies Not Reportable 10/05/18 03:23 Pelger-Huet Anomaly Not Reportable 10/05/18 03:23 Amanda Rods Not Reportable 10/05/18 03:23 Platelet Estimate Consistent w auto 10/05/18 03:23 Clumped Platelets Not Reportable 10/05/18 03:23 Plt Clumps, EDTA Not Reportable 10/05/18 03:23 Large Platelets Few 10/05/18 03:23 Giant Platelets Not Reportable 10/05/18 03:23 Platelet Satelliting Not Reportable 10/05/18 03:23 Plt Morphology Comment Not Reportable 10/05/18 03:23 RBC Morphology Normal 10/05/18 03:23 Dimorphic RBCs Not Reportable 10/05/18 03:23 Polychromasia Not Reportable 10/05/18 03:23 Hypochromasia Not Reportable 10/05/18 03:23 Poikilocytosis Not Reportable 10/05/18 03:23 Anisocytosis Not Reportable 10/05/18 03:23 Microcytosis Not Reportable 10/05/18 03:23 Macrocytosis Not Reportable 10/05/18 03:23 Spherocytes Not Reportable 10/05/18 03:23 Pappenheimer Bodies Not Reportable 10/05/18 03:23 Sickle Cells Not Reportable 10/05/18 03:23 Target Cells Not Reportable 10/05/18 03:23 Tear Drop Cells Not Reportable 10/05/18 03:23 Ovalocytes Not Reportable 10/05/18 03:23 Helmet Cells Not Reportable 10/05/18 03:23 [place] Bodies Not Reportable 10/05/18 03:23 [place] Rings Not Reportable 10/05/18 03:23 [place] Cells Not Reportable 10/05/18 03:23 Bite Cells Not Reportable 10/05/18 03:23 Crenated Cell Not Reportable 10/05/18 03:23 Elliptocytes Not Reportable 10/05/18 03:23 Acanthocytes (Spur) Not Reportable 10/05/18 03:23 Rouleaux Not Reportable 10/05/18 03:23 Hemoglobin C Crystals Not Reportable 10/05/18 03:23 Schistocytes Not Reportable 10/05/18 03:23 Malaria parasites Not Reportable 10/05/18 03:23 Polo Bodies Not Reportable 10/05/18 03:23 Hem Pathologist Commnt No 10/05/18 03:23 POC ABG pH 7.514 (7.35-7.45) H 10/11/18 16:43 POC ABG pCO2 41.6 (35-45) 10/11/18 16:43 POC ABG pO2 80 (80-105) 10/11/18 16:43 POC ABG HCO3 33.5 (22-26 mml/L) 10/11/18 16:43 POC ABG Total CO2 35 (23-27mmol/L) 10/11/18 16:43 POC ABG O2 Sat 97 10/11/18 16:43 POC ABG Base Excess 11 ((-2) - (+3)mmol/L) 10/11/18 16:43 FiO2 35 % 10/11/18 16:43 Sodium 142 mmol/L (137-145) 10/13/18 06:44 Potassium 4.5 mmol/L (3.6-5.0) D 10/13/18 06:44 Chloride 102.3 mmol/L (98-107) 10/13/18 06:44 Carbon Dioxide 29 mmol/L (22-30) 10/13/18 06:44 Anion Gap 15 mmol/L 10/13/18 06:44 BUN 27 mg/dL (7-17) H 10/13/18 06:44 Creatinine 0.8 mg/dL (0.7-1.2) 10/13/18 06:44 Estimated GFR > 60 ml/min 10/13/18 06:44 BUN/Creatinine Ratio 34 % 10/13/18 06:44 Glucose 160 mg/dL (65-100) H 10/13/18 06:44 POC Glucose 152 (70-105) H 10/12/18 22:23 Lactic Acid 2.00 mmol/L (0.7-2.0) 10/07/18 06:08 Calcium 8.6 mg/dL (8.4-10.2) 10/13/18 06:44 Magnesium 2.00 mg/dL (1.7-2.3) 10/08/18 08:42 Total Bilirubin 0.30 mg/dL (0.1-1.2) 10/11/18 04:51 AST 10 units/L (5-40) 10/11/18 04:51 ALT 15 units/L (7-56) 10/11/18 04:51 Alkaline Phosphatase 58 units/L (35-129) 10/11/18 04:51 Troponin T < 0.010 ng/mL (0.00-0.029) 10/05/18 06:10 C-Reactive Protein 3.70 mg/dL (0.00-1.30) H 10/06/18 12:24 Total Protein 6.3 g/dL (6.3-8.2) 10/11/18 04:51 Albumin 2.9 g/dL (3.9-5) L 10/11/18 04:51 Albumin/Globulin Ratio 0.9 % 10/11/18 04:51 Triglycerides 188 mg/dL (2-149) H 10/10/18 03:30 TSH 0.301 mlU/mL (0.270-4.200) 10/10/18 09:30 Free T4 0.84 ng/dL (0.76-1.46) 10/10/18 09:30 Urine Color Yellow (Yellow) 10/05/18 12:42 Urine Turbidity Clear (Clear) 10/05/18 12:42 Urine pH 5.0 (5.0-7.0) 10/05/18 12:42 Ur Specific [place] 1.035 (1.003-1.030) H 10/05/18 12:42 Urine Protein 100 mg/dl mg/dL (Negative) 10/05/18 12:42 Urine Glucose (UA) 50 mg/dL (Negative) 10/05/18 12:42 Urine Ketones Neg mg/dL (Negative) 10/05/18 12:42 Urine Blood Sm (Negative) 10/05/18 12:42 Urine Nitrite Neg (Negative) 10/05/18 12:42 Urine Bilirubin Neg (Negative) 10/05/18 12:42 Urine Urobilinogen < 2.0 mg/dL (<2.0) 10/05/18 12:42 Ur Leukocyte Esterase Neg (Negative) 10/05/18 12:42 Urine WBC (Auto) 3.0 /HPF (0.0-6.0) 10/05/18 12:42 Urine RBC (Auto) 11.0 /HPF (0.0-6.0) 10/05/18 12:42 U Epithel Cells (Auto) 1.0 /HPF (0-13.0) 10/05/18 12:42 Urine Bacteria (Auto) 1+ /HPF (Negative) 10/05/18 12:42 Hyaline Casts 6 /LPF 10/05/18 12:42 Granular Casts 4 /LPF 10/05/18 12:42 WBC Casts 3 /LPF 10/05/18 03:47 Urine Mucus 2+ /HPF 10/05/18 12:42 Urine Opiates Screen Presumptive negative 10/05/18 12:42 Urine Methadone Screen Presumptive negative 10/05/18 12:42 Ur Barbiturates Screen Presumptive negative 10/05/18 12:42 Ur Phencyclidine Scrn Presumptive negative 10/05/18 12:42 Ur Amphetamines Screen Presumptive negative 10/05/18 12:42 U Benzodiazepines Scrn Presumptive positive 10/05/18 12:42 Urine Cocaine Screen Presumptive positive 10/05/18 12:42 U Marijuana (THC) Screen Presumptive negative 10/05/18 12:42 Drugs of Abuse Note Disclamer 10/05/18 12:42 Blood Type B POSITIVE 10/05/18 04:32 Antibody Screen Negative 10/05/18 04:32 Active Medications - Current Medications Current Medications: Generic Name Dose Route Start Last Admin Trade Name Freq PRN Reason Stop Dose Admin Acetaminophen 650 mg 10/05/18 05:16 10/12/18 10:25 Tylenol PO 650 mg Q4H PRN Administration Pain MILD(1-3)/Fever >100.5/MIMS Albuterol 2.5 mg 10/10/18 13:29 Proventil IH Q4HRT PRN Shortness Of Breath Arformoterol Tartrate 15 mcg 10/10/18 20:00 10/13/18 10:06 Brovana Nebu IH 15 mcg Q12HRT HUMBERTO Administration Budesonide 0.5 mg 10/10/18 20:00 10/13/18 10:06 Pulmicort IH 0.5 mg Q12HRT HUMBERTO Administration Carvedilol 3.125 mg 10/06/18 22:00 10/13/18 09:53 Coreg PO 3.125 mg BID HUMBERTO Administration Enoxaparin Sodium 40 mg 10/05/18 10:00 10/13/18 09:52 Lovenox SUB-Q 40 mg QDAY@1000 HUMBERTO Administration Famotidine 20 mg 10/06/18 22:00 10/13/18 10:02 Pepcid PO 20 mg BID HUMBERTO Administration Hydralazine HCl 25 mg 10/10/18 11:00 10/13/18 09:53 Apresoline PO 25 mg Q12HR HUMBERTO Administration Hydrophilic Ointment 1 applic 10/05/18 02:50 Vaseline Lip Therapy TP Q2HR PRN Dry Lips Insulin Human Regular 0 units 10/12/18 11:30 10/13/18 10:03 Humulin R SUB-Q 2 units ACHS HUMBERTO Administration Protocol Lisinopril 2.5 mg 10/07/18 10:00 10/13/18 09:53 Zestril PO 2.5 mg QDAY HUMBERTO Administration Lorazepam 1 mg 10/06/18 16:46 10/10/18 09:30 Ativan IV 1 mg Q4H PRN Administration Seizures Methylprednisolone Sodium Succinate 40 mg 10/12/18 22:00 10/13/18 09:52 Solu-Medrol IV 40 mg Q12HR HUMBERTO Administration Multi-Ingred Cream/Lotion/Oil/Oint 1 applic 10/05/18 02:50 Artificial Tears Ophth Oint OU Q4HR PRN Dry Eye(s) Nicotine 21 mg 10/13/18 11:00 Habitrol TD QDAY HUMBERTO Ondansetron HCl 4 mg 10/05/18 05:16 Zofran IV Q8H PRN Nausea And Vomiting Quetiapine Fumarate 300 mg 10/12/18 22:00 10/13/18 09:52 Seroquel PO 300 mg BID HUMBERTO Administration Sodium Chloride 10 ml 10/05/18 10:00 10/13/18 09:54 Sodium Chloride Flush Syringe 10 Ml IV 10 ml BID HUMBERTO Administration Sodium Chloride 10 ml 04/17/19 05:16 Sodium Chloride Flush Syringe 10 Ml IV PRN PRN LINE FLUSH Nutrition/Malnutrition Assess - Dietary Evaluation Nutrition/Malnutrition Findings: Nutrition Notes Start: 10/05/18 12:40 Freq: Status: Active Protocol: Document 10/11/18 10:44 SA (Rec: 10/11/18 10:51 SA [id number]) Co-Sign 10/11/18 10:44 LP Nutrition Notes Initial or Follow up Reassessment Current Diagnosis COPD,Hypertension Other Pertinent Diagnosis lung CA, Asthma, CO, biploar Current Diet Vital AF @ 60mL/hr Labs/Tests BUN: 35 Glu: 151 POC: 167 Pertinent Medications Propofol. Solu-Medrol Height 5 ft 6 in Weight 80.7 kg [place] Pool Body Weight (kg) 59.09 BMI 28.7 Weight Status Overweight Subjective/Other Information Observed patient's TF running at goal rate of 60ml/hr. Per pt nurse, pt tolerating TF. Percent of energy/protein needs met: 97%/100% Burn Absent Trauma Absent #1 Nutrition Diagnosis Inadequate oral intake Diagnosis Progress(for reassessment Continues documentation) Is patient on ventilator? Yes Is Patient Ambulatory and/or Out of Bed No REE-([facility]-confined to bed) 1683.192 Calculation Used for Recommendations [facility] Additional Notes PRO: 97g-161g PRO (1.2 - 2.0 g /day) Fluid: 1 mL/kcal or per MD Nutrition Intervention Change Diet Order: TF Nutrition Support: Vital AF 1.2 at 60mL/hr Water Flush 150 mL q4h Kcal 1,728 Protein (gm) 108 Fluid (mL) 1,168 Goal #1 Continue to meet at least 75% of kcal and pro needs via TF Anticipated Discharge Needs: unable to determine at this time. Follow-Up By: 10/14/18 Additional Comments F/U: stable TF
[2018-10-13] MEDS: HABITROL TD SCH (12:40)
--- NOTE | 2018-10-13 13:25 | Consultation ---
History of Present Illness - Reason for Consult Consult date: 10/13/18 Reason for consult: Mental Health Evaluation Requesting physician: YULIA EDWARDS - Chief Complaint Chief complaint: "I was upset" - History of Present Psychiatric Illness 57 years old AA female who presented to the ER for respiratory arrest with oxygen saturation of 60%. Psychiatry was consulted to the patient for behavioral disturbances. Today the patient is calm and cooperative during the assessment. She stated that she was "upset" yesterday because she wanted to smoke a cigarette, she denies wanting to hurt anyone. She stated that prior to her arrival to the ER, she was smoking crack cocaine. She stated, "I smoked a lot of crack. " She stated that her actions were unsafe and denies trying to kill herself by overdosing. She stated that she can stop "smoking cold turkey." She stated that she has a hx of depression/anxiety and take Cymbalta and Valium. Also, she stated that she takes Seroquel for sleep. She denies having Bipolar DO. She stated that she is seen by Dr Ant Braxton for outpatient psy services. Per collateral information from her daughter Zeny Gerber at [phone], she denies that her mother tried to kill herself by overdosing on crack cocaine. She stated, "My mom has a drug problem." She confirmed that her mother is seen by Dr Ant Braxton. She also confirmed her mother's medications. The patient denies SI/HI's and AVH's. She denies alcohol consumption (etoh). Medications and Allergies Allergies Allergy/AdvReac Type Severity Reaction Status Date / Time laughing gas Allergy Unknown Uncoded 02/14/18 10:27 Home Medications Medication Instructions Recorded Confirmed Last Taken Type Cetirizine HCl [ZyrTEC] 10 mg PO QDAY 14 Days #14 capsule 01/21/18 10/11/18 Unknown Rx Albuterol Sulfate [Proair 90 mcg IH Q4HR PRN #2 aer.pow.ba 02/14/18 10/11/18 Unknown Rx Respiclick] Benzonatate [Tessalon Perles] 100 mg PO Q8HR PRN #30 capsule 02/14/18 10/11/18 Unknown Rx Aspirin [Aspirin BABY CHEW TAB] 81 mg PO QDAY #30 tab.chew 10/05/18 10/11/18 Unknown Rx Cymbalta 60 mg PO DAILY 10/05/18 10/11/18 Unknown History Albuterol 0.63% NEBS 3 ml INHALATION Q4H PRN 10/11/18 10/11/18 Unknown History Amlodipine Besylate 10 mg PO DAILY 10/11/18 10/11/18 Unknown History Metoprolol Tartrate 100 mg PO DAILY 10/11/18 10/11/18 Unknown History Protonix 40 mg PO DAILY 10/11/18 10/11/18 Unknown History SEROquel XR 50 mg PO DAILY 10/11/18 10/11/18 Unknown History Sucralfate [Carafate] 1 gm PO QID 10/11/18 10/11/18 Unknown History Active Meds: Active Medications Acetaminophen (Tylenol) 650 mg PO Q4H PRN PRN Reason: Pain MILD(1-3)/Fever >100.5/MIMS Last Admin: 10/12/18 10:25 Dose: 650 mg Documented by: Albuterol (Proventil) 2.5 mg IH Q4HRT PRN PRN Reason: Shortness Of Breath Arformoterol Tartrate (Brovana Nebu) 15 mcg IH Q12HRT [facility] Last Admin: 10/13/18 10:06 Dose: 15 mcg Documented by: Budesonide (Pulmicort) 0.5 mg IH Q12HRT [facility] Last Admin: 10/13/18 10:06 Dose: 0.5 mg Documented by: Carvedilol (Coreg) 3.125 mg PO BID [facility] Last Admin: 10/13/18 09:53 Dose: 3.125 mg Documented by: Duloxetine HCl (Cymbalta) 60 mg PO QDAY [facility] Enoxaparin Sodium (Lovenox) 40 mg SUB-Q QDAY@1000 [facility] Last Admin: 10/13/18 09:52 Dose: 40 mg Documented by: Famotidine (Pepcid) 20 mg PO BID [facility] Last Admin: 10/13/18 10:02 Dose: 20 mg Documented by: Hydralazine HCl (Apresoline) 25 mg PO Q12HR [facility] Last Admin: 10/13/18 09:53 Dose: 25 mg Documented by: Hydrophilic Ointment (Vaseline Lip Therapy) 1 applic TP Q2HR PRN PRN Reason: Dry Lips Insulin Human Regular (Humulin R) 0 units SUB-Q ACHS [facility]; Protocol Last Admin: 10/13/18 10:03 Dose: 2 units Documented by: Lisinopril (Zestril) 2.5 mg PO QDAY [facility] Last Admin: 10/13/18 09:53 Dose: 2.5 mg Documented by: Lorazepam (Ativan) 1 mg IV Q4H PRN PRN Reason: Seizures Last Admin: 10/10/18 09:30 Dose: 1 mg Documented by: Methylprednisolone Sodium Succinate (Solu-Medrol) 40 mg IV Q12HR [facility] Last Admin: 10/13/18 09:52 Dose: 40 mg Documented by: Multi-Ingred Cream/Lotion/Oil/Oint (Artificial Tears Ophth Oint) 1 applic OU Q4HR PRN PRN Reason: Dry Eye(s) Nicotine (Habitrol) 21 mg TD QDAY [facility] Last Admin: 10/13/18 12:40 Dose: 21 mg Documented by: Ondansetron HCl (Zofran) 4 mg IV Q8H PRN PRN Reason: Nausea And Vomiting Quetiapine Fumarate (Seroquel) 200 mg PO QHS [facility] Sodium Chloride (Sodium Chloride Flush Syringe 10 Ml) 10 ml IV BID [facility] Last Admin: 10/13/18 09:54 Dose: 10 ml Documented by: Sodium Chloride (Sodium Chloride Flush Syringe 10 Ml) 10 ml IV PRN PRN PRN Reason: LINE FLUSH Past psychiatric history - Past Medical History Past Medical History: COPD, hypertension Past Surgical History: No surgical history - past Psychiatric treatment and history psychiatric treatment history: Hx of depression and substance abuse. Denies a fam psy hx. - Social History Social history: lives with family Mental Status Exam - Vital signs Last Vital Signs Temp 97.5 F L 10/13/18 04:27 Pulse 64 10/13/18 04:27 Resp 18 10/13/18 04:27 BP 126/67 10/13/18 04:27 Pulse Ox 95 10/13/18 04:27 - Exam Narrative exam: MSE: Appearance: calm, cooperative Behavior: regular eye contact Speech: regular rate and tone Mood: "okay" Affect: congruent to mood Thought Process: logical Thought Content: denies SI/HI's and AVH's Motor Activity: lying in bed Cognition: A/O x3 Insight: appropriate Judgment: appropriate Results Result Diagrams: 10/13/18 06:44 10/13/18 06:44 Abnormal lab results 10/12/18 10/12/18 10/13/18 Range/Units 17:05 22:23 06:44 WBC 13.2 H (4.5-11.0) K/mm3 Hgb 15.3 H (10.1-14.3) gm/dl Hct 45.5 H (30.3-42.9) % BUN (7-17) mg/dL Glucose (65-100) mg/dL POC Glucose 201 H 152 H (70-105) 10/13/18 Range/Units 06:44 WBC (4.5-11.0) K/mm3 Hgb (10.1-14.3) gm/dl Hct (30.3-42.9) % BUN 27 H (7-17) mg/dL Glucose 160 H (65-100) mg/dL POC Glucose (70-105) All other labs normal. Assessment and Plan Assessment and plan: Impression: Hx of Depression/Anxiety. Substance Use DO (cocaine). Today the patient is calm and cooperative during the assessment. The patient is positive for benzos. the patient is no threat to self or others. DDx: R/O Bipolar DO Recommendation/Plan: Rescind 1013 and start home medications Cymbalta 60 mg PO daily for depression, Valium 5 mg PO Q12 hrs PRN for acute anxiety.and modify Seroquel to 200 mg PO HS. Discussed possible suicidality/medication induced juanpablo with the patient reference Cymbalta. Discussed possible metabolic side effects of Seroquel with the patient. Discussed the importance to abstain from recreational drug use with the patient, she verbalized understanding. Dispo: The patient can follow up with Dr Braxton for outpatient psy services. Staffed with Dr Regina Cabral.
[2018-10-13] MEDS ORDERED: VALIUM PO PRN (13:36)
--- NOTE | 2018-10-13 13:55 | Progress Note ---
Subjective Date of service: 10/13/18 Principal diagnosis: Acute Hypoxemic Resp failure; Polysubstance abuse;Acute Pulm Edema Interval history: having hallucinations visual advise risperidol Objective - Vital Sign Vital Signs - 12hr 10/13/18 04:27 Temperature 97.5 F L Pulse Rate 64 Respiratory 18 Rate Blood Pressure 126/67 O2 Sat by Pulse 95 Oximetry - Laboratory Findings CBC and BMP: 10/13/18 06:44 10/13/18 06:44 Abnormal Lab Findings: Abnormal Labs 10/05/18 10/05/18 10/05/18 03:23 03:23 03:23 WBC Hgb 14.5 H Hct 43.3 H MCV 98 H MCH 33 H Lymph % (Auto) Lymph # Seg Neutrophils % Seg Neuts % (Manual) 96.0 H Lymphocytes % (Manual) 2.0 L Seg Neutrophils # Seg Neutrophils # Man 8.3 H Lymphocytes # (Manual) 0.2 L POC ABG pH POC ABG pCO2 POC ABG pO2 Sodium Potassium Chloride 107.9 H Carbon Dioxide 20 L BUN Glucose 157 H POC Glucose Lactic Acid 3.30 H* Calcium 8.0 L C-Reactive Protein Albumin Triglycerides Ur Specific [place] 10/05/18 10/05/18 10/05/18 03:47 04:21 06:10 WBC Hgb Hct MCV MCH Lymph % (Auto) Lymph # Seg Neutrophils % Seg Neuts % (Manual) Lymphocytes % (Manual) Seg Neutrophils # Seg Neutrophils # Man Lymphocytes # (Manual) POC ABG pH 7.096 L POC ABG pCO2 POC ABG pO2 166 H Sodium Potassium Chloride Carbon Dioxide BUN Glucose POC Glucose Lactic Acid 2.60 H* Calcium C-Reactive Protein Albumin Triglycerides Ur Specific [place] 1.031 H 10/05/18 10/05/18 10/05/18 06:39 07:09 10:48 WBC Hgb Hct MCV MCH Lymph % (Auto) Lymph # Seg Neutrophils % Seg Neuts % (Manual) Lymphocytes % (Manual) Seg Neutrophils # Seg Neutrophils # Man Lymphocytes # (Manual) POC ABG pH 7.241 L 7.178 L POC ABG pCO2 45.2 H 49.3 H POC ABG pO2 57 L 62 L Sodium Potassium Chloride Carbon Dioxide BUN Glucose POC Glucose Lactic Acid 2.80 H* Calcium C-Reactive Protein Albumin Triglycerides Ur Specific [place] 10/05/18 10/05/18 10/06/18 12:42 17:11 04:11 WBC 14.0 H Hgb Hct MCV 99 H MCH Lymph % (Auto) Lymph # Seg Neutrophils % Seg Neuts % (Manual) Lymphocytes % (Manual) Seg Neutrophils # Seg Neutrophils # Man Lymphocytes # (Manual) POC ABG pH 7.206 L POC ABG pCO2 POC ABG pO2 74 L Sodium Potassium Chloride Carbon Dioxide BUN Glucose POC Glucose Lactic Acid Calcium C-Reactive Protein Albumin Triglycerides Ur Specific [place] 1.035 H 10/06/18 10/06/18 10/06/18 04:11 04:18 09:32 WBC Hgb Hct MCV MCH Lymph % (Auto) Lymph # Seg Neutrophils % Seg Neuts % (Manual) Lymphocytes % (Manual) Seg Neutrophils # Seg Neutrophils # Man Lymphocytes # (Manual) POC ABG pH 7.270 L POC ABG pCO2 POC ABG pO2 67 L Sodium Potassium 5.2 H D Chloride 116.1 H Carbon Dioxide 17 L BUN Glucose 132 H POC Glucose Lactic Acid 2.70 H* Calcium 7.8 L C-Reactive Protein Albumin 2.7 L Triglycerides Ur Specific [place] 10/06/18 10/06/18 10/06/18 12:24 12:24 22:10 WBC Hgb Hct MCV MCH Lymph % (Auto) Lymph # Seg Neutrophils % Seg Neuts % (Manual) Lymphocytes % (Manual) Seg Neutrophils # Seg Neutrophils # Man Lymphocytes # (Manual) POC ABG pH 7.314 L POC ABG pCO2 48.5 H POC ABG pO2 64 L Sodium Potassium Chloride 113.9 H Carbon Dioxide 20 L BUN Glucose 134 H POC Glucose Lactic Acid Calcium C-Reactive Protein 3.70 H Albumin Triglycerides Ur Specific [place] 10/06/18 10/07/18 10/07/18 23:46 04:44 04:44 WBC 12.7 H Hgb Hct MCV 99 H MCH Lymph % (Auto) Lymph # Seg Neutrophils % Seg Neuts % (Manual) Lymphocytes % (Manual) Seg Neutrophils # Seg Neutrophils # Man Lymphocytes # (Manual) POC ABG pH POC ABG pCO2 POC ABG pO2 Sodium Potassium 6.3 H* D Chloride 110.1 H Carbon Dioxide BUN Glucose 168 H POC Glucose 135 H Lactic Acid Calcium C-Reactive Protein Albumin Triglycerides Ur Specific [place] 10/07/18 10/07/18 10/07/18 04:44 09:30 09:44 WBC Hgb Hct MCV MCH Lymph % (Auto) Lymph # Seg Neutrophils % Seg Neuts % (Manual) Lymphocytes % (Manual) Seg Neutrophils # Seg Neutrophils # Man Lymphocytes # (Manual) POC ABG pH 7.335 L POC ABG pCO2 56.3 H POC ABG pO2 64 L Sodium Potassium 3.2 L D Chloride Carbon Dioxide BUN Glucose POC Glucose Lactic Acid 2.20 H* Calcium C-Reactive Protein Albumin Triglycerides Ur Specific [place] 10/07/18 10/07/18 10/08/18 12:06 18:38 04:33 WBC Hgb Hct MCV MCH Lymph % (Auto) Lymph # Seg Neutrophils % Seg Neuts % (Manual) Lymphocytes % (Manual) Seg Neutrophils # Seg Neutrophils # Man Lymphocytes # (Manual) POC ABG pH 7.510 H POC ABG pCO2 POC ABG pO2 50 L Sodium Potassium Chloride Carbon Dioxide BUN Glucose POC Glucose 131 H 134 H Lactic Acid Calcium C-Reactive Protein Albumin Triglycerides Ur Specific [place] 10/08/18 10/08/18 10/08/18 04:49 05:38 08:24 WBC 11.7 H Hgb Hct MCV MCH Lymph % (Auto) 7.5 L Lymph # 0.9 L Seg Neutrophils % 86.0 H Seg Neuts % (Manual) Lymphocytes % (Manual) Seg Neutrophils # 10.0 H Seg Neutrophils # Man Lymphocytes # (Manual) POC ABG pH POC ABG pCO2 53.6 H POC ABG pO2 69 L Sodium Potassium Chloride Carbon Dioxide BUN Glucose POC Glucose 179 H Lactic Acid Calcium C-Reactive Protein Albumin Triglycerides Ur Specific [place] 10/08/18 10/08/18 10/08/18 08:24 09:12 13:05 WBC Hgb Hct MCV MCH Lymph % (Auto) Lymph # Seg Neutrophils % Seg Neuts % (Manual) Lymphocytes % (Manual) Seg Neutrophils # Seg Neutrophils # Man Lymphocytes # (Manual) POC ABG pH POC ABG pCO2 POC ABG pO2 Sodium Potassium 2.7 L* Chloride Carbon Dioxide 33 H D BUN 18 H Glucose 182 H POC Glucose 194 H 139 H Lactic Acid Calcium 8.3 L C-Reactive Protein Albumin Triglycerides Ur Specific [place] 10/08/18 10/08/18 10/08/18 17:55 21:18 21:29 WBC Hgb Hct MCV MCH Lymph % (Auto) Lymph # Seg Neutrophils % Seg Neuts % (Manual) Lymphocytes % (Manual) Seg Neutrophils # Seg Neutrophils # Man Lymphocytes # (Manual) POC ABG pH 7.465 H POC ABG pCO2 49.3 H POC ABG pO2 69 L Sodium Potassium Chloride Carbon Dioxide BUN Glucose POC Glucose 157 H 134 H Lactic Acid Calcium C-Reactive Protein Albumin Triglycerides Ur Specific [place] 10/09/18 10/09/18 10/09/18 04:20 04:20 07:51 WBC 11.9 H Hgb Hct MCV MCH Lymph % (Auto) Lymph # Seg Neutrophils % Seg Neuts % (Manual) Lymphocytes % (Manual) Seg Neutrophils # Seg Neutrophils # Man Lymphocytes # (Manual) POC ABG pH POC ABG pCO2 POC ABG pO2 Sodium 146 H Potassium 3.0 L Chloride Carbon Dioxide 34 H BUN 26 H Glucose 171 H POC Glucose 142 H Lactic Acid Calcium C-Reactive Protein Albumin Triglycerides Ur Specific [place] 10/09/18 10/09/18 10/09/18 11:48 13:24 17:22 WBC Hgb Hct MCV MCH Lymph % (Auto) Lymph # Seg Neutrophils % Seg Neuts % (Manual) Lymphocytes % (Manual) Seg Neutrophils # Seg Neutrophils # Man Lymphocytes # (Manual) POC ABG pH 7.492 H POC ABG pCO2 45.1 H POC ABG pO2 72 L Sodium Potassium Chloride Carbon Dioxide BUN Glucose POC Glucose 131 H 117 H Lactic Acid Calcium C-Reactive Protein Albumin Triglycerides Ur Specific [place] 10/09/18 10/10/18 10/10/18 21:53 03:30 03:30 WBC 15.2 H Hgb 14.4 H Hct 44.0 H MCV MCH Lymph % (Auto) Lymph # Seg Neutrophils % Seg Neuts % (Manual) Lymphocytes % (Manual) Seg Neutrophils # Seg Neutrophils # Man Lymphocytes # (Manual) POC ABG pH POC ABG pCO2 POC ABG pO2 Sodium 146 H Potassium Chloride Carbon Dioxide 34 H BUN 31 H Glucose 133 H POC Glucose 143 H Lactic Acid Calcium C-Reactive Protein Albumin Triglycerides Ur Specific [place] 10/10/18 10/10/18 10/10/18 03:30 04:53 07:43 WBC Hgb Hct MCV MCH Lymph % (Auto) Lymph # Seg Neutrophils % Seg Neuts % (Manual) Lymphocytes % (Manual) Seg Neutrophils # Seg Neutrophils # Man Lymphocytes # (Manual) POC ABG pH POC ABG pCO2 63.5 H POC ABG pO2 Sodium Potassium Chloride Carbon Dioxide BUN Glucose POC Glucose 149 H Lactic Acid Calcium C-Reactive Protein Albumin Triglycerides 188 H Ur Specific [place] 10/10/18 10/10/18 10/10/18 12:58 17:11 22:43 WBC Hgb Hct MCV MCH Lymph % (Auto) Lymph # Seg Neutrophils % Seg Neuts % (Manual) Lymphocytes % (Manual) Seg Neutrophils # Seg Neutrophils # Man Lymphocytes # (Manual) POC ABG pH POC ABG pCO2 POC ABG pO2 Sodium Potassium Chloride Carbon Dioxide BUN Glucose POC Glucose 174 H 162 H 137 H Lactic Acid Calcium C-Reactive Protein Albumin Triglycerides Ur Specific [place] 10/11/18 10/11/18 10/11/18 04:13 04:51 04:51 WBC 17.6 H Hgb 14.8 H Hct 43.7 H MCV MCH Lymph % (Auto) Lymph # Seg Neutrophils % Seg Neuts % (Manual) Lymphocytes % (Manual) Seg Neutrophils # Seg Neutrophils # Man Lymphocytes # (Manual) POC ABG pH 7.517 H POC ABG pCO2 POC ABG pO2 62 L Sodium Potassium Chloride Carbon Dioxide 32 H BUN 35 H Glucose 151 H POC Glucose Lactic Acid Calcium C-Reactive Protein Albumin 2.9 L Triglycerides Ur Specific [place] 10/11/18 10/11/18 10/11/18 07:25 11:32 16:43 WBC Hgb Hct MCV MCH Lymph % (Auto) Lymph # Seg Neutrophils % Seg Neuts % (Manual) Lymphocytes % (Manual) Seg Neutrophils # Seg Neutrophils # Man Lymphocytes # (Manual) POC ABG pH 7.514 H POC ABG pCO2 POC ABG pO2 Sodium Potassium Chloride Carbon Dioxide BUN Glucose POC Glucose 167 H 164 H Lactic Acid Calcium C-Reactive Protein Albumin Triglycerides Ur Specific [place] 10/11/18 10/11/18 10/12/18 17:37 22:03 04:17 WBC 13.3 H Hgb 15.9 H Hct 47.8 H MCV MCH Lymph % (Auto) Lymph # Seg Neutrophils % Seg Neuts % (Manual) Lymphocytes % (Manual) Seg Neutrophils # Seg Neutrophils # Man Lymphocytes # (Manual) POC ABG pH POC ABG pCO2 POC ABG pO2 Sodium Potassium Chloride Carbon Dioxide BUN Glucose POC Glucose 131 H 131 H Lactic Acid Calcium C-Reactive Protein Albumin Triglycerides Ur Specific [place] 10/12/18 10/12/18 10/12/18 04:17 08:48 11:35 WBC Hgb Hct MCV MCH Lymph % (Auto) Lymph # Seg Neutrophils % Seg Neuts % (Manual) Lymphocytes % (Manual) Seg Neutrophils # Seg Neutrophils # Man Lymphocytes # (Manual) POC ABG pH POC ABG pCO2 POC ABG pO2 Sodium Potassium 3.5 L Chloride 97.7 L Carbon Dioxide BUN 26 H Glucose 125 H POC Glucose 147 H 187 H Lactic Acid Calcium C-Reactive Protein Albumin Triglycerides Ur Specific [place] 10/12/18 10/12/18 10/13/18 17:05 22:23 06:44 WBC 13.2 H Hgb 15.3 H Hct 45.5 H MCV MCH Lymph % (Auto) Lymph # Seg Neutrophils % Seg Neuts % (Manual) Lymphocytes % (Manual) Seg Neutrophils # Seg Neutrophils # Man Lymphocytes # (Manual) POC ABG pH POC ABG pCO2 POC ABG pO2 Sodium Potassium Chloride Carbon Dioxide BUN Glucose POC Glucose 201 H 152 H Lactic Acid Calcium C-Reactive Protein Albumin Triglycerides Ur Specific [place] 10/13/18 06:44 WBC Hgb Hct MCV MCH Lymph % (Auto) Lymph # Seg Neutrophils % Seg Neuts % (Manual) Lymphocytes % (Manual) Seg Neutrophils # Seg Neutrophils # Man Lymphocytes # (Manual) POC ABG pH POC ABG pCO2 POC ABG pO2 Sodium Potassium Chloride Carbon Dioxide BUN 27 H Glucose 160 H POC Glucose Lactic Acid Calcium C-Reactive Protein Albumin Triglycerides Ur Specific [place]
[2018-10-13] MEDS: CYMBALTA PO SCH (19:19)
[2018-10-13] MEDS: RisperDAL PO SCH (22:33)
[2018-10-14 07:03] LABS: Hematocrit 47.9 % (30.3-42.9); Hemoglobin 15.7 gm/dl (10.1-14.3); Mean Corpuscular HGB Conc 33 % (30-34); Mean Corpuscular Volume 96 fl (79-97); Platelet Count 210 K/mm3 (140-440); Red Blood Count 4.99 M/mm3 (3.65-5.03); Red Cell Distribution Width 14.2 % (13.2-15.2)
[2018-10-14 07:30] LABS: BUN/Creatinine Ratio 31; Blood Urea Nitrogen 22 mg/dL (7-17); Calcium 8.8 mg/dL (8.4-10.2); Hemolysis Index 157
[2018-10-14] MEDS: HumuLIN R SUB-Q SCH ×4 (07:30→21:58)
[2018-10-14] MEDS: PULMICORT IH SCH ×2 (08:28→19:51)
[2018-10-14] MEDS: BROVANA NEBU IH SCH ×2 (08:28→19:51)
[2018-10-14] MEDS: COREG PO SCH ×2 (10:00→23:35)
[2018-10-14] MEDS: RisperDAL PO SCH ×2 (10:00→23:35)
[2018-10-14] MEDS: LOVENOX SUB-Q SCH (10:00)
[2018-10-14] MEDS: HABITROL TD SCH (10:00)
[2018-10-14] MEDS: SODIUM CHLORIDE FLUSH SYRINGE 10 ML IV SCH ×2 (10:00→23:36)
[2018-10-14] MEDS: SOLU-Medrol IV SCH ×2 (10:00→23:36)
[2018-10-14] MEDS: ZESTRIL PO SCH (10:00)
[2018-10-14] MEDS: CYMBALTA PO SCH (10:00)
[2018-10-14] MEDS: PEPCID PO SCH ×2 (10:00→23:36)
[2018-10-14] MEDS: APRESOLINE PO SCH ×2 (10:00→23:35)
--- NOTE | 2018-10-14 11:48 | Progress Note ---
Assessment and Plan Acute Hypoxic Respiratory failure, extubated 10/11/18 Polysubstance abuse, Cocaine and Benzos Pulmonary Edema, resolved Acute Toxic metabolic Encephalopathy ?secondary to drug abuse or other etiology Leukocytosis COPD- stable Active Smoker Hepatitis C Bipolar disorder Atrial Fibrillation by hx Anxiety- and on Valium per family - continue bronchodilators with pulmonary hygiene per RT -Supplemental oxygen to keep O2 sats>90% -Gentle diuresis while monitoring renal function and hemodynamics. -Keep euvolemic - prn blood draws - VTE prophylaxis - flu & pneumovax per protocol Discharge planning per primary service, stable from pulmonary standpoint for discharge Needs outpatient pulmonary out patient follow up. With persistent erythrocytosis, this may be secondary to nocturnal hypoxia and sleep apnea. Oxygen safety discussed Smoking cessation counselling Psych consult notes reviewed. Subjective Date of service: 10/14/18 Principal diagnosis: Acute Hypoxemic Resp failure; Polysubstance abuse;Acute Pulm Edema Interval history: Patient is seen today for: Acute Hypoxemic Respiratory failure; Polysubstance abuse (Cocaine and Benzos); Acute Pulmonary Edema; Acute Toxic metabolic Encephalopathy ?secondary to drug abuse or other etiology; Metabolic Acidosis; Leukocytosis Seen and examined at bedside; 24hour events reviewed; nursing and respiratory care staff consulted; no adverse overnight events reported to me; resting peacefully in bed, no emesis or overt aspiration; sitter at the bedside, "when can I go home" Objective Vital Signs - 12hr 10/14/18 10/14/18 10/14/18 01:49 04:37 05:05 Temperature 98.0 F Pulse Rate 66 71 70 Pulse Rate [ Anterior Bilateral Throughout] Respiratory 18 18 Rate Respiratory Rate [Anterior Bilateral Throughout] Blood Pressure 107/79 O2 Sat by Pulse 99 93 Oximetry 10/14/18 10/14/18 10/14/18 07:58 08:28 08:38 Temperature 98.3 F Pulse Rate 67 Pulse Rate [ 83 85 Anterior Bilateral Throughout] Respiratory 18 Rate Respiratory 20 20 Rate [Anterior Bilateral Throughout] Blood Pressure 146/76 O2 Sat by Pulse 100 100 Oximetry 10/14/18 10/14/18 10:00 10:17 Temperature 98.2 F Pulse Rate 101 H 101 H Pulse Rate [ Anterior Bilateral Throughout] Respiratory 16 Rate Respiratory Rate [Anterior Bilateral Throughout] Blood Pressure 156/92 156/92 O2 Sat by Pulse 94 Oximetry Constitutional: no acute distress, other (elderly looking AAF, normocephalic and with mildly increased resp effort at rest) Eyes: non-icteric ENT: oropharynx moist Neck: supple, no lymphadenopathy, no JVD, other (no thyromegaly) Effort: normal Ascultation: Bilateral: diminished breath sounds, rhonchi (bases), other (prolonged exp phase) Percussion: Bilateral: not dull Cardiovascular: regular rate and rhythm, other (S1,S2, no murmurs, gallops or rubs) Gastrointestinal: normoactive bowel sounds, soft, non-tender, non-distended Integumentary: normal Extremities: no cyanosis, no edema, pulses normal, no ischemia or petechiae Neurologic: non-focal exam (grossly), pupils equal and round, motor strength normal and Psychiatric: mood appropriate, affect normal CBC and BMP: 10/14/18 06:25 10/14/18 06:25 ABG, PT/INR, D-dimer: ABG POC ABG pH 7.514 (7.35-7.45) H 10/11/18 16:43 POC ABG pCO2 41.6 (35-45) 10/11/18 16:43 POC ABG pO2 80 (80-105) 10/11/18 16:43 POC ABG HCO3 33.5 (22-26 mml/L) 10/11/18 16:43 POC ABG Total CO2 35 (23-27mmol/L) 10/11/18 16:43 POC ABG O2 Sat 97 10/11/18 16:43 Abnormal lab findings: Abnormal Labs 10/05/18 10/05/18 10/05/18 03:23 03:23 03:23 WBC Hgb 14.5 H Hct 43.3 H MCV 98 H MCH 33 H Lymph % (Auto) Lymph # Seg Neutrophils % Seg Neuts % (Manual) 96.0 H Lymphocytes % (Manual) 2.0 L Seg Neutrophils # Seg Neutrophils # Man 8.3 H Lymphocytes # (Manual) 0.2 L POC ABG pH POC ABG pCO2 POC ABG pO2 Sodium Potassium Chloride 107.9 H Carbon Dioxide 20 L BUN Glucose 157 H POC Glucose Lactic Acid 3.30 H* Calcium 8.0 L C-Reactive Protein Albumin Triglycerides Ur Specific [place] 10/05/18 10/05/18 10/05/18 03:47 04:21 06:10 WBC Hgb Hct MCV MCH Lymph % (Auto) Lymph # Seg Neutrophils % Seg Neuts % (Manual) Lymphocytes % (Manual) Seg Neutrophils # Seg Neutrophils # Man Lymphocytes # (Manual) POC ABG pH 7.096 L POC ABG pCO2 POC ABG pO2 166 H Sodium Potassium Chloride Carbon Dioxide BUN Glucose POC Glucose Lactic Acid 2.60 H* Calcium C-Reactive Protein Albumin Triglycerides Ur Specific [place] 1.031 H 10/05/18 10/05/18 10/05/18 06:39 07:09 10:48 WBC Hgb Hct MCV MCH Lymph % (Auto) Lymph # Seg Neutrophils % Seg Neuts % (Manual) Lymphocytes % (Manual) Seg Neutrophils # Seg Neutrophils # Man Lymphocytes # (Manual) POC ABG pH 7.241 L 7.178 L POC ABG pCO2 45.2 H 49.3 H POC ABG pO2 57 L 62 L Sodium Potassium Chloride Carbon Dioxide BUN Glucose POC Glucose Lactic Acid 2.80 H* Calcium C-Reactive Protein Albumin Triglycerides Ur Specific [place] 10/05/18 10/05/18 10/06/18 12:42 17:11 04:11 WBC 14.0 H Hgb Hct MCV 99 H MCH Lymph % (Auto) Lymph # Seg Neutrophils % Seg Neuts % (Manual) Lymphocytes % (Manual) Seg Neutrophils # Seg Neutrophils # Man Lymphocytes # (Manual) POC ABG pH 7.206 L POC ABG pCO2 POC ABG pO2 74 L Sodium Potassium Chloride Carbon Dioxide BUN Glucose POC Glucose Lactic Acid Calcium C-Reactive Protein Albumin Triglycerides Ur Specific [place] 1.035 H 10/06/18 10/06/18 10/06/18 04:11 04:18 09:32 WBC Hgb Hct MCV MCH Lymph % (Auto) Lymph # Seg Neutrophils % Seg Neuts % (Manual) Lymphocytes % (Manual) Seg Neutrophils # Seg Neutrophils # Man Lymphocytes # (Manual) POC ABG pH 7.270 L POC ABG pCO2 POC ABG pO2 67 L Sodium Potassium 5.2 H D Chloride 116.1 H Carbon Dioxide 17 L BUN Glucose 132 H POC Glucose Lactic Acid 2.70 H* Calcium 7.8 L C-Reactive Protein Albumin 2.7 L Triglycerides Ur Specific [place] 10/06/18 10/06/18 10/06/18 12:24 12:24 22:10 WBC Hgb Hct MCV MCH Lymph % (Auto) Lymph # Seg Neutrophils % Seg Neuts % (Manual) Lymphocytes % (Manual) Seg Neutrophils # Seg Neutrophils # Man Lymphocytes # (Manual) POC ABG pH 7.314 L POC ABG pCO2 48.5 H POC ABG pO2 64 L Sodium Potassium Chloride 113.9 H Carbon Dioxide 20 L BUN Glucose 134 H POC Glucose Lactic Acid Calcium C-Reactive Protein 3.70 H Albumin Triglycerides Ur Specific [place] 10/06/18 10/07/18 10/07/18 23:46 04:44 04:44 WBC 12.7 H Hgb Hct MCV 99 H MCH Lymph % (Auto) Lymph # Seg Neutrophils % Seg Neuts % (Manual) Lymphocytes % (Manual) Seg Neutrophils # Seg Neutrophils # Man Lymphocytes # (Manual) POC ABG pH POC ABG pCO2 POC ABG pO2 Sodium Potassium 6.3 H* D Chloride 110.1 H Carbon Dioxide BUN Glucose 168 H POC Glucose 135 H Lactic Acid Calcium C-Reactive Protein Albumin Triglycerides Ur Specific [place] 10/07/18 10/07/18 10/07/18 04:44 09:30 09:44 WBC Hgb Hct MCV MCH Lymph % (Auto) Lymph # Seg Neutrophils % Seg Neuts % (Manual) Lymphocytes % (Manual) Seg Neutrophils # Seg Neutrophils # Man Lymphocytes # (Manual) POC ABG pH 7.335 L POC ABG pCO2 56.3 H POC ABG pO2 64 L Sodium Potassium 3.2 L D Chloride Carbon Dioxide BUN Glucose POC Glucose Lactic Acid 2.20 H* Calcium C-Reactive Protein Albumin Triglycerides Ur Specific [place] 10/07/18 10/07/18 10/08/18 12:06 18:38 04:33 WBC Hgb Hct MCV MCH Lymph % (Auto) Lymph # Seg Neutrophils % Seg Neuts % (Manual) Lymphocytes % (Manual) Seg Neutrophils # Seg Neutrophils # Man Lymphocytes # (Manual) POC ABG pH 7.510 H POC ABG pCO2 POC ABG pO2 50 L Sodium Potassium Chloride Carbon Dioxide BUN Glucose POC Glucose 131 H 134 H Lactic Acid Calcium C-Reactive Protein Albumin Triglycerides Ur Specific [place] 10/08/18 10/08/18 10/08/18 04:49 05:38 08:24 WBC 11.7 H Hgb Hct MCV MCH Lymph % (Auto) 7.5 L Lymph # 0.9 L Seg Neutrophils % 86.0 H Seg Neuts % (Manual) Lymphocytes % (Manual) Seg Neutrophils # 10.0 H Seg Neutrophils # Man Lymphocytes # (Manual) POC ABG pH POC ABG pCO2 53.6 H POC ABG pO2 69 L Sodium Potassium Chloride Carbon Dioxide BUN Glucose POC Glucose 179 H Lactic Acid Calcium C-Reactive Protein Albumin Triglycerides Ur Specific [place] 10/08/18 10/08/18 10/08/18 08:24 09:12 13:05 WBC Hgb Hct MCV MCH Lymph % (Auto) Lymph # Seg Neutrophils % Seg Neuts % (Manual) Lymphocytes % (Manual) Seg Neutrophils # Seg Neutrophils # Man Lymphocytes # (Manual) POC ABG pH POC ABG pCO2 POC ABG pO2 Sodium Potassium 2.7 L* Chloride Carbon Dioxide 33 H D BUN 18 H Glucose 182 H POC Glucose 194 H 139 H Lactic Acid Calcium 8.3 L C-Reactive Protein Albumin Triglycerides Ur Specific [place] 10/08/18 10/08/18 10/08/18 17:55 21:18 21:29 WBC Hgb Hct MCV MCH Lymph % (Auto) Lymph # Seg Neutrophils % Seg Neuts % (Manual) Lymphocytes % (Manual) Seg Neutrophils # Seg Neutrophils # Man Lymphocytes # (Manual) POC ABG pH 7.465 H POC ABG pCO2 49.3 H POC ABG pO2 69 L Sodium Potassium Chloride Carbon Dioxide BUN Glucose POC Glucose 157 H 134 H Lactic Acid Calcium C-Reactive Protein Albumin Triglycerides Ur Specific [place] 10/09/18 10/09/18 10/09/18 04:20 04:20 07:51 WBC 11.9 H Hgb Hct MCV MCH Lymph % (Auto) Lymph # Seg Neutrophils % Seg Neuts % (Manual) Lymphocytes % (Manual) Seg Neutrophils # Seg Neutrophils # Man Lymphocytes # (Manual) POC ABG pH POC ABG pCO2 POC ABG pO2 Sodium 146 H Potassium 3.0 L Chloride Carbon Dioxide 34 H BUN 26 H Glucose 171 H POC Glucose 142 H Lactic Acid Calcium C-Reactive Protein Albumin Triglycerides Ur Specific [place] 10/09/18 10/09/18 10/09/18 11:48 13:24 17:22 WBC Hgb Hct MCV MCH Lymph % (Auto) Lymph # Seg Neutrophils % Seg Neuts % (Manual) Lymphocytes % (Manual) Seg Neutrophils # Seg Neutrophils # Man Lymphocytes # (Manual) POC ABG pH 7.492 H POC ABG pCO2 45.1 H POC ABG pO2 72 L Sodium Potassium Chloride Carbon Dioxide BUN Glucose POC Glucose 131 H 117 H Lactic Acid Calcium C-Reactive Protein Albumin Triglycerides Ur Specific [place] 04/10/10/18 10/10/18 21:53 03:30 03:30 WBC 15.2 H Hgb 14.4 H Hct 44.0 H MCV MCH Lymph % (Auto) Lymph # Seg Neutrophils % Seg Neuts % (Manual) Lymphocytes % (Manual) Seg Neutrophils # Seg Neutrophils # Man Lymphocytes # (Manual) POC ABG pH POC ABG pCO2 POC ABG pO2 Sodium 146 H Potassium Chloride Carbon Dioxide 34 H BUN 31 H Glucose 133 H POC Glucose 143 H Lactic Acid Calcium C-Reactive Protein Albumin Triglycerides Ur Specific [place] 10/10/18 10/10/18 10/10/18 03:30 04:53 07:43 WBC Hgb Hct MCV MCH Lymph % (Auto) Lymph # Seg Neutrophils % Seg Neuts % (Manual) Lymphocytes % (Manual) Seg Neutrophils # Seg Neutrophils # Man Lymphocytes # (Manual) POC ABG pH POC ABG pCO2 63.5 H POC ABG pO2 Sodium Potassium Chloride Carbon Dioxide BUN Glucose POC Glucose 149 H Lactic Acid Calcium C-Reactive Protein Albumin Triglycerides 188 H Ur Specific [place] 10/10/18 10/10/18 10/10/18 12:58 17:11 22:43 WBC Hgb Hct MCV MCH Lymph % (Auto) Lymph # Seg Neutrophils % Seg Neuts % (Manual) Lymphocytes % (Manual) Seg Neutrophils # Seg Neutrophils # Man Lymphocytes # (Manual) POC ABG pH POC ABG pCO2 POC ABG pO2 Sodium Potassium Chloride Carbon Dioxide BUN Glucose POC Glucose 174 H 162 H 137 H Lactic Acid Calcium C-Reactive Protein Albumin Triglycerides Ur Specific [place] 10/11/18 10/11/18 10/11/18 04:13 04:51 04:51 WBC 17.6 H Hgb 14.8 H Hct 43.7 H MCV MCH Lymph % (Auto) Lymph # Seg Neutrophils % Seg Neuts % (Manual) Lymphocytes % (Manual) Seg Neutrophils # Seg Neutrophils # Man Lymphocytes # (Manual) POC ABG pH 7.517 H POC ABG pCO2 POC ABG pO2 62 L Sodium Potassium Chloride Carbon Dioxide 32 H BUN 35 H Glucose 151 H POC Glucose Lactic Acid Calcium C-Reactive Protein Albumin 2.9 L Triglycerides Ur Specific [place] 10/11/18 10/11/18 10/11/18 07:25 11:32 16:43 WBC Hgb Hct MCV MCH Lymph % (Auto) Lymph # Seg Neutrophils % Seg Neuts % (Manual) Lymphocytes % (Manual) Seg Neutrophils # Seg Neutrophils # Man Lymphocytes # (Manual) POC ABG pH 7.514 H POC ABG pCO2 POC ABG pO2 Sodium Potassium Chloride Carbon Dioxide BUN Glucose POC Glucose 167 H 164 H Lactic Acid Calcium C-Reactive Protein Albumin Triglycerides Ur Specific [place] 10/11/18 10/11/18 10/12/18 17:37 22:03 04:17 WBC 13.3 H Hgb 15.9 H Hct 47.8 H MCV MCH Lymph % (Auto) Lymph # Seg Neutrophils % Seg Neuts % (Manual) Lymphocytes % (Manual) Seg Neutrophils # Seg Neutrophils # Man Lymphocytes # (Manual) POC ABG pH POC ABG pCO2 POC ABG pO2 Sodium Potassium Chloride Carbon Dioxide BUN Glucose POC Glucose 131 H 131 H Lactic Acid Calcium C-Reactive Protein Albumin Triglycerides Ur Specific [place] 10/12/18 10/12/18 10/12/18 04:17 08:48 11:35 WBC Hgb Hct MCV MCH Lymph % (Auto) Lymph # Seg Neutrophils % Seg Neuts % (Manual) Lymphocytes % (Manual) Seg Neutrophils # Seg Neutrophils # Man Lymphocytes # (Manual) POC ABG pH POC ABG pCO2 POC ABG pO2 Sodium Potassium 3.5 L Chloride 97.7 L Carbon Dioxide BUN 26 H Glucose 125 H POC Glucose 147 H 187 H Lactic Acid Calcium C-Reactive Protein Albumin Triglycerides Ur Specific [place] 10/12/18 10/12/18 10/13/18 17:05 22:23 06:44 WBC 13.2 H Hgb 15.3 H Hct 45.5 H MCV MCH Lymph % (Auto) Lymph # Seg Neutrophils % Seg Neuts % (Manual) Lymphocytes % (Manual) Seg Neutrophils # Seg Neutrophils # Man Lymphocytes # (Manual) POC ABG pH POC ABG pCO2 POC ABG pO2 Sodium Potassium Chloride Carbon Dioxide BUN Glucose POC Glucose 201 H 152 H Lactic Acid Calcium C-Reactive Protein Albumin Triglycerides Ur Specific [place] 10/13/18 10/13/18 10/14/18 06:44 20:53 06:25 WBC 17.7 H Hgb 15.7 H Hct 47.9 H MCV MCH Lymph % (Auto) Lymph # Seg Neutrophils % Seg Neuts % (Manual) Lymphocytes % (Manual) Seg Neutrophils # Seg Neutrophils # Man Lymphocytes # (Manual) POC ABG pH POC ABG pCO2 POC ABG pO2 Sodium Potassium Chloride Carbon Dioxide BUN 27 H Glucose 160 H POC Glucose 169 H Lactic Acid Calcium C-Reactive Protein Albumin Triglycerides Ur Specific [place] 04/26/19 06:25 WBC Hgb Hct MCV MCH Lymph % (Auto) Lymph # Seg Neutrophils % Seg Neuts % (Manual) Lymphocytes % (Manual) Seg Neutrophils # Seg Neutrophils # Man Lymphocytes # (Manual) POC ABG pH POC ABG pCO2 POC ABG pO2 Sodium 135 L Potassium Chloride 96.7 L Carbon Dioxide BUN 22 H Glucose 123 H POC Glucose Lactic Acid Calcium C-Reactive Protein Albumin Triglycerides Ur Specific [place] Allied health notes reviewed: nursing
--- NOTE | 2018-10-14 17:34 | Magnetic Resonance Report ---
PROCEDURE: MR BRAIN WO CON TECHNIQUE: MRI examination of the brain without IV contrast HISTORY: Double vision COMPARISONS: Head CT 10/10/2018 FINDINGS: Nonspecific multifocal bilateral mastoid air cell opacity with mucosal thickening. Paranasal sinuses are clear. The included air filled sinuses contain no acute fluid level. Foci of T2 hyperintensity in the cerebral white matter, while nonspecific, are present and usually at tributed to chronic ischemic gliosis. It can occur secondary to the normal aging process, hypertensio n, vasculitis, migraine related changes, or arterial sclerotic vascular disease. The differential inc ludes any cause of gliosis as well as demyelination in the appropriate clinical setting. There is ventricular and sulcal prominence compatible with global symmetric cerebrocortical atrophy. The brain is without mass, mass effect, hemorrhage, or acute infarct. There are no areas of brain restricted diffusion to suggest an acute ischemic infarct. There is no midline shift or brain edema. No focal occipital lobe abnormality. IMPRESSION: No acute CVA or brain mass Multifocal bilateral mastoid air cell mucosal thickening may reflect eustachian tube dysfunction. Dif ferential includes mastoiditis This document is electronically signed by Bob Ledezma MD., October 14 2018 05:32:01 PM ET
[2018-10-15 05:51] LABS: Hematocrit 44.7 % (30.3-42.9); Hemoglobin 14.7 gm/dl (10.1-14.3); Mean Corpuscular HGB Conc 33 % (30-34); Mean Corpuscular Volume 97 fl (79-97); Platelet Count 173 K/mm3 (140-440); Red Blood Count 4.61 M/mm3 (3.65-5.03); Red Cell Distribution Width 13.7 % (13.2-15.2)
[2018-10-15 06:10] LABS: BUN/Creatinine Ratio 25; Blood Urea Nitrogen 25 mg/dL (7-17); Calcium 8.4 mg/dL (8.4-10.2); Hemolysis Index 57
[2018-10-15] MEDS: PULMICORT IH SCH (09:00)
[2018-10-15] MEDS: BROVANA NEBU IH SCH (09:00)
[2018-10-15] MEDS: CYMBALTA PO SCH (10:31)
[2018-10-15] MEDS: LOVENOX SUB-Q SCH (10:31)
[2018-10-15] MEDS: SOLU-Medrol IV SCH (10:31)
[2018-10-15] MEDS: RisperDAL PO SCH (10:32)
[2018-10-15] MEDS: PEPCID PO SCH (10:32)
[2018-10-15] MEDS: ZESTRIL PO SCH (10:33)
[2018-10-15] MEDS: APRESOLINE PO SCH (10:34)
[2018-10-15] MEDS: COREG PO SCH (10:34)
[2018-10-15] MEDS: HABITROL TD SCH (10:35)
[2018-10-15] MEDS: SODIUM CHLORIDE FLUSH SYRINGE 10 ML IV SCH (10:35)
[2018-10-15] MEDS: HumuLIN R SUB-Q SCH ×2 (11:50→12:57)
--- NOTE | 2018-10-15 12:47 | Progress Note ---
Subjective Date of service: 10/15/18 Principal diagnosis: Acute Hypoxemic Resp failure; Polysubstance abuse;Acute Pulm Edema Interval history: patient seen and no longer hallucinating- more cooperative plan further studies this next week Objective - Vital Sign Vital Signs - 12hr 10/15/18 10/15/18 10/15/18 04:47 08:42 09:00 Temperature 98.3 F 97.6 F Pulse Rate 96 H 89 Pulse Rate [ 86 Anterior Bilateral Throughout] Respiratory 18 16 Rate Respiratory 20 Rate [Anterior Bilateral Throughout] Blood Pressure 144/84 112/65 O2 Sat by Pulse 98 92 93 Oximetry 10/15/18 10/15/18 10/15/18 09:10 10:33 10:34 Temperature Pulse Rate 80 80 Pulse Rate [ 90 Anterior Bilateral Throughout] Respiratory Rate Respiratory 20 Rate [Anterior Bilateral Throughout] Blood Pressure 112/65 112/64 O2 Sat by Pulse Oximetry - Laboratory Findings CBC and BMP: 10/15/18 04:29 10/15/18 04:29 Abnormal Lab Findings: Abnormal Labs 10/05/18 10/05/18 10/05/18 03:23 03:23 03:23 WBC Hgb 14.5 H Hct 43.3 H MCV 98 H MCH 33 H Lymph % (Auto) Lymph # Seg Neutrophils % Seg Neuts % (Manual) 96.0 H Lymphocytes % (Manual) 2.0 L Seg Neutrophils # Seg Neutrophils # Man 8.3 H Lymphocytes # (Manual) 0.2 L POC ABG pH POC ABG pCO2 POC ABG pO2 Sodium Potassium Chloride 107.9 H Carbon Dioxide 20 L BUN Glucose 157 H POC Glucose Lactic Acid 3.30 H* Calcium 8.0 L C-Reactive Protein Albumin Triglycerides Ur Specific [place] 10/05/18 10/05/18 10/05/18 03:47 04:21 06:10 WBC Hgb Hct MCV MCH Lymph % (Auto) Lymph # Seg Neutrophils % Seg Neuts % (Manual) Lymphocytes % (Manual) Seg Neutrophils # Seg Neutrophils # Man Lymphocytes # (Manual) POC ABG pH 7.096 L POC ABG pCO2 POC ABG pO2 166 H Sodium Potassium Chloride Carbon Dioxide BUN Glucose POC Glucose Lactic Acid 2.60 H* Calcium C-Reactive Protein Albumin Triglycerides Ur Specific [place] 1.031 H 10/05/18 10/05/18 10/05/18 06:39 07:09 10:48 WBC Hgb Hct MCV MCH Lymph % (Auto) Lymph # Seg Neutrophils % Seg Neuts % (Manual) Lymphocytes % (Manual) Seg Neutrophils # Seg Neutrophils # Man Lymphocytes # (Manual) POC ABG pH 7.241 L 7.178 L POC ABG pCO2 45.2 H 49.3 H POC ABG pO2 57 L 62 L Sodium Potassium Chloride Carbon Dioxide BUN Glucose POC Glucose Lactic Acid 2.80 H* Calcium C-Reactive Protein Albumin Triglycerides Ur Specific [place] 10/05/18 10/05/18 10/06/18 12:42 17:11 04:11 WBC 14.0 H Hgb Hct MCV 99 H MCH Lymph % (Auto) Lymph # Seg Neutrophils % Seg Neuts % (Manual) Lymphocytes % (Manual) Seg Neutrophils # Seg Neutrophils # Man Lymphocytes # (Manual) POC ABG pH 7.206 L POC ABG pCO2 POC ABG pO2 74 L Sodium Potassium Chloride Carbon Dioxide BUN Glucose POC Glucose Lactic Acid Calcium C-Reactive Protein Albumin Triglycerides Ur Specific [place] 1.035 H 10/06/18 10/06/18 10/06/18 04:11 04:18 09:32 WBC Hgb Hct MCV MCH Lymph % (Auto) Lymph # Seg Neutrophils % Seg Neuts % (Manual) Lymphocytes % (Manual) Seg Neutrophils # Seg Neutrophils # Man Lymphocytes # (Manual) POC ABG pH 7.270 L POC ABG pCO2 POC ABG pO2 67 L Sodium Potassium 5.2 H D Chloride 116.1 H Carbon Dioxide 17 L BUN Glucose 132 H POC Glucose Lactic Acid 2.70 H* Calcium 7.8 L C-Reactive Protein Albumin 2.7 L Triglycerides Ur Specific [place] 10/06/18 10/06/18 10/06/18 12:24 12:24 22:10 WBC Hgb Hct MCV MCH Lymph % (Auto) Lymph # Seg Neutrophils % Seg Neuts % (Manual) Lymphocytes % (Manual) Seg Neutrophils # Seg Neutrophils # Man Lymphocytes # (Manual) POC ABG pH 7.314 L POC ABG pCO2 48.5 H POC ABG pO2 64 L Sodium Potassium Chloride 113.9 H Carbon Dioxide 20 L BUN Glucose 134 H POC Glucose Lactic Acid Calcium C-Reactive Protein 3.70 H Albumin Triglycerides Ur Specific [place] 10/06/18 10/07/18 10/07/18 23:46 04:44 04:44 WBC 12.7 H Hgb Hct MCV 99 H MCH Lymph % (Auto) Lymph # Seg Neutrophils % Seg Neuts % (Manual) Lymphocytes % (Manual) Seg Neutrophils # Seg Neutrophils # Man Lymphocytes # (Manual) POC ABG pH POC ABG pCO2 POC ABG pO2 Sodium Potassium 6.3 H* D Chloride 110.1 H Carbon Dioxide BUN Glucose 168 H POC Glucose 135 H Lactic Acid Calcium C-Reactive Protein Albumin Triglycerides Ur Specific [place] 10/07/18 10/07/18 10/07/18 04:44 09:30 09:44 WBC Hgb Hct MCV MCH Lymph % (Auto) Lymph # Seg Neutrophils % Seg Neuts % (Manual) Lymphocytes % (Manual) Seg Neutrophils # Seg Neutrophils # Man Lymphocytes # (Manual) POC ABG pH 7.335 L POC ABG pCO2 56.3 H POC ABG pO2 64 L Sodium Potassium 3.2 L D Chloride Carbon Dioxide BUN Glucose POC Glucose Lactic Acid 2.20 H* Calcium C-Reactive Protein Albumin Triglycerides Ur Specific [place] 10/07/18 10/07/18 10/08/18 12:06 18:38 04:33 WBC Hgb Hct MCV MCH Lymph % (Auto) Lymph # Seg Neutrophils % Seg Neuts % (Manual) Lymphocytes % (Manual) Seg Neutrophils # Seg Neutrophils # Man Lymphocytes # (Manual) POC ABG pH 7.510 H POC ABG pCO2 POC ABG pO2 50 L Sodium Potassium Chloride Carbon Dioxide BUN Glucose POC Glucose 131 H 134 H Lactic Acid Calcium C-Reactive Protein Albumin Triglycerides Ur Specific [place] 10/08/18 10/08/18 10/08/18 04:49 05:38 08:24 WBC 11.7 H Hgb Hct MCV MCH Lymph % (Auto) 7.5 L Lymph # 0.9 L Seg Neutrophils % 86.0 H Seg Neuts % (Manual) Lymphocytes % (Manual) Seg Neutrophils # 10.0 H Seg Neutrophils # Man Lymphocytes # (Manual) POC ABG pH POC ABG pCO2 53.6 H POC ABG pO2 69 L Sodium Potassium Chloride Carbon Dioxide BUN Glucose POC Glucose 179 H Lactic Acid Calcium C-Reactive Protein Albumin Triglycerides Ur Specific [place] 10/08/18 10/08/18 10/08/18 08:24 09:12 13:05 WBC Hgb Hct MCV MCH Lymph % (Auto) Lymph # Seg Neutrophils % Seg Neuts % (Manual) Lymphocytes % (Manual) Seg Neutrophils # Seg Neutrophils # Man Lymphocytes # (Manual) POC ABG pH POC ABG pCO2 POC ABG pO2 Sodium Potassium 2.7 L* Chloride Carbon Dioxide 33 H D BUN 18 H Glucose 182 H POC Glucose 194 H 139 H Lactic Acid Calcium 8.3 L C-Reactive Protein Albumin Triglycerides Ur Specific [place] 10/08/18 10/08/18 10/08/18 17:55 21:18 21:29 WBC Hgb Hct MCV MCH Lymph % (Auto) Lymph # Seg Neutrophils % Seg Neuts % (Manual) Lymphocytes % (Manual) Seg Neutrophils # Seg Neutrophils # Man Lymphocytes # (Manual) POC ABG pH 7.465 H POC ABG pCO2 49.3 H POC ABG pO2 69 L Sodium Potassium Chloride Carbon Dioxide BUN Glucose POC Glucose 157 H 134 H Lactic Acid Calcium C-Reactive Protein Albumin Triglycerides Ur Specific [place] 10/09/18 10/09/18 10/09/18 04:20 04:20 07:51 WBC 11.9 H Hgb Hct MCV MCH Lymph % (Auto) Lymph # Seg Neutrophils % Seg Neuts % (Manual) Lymphocytes % (Manual) Seg Neutrophils # Seg Neutrophils # Man Lymphocytes # (Manual) POC ABG pH POC ABG pCO2 POC ABG pO2 Sodium 146 H Potassium 3.0 L Chloride Carbon Dioxide 34 H BUN 26 H Glucose 171 H POC Glucose 142 H Lactic Acid Calcium C-Reactive Protein Albumin Triglycerides Ur Specific [place] 10/09/18 10/09/18 10/09/18 11:48 13:24 17:22 WBC Hgb Hct MCV MCH Lymph % (Auto) Lymph # Seg Neutrophils % Seg Neuts % (Manual) Lymphocytes % (Manual) Seg Neutrophils # Seg Neutrophils # Man Lymphocytes # (Manual) POC ABG pH 7.492 H POC ABG pCO2 45.1 H POC ABG pO2 72 L Sodium Potassium Chloride Carbon Dioxide BUN Glucose POC Glucose 131 H 117 H Lactic Acid Calcium C-Reactive Protein Albumin Triglycerides Ur Specific [place] 10/09/18 10/10/18 10/10/18 21:53 03:30 03:30 WBC 15.2 H Hgb 14.4 H Hct 44.0 H MCV MCH Lymph % (Auto) Lymph # Seg Neutrophils % Seg Neuts % (Manual) Lymphocytes % (Manual) Seg Neutrophils # Seg Neutrophils # Man Lymphocytes # (Manual) POC ABG pH POC ABG pCO2 POC ABG pO2 Sodium 146 H Potassium Chloride Carbon Dioxide 34 H BUN 31 H Glucose 133 H POC Glucose 143 H Lactic Acid Calcium C-Reactive Protein Albumin Triglycerides Ur Specific [place] 0410/10/18 10/10/18 03:30 04:53 07:43 WBC Hgb Hct MCV MCH Lymph % (Auto) Lymph # Seg Neutrophils % Seg Neuts % (Manual) Lymphocytes % (Manual) Seg Neutrophils # Seg Neutrophils # Man Lymphocytes # (Manual) POC ABG pH POC ABG pCO2 63.5 H POC ABG pO2 Sodium Potassium Chloride Carbon Dioxide BUN Glucose POC Glucose 149 H Lactic Acid Calcium C-Reactive Protein Albumin Triglycerides 188 H Ur Specific [place] 10/10/18 10/10/18 10/10/18 12:58 17:11 22:43 WBC Hgb Hct MCV MCH Lymph % (Auto) Lymph # Seg Neutrophils % Seg Neuts % (Manual) Lymphocytes % (Manual) Seg Neutrophils # Seg Neutrophils # Man Lymphocytes # (Manual) POC ABG pH POC ABG pCO2 POC ABG pO2 Sodium Potassium Chloride Carbon Dioxide BUN Glucose POC Glucose 174 H 162 H 137 H Lactic Acid Calcium C-Reactive Protein Albumin Triglycerides Ur Specific [place] 10/11/18 10/11/18 10/11/18 04:13 04:51 04:51 WBC 17.6 H Hgb 14.8 H Hct 43.7 H MCV MCH Lymph % (Auto) Lymph # Seg Neutrophils % Seg Neuts % (Manual) Lymphocytes % (Manual) Seg Neutrophils # Seg Neutrophils # Man Lymphocytes # (Manual) POC ABG pH 7.517 H POC ABG pCO2 POC ABG pO2 62 L Sodium Potassium Chloride Carbon Dioxide 32 H BUN 35 H Glucose 151 H POC Glucose Lactic Acid Calcium C-Reactive Protein Albumin 2.9 L Triglycerides Ur Specific [place] 10/11/18 10/11/18 10/11/18 07:25 11:32 16:43 WBC Hgb Hct MCV MCH Lymph % (Auto) Lymph # Seg Neutrophils % Seg Neuts % (Manual) Lymphocytes % (Manual) Seg Neutrophils # Seg Neutrophils # Man Lymphocytes # (Manual) POC ABG pH 7.514 H POC ABG pCO2 POC ABG pO2 Sodium Potassium Chloride Carbon Dioxide BUN Glucose POC Glucose 167 H 164 H Lactic Acid Calcium C-Reactive Protein Albumin Triglycerides Ur Specific [place] 10/11/18 10/11/18 10/12/18 17:37 22:03 04:17 WBC 13.3 H Hgb 15.9 H Hct 47.8 H MCV MCH Lymph % (Auto) Lymph # Seg Neutrophils % Seg Neuts % (Manual) Lymphocytes % (Manual) Seg Neutrophils # Seg Neutrophils # Man Lymphocytes # (Manual) POC ABG pH POC ABG pCO2 POC ABG pO2 Sodium Potassium Chloride Carbon Dioxide BUN Glucose POC Glucose 131 H 131 H Lactic Acid Calcium C-Reactive Protein Albumin Triglycerides Ur Specific [place] 10/12/18 10/12/18 10/12/18 04:17 08:48 11:35 WBC Hgb Hct MCV MCH Lymph % (Auto) Lymph # Seg Neutrophils % Seg Neuts % (Manual) Lymphocytes % (Manual) Seg Neutrophils # Seg Neutrophils # Man Lymphocytes # (Manual) POC ABG pH POC ABG pCO2 POC ABG pO2 Sodium Potassium 3.5 L Chloride 97.7 L Carbon Dioxide BUN 26 H Glucose 125 H POC Glucose 147 H 187 H Lactic Acid Calcium C-Reactive Protein Albumin Triglycerides Ur Specific [place] 10/12/18 10/12/18 10/13/18 17:05 22:23 06:44 WBC 13.2 H Hgb 15.3 H Hct 45.5 H MCV MCH Lymph % (Auto) Lymph # Seg Neutrophils % Seg Neuts % (Manual) Lymphocytes % (Manual) Seg Neutrophils # Seg Neutrophils # Man Lymphocytes # (Manual) POC ABG pH POC ABG pCO2 POC ABG pO2 Sodium Potassium Chloride Carbon Dioxide BUN Glucose POC Glucose 201 H 152 H Lactic Acid Calcium C-Reactive Protein Albumin Triglycerides Ur Specific [place] 10/13/18 10/13/18 10/14/18 06:44 20:53 06:25 WBC 17.7 H Hgb 15.7 H Hct 47.9 H MCV MCH Lymph % (Auto) Lymph # Seg Neutrophils % Seg Neuts % (Manual) Lymphocytes % (Manual) Seg Neutrophils # Seg Neutrophils # Man Lymphocytes # (Manual) POC ABG pH POC ABG pCO2 POC ABG pO2 Sodium Potassium Chloride Carbon Dioxide BUN 27 H Glucose 160 H POC Glucose 169 H Lactic Acid Calcium C-Reactive Protein Albumin Triglycerides Ur Specific [place] 10/14/18 10/14/18 10/14/18 06:25 12:57 21:12 WBC Hgb Hct MCV MCH Lymph % (Auto) Lymph # Seg Neutrophils % Seg Neuts % (Manual) Lymphocytes % (Manual) Seg Neutrophils # Seg Neutrophils # Man Lymphocytes # (Manual) POC ABG pH POC ABG pCO2 POC ABG pO2 Sodium 135 L Potassium Chloride 96.7 L Carbon Dioxide BUN 22 H Glucose 123 H POC Glucose 128 H 145 H Lactic Acid Calcium C-Reactive Protein Albumin Triglycerides Ur Specific [place] 10/15/18 10/15/18 10/15/18 04:29 04:29 08:45 WBC 21.5 H Hgb 14.7 H Hct 44.7 H MCV MCH Lymph % (Auto) Lymph # Seg Neutrophils % Seg Neuts % (Manual) Lymphocytes % (Manual) Seg Neutrophils # Seg Neutrophils # Man Lymphocytes # (Manual) POC ABG pH POC ABG pCO2 POC ABG pO2 Sodium 135 L Potassium Chloride 97.8 L Carbon Dioxide BUN 25 H Glucose 194 H POC Glucose 111 H Lactic Acid Calcium C-Reactive Protein Albumin Triglycerides Ur Specific [place]
--- NOTE | 2018-10-15 13:02 | Progress Note ---
Assessment and Plan Acute Hypoxic Respiratory failure Polysubstance abuse, Cocaine and Benzos Pulmonary Edema Acute Toxic metabolic Encephalopathy ?secondary to drug abuse or other etiology Metabolic Acidosis Leukocytosis ?Aspiration- Per nursing staff, patient yesterday had some emesis and coughing prompting increase in sedation. Non so far since then Vasogenic shock Bradycardia Hyperkalemia COPD- with acute exacerbation Active Smoker Hepatitis C Bipolar disorder Atrial Fibrillation by hx Anxiety- and on Valium per family - continue weaning oxygen for sat's > 90% - continue Seroquel at home dose now - continue ST evaluation and advance diet as tolerated - continue bronchodilators with pulmonary hygiene per RT - complete empiric CAP AB's course - 2D ECHO reveals moderate pulm HTN (outpatient f/up) - continue mobility protocol for pressure ulcer prophylaxis - Counselling on Drug abuse done at bedside - tobacco abuse counseling done at bedside - continue GI & VTE prophylaxis - flu & pneumovax per protocol ..... discharge planning ongoing concurrently ... re-evaluate in am & prn Subjective Date of service: 10/15/18 Principal diagnosis: Acute Hypoxemic Resp failure; Polysubstance abuse;Acute Pulm Edema Interval history: Patient is seen today for: Acute Hypoxemic Respiratory failure; Polysubstance abuse (Cocaine and Benzos); Acute Pulmonary Edema; Acute Toxic metabolic Encephalopathy ?secondary to drug abuse or other etiology; Metabolic Acidosis; Leukocytosis Seen and examined at bedside; 24hour events reviewed; nursing and respiratory care staff consulted; no adverse overnight events reported to me; resting in bed; eating lunch; feels better; denies acute chest pain; still SOB; No N/V/F/C Objective Vital Signs - 12hr 10/15/18 10/15/18 10/15/18 04:47 08:42 09:00 Temperature 98.3 F 97.6 F Pulse Rate 96 H 89 Pulse Rate [ 86 Anterior Bilateral Throughout] Respiratory 18 16 Rate Respiratory 20 Rate [Anterior Bilateral Throughout] Blood Pressure 144/84 112/65 O2 Sat by Pulse 98 92 93 Oximetry 10/15/18 10/15/18 10/15/18 09:10 10:33 10:34 Temperature Pulse Rate 80 80 Pulse Rate [ 90 Anterior Bilateral Throughout] Respiratory Rate Respiratory 20 Rate [Anterior Bilateral Throughout] Blood Pressure 112/65 112/64 O2 Sat by Pulse Oximetry Constitutional: no acute distress, other (elderly looking AAF, normocephalic and with mildly increased resp effort at rest) Eyes: non-icteric ENT: oropharynx moist, other (extubated) Neck: supple, no lymphadenopathy, no JVD, other (no thyromegaly) Effort: mildly labored Ascultation: Bilateral: diminished breath sounds, rhonchi (bases), other (prolonged exp phase) Percussion: Bilateral: not dull Cardiovascular: regular rate and rhythm Gastrointestinal: normoactive bowel sounds, soft, non-tender, non-distended Integumentary: normal Extremities: no cyanosis, no edema, pulses normal, no ischemia or petechiae Neurologic: non-focal exam (grossly), pupils equal and round, CN II-XII normal, motor strength normal and Psychiatric: other (flat affect) CBC and BMP: 10/15/18 04:29 10/15/18 04:29 ABG, PT/INR, D-dimer: ABG POC ABG pH 7.514 (7.35-7.45) H 10/11/18 16:43 POC ABG pCO2 41.6 (35-45) 10/11/18 16:43 POC ABG pO2 80 (80-105) 10/11/18 16:43 POC ABG HCO3 33.5 (22-26 mml/L) 10/11/18 16:43 POC ABG Total CO2 35 (23-27mmol/L) 10/11/18 16:43 POC ABG O2 Sat 97 10/11/18 16:43 Abnormal lab findings: Abnormal Labs 10/05/18 10/05/18 10/05/18 03:23 03:23 03:23 WBC Hgb 14.5 H Hct 43.3 H MCV 98 H MCH 33 H Lymph % (Auto) Lymph # Seg Neutrophils % Seg Neuts % (Manual) 96.0 H Lymphocytes % (Manual) 2.0 L Seg Neutrophils # Seg Neutrophils # Man 8.3 H Lymphocytes # (Manual) 0.2 L POC ABG pH POC ABG pCO2 POC ABG pO2 Sodium Potassium Chloride 107.9 H Carbon Dioxide 20 L BUN Glucose 157 H POC Glucose Lactic Acid 3.30 H* Calcium 8.0 L C-Reactive Protein Albumin Triglycerides Ur Specific [place] 10/05/18 10/05/18 10/05/18 03:47 04:21 06:10 WBC Hgb Hct MCV MCH Lymph % (Auto) Lymph # Seg Neutrophils % Seg Neuts % (Manual) Lymphocytes % (Manual) Seg Neutrophils # Seg Neutrophils # Man Lymphocytes # (Manual) POC ABG pH 7.096 L POC ABG pCO2 POC ABG pO2 166 H Sodium Potassium Chloride Carbon Dioxide BUN Glucose POC Glucose Lactic Acid 2.60 H* Calcium C-Reactive Protein Albumin Triglycerides Ur Specific [place] 1.031 H 10/05/18 10/05/18 10/05/18 06:39 07:09 10:48 WBC Hgb Hct MCV MCH Lymph % (Auto) Lymph # Seg Neutrophils % Seg Neuts % (Manual) Lymphocytes % (Manual) Seg Neutrophils # Seg Neutrophils # Man Lymphocytes # (Manual) POC ABG pH 7.241 L 7.178 L POC ABG pCO2 45.2 H 49.3 H POC ABG pO2 57 L 62 L Sodium Potassium Chloride Carbon Dioxide BUN Glucose POC Glucose Lactic Acid 2.80 H* Calcium C-Reactive Protein Albumin Triglycerides Ur Specific [place] 10/05/18 10/05/18 10/06/18 12:42 17:11 04:11 WBC 14.0 H Hgb Hct MCV 99 H MCH Lymph % (Auto) Lymph # Seg Neutrophils % Seg Neuts % (Manual) Lymphocytes % (Manual) Seg Neutrophils # Seg Neutrophils # Man Lymphocytes # (Manual) POC ABG pH 7.206 L POC ABG pCO2 POC ABG pO2 74 L Sodium Potassium Chloride Carbon Dioxide BUN Glucose POC Glucose Lactic Acid Calcium C-Reactive Protein Albumin Triglycerides Ur Specific [place] 1.035 H 10/06/18 10/06/18 10/06/18 04:11 04:18 09:32 WBC Hgb Hct MCV MCH Lymph % (Auto) Lymph # Seg Neutrophils % Seg Neuts % (Manual) Lymphocytes % (Manual) Seg Neutrophils # Seg Neutrophils # Man Lymphocytes # (Manual) POC ABG pH 7.270 L POC ABG pCO2 POC ABG pO2 67 L Sodium Potassium 5.2 H D Chloride 116.1 H Carbon Dioxide 17 L BUN Glucose 132 H POC Glucose Lactic Acid 2.70 H* Calcium 7.8 L C-Reactive Protein Albumin 2.7 L Triglycerides Ur Specific [place] 10/06/18 10/06/18 10/06/18 12:24 12:24 22:10 WBC Hgb Hct MCV MCH Lymph % (Auto) Lymph # Seg Neutrophils % Seg Neuts % (Manual) Lymphocytes % (Manual) Seg Neutrophils # Seg Neutrophils # Man Lymphocytes # (Manual) POC ABG pH 7.314 L POC ABG pCO2 48.5 H POC ABG pO2 64 L Sodium Potassium Chloride 113.9 H Carbon Dioxide 20 L BUN Glucose 134 H POC Glucose Lactic Acid Calcium C-Reactive Protein 3.70 H Albumin Triglycerides Ur Specific [place] 10/06/18 10/07/18 10/07/18 23:46 04:44 04:44 WBC 12.7 H Hgb Hct MCV 99 H MCH Lymph % (Auto) Lymph # Seg Neutrophils % Seg Neuts % (Manual) Lymphocytes % (Manual) Seg Neutrophils # Seg Neutrophils # Man Lymphocytes # (Manual) POC ABG pH POC ABG pCO2 POC ABG pO2 Sodium Potassium 6.3 H* D Chloride 110.1 H Carbon Dioxide BUN Glucose 168 H POC Glucose 135 H Lactic Acid Calcium C-Reactive Protein Albumin Triglycerides Ur Specific [place] 10/07/18 10/07/18 10/07/18 04:44 09:30 09:44 WBC Hgb Hct MCV MCH Lymph % (Auto) Lymph # Seg Neutrophils % Seg Neuts % (Manual) Lymphocytes % (Manual) Seg Neutrophils # Seg Neutrophils # Man Lymphocytes # (Manual) POC ABG pH 7.335 L POC ABG pCO2 56.3 H POC ABG pO2 64 L Sodium Potassium 3.2 L D Chloride Carbon Dioxide BUN Glucose POC Glucose Lactic Acid 2.20 H* Calcium C-Reactive Protein Albumin Triglycerides Ur Specific [place] 10/07/18 10/07/18 10/08/18 12:06 18:38 04:33 WBC Hgb Hct MCV MCH Lymph % (Auto) Lymph # Seg Neutrophils % Seg Neuts % (Manual) Lymphocytes % (Manual) Seg Neutrophils # Seg Neutrophils # Man Lymphocytes # (Manual) POC ABG pH 7.510 H POC ABG pCO2 POC ABG pO2 50 L Sodium Potassium Chloride Carbon Dioxide BUN Glucose POC Glucose 131 H 134 H Lactic Acid Calcium C-Reactive Protein Albumin Triglycerides Ur Specific [place] 10/08/18 10/08/18 10/08/18 04:49 05:38 08:24 WBC 11.7 H Hgb Hct MCV MCH Lymph % (Auto) 7.5 L Lymph # 0.9 L Seg Neutrophils % 86.0 H Seg Neuts % (Manual) Lymphocytes % (Manual) Seg Neutrophils # 10.0 H Seg Neutrophils # Man Lymphocytes # (Manual) POC ABG pH POC ABG pCO2 53.6 H POC ABG pO2 69 L Sodium Potassium Chloride Carbon Dioxide BUN Glucose POC Glucose 179 H Lactic Acid Calcium C-Reactive Protein Albumin Triglycerides Ur Specific [place] 10/08/18 10/08/18 10/08/18 08:24 09:12 13:05 WBC Hgb Hct MCV MCH Lymph % (Auto) Lymph # Seg Neutrophils % Seg Neuts % (Manual) Lymphocytes % (Manual) Seg Neutrophils # Seg Neutrophils # Man Lymphocytes # (Manual) POC ABG pH POC ABG pCO2 POC ABG pO2 Sodium Potassium 2.7 L* Chloride Carbon Dioxide 33 H D BUN 18 H Glucose 182 H POC Glucose 194 H 139 H Lactic Acid Calcium 8.3 L C-Reactive Protein Albumin Triglycerides Ur Specific [place] 10/08/18 10/08/18 10/08/18 17:55 21:18 21:29 WBC Hgb Hct MCV MCH Lymph % (Auto) Lymph # Seg Neutrophils % Seg Neuts % (Manual) Lymphocytes % (Manual) Seg Neutrophils # Seg Neutrophils # Man Lymphocytes # (Manual) POC ABG pH 7.465 H POC ABG pCO2 49.3 H POC ABG pO2 69 L Sodium Potassium Chloride Carbon Dioxide BUN Glucose POC Glucose 157 H 134 H Lactic Acid Calcium C-Reactive Protein Albumin Triglycerides Ur Specific [place] 10/09/18 10/09/18 10/09/18 04:20 04:20 07:51 WBC 11.9 H Hgb Hct MCV MCH Lymph % (Auto) Lymph # Seg Neutrophils % Seg Neuts % (Manual) Lymphocytes % (Manual) Seg Neutrophils # Seg Neutrophils # Man Lymphocytes # (Manual) POC ABG pH POC ABG pCO2 POC ABG pO2 Sodium 146 H Potassium 3.0 L Chloride Carbon Dioxide 34 H BUN 26 H Glucose 171 H POC Glucose 142 H Lactic Acid Calcium C-Reactive Protein Albumin Triglycerides Ur Specific [place] 10/09/18 10/09/18 10/09/18 11:48 13:24 17:22 WBC Hgb Hct MCV MCH Lymph % (Auto) Lymph # Seg Neutrophils % Seg Neuts % (Manual) Lymphocytes % (Manual) Seg Neutrophils # Seg Neutrophils # Man Lymphocytes # (Manual) POC ABG pH 7.492 H POC ABG pCO2 45.1 H POC ABG pO2 72 L Sodium Potassium Chloride Carbon Dioxide BUN Glucose POC Glucose 131 H 117 H Lactic Acid Calcium C-Reactive Protein Albumin Triglycerides Ur Specific [place] 10/09/18 10/10/18 10/10/18 21:53 03:30 03:30 WBC 15.2 H Hgb 14.4 H Hct 44.0 H MCV MCH Lymph % (Auto) Lymph # Seg Neutrophils % Seg Neuts % (Manual) Lymphocytes % (Manual) Seg Neutrophils # Seg Neutrophils # Man Lymphocytes # (Manual) POC ABG pH POC ABG pCO2 POC ABG pO2 Sodium 146 H Potassium Chloride Carbon Dioxide 34 H BUN 31 H Glucose 133 H POC Glucose 143 H Lactic Acid Calcium C-Reactive Protein Albumin Triglycerides Ur Specific [place] 10/10/18 10/10/18 10/10/18 03:30 04:53 07:43 WBC Hgb Hct MCV MCH Lymph % (Auto) Lymph # Seg Neutrophils % Seg Neuts % (Manual) Lymphocytes % (Manual) Seg Neutrophils # Seg Neutrophils # Man Lymphocytes # (Manual) POC ABG pH POC ABG pCO2 63.5 H POC ABG pO2 Sodium Potassium Chloride Carbon Dioxide BUN Glucose POC Glucose 149 H Lactic Acid Calcium C-Reactive Protein Albumin Triglycerides 188 H Ur Specific [place] 10/10/18 10/10/18 10/10/18 12:58 17:11 22:43 WBC Hgb Hct MCV MCH Lymph % (Auto) Lymph # Seg Neutrophils % Seg Neuts % (Manual) Lymphocytes % (Manual) Seg Neutrophils # Seg Neutrophils # Man Lymphocytes # (Manual) POC ABG pH POC ABG pCO2 POC ABG pO2 Sodium Potassium Chloride Carbon Dioxide BUN Glucose POC Glucose 174 H 162 H 137 H Lactic Acid Calcium C-Reactive Protein Albumin Triglycerides Ur Specific [place] 10/11/18 10/11/18 10/11/18 04:13 04:51 04:51 WBC 17.6 H Hgb 14.8 H Hct 43.7 H MCV MCH Lymph % (Auto) Lymph # Seg Neutrophils % Seg Neuts % (Manual) Lymphocytes % (Manual) Seg Neutrophils # Seg Neutrophils # Man Lymphocytes # (Manual) POC ABG pH 7.517 H POC ABG pCO2 POC ABG pO2 62 L Sodium Potassium Chloride Carbon Dioxide 32 H BUN 35 H Glucose 151 H POC Glucose Lactic Acid Calcium C-Reactive Protein Albumin 2.9 L Triglycerides Ur Specific [place] 10/11/18 10/11/18 10/11/18 07:25 11:32 16:43 WBC Hgb Hct MCV MCH Lymph % (Auto) Lymph # Seg Neutrophils % Seg Neuts % (Manual) Lymphocytes % (Manual) Seg Neutrophils # Seg Neutrophils # Man Lymphocytes # (Manual) POC ABG pH 7.514 H POC ABG pCO2 POC ABG pO2 Sodium Potassium Chloride Carbon Dioxide BUN Glucose POC Glucose 167 H 164 H Lactic Acid Calcium C-Reactive Protein Albumin Triglycerides Ur Specific [place] 10/11/18 10/11/18 10/12/18 17:37 22:03 04:17 WBC 13.3 H Hgb 15.9 H Hct 47.8 H MCV MCH Lymph % (Auto) Lymph # Seg Neutrophils % Seg Neuts % (Manual) Lymphocytes % (Manual) Seg Neutrophils # Seg Neutrophils # Man Lymphocytes # (Manual) POC ABG pH POC ABG pCO2 POC ABG pO2 Sodium Potassium Chloride Carbon Dioxide BUN Glucose POC Glucose 131 H 131 H Lactic Acid Calcium C-Reactive Protein Albumin Triglycerides Ur Specific [place] 10/12/18 10/12/18 10/12/18 04:17 08:48 11:35 WBC Hgb Hct MCV MCH Lymph % (Auto) Lymph # Seg Neutrophils % Seg Neuts % (Manual) Lymphocytes % (Manual) Seg Neutrophils # Seg Neutrophils # Man Lymphocytes # (Manual) POC ABG pH POC ABG pCO2 POC ABG pO2 Sodium Potassium 3.5 L Chloride 97.7 L Carbon Dioxide BUN 26 H Glucose 125 H POC Glucose 147 H 187 H Lactic Acid Calcium C-Reactive Protein Albumin Triglycerides Ur Specific [place] 10/12/18 10/12/18 10/13/18 17:05 22:23 06:44 WBC 13.2 H Hgb 15.3 H Hct 45.5 H MCV MCH Lymph % (Auto) Lymph # Seg Neutrophils % Seg Neuts % (Manual) Lymphocytes % (Manual) Seg Neutrophils # Seg Neutrophils # Man Lymphocytes # (Manual) POC ABG pH POC ABG pCO2 POC ABG pO2 Sodium Potassium Chloride Carbon Dioxide BUN Glucose POC Glucose 201 H 152 H Lactic Acid Calcium C-Reactive Protein Albumin Triglycerides Ur Specific [place] 10/13/18 10/13/18 10/14/18 06:44 20:53 06:25 WBC 17.7 H Hgb 15.7 H Hct 47.9 H MCV MCH Lymph % (Auto) Lymph # Seg Neutrophils % Seg Neuts % (Manual) Lymphocytes % (Manual) Seg Neutrophils # Seg Neutrophils # Man Lymphocytes # (Manual) POC ABG pH POC ABG pCO2 POC ABG pO2 Sodium Potassium Chloride Carbon Dioxide BUN 27 H Glucose 160 H POC Glucose 169 H Lactic Acid Calcium C-Reactive Protein Albumin Triglycerides Ur Specific [place] 10/14/18 10/14/18 10/14/18 06:25 12:57 21:12 WBC Hgb Hct MCV MCH Lymph % (Auto) Lymph # Seg Neutrophils % Seg Neuts % (Manual) Lymphocytes % (Manual) Seg Neutrophils # Seg Neutrophils # Man Lymphocytes # (Manual) POC ABG pH POC ABG pCO2 POC ABG pO2 Sodium 135 L Potassium Chloride 96.7 L Carbon Dioxide BUN 22 H Glucose 123 H POC Glucose 128 H 145 H Lactic Acid Calcium C-Reactive Protein Albumin Triglycerides Ur Specific [place] 10/15/18 10/15/18 10/15/18 04:29 04:29 08:45 WBC 21.5 H Hgb 14.7 H Hct 44.7 H MCV MCH Lymph % (Auto) Lymph # Seg Neutrophils % Seg Neuts % (Manual) Lymphocytes % (Manual) Seg Neutrophils # Seg Neutrophils # Man Lymphocytes # (Manual) POC ABG pH POC ABG pCO2 POC ABG pO2 Sodium 135 L Potassium Chloride 97.8 L Carbon Dioxide BUN 25 H Glucose 194 H POC Glucose 111 H Lactic Acid Calcium C-Reactive Protein Albumin Triglycerides Ur Specific [place] Allied health notes reviewed: nursing
[2018-10-15 13:23] VITALS: BP 120/54
--- NOTE | 2018-10-15 14:11 | Discharge Summary ---
Providers - Providers Date of Admission: 10/05/18 05:16 Date of discharge: 10/15/18 Attending physician: YULIA EDWARDS 10/05/18 02:50 Consult to Dietitian/Nutrition [CONS] Routine Physician Instructions: Reason For Exam: Reason for Consult: Evaluate nutritional intake 10/05/18 04:41 Consult to Physician [CONS] Stat Comment: Consulting Provider: AYANNA ORTIZ Physician Instructions: Reason For Exam: acute respiratory failure, s/p intubation 10/05/18 11:44 Consult to Dietitian/Nutrition [CONS] Routine Physician Instructions: Reason For Exam: Reason for Consult: Write/Manage Tube Feeding 10/07/18 11:04 Consult to PICC Line RN [CONS] Routine Reason For Exam: critical care/poor venous access Type Line:: PICC 10/09/18 09:40 Consult to Physician [CONS] Routine Comment: Consulting Provider: DANIEL MARRERO Physician Instructions: Reason For Exam: AMS 10/12/18 15:44 Consult to Mental Health [CONS] Routine Reason For Exam: Agitatted, combative, bipolar Place consult to:: Psych Notified:: Emily Phone number called:: [phone] Was contact made?: Yes If yes, spoke with:: Emily Time called:: 16:15 10/13/18 15:12 Physical Therapy Evaluation and Treat [CONS] Routine Comment: Reason For Exam: Evaluate/treat- deconditioning s/p ICU [facility] Hospital course: patient is 57 yo woman with a history of COPD on home oxygen, hep C, mitral valve prolapse, bipolar. She was brought to ED because family went to check on her and found her in respiratory distress, EMS was called, she was placed on BiPAP and brought to the emergency room where she was intubated admitted to ICU. She was diagnosed with acute on chronic respiratory failure, acute metabolic encephalopathy, COPD exacerbation. She was evaluated by Pulmonology/skip tracer. She improved and was extubated and transferred to telemetry. She was eventually discharged home on 10/15/2018. Total time spent on discharge, 32 mins Disposition: DC-01 TO HOME OR SELFCARE - Discharge Diagnoses (1) Acute and chronic respiratory failure Status: Acute (2) COPD exacerbation Status: Acute (3) HTN (hypertension) Status: Acute (4) Atrial fibrillation Status: Acute (5) Bipolar disorder Status: Acute (6) Hepatitis C Status: Acute Core Measure Documentation - Palliative Care Palliative Care/ Comfort Measures: Not Applicable - Core Measures Any of the following diagnoses?: none Exam - Constitutional Vitals: Temp Pulse Resp BP Pulse Ox 98.3 F 67 18 120/54 100 10/15/18 12:54 10/15/18 12:54 10/15/18 12:54 10/15/18 12:54 10/15/18 12:54 Plan Activity: advance as tolerated Diet: low fat, low cholesterol, low salt Special Instructions: home oxygen via Additional Instructions: 1.Follow up with PCP or [facility] in 1 week. 2.Continue home Oxygen at 3.5 l/min continuous. 3.Follow up with Dr. Ortiz( Dr. Villasenor)in 1 week Follow up with: VIDYA DELANEYFAR [place] MD ANNA [Primary Care Provider] - 3-5 Days Prescriptions: Carvedilol [Coreg] 3.125 mg PO BID #60 tablet Famotidine [Pepcid] 20 mg PO BID #30 tablet Prednisone [predniSONE 5 mg (6-Day Pack, 21 Tabs)] 5 mg PO .TAPER #1 tab.ds.pk risperiDONE [RisperDAL] 0.5 mg PO BID #30 tablet Lisinopril [Zestril TAB] 2.5 mg PO QDAY #30 tablet
== END 2018-10-15 18:05 | disposition home or self-care (01) | DRG 207 ==
LOC: ED 02:33 → SUATTDRO 02:33 → CC1 05:16 → 4A 10-12 19:00
PROVIDERS: ADMIT Internal Medicine; ATTEND Internal Medicine
PROC: 5A1955Z Respiratory Ventilation, Greater than 96 Consecutive Hours (ICD-10-PCS; principal; 2018-10-05)
PROC: 0BH17EZ Insertion of Endotracheal Airway into Trachea, Via Natural or Artificial Opening (ICD-10-PCS; 2018-10-05)
PROC: 02H633Z Insertion of Infusion Device into Right Atrium, Percutaneous Approach (ICD-10-PCS; 2018-10-07)
PROC: 4A033R1 Measurement of Arterial Saturation, Peripheral, Percutaneous Approach (ICD-10-PCS; 2018-10-11)
PROC: 5A09357 Assistance with Respiratory Ventilation, Less than 24 Consecutive Hours, Continuous Positive Airway Pressure (ICD-10-PCS; 2018-10-14)
DX: J96.21 Acute and chronic respiratory failure with hypoxia (principal); G92 Toxic encephalopathy; J81.0 Acute pulmonary edema; E87.5 Hyperkalemia; R00.1 Bradycardia, unspecified; F41.9 Anxiety disorder, unspecified; Z91.048 Other nonmedicinal substance allergy status; Z91.19 Patient's noncompliance with other medical treatment and regimen; I10 Essential (primary) hypertension; F31.9 Bipolar disorder, unspecified; Z90.710 Acquired absence of both cervix and uterus; F17.200 Nicotine dependence, unspecified, uncomplicated; Z79.82 Long term (current) use of aspirin; B19.20 Unspecified viral hepatitis C without hepatic coma; Z99.81 Dependence on supplemental oxygen; I48.91 Unspecified atrial fibrillation; F14.10 Cocaine abuse, uncomplicated; F13.10 Sedative, hypnotic or anxiolytic abuse, uncomplicated; J43.9 Emphysema, unspecified
CPT/HCPCS: 36415; 36600; 70450; 70551; 71045; 74018; 80048; 80053; 80307; 81001; 82140; 82803; 82962; 83735; 84132; 84439; 84443; 84478; 84484; 85007; 85025; 85027; 86140; 86850; 86900; 86901; 87040; 87070; 87086; 87205; 93005; 93010; 93306; 94002; 94003; 94640; 94660; 94760; 95819; 96365; 96372; 96375; G0378; J0330; J0456; J0610; J0696; J1650; J1815; J1940; J1956; J2060; J2250; J2543; J2704; J2920; J2930; J3010; J3480; J3486; J7030; J7040; J7050; J7070

== ENCOUNTER 2020-11-12 13:30 | Emergency (ER) | payer MEDICARE ==
--- NOTE | 2020-11-12 15:13 | Event Note ---
ED Screening Note Date of service: 11/12/20 Time: 15:11 ED Screening Note: 59 y o female with a pmh of chf, copd and Hep C was called by pcp to report to Ed for joint pain and sob This initial assessment/diagnostic orders/clinical plan/treatment(s) is/are subject to change based on patients health status, clinical progression and re- assessment by fellow clinical providers in the ED. Further treatment and workup at subsequent clinical providers discretion. Patient/guardian urged not to elope from the ED as their condition may be serious if not clinically assessed and managed. Initial orders include: labs, ekg, cxr
[2020-11-12 16:06] LABS: Basophils # (Auto) 0.1 K/mm3 (0.0-0.1); Basophils % (Auto) 0.8 % (0.0-1.8); Eosinophils # (Auto) 0.3 K/mm3 (0.0-0.4); Eosinophils % (Auto) 2.6 % (0.0-4.3); Hematocrit 47.3 % (30.3-42.9); Hemoglobin 15.7 gm/dl (10.1-14.3); Lymphocytes # (Auto) 3.9 K/mm3 (1.2-5.4); Lymphocytes % (Auto) 33.1 % (13.4-35.0); Mean Corpuscular HGB Conc 33 % (30-34); Mean Corpuscular Volume 97 fl (79-97); Monocytes % (Auto) 8.4 % (0.0-7.3); Platelet Count 180 K/mm3 (140-440); Red Blood Count 4.85 M/mm3 (3.65-5.03); Red Cell Distribution Width 13.9 % (13.2-15.2)
[2020-11-12 16:21] LABS: INR 1.15 (0.87-1.13); Partial Thromboplastin Time 27.3 Sec. (24.2-36.6)
[2020-11-12 16:27] LABS: Creatine Kinase MB 1.5 ng/mL (0.0-4.0)
[2020-11-12 16:30] LABS: Alanine Aminotransferase 51 units/L (7-56); BUN/Creatinine Ratio 20; Blood Urea Nitrogen 16 mg/dL (7-17); Calcium 9.3 mg/dL (8.4-10.2); Hemolysis Index 3
[2020-11-12 17:23] LABS: Bilirubin,Urine NEG (Negative); Blood,Urine NEG (Negative); Color,Urine Yellow (Yellow); Protein,Urine <15 mg/dL mg/dL (Negative)
[2020-11-12] MEDS ORDERED: ALBUTEROL 2.5 MG/3 ML NEBU IH ONE (21:34)
[2020-11-12] MEDS ORDERED: predniSONE 20 MG TAB PO ONE (21:34)
--- NOTE | 2020-11-12 21:38 | Emergency Department Report ---
ED General Adult HPI - General Chief complaint: Dyspnea/Respdistress Stated complaint: SOB/ARM PAIN/SWELLING IN FEET Time Seen by Provider: 11/12/20 21:02 Source: patient Mode of arrival: Ambulatory Limitations: No Limitations - History of Present Illness Initial comments: Patient is a 59-year-old female who presents with shortness of breath she has a history of CHF and COPD. She states her shortness of breath has started since Wednesday she noticed that she has some bilateral leg swelling and that she has not been able to urinate as much as she usually does. Patient states her shortness of breath is moderate nothing makes it better nothing makes it worse patient also states that she is having some body pain from her rheumatoid arthritis the pain is an 8 out of 10 as an achy type of pain. She states that she has had this shortness of before in the past. - Related Data Home Medications Medication Instructions Recorded Confirmed Last Taken Cymbalta 60 mg PO DAILY 10/05/18 10/11/18 Unknown Albuterol 0.63% NEBS 3 ml INHALATION Q4H PRN 10/11/18 10/11/18 Unknown Amlodipine Besylate 10 mg PO DAILY 10/11/18 10/11/18 Unknown Protonix 40 mg PO DAILY 10/11/18 10/11/18 Unknown SEROquel XR 50 mg PO DAILY 10/11/18 10/11/18 Unknown Sucralfate [Carafate] 1 gm PO QID 10/11/18 10/11/18 Unknown Previous Rx's Medication Instructions Recorded Last Taken Type Cetirizine HCl [ZyrTEC 10mg cap] 10 mg PO QDAY 14 Days #14 capsule 01/21/18 Unknown Rx Albuterol Sulfate [Proair 90 mcg IH Q4HR PRN #2 aer.pow.ba 02/14/18 Unknown Rx Respiclick] Benzonatate [Tessalon Perles] 100 mg PO Q8HR PRN #30 capsule 02/14/18 Unknown Rx Aspirin [Aspirin BABY CHEW TAB] 81 mg PO QDAY #30 tab.chew 10/05/18 Unknown Rx Famotidine [Pepcid] 20 mg PO BID #30 tablet 10/15/18 Unknown Rx Prednisone [predniSONE 5 mg (6-Day 5 mg PO .TAPER #1 tab.ds.pk 10/15/18 Unknown Rx Pack, 21 Tabs)] carvediloL [Coreg] 3.125 mg PO BID #60 tablet 10/15/18 Unknown Rx lisinopriL [Zestril TAB] 2.5 mg PO QDAY #30 tablet 10/15/18 Unknown Rx risperiDONE [RisperDAL] 0.5 mg PO BID #30 tablet 10/15/18 Unknown Rx Erythromycin [Erythromycin Ophth 10 applic OP BID 12 Days #1 tube 11/12/20 Unknown Rx Oint] predniSONE [Deltasone] 20 mg PO BID #10 tab 11/12/20 Unknown Rx Allergies Allergy/AdvReac Type Severity Reaction Status Date / Time laughing gas Allergy Unknown Uncoded 02/14/18 10:27 ED Review of Systems ROS: Stated complaint: SOB/ARM PAIN/SWELLING IN FEET Other details as noted in HPI ED Past Medical Hx - Past Medical History Previous Medical History?: Yes Hx Hypertension: Yes Hx Heart Attack/AMI: Yes (10 yrs ago) Hx Deep Vein Thrombosis: No Hx Psychiatric Treatment: Yes (bipolar, depression) Hx Asthma: Yes Hx COPD: Yes ( on oxygen and she still smokes) Additional medical history: hep C, PNA, cocaine abuse, mitral valve prolapse - Surgical History Hx Pacemaker: No Hx Internal Defibrillator: No Additional Surgical History: hysterectomy, back surgery - Social History Smoking Status: Never Smoker - Medications Home Medications: Home Medications Medication Instructions Recorded Confirmed Last Taken Type Cetirizine HCl [ZyrTEC 10mg cap] 10 mg PO QDAY 14 Days #14 capsule 01/21/18 10/11/18 Unknown Rx Albuterol Sulfate [Proair 90 mcg IH Q4HR PRN #2 aer.pow.ba 02/14/18 10/11/18 Unknown Rx Respiclick] Benzonatate [Tessalon Perles] 100 mg PO Q8HR PRN #30 capsule 02/14/18 10/11/18 Unknown Rx Aspirin [Aspirin BABY CHEW TAB] 81 mg PO QDAY #30 tab.chew 10/05/18 10/11/18 Unknown Rx Cymbalta 60 mg PO DAILY 10/05/18 10/11/18 Unknown History Albuterol 0.63% NEBS 3 ml INHALATION Q4H PRN 10/11/18 10/11/18 Unknown History Amlodipine Besylate 10 mg PO DAILY 10/11/18 10/11/18 Unknown History Protonix 40 mg PO DAILY 10/11/18 10/11/18 Unknown History SEROquel XR 50 mg PO DAILY 10/11/18 10/11/18 Unknown History Sucralfate [Carafate] 1 gm PO QID 10/11/18 10/11/18 Unknown History Famotidine [Pepcid] 20 mg PO BID #30 tablet 10/15/18 Unknown Rx Prednisone [predniSONE 5 mg (6-Day 5 mg PO .TAPER #1 tab.ds.pk 10/15/18 Unknown Rx Pack, 21 Tabs)] carvediloL [Coreg] 3.125 mg PO BID #60 tablet 10/15/18 Unknown Rx lisinopriL [Zestril TAB] 2.5 mg PO QDAY #30 tablet 10/15/18 Unknown Rx risperiDONE [RisperDAL] 0.5 mg PO BID #30 tablet 10/15/18 Unknown Rx Erythromycin [Erythromycin Ophth 10 applic OP BID 12 Days #1 tube 11/12/20 Unknown Rx Oint] predniSONE [Deltasone] 20 mg PO BID #10 tab 11/12/20 Unknown Rx ED Physical Exam - General Limitations: No Limitations General appearance: alert, in no apparent distress - Head Head exam: Present: atraumatic, normocephalic - Eye Eye exam: Present: normal appearance - ENT ENT exam: Present: mucous membranes moist - Neck Neck exam: Present: normal inspection - Respiratory Respiratory exam: Present: wheezes. Absent: respiratory distress - Cardiovascular Cardiovascular Exam: Present: regular rate, normal rhythm. Absent: systolic mu rmur, diastolic murmur, rubs, gallop - GI/Abdominal GI/Abdominal exam: Present: soft, normal bowel sounds - Extremities Exam Extremities exam: Present: normal inspection - Back Exam Back exam: Present: normal inspection - Neurological Exam Neurological exam: Present: alert, oriented X3 - Psychiatric Psychiatric exam: Present: normal affect, normal mood - Skin Skin exam: Present: warm, dry, intact, normal color. Absent: rash ED Course Vital Signs 11/12/20 11/12/20 11/12/20 15:14 22:14 23:22 Temperature 98.4 F 98.1 F Pulse Rate 77 96 H Pulse Rate [ 64 Bilateral] Respiratory 18 24 Rate Respiratory 22 Rate [Bilateral ] Blood Pressure 147/77 133/85 [Right] O2 Sat by Pulse 94 100 Oximetry ED Medical Decision Making - Lab Data Result diagrams: 11/12/20 15:39 11/12/20 15:39 Lab Results 11/12/20 11/12/20 11/12/20 Range/Units 15:39 15:39 15:39 WBC 11.8 H (4.5-11.0) K/mm3 RBC 4.85 (3.65-5.03) M/mm3 Hgb 15.7 H (10.1-14.3) gm/dl Hct 47.3 H (30.3-42.9) % MCV 97 (79-97) fl MCH 32 (28-32) pg MCHC 33 (30-34) % RDW 13.9 (13.2-15.2) % Plt Count 180 (140-440) K/mm3 Lymph % (Auto) 33.1 (13.4-35.0) % [place] % (Auto) 8.4 H (0.0-7.3) % Eos % (Auto) 2.6 (0.0-4.3) % Baso % (Auto) 0.8 (0.0-1.8) % Lymph # (Auto) 3.9 (1.2-5.4) K/mm3 [place] # (Auto) 1.0 H (0.0-0.8) K/mm3 Eos # (Auto) 0.3 (0.0-0.4) K/mm3 Baso # (Auto) 0.1 (0.0-0.1) K/mm3 Seg Neutrophils % 55.1 (40.0-70.0) % Seg Neutrophils # 6.5 (1.8-7.7) K/mm3 PT (12.2-14.9) Sec. INR (0.87-1.13) APTT (24.2-36.6) Sec. Sodium 137 (137-145) mmol/L Potassium 4.5 (3.6-5.0) mmol/L Chloride 101.5 (98-107) mmol/L Carbon Dioxide 23 (22-30) mmol/L Anion Gap 17 mmol/L BUN 16 (7-17) mg/dL Creatinine 0.8 (0.6-1.2) mg/dL Estimated GFR > 60 ml/min BUN/Creatinine Ratio 20 % Glucose 97 (65-100) mg/dL Lactic Acid 2.50 H* (0.7-2.0) mmol/L Calcium 9.3 (8.4-10.2) mg/dL Total Bilirubin 0.50 (0.1-1.2) mg/dL AST 45 H (5-40) units/L ALT 51 (7-56) units/L Alkaline Phosphatase 144 H (35-129) units/L Total Creatine Kinase (30-135) units/L CK-MB (CK-2) (0.0-4.0) ng/mL CK-MB (CK-2) Rel Index (0-4) Troponin T (0.00-0.029) ng/mL Total Protein 8.8 H (6.3-8.2) g/dL Albumin 4.0 (3.9-5) g/dL Albumin/Globulin Ratio 0.8 % Urine Color (Yellow) Urine Turbidity (Clear) Urine pH (5.0-7.0) Ur Specific [place] (1.003-1.030) Urine Protein (Negative) mg/dL Urine Glucose (UA) (Negative) mg/dL Urine Ketones (Negative) mg/dL Urine Blood (Negative) Urine Nitrite (Negative) Urine Bilirubin (Negative) Urine Urobilinogen (<2.0) mg/dL Ur Leukocyte Esterase (Negative) Urine WBC (Auto) (0.0-6.0) /HPF Urine RBC (Auto) (0.0-6.0) /HPF U Epithel Cells (Auto) (0-13.0) /HPF 11/12/20 11/12/20 11/12/20 Range/Units 15:39 15:39 16:01 WBC (4.5-11.0) K/mm3 RBC (3.65-5.03) M/mm3 Hgb (10.1-14.3) gm/dl Hct (30.3-42.9) % MCV (79-97) fl MCH (28-32) pg MCHC (30-34) % RDW (13.2-15.2) % Plt Count (140-440) K/mm3 Lymph % (Auto) (13.4-35.0) % [place] % (Auto) (0.0-7.3) % Eos % (Auto) (0.0-4.3) % Baso % (Auto) (0.0-1.8) % Lymph # (Auto) (1.2-5.4) K/mm3 [place] # (Auto) (0.0-0.8) K/mm3 Eos # (Auto) (0.0-0.4) K/mm3 Baso # (Auto) (0.0-0.1) K/mm3 Seg Neutrophils % (40.0-70.0) % Seg Neutrophils # (1.8-7.7) K/mm3 PT 14.5 (12.2-14.9) Sec. INR 1.15 H (0.87-1.13) APTT 27.3 (24.2-36.6) Sec. Sodium (137-145) mmol/L Potassium (3.6-5.0) mmol/L Chloride (98-107) mmol/L Carbon Dioxide (22-30) mmol/L Anion Gap mmol/L BUN (7-17) mg/dL Creatinine (0.6-1.2) mg/dL Estimated GFR ml/min BUN/Creatinine Ratio % Glucose (65-100) mg/dL Lactic Acid (0.7-2.0) mmol/L Calcium (8.4-10.2) mg/dL Total Bilirubin (0.1-1.2) mg/dL AST (5-40) units/L ALT (7-56) units/L Alkaline Phosphatase (35-129) units/L Total Creatine Kinase 80 (30-135) units/L CK-MB (CK-2) 1.5 (0.0-4.0) ng/mL CK-MB (CK-2) Rel Index 1.8 (0-4) Troponin T < 0.010 (0.00-0.029) ng/mL Total Protein (6.3-8.2) g/dL Albumin (3.9-5) g/dL Albumin/Globulin Ratio % Urine Color Yellow (Yellow) Urine Turbidity Clear (Clear) Urine pH 7.0 (5.0-7.0) Ur Specific [place] 1.012 (1.003-1.030) Urine Protein <15 mg/dl (Negative) mg/dL Urine Glucose (UA) Neg (Negative) mg/dL Urine Ketones Neg (Negative) mg/dL Urine Blood Neg (Negative) Urine Nitrite Neg (Negative) Urine Bilirubin Neg (Negative) Urine Urobilinogen 2.0 (<2.0) mg/dL Ur Leukocyte Esterase Tr (Negative) Urine WBC (Auto) 2.0 (0.0-6.0) /HPF Urine RBC (Auto) 1.0 (0.0-6.0) /HPF U Epithel Cells (Auto) 4.0 (0-13.0) /HPF - Medical Decision Making MDM Cdx: CHF ddx: COPD, Arthymia I will get blood work, ekg, cxr and will re-evaluate the patient. Critical care attestation.: If time is entered above; I have spent that time in minutes in the direct care of this critically ill patient, excluding procedure time. ED Disposition Clinical Impression: COPD exacerbation, SOB (shortness of breath) Disposition: DC-01 TO HOME OR SELFCARE Is pt being admited?: No Does the pt Need Aspirin: No Condition: Stable Instructions: Chronic Obstructive Pulmonary Disease (ED) Prescriptions: predniSONE [Deltasone] 20 mg PO BID #10 tab Erythromycin [Erythromycin Ophth Oint] 10 applic OP BID 12 Days #1 tube Referrals: DR EMA [Other] - 3-5 Days
[2020-11-12] MEDS ORDERED: MORPHINE 4 MG/1 ML INJ IV ONE (22:06)
--- NOTE | 2020-11-12 22:43 | XRay Report ---
CHEST 2 VIEWS 2210 INDICATION / CLINICAL INFORMATION: sob COMPARISON: None currently available FINDINGS: SUPPORT DEVICES: None. HEART / MEDIASTINUM: No significant abnormality. LUNGS / PLEURA: Diffuse increased interstitial markings are seen which have a chronic type of appeara nce. Bilateral calcified granulomata are noted. Bibasilar linear atelectasis and/or scarring is seen. Note definite areas of consolidation or strongly favored pneumonic infiltrates are seen though mild basilar pneumonitis is not totally excluded. Prior images are not currently available for comparison. No pneumothorax. ADDITIONAL FINDINGS: No significant additional findings. Signer Name: Domenico Bryan MD Signed: 11/12/2020 10:39 PM Workstation Name: [id number]
[2020-11-12] MEDS ORDERED: FUROSEMIDE 40 MG/4 ML INJ IV ONE (23:01)
[2020-11-12 23:23] VITALS: BP 133/85
== END 2020-11-13 00:39 | disposition home or self-care (01) ==
LOC: ED 13:30
DX: J44.1 Chronic obstructive pulmonary disease with (acute) exacerbation (principal); R06.02 Shortness of breath; I10 Essential (primary) hypertension; I25.2 Old myocardial infarction; F31.9 Bipolar disorder, unspecified; Z98.890 Other specified postprocedural states; Z79.899 Other long term (current) drug therapy; Z88.8 Allergy status to other drugs, medicaments and biological substances
CPT/HCPCS: 36415; 71046; 80053; 81001; 82140; 82550; 82553; 84484; 85025; 85610; 85730; 94640; 96374; 99284; J1940; J2270; J7512; 94644

== ENCOUNTER 2020-12-07 16:13 | Observation (INO) | payer MEDICARE ==
[2020-12-07] MEDS ORDERED: IPRATROPIUM 0.02% NEBU 2.5 ML IH ONE (19:17)
[2020-12-07] MEDS ORDERED: ALBUTEROL 2.5 MG/3 ML NEBU IH ONE (19:17)
--- NOTE | 2020-12-07 19:26 | Emergency Department Report ---
HPI - General Chief Complaint: Dyspnea/Respdistress Time Seen by Provider: 12/07/20 19:10 - HPI HPI: Room 1 Patient is a 60-year-old female present with a chief complaint of shortness of breath. Patient states she has a history of COPD for the past 6 days has had worsening shortness of breath. Patient states she normally is able to ambulate approximately 10 feet without oxygen but for the past several days she noticed she gets short of breath when she does this. Patient admits to rhonchi and a cough that is occasionally productive of sputum. EMS was called and administered Solu-Medrol, albuterol and magnesium sulfate prior to arrival. Patient still complains of shortness of breath and noisy respirations ED Past Medical Hx - Past Medical History Previous Medical History?: Yes Hx Hypertension: Yes Hx Heart Attack/AMI: Yes (10 yrs ago) Hx Psychiatric Treatment: Yes (bipolar, depression) Hx Asthma: Yes Hx COPD: Yes ( on oxygen and she still smokes) Additional medical history: hep C, PNA, cocaine abuse, mitral valve prolapse - Surgical History Past Surgical History?: Yes Additional Surgical History: hysterectomy, back surgery - Family History Family history: no significant - Social History Smoking Status: Current Every Day Smoker (07/04 pack/day) Substance Use Type: None (Denies illicit drug use), Alcohol (Moderate) - Medications Home Medications: Home Medications Medication Instructions Recorded Confirmed Last Taken Type Cetirizine HCl [ZyrTEC 10mg cap] 10 mg PO QDAY 14 Days #14 capsule 01/21/18 Unknown Rx Albuterol Sulfate [Proair 90 mcg IH Q4HR PRN #2 aer.pow.ba 02/14/18 10/11/18 Unk nown Rx Respiclick] Benzonatate [Tessalon Perles] 100 mg PO Q8HR PRN #30 capsule 02/14/18 10/11/18 Unknown Rx Aspirin [Aspirin BABY CHEW TAB] 81 mg PO QDAY #30 tab.chew 10/05/18 10/11/18 Unk nown Rx Cymbalta 60 mg PO DAILY 10/05/18 10/11/18 Unknown History Albuterol 0.63% NEBS 3 ml INHALATION Q4H PRN 10/11/18 10/11/18 Unknown History Amlodipine Besylate 10 mg PO DAILY 10/11/18 10/11/18 Unknown History Protonix 40 mg PO DAILY 10/11/18 10/11/18 Unknown History SEROquel XR 50 mg PO DAILY 10/11/18 10/11/18 Unknown History Sucralfate [Carafate] 1 gm PO QID 10/11/18 10/11/18 Unknown History Famotidine [Pepcid] 20 mg PO BID #30 tablet 10/15/18 Unknown Rx Prednisone [predniSONE 5 mg (6-Day 5 mg PO .TAPER #1 tab.ds.pk 10/15/18 Unknown Rx Pack, 21 Tabs)] carvediloL [Coreg] 3.125 mg PO BID #60 tablet 10/15/18 Unknown Rx lisinopriL [Zestril TAB] 2.5 mg PO QDAY #30 tablet 10/15/18 Unknown Rx risperiDONE [RisperDAL] 0.5 mg PO BID #30 tablet 10/15/18 Unknown Rx Erythromycin [Erythromycin Ophth 10 applic OP BID 12 Days #1 tube 11/12/20 Unknown Rx Oint] predniSONE [Deltasone] 20 mg PO BID #10 tab 11/12/20 Unknown Rx ED Review of Systems ROS: Stated complaint: COPD EXACERDATION Other details as noted in HPI Constitutional: denies: fever Eyes: denies: eye pain ENT: denies: throat pain Respiratory: cough, shortness of breath Cardiovascular: denies: chest pain Endocrine: no symptoms reported Gastrointestinal: denies: abdominal pain Genitourinary: denies: dysuria Musculoskeletal: denies: back pain Neurological: denies: headache Physical Exam - Physical Exam Vital Signs: Vital Signs 12/07/20 19:03 Pulse Rate 74 Respiratory 18 Rate Blood Pressure 143/63 [Left] O2 Sat by Pulse 93 Oximetry Physical Exam: GENERAL: The patient is well-developed well-nourished female lying on stretcher not appearing to be in acute distress. [] HEENT: Normocephalic. Atraumatic. Extraocular motions are intact. Patient has moist mucous membranes. NECK: Supple. Trachea midline CHEST/LUNGS: Diffuse rhonchi with occasional wheezing. There is no respiratory distress noted. HEART/CARDIOVASCULAR: Regular. There is no tachycardia. There is no gallop rub or murmur. ABDOMEN: Abdomen is soft, nontender. Patient has normal bowel sounds. There is no abdominal distention. SKIN: There is no rash. There is no edema. There is no diaphoresis. NEURO: The patient is awake, alert, and oriented. The patient is cooperative. The patient has no focal neurologic deficits. The patient has normal speech MUSCULOSKELETAL: There is no evidence of acute injury. ED Course Vital Signs 12/07/20 19:03 Pulse Rate 74 Respiratory 18 Rate Blood Pressure 143/63 [Left] O2 Sat by Pulse 93 Oximetry ED Medical Decision Making - Lab Data Result diagrams: 12/07/20 19:29 12/07/20 19:29 - Radiology Data Radiology results: report reviewed (Chest x-ray), image reviewed (Chest x-ray) interpreted by me: Chest x-ray-no definite focal infiltrates, no pneumothorax. No foreign body seen [facility] [address] [place] [address] XRay Report Signed Patient: PETER GONZALES MR#: [id number] : 1960 Acct:[id number] Age/Sex: 60 / F ADM Date: 12/07/20 Loc: ED Attending Dr: Ordering Physician: GUMARO TAN MD Date of Service: 12/07/20 Procedure(s): XR chest 1V ap Accession Number(s): [id number] cc: GUMARO TAN MD Fluoro Time In Minutes: XR chest 1V ap INDICATION / CLINICAL INFORMATION: Shortness of breath, COPD, wheezing. COMPARISON: 11/12/2020 FINDINGS: SUPPORT DEVICES: None. HEART /PULMONARY VASCULATURE: No significant abnormality. LUNGS / PLEURA: Similar diffuse increased interstitial markings, likely chronic. Linear bibasilar opacities likely reflect scarring/fibrotic changes. No new or increasing airspace consolidation. There is no pleural effusion or pneumothorax. ADDITIONAL FINDINGS: No significant additional findings. IMPRESSION: Stable chronic findings in the lungs. No acute chest process identified. Signer Name: Ariadna Anaya MD Signed: 12/07/2020 7:51 PM Workstation Name: [id number] Transcribed By: CANDELARIA Dictated By: ARIADNA ANAYA MD Electronically Authenticated By: ARIADNA ANAYA MD Signed Date/Time: 12/07/201950 DD/ 49 TD/TT: Print Cancel - Differential Diagnosis COPD exacerbation, pneumonia, bronchitis Critical care attestation.: If time is entered above; I have spent that time in minutes in the direct care of this critically ill patient, excluding procedure time. ED Disposition Clinical Impression: COPD exacerbation, Shortness of breath Disposition: OP ADMIT IP TO THIS HOSP Is pt being admited?: Yes Does the pt Need Aspirin: No Condition: Fair Instructions: Chronic Obstructive Pulmonary Disease (ED) Time of Disposition: 21:39 (Hospitalist notified (Dr Tavarez))
[2020-12-07 19:43] LABS: Basophils % (Auto) 0.4 % (0.0-1.8); Eosinophils % (Auto) 0.2 % (0.0-4.3); Hematocrit 46.7 % (30.3-42.9); Hemoglobin 15.7 gm/dl (10.1-14.3); Lymphocytes # (Auto) 0.9 K/mm3 (1.2-5.4); Lymphocytes % (Auto) 13.9 % (13.4-35.0); Mean Corpuscular HGB Conc 34 % (30-34); Mean Corpuscular Volume 97 fl (79-97); Monocytes # (Auto) 0.1 K/mm3 (0.0-0.8); Monocytes % (Auto) 1.3 % (0.0-7.3); Platelet Count 164 K/mm3 (140-440); Red Cell Distribution Width 13.7 % (13.2-15.2)
--- NOTE | 2020-12-07 19:55 | XRay Report ---
XR chest 1V ap INDICATION / CLINICAL INFORMATION: Shortness of breath, COPD, wheezing. COMPARISON: 11/12/2020 FINDINGS: SUPPORT DEVICES: None. HEART /PULMONARY VASCULATURE: No significant abnormality. LUNGS / PLEURA: Similar diffuse increased interstitial markings, likely chronic. Linear bibasilar opa cities likely reflect scarring/fibrotic changes. No new or increasing airspace consolidation. There i s no pleural effusion or pneumothorax. ADDITIONAL FINDINGS: No significant additional findings. IMPRESSION: Stable chronic findings in the lungs. No acute chest process identified. Signer Name: Jacky Anaya MD Signed: 12/07/2020 7:51 PM Workstation Name: [id number]
[2020-12-07 20:01] LABS: BUN/Creatinine Ratio 13; Blood Urea Nitrogen 10 mg/dL (7-17); Calcium 8.8 mg/dL (8.4-10.2); Hemolysis Index 17
[2020-12-07] MEDS ORDERED: ACETAMINOPHEN 325 MG TAB PO PRN (21:50)
[2020-12-07] MEDS ORDERED: ONDANSETRON 4 MG/2 ML INJ IV PRN (21:50)
[2020-12-07] MEDS ORDERED: NON-FORMULARY EACH (Albuterol Sulfate [Proair Respiclick] 90 MCG Aer.Pow.Ba) IH PRN (21:52)
[2020-12-07] MEDS ORDERED: LEVALBUTEROL 0.63 MG/3 ML NEBU IH PRN (21:52)
[2020-12-07] MEDS ORDERED: hydrALAZINE 20 MG/1 ML INJ IV PRN (21:53)
--- NOTE | 2020-12-07 21:59 | History and Physical Report ---
History of Present Illness Date of examination: 12/07/20 Date of admission: 12/07/20 Chief complaint: Dyspnea Respiratory distress History of present illness: 60-year-old female with past medical history of hypertension COPD on 3.5 L of home oxygen was brought to the emergency room because of progressive shortness of breath as stated cough for the last 6 days. Patient states she normally is able to ambulate approximately 10 feet without oxygen but for the past several days she noticed she gets short of breath when she does this. Patient admits to rhonchi and a cough that is occasionally productive of sputum. EMS was called and administered Solu-Medrol, albuterol and magnesium sulfate prior to arrival. Patient still complains of shortness of breath and noisy respirations In the emergency room patient is found to have acute COPD exacerbation Past History Past Medical History: No medical history, COPD, hypertension, other (Hep C pneumonia cocaine abuse mitral valve prolapse bipolar disorder depression) Medications and Allergies Allergies Allergy/AdvReac Type Severity Reaction Status Date / Time laughing gas Allergy Unknown Uncoded 02/14/18 10:27 Home Medications Medication Instructions Recorded Confirmed Last Taken Type Cetirizine HCl [ZyrTEC 10mg cap] 10 mg PO QDAY 14 Days #14 capsule 01/21/18 10/11/18 Unknown Rx Albuterol Sulfate [Proair 90 mcg IH Q4HR PRN #2 aer.pow.ba 02/14/18 10/11/18 Unknown Rx Respiclick] Benzonatate [Tessalon Perles] 100 mg PO Q8HR PRN #30 capsule 02/14/18 10/11/18 Unknown Rx Aspirin [Aspirin BABY CHEW TAB] 81 mg PO QDAY #30 tab.chew 10/05/18 10/11/18 Unknown Rx Cymbalta 60 mg PO DAILY 10/05/18 10/11/18 Unknown History Albuterol 0.63% NEBS 3 ml INHALATION Q4H PRN 10/11/18 10/11/18 Unknown History Amlodipine Besylate 10 mg PO DAILY 10/11/18 10/11/18 Unknown History Protonix 40 mg PO DAILY 10/11/18 10/11/18 Unknown History SEROquel XR 50 mg PO DAILY 10/11/18 10/11/18 Unknown History Sucralfate [Carafate] 1 gm PO QID 10/11/18 10/11/18 Unknown History Famotidine [Pepcid] 20 mg PO BID #30 tablet 10/15/18 Unknown Rx Prednisone [predniSONE 5 mg (6-Day 5 mg PO .TAPER #1 tab.ds.pk 10/15/18 Unknown Rx Pack, 21 Tabs)] carvediloL [Coreg] 3.125 mg PO BID #60 tablet 10/15/18 Unknown Rx lisinopriL [Zestril TAB] 2.5 mg PO QDAY #30 tablet 10/15/18 Unknown Rx risperiDONE [RisperDAL] 0.5 mg PO BID #30 tablet 10/15/18 Unknown Rx Erythromycin [Erythromycin Ophth 10 applic OP BID 12 Days #1 tube 11/12/20 Unknown Rx Oint] predniSONE [Deltasone] 20 mg PO BID #10 tab 11/12/20 Unknown Rx Active Meds: Active Medications Acetaminophen (Acetaminophen 325 Mg Tab) 650 mg PO Q4H PRN PRN Reason: Pain MILD(1-3)/Fever >100.5/IMMS Ondansetron HCl (Ondansetron 4 Mg/2 Ml Inj) 4 mg IV Q8H PRN PRN Reason: Nausea And Vomiting Review of Systems Cardiovascular: shortness of breath, dyspnea on exertion Respiratory: cough with sputum, shortness of breath, dyspnea on exertion, wheezing Exam - Constitutional Vitals: Temp Pulse Resp BP Pulse Ox 98 H 30 H 153/69 82 L 12/07/20 21:01 12/07/20 21:01 12/07/20 21:01 12/07/20 21:01 General appearance: Present: no acute distress, well-nourished - EENT Eyes: Present: PERRL ENT: hearing intact, clear oral mucosa - Neck Neck: Present: supple, normal ROM - Respiratory Respiratory effort: normal Respiratory: bilateral: wheezing - Cardiovascular Heart Sounds: Present: S1 & S2. Absent: rub, click - Extremities Extremities: pulses symmetrical, No edema Peripheral Pulses: within normal limits - Abdominal General gastrointestinal: Present: soft, non-tender, non-distended, normal bowel sounds Female genitourinary: Present: normal - Integumentary Integumentary: Present: clear, warm, dry - Musculoskeletal Musculoskeletal: gait normal, strength equal bilaterally - Psychiatric Psychiatric: appropriate mood/affect, intact judgment & insight - Neurologic Neurologic: CNII-XII intact, moves all extremities Results - Labs CBC & Chem 7: 12/07/20 19:29 12/07/20 19: Labs: Laboratory Last Values WBC 6.3 K/mm3 (4.5-11.0) 12/07/20: RBC 4.80 M/mm3 (3.65-5.03) 12/07/20: Hgb 15.7 gm/dl (10.1-14.3) H 12/07/20: Hct 46.7 % (30.3-42.9) H 12/07/20: MCV 97 fl (79-97) 12/07/20: MCH 33 pg (28-32) H 12/07/20: MCHC 34 % (30-34) 12/07/20: RDW 13.7 % (13.2-15.2) 12/07/20 Plt Count 164 K/mm3 (140-440) 12/07/20: Lymph % (Auto) 13.9 % (13.4-35.0) 12/07/20: [place] % (Auto) 1.3 % (0.0-7.3) 12/07/20 Eos % (Auto) 0.2 % (0.0-4.3) 12/07/20 Baso % (Auto) 0.4 % (0.0-1.8) 12/07/20 Lymph # (Auto) 0.9 K/mm3 (1.2-5.4) L 12/07/20 [place] # (Auto) 0.1 K/mm3 (0.0-0.8) 12/07/20 Eos # (Auto) 0.0 K/mm3 (0.0-0.4) 12/07/20 Baso # (Auto) 0.0 K/mm3 (0.0-0.1) 12/07/20 Seg Neutrophils % 84.2 % (40.0-70.0) H 12/07/20: Seg Neutrophils # 5.3 K/mm3 (1.8-7.7) 12/07/20 Sodium 133 mmol/L (137-145) L 12/07/20 19:29 Potassium 4.4 mmol/L (3.6-5.0) 12/07/20 19:29 Chloride 98.3 mmol/L (98-107) 12/07/20 19:29 Carbon Dioxide 27 mmol/L (22-30) 12/07/20 19:29 Anion Gap 12 mmol/L 12/07/20 19:29 BUN 10 mg/dL (7-17) 12/07/20 19:29 Creatinine 0.8 mg/dL (0.6-1.2) 12/07/20 19:29 Estimated GFR > 60 ml/min 12/07/20 19:29 BUN/Creatinine Ratio 13 % 12/07/20 19:29 Glucose 124 mg/dL (65-100) H 12/07/20 19:29 Calcium 8.8 mg/dL (8.4-10.2) 12/07/20 19:29 NT-Pro-B Natriuret Pep 116.9 pg/mL (0-900) 12/07/20 19:29 - Imaging and Cardiology Chest x-ray: report reviewed Assessment and Plan VTE prophylaxis?: Chemical Plan of care discussed with patient/family: Yes - Patient Problems (1) COPD exacerbation Current Visit: Yes Status: Acute Plan to address problem: Admit the patient to the medical telemetry. Oxygen by nasal cannula 3 L/min. DuoNeb by nebulizer every 4 hours. Albuterol via nebulizer every 4 hours as needed. Solu-Medrol 40 mg IV every 6 hours. Zithromax to 50 mg p.o. daily. We do the blood cultures sputum culture. (2) Shortness of breath Current Visit: Yes Status: Acute Plan to address problem: Oxygen by nasal cannula 3 L/min. DuoNeb by nebulizer every 4 hours. Albuterol via nebulizer every 4 hours as needed. Solu-Medrol 40 mg IV every 6 hours. Zithromax to 50 mg p.o. daily. We do the blood cultures sputum culture. (3) CAD (coronary artery disease) Current Visit: Yes Status: Acute Plan to address problem: Stable we will put the patient on aspirin 81 mg p.o. daily Coreg 3.125 mg p.o. twice daily. We will monitor the patient closely (4) Bipolar disorder Current Visit: No Status: Acute Plan to address problem: Stable we will continue the home medication. (5) HTN (hypertension) Current Visit: No Status: Acute Plan to address problem: Coreg 3.125 mg p.o. twice daily hydralazine 10 mg IV every 6 hours as needed. We will monitor the blood pressure closely (6) Hepatitis C Current Visit: No Status: Acute Plan to address problem: Stable. We will continue home medication outpatient follow-up with GI (7) Tobacco abuse Current Visit: Yes Status: Acute Plan to address problem: Patient counseled regarding quit smoking. Patient provided nicotine patch. (8) DVT prophylaxis Current Visit: Yes Status: Acute Plan to address problem: Heparin 5000 units subcu every 8 hours for DVT prophylaxis. Pepcid 20 mg p.o. twice daily for GI prophylaxis. Patient is a full code
[2020-12-07] MEDS ORDERED: FAMOTIDINE 20 MG TAB PO SCH (22:00)
[2020-12-07] MEDS ORDERED: NICOTINE 7 MG/24 HR PATCH TD ONE (22:01)
[2020-12-07] MEDS: HEPARIN 5,000 UNIT/1 ML VIAL SUB-Q SCH (22:37)
[2020-12-07] MEDS: carvediloL 3.125 MG TAB PO SCH (22:37)
[2020-12-07] MEDS: ERYTHROMYCIN 5 MG/1 GM OPHTH OINT OP SCH (22:57)
[2020-12-08] MEDS ORDERED: diphenhydrAMINE 25 MG CAP PO ONE ×2 (01:17→23:37)
[2020-12-08] MEDS: MONTELUKAST 10 MG TAB PO SCH ×2 (01:26→21:00)
[2020-12-08] MEDS: IPRATROPIUM/ALBUTEROL SULFATE 3 ML AMPUL.NEB IH SCH ×3 (04:20→19:17)
[2020-12-08] MEDS: methylPREDNISolone Sod Succinate 40 MG/1 ML INJ IV SCH ×5 (05:22→23:49)
[2020-12-08] MEDS: HEPARIN 5,000 UNIT/1 ML VIAL SUB-Q SCH ×3 (05:22→21:00)
[2020-12-08 05:54] LABS: Basophils % (Auto) 0.2 % (0.0-1.8); Eosinophils % (Auto) 0.1 % (0.0-4.3); Hemoglobin 14.9 gm/dl (10.1-14.3); Lymphocytes # (Auto) 1.2 K/mm3 (1.2-5.4); Lymphocytes % (Auto) 18.4 % (13.4-35.0); Mean Corpuscular HGB Conc 34 % (30-34); Mean Corpuscular Volume 98 fl (79-97); Monocytes # (Auto) 0.2 K/mm3 (0.0-0.8); Monocytes % (Auto) 2.3 % (0.0-7.3); Platelet Count 162 K/mm3 (140-440); Red Cell Distribution Width 13.6 % (13.2-15.2)
[2020-12-08 06:04] LABS: Blood Urea Nitrogen 12 mg/dL (7-17); Hemolysis Index 19
[2020-12-08 06:07] LABS: BUN/Creatinine Ratio 17
--- NOTE | 2020-12-08 08:54 | Progress Note ---
Assessment and Plan Assessment and plan: Acute on chronic respiratory failure due to COPD exacerbation Admit Supplemental Oxygen Consult Pulm COPD exacerbation Admitted to Telemetry. Cont Oxygen by nasal cannula ,titrate to keep Oxygen sat >92%. At home she was on Oxygen by NC at 3.5 l/min DuoNeb by nebulizer every 4 hours. Albuterol via nebulizer every 4 hours as needed. Solu-Medrol 40 mg IV every [address] Hay, her Operations Director CAD (coronary artery disease) Stable. On aspirin 81 mg p.o. daily Coreg 3.125 mg p.o. twice daily. We will monitor the patient closely Bipolar disorder Stable, continue the home medication. HTN (hypertension) Coreg 3.125 mg p.o. twice daily hydralazine 10 mg IV every 6 hours as needed. We will monitor the blood pressure closely Hepatitis C Stable. We will continue home medication outpatient follow-up with GI Tobacco abuse Patient counseled regarding quit smoking. Patient provided nicotine patch. DVT prophylaxis Heparin 5000 units subcu every 8 hours for DVT prophylaxis. Patient is a full code History Interval history: Coughing Wheezing Shortness of breath Hospitalist Physical - Physical exam Narrative exam: Gen: Not in acute distress, obese, lying in bed HEENT: Normochephalic, atraumatic Neck:supple, No JVD Lungs: Bilateral wheezing Heart:S1 and S2 reg, no murmurs, rubs or gallop Abd: soft, non tender, non distended, normal bowel sounds Ext: No edema, no clubbing, no cyanosis Neuro:Awake,alert,oriented X 3, moves all ext, no focal neurological signs - Constitutional Vitals: Temp Pulse Resp BP Pulse Ox 97.4 F L 85 20 146/65 93 12/08/20 04:11 12/08/20 04:20 12/08/20 04:20 12/08/20 04:11 12/08/20 04:21 General appearance: Present: no acute distress, well-nourished Results - Labs CBC & Chem 7: 12/08/20 04:47 12/08/20 04:47 Labs: Laboratory Last Values WBC 6.6 K/mm3 (4.5-11.0) 12/08/20 04:47 RBC 4.50 M/mm3 (3.65-5.03) 12/08/20 04:47 Hgb 14.9 gm/dl (10.1-14.3) H 12/08/20 04:47 Hct 44.0 % (30.3-42.9) H 12/08/20 04:47 MCV 98 fl (79-97) H 12/08/20 04:47 MCH 33 pg (28-32) H 12/08/20 04:47 MCHC 34 % (30-34) 12/08/20 04:47 RDW 13.6 % (13.2-15.2) 12/08/20 04:47 Plt Count 162 K/mm3 (140-440) 12/08/20 04:47 Lymph % (Auto) 18.4 % (13.4-35.0) 12/08/20 04:47 [place] % (Auto) 2.3 % (0.0-7.3) 12/08/20 04:47 Eos % (Auto) 0.1 % (0.0-4.3) 12/08/20 04:47 Baso % (Auto) 0.2 % (0.0-1.8) 12/08/20 04:47 Lymph # (Auto) 1.2 K/mm3 (1.2-5.4) 12/08/20 04:47 [place] # (Auto) 0.2 K/mm3 (0.0-0.8) 12/08/20 04:47 Eos # (Auto) 0.0 K/mm3 (0.0-0.4) 12/08/20 04:47 Baso # (Auto) 0.0 K/mm3 (0.0-0.1) 12/08/20 04:47 Seg Neutrophils % 79.0 % (40.0-70.0) H 12/08/20 04:47 Seg Neutrophils # 5.2 K/mm3 (1.8-7.7) 12/08/20 04:47 Sodium 134 mmol/L (137-145) L 12/08/20 04:47 Potassium 4.5 mmol/L (3.6-5.0) 12/08/20 04:47 Chloride 99.2 mmol/L (98-107) 12/08/20 04:47 Carbon Dioxide 26 mmol/L (22-30) 12/08/20 04:47 Anion Gap 13 mmol/L 12/08/20 04:47 BUN 12 mg/dL (7-17) 12/08/20 04:47 Creatinine 0.7 mg/dL (0.6-1.2) 12/08/20 04:47 Estimated GFR > 60 ml/min 12/08/20 04:47 BUN/Creatinine Ratio 17 % 12/08/20 04:47 Glucose 137 mg/dL (65-100) H 12/08/20 04:47 Calcium 9.0 mg/dL (8.4-10.2) 12/08/20 04:47 NT-Pro-B Natriuret Pep 116.9 pg/mL (0-900) 12/07/20 19:29 Fernando/IV: Voiding Method Toilet Active Medications - Current Medications Current Medications: Generic Name Dose Route Start Last Admin Trade Name Freq PRN Reason Stop Dose Admin Acetaminophen 650 mg 12/07/20 21:50 12/08/20 03:05 Acetaminophen 325 Mg Tab PO 650 mg Q4H PRN Administration Pain MILD(1-3)/Fever >100.5/MIMS Albuterol/Ipratropium 1 ampul 12/08/20 02:00 12/08/20 04:20 Ipratropium/Albuterol Sulfate 3 Ml Ampul.Neb IH 1 ampul Q6HRT [facility] Administration Amlodipine Besylate 10 mg 12/08/20 10:00 Amlodipine 10 Mg Tab PO DAILY [facility] Aspirin 81 mg 12/08/20 10:00 Aspirin 81 Mg Tab Chew PO QDAY HUMBERTO Azithromycin 250 mg 12/08/20 10:00 Azithromycin 250 Mg Tab PO 12/12/20 10:01 QDAY [facility] Protocol Benzonatate 100 mg 12/07/20 21:52 Benzonatate 100 Mg Cap PO Q8HR PRN Cough Carvedilol 3.125 mg 12/07/20 22:00 12/07/20 22:37 Carvedilol 3.125 Mg Tab PO 3.125 mg BID HUMBERTO Administration Cetirizine HCl 10 mg 12/08/20 10:00 Cetirizine 10 Mg Tab PO QDAY HUMBERTO Duloxetine HCl 60 mg 12/08/20 10:00 Duloxetine 30 Mg Cap PO DAILY [facility] Erythromycin 10 applic 12/07/20 22:00 12/07/20 22:57 Erythromycin 5 Mg/1 Gm Ophth Oint OP 12/14/20 10:01 10 applic BID HUMBERTO Administration Famotidine 20 mg 12/07/20 22:00 12/07/20 22:38 Famotidine 20 Mg Tab PO 20 mg BID HUMBERTO Administration Heparin Sodium (Porcine) 5,000 unit 12/07/20 22:00 12/08/20 05:22 Heparin 5,000 Unit/1 Ml Vial SUB-Q 5,000 unit Q8HR [facility]UMBERTO Administration Hydralazine HCl 10 mg 12/07/20 21:53 Hydralazine 20 Mg/1 Ml Inj IV Q6H PRN SBP >/=160; DBP >/=100 Levalbuterol HCl 0.63 mg 12/07/20 21:52 Levalbuterol 0.63 Mg/3 Ml Nebu IH Q4HRT PRN Wheezing Methylprednisolone Sodium Succinate 40 mg 12/08/20 00:00 12/08/20 05:22 Methylprednisolone Sod Succinate 40 Mg/1 Ml Inj IV 40 mg Q6HR [facility]UMBERTO Administration Montelukast Sodium 10 mg 12/07/20 22:00 12/08/20 01:26 Montelukast 10 Mg Tab PO 10 mg QHS HUMBERTO Administration Ondansetron HCl 4 mg 12/07/20 21:50 Ondansetron 4 Mg/2 Ml Inj IV Q8H PRN Nausea And Vomiting Sodium Chloride 10 ml 12/07/20 22:00 12/07/20 22:38 Sodium Chloride 0.9% 10 Ml Flush Syringe IV 10 ml BID HUMBERTO Administration Sodium Chloride 10 ml 12/07/20 21:50 Sodium Chloride 0.9% 10 Ml Flush Syringe IV PRN PRN LINE FLUSH
[2020-12-08] MEDS ORDERED: NON-FORMULARY EACH (Protonix 40 MG) PO SCH (10:00)
[2020-12-08] MEDS ORDERED: LISINOPRIL 5 MG TAB PO SCH (10:00)
[2020-12-08] MEDS ORDERED: SEROQUEL 50 MG PO SCH (10:00)
[2020-12-08] MEDS: guaiFENesin 100 MG/5 ML ORAL LIQD PO PRN ×2 (10:18→15:27)
[2020-12-08] MEDS: DULoxetine 30 MG CAP PO SCH (10:18)
[2020-12-08] MEDS: risperiDONE 0.25 MG TAB PO SCH ×2 (10:19→21:00)
[2020-12-08] MEDS: HYDROcodone/ACETAMINOPHEN 5-325 MG TAB PO PRN ×2 (10:20→20:56)
[2020-12-08] MEDS: carvediloL 3.125 MG TAB PO SCH ×2 (10:20→21:05)
[2020-12-08] MEDS: amLODIPine 10 MG TAB PO SCH (10:20)
[2020-12-08] MEDS: PANTOPRAZOLE 40 MG TAB PO SCH (10:20)
[2020-12-08] MEDS: CETIRIZINE 10 MG TAB PO SCH (10:21)
[2020-12-08] MEDS: ASPIRIN 81 MG TAB CHEW PO SCH (10:21)
[2020-12-08] MEDS: AZITHROMYCIN 250 MG TAB PO SCH (10:21)
--- NOTE | 2020-12-08 10:55 | Consultation ---
History of Present Illness Consult date: 12/08/20 Requesting physician: YULIA EDWARDS Reason for consult: other (acute and chronic resp failure, AE-COPD) History of present illness: 60-year-old female with past medical history of hypertension COPD on 3.5 L of home oxygen was brought to the emergency room because of progressive shortness of breath as stated cough for the last 6 days. Patient states she normally is able to ambulate approximately 10 feet without oxygen but for the past several days she noticed she gets short of breath when she does this. Patient admits to rhonchi and a cough that is occasionally productive of sputum. EMS was called and administered Solu-Medrol, albuterol and magnesium sulfate prior to arrival. Patient still complains of shortness of breath and noisy respirations She has been admitted and I have been consulted fro acute and chronic resp failure, AE-COPD Patient is known to me from my outpatient practice. She continues to smoke. Patient seen and examined. Vitals, labs, medications, chart and imaging reviewed. She also states that she had a problem with her portable oxygen and is waiting for the 19pay to get it taken care of. Past History Past Medical History: No medical history, COPD, hypertension, other (Hep C pneumonia cocaine abuse mitral valve prolapse bipolar disorder depression) Social history: smoking Medications and Allergies Allergies Allergy/AdvReac Type Severity Reaction Status Date / Time laughing gas Allergy Unknown Uncoded 02/14/18 10:27 Home Medications Medication Instructions Recorded Confirmed Last Taken Type SEROquel XR 50 mg PO DAILY 10/11/18 12/08/20 1 Day Ago History ~12/07/20 Famotidine [Pepcid] 20 mg PO BID #30 tablet 10/15/18 12/08/20 1 Day Ago Rx ~12/07/20 Erythromycin [Erythromycin Ophth 10 applic OP BID 12 Days #1 tube 11/12/20 12/08/20 1 Day Ago Rx Oint] ~12/07/20 Albuterol 0.63% NEBS 3 ml INHALATION Q4H PRN 30 Days 12/10/20 Unknown Rx Albuterol Sulfate [Proair 90 mcg IH Q4HR PRN #2 aer.pow.ba 12/10/20 Unknown Rx Respiclick] Aspirin [Aspirin BABY CHEW TAB] 81 mg PO QDAY #30 tab.chew 12/10/20 Unknown Rx Azithromycin [Zithromax TAB] 250 mg PO QDAY 5 Days tablet 12/10/20 Unknown Rx Benzonatate [Tessalon Perles] 100 mg PO Q8HR PRN #30 capsule 12/10/20 Unknown Rx Cetirizine HCl [ZyrTEC 10mg cap] 10 mg PO QDAY 14 Days #14 capsule 12/10/20 Unknown Rx Cymbalta 60 mg PO DAILY #30 12/10/20 Unknown Rx Metoprolol [Lopressor TAB] 50 mg PO DAILY #30 12/10/20 Unknown Rx Montelukast [Singulair] 10 mg PO QHS #30 tablet 12/10/20 Unknown Rx Prednisone [predniSONE 5 mg (6-Day 5 mg PO .TAPER #1 tab.ds.pk 12/10/20 Unknown Rx Pack, 21 Tabs)] Protonix 40 mg PO DAILY #30 12/10/20 Unknown Rx amLODIPine 10 mg PO DAILY 30 Days #30 tablet 12/10/20 Unknown Rx carvediloL [Coreg] 3.125 mg PO BID #60 tablet 12/10/20 Unknown Rx guaiFENesin [Robitussin] 200 mg PO Q4H PRN oral.liqd 12/10/20 Unknown Rx risperiDONE [RisperDAL] 0.5 mg PO BID #30 tablet 12/10/20 Unknown Rx Active Meds: Active Medications Acetaminophen (Acetaminophen 325 Mg Tab) 650 mg PO Q4H PRN PRN Reason: Pain MILD(1-3)/Fever >100.5/MIMS Last Admin: 12/08/20 03:05 Dose: 650 mg Documented by: Hydrocodone Bitart/Acetaminophen (Hydrocodone/Acetaminophen 5-325 Mg Tab) 1 each PO Q6H PRN PRN Reason: Pain, Moderate (4-6) Last Admin: 12/08/20 10:20 Dose: 1 each Documented by: Albuterol/Ipratropium (Ipratropium/Albuterol Sulfate 3 Ml Ampul.Neb) 1 ampul IH Q6HRT [facility] Last Admin: 12/08/20 04:20 Dose: 1 ampul Documented by: Amlodipine Besylate (Amlodipine 10 Mg Tab) 10 mg PO DAILY [facility] Last Admin: 12/08/20 10:20 Dose: 10 mg Documented by: Aspirin (Aspirin 81 Mg Tab Chew) 81 mg PO QDAY [facility] Last Admin: 12/08/20 10:21 Dose: 81 mg Documented by: Azithromycin (Azithromycin 250 Mg Tab) 250 mg PO QDAY [facility]; Protocol Stop: 12/12/20 10:01 Last Admin: 12/08/20 10:21 Dose: 250 mg Documented by: Benzonatate (Benzonatate 100 Mg Cap) 100 mg PO Q8HR PRN PRN Reason: Cough Carvedilol (Carvedilol 3.125 Mg Tab) 3.125 mg PO BID [facility] Last Admin: 12/08/20 10:20 Dose: 3.125 mg Documented by: Cetirizine HCl (Cetirizine 10 Mg Tab) 10 mg PO QDAY [facility] Last Admin: 12/08/20 10:21 Dose: 10 mg Documented by: Duloxetine HCl (Duloxetine 30 Mg Cap) 60 mg PO DAILY [facility] Last Admin: 12/08/20 10:18 Dose: 60 mg Documented by: Erythromycin (Erythromycin 5 Mg/1 Gm Ophth Oint) 10 applic OP BID [facility] Stop: 12/14/20 10:01 Last Admin: 12/07/20 22:57 Dose: 10 applic Documented by: Guaifenesin (Guaifenesin 100 Mg/5 Ml Oral Liqd) 200 mg PO Q4H PRN PRN Reason: Cough Last Admin: 12/08/20 10:18 Dose: 200 mg Documented by: Heparin Sodium (Porcine) (Heparin 5,000 Unit/1 Ml Vial) 5,000 unit SUB-Q Q8HR [facility] Last Admin: 12/08/20 05:22 Dose: 5,000 unit Documented by: Hydralazine HCl (Hydralazine 20 Mg/1 Ml Inj) 10 mg IV Q6H PRN PRN Reason: SBP >/=160; DBP >/=100 Levalbuterol HCl (Levalbuterol 0.63 Mg/3 Ml Nebu) 0.63 mg IH Q4HRT PRN PRN Reason: Wheezing Lisinopril (Lisinopril 5 Mg Tab) 2.5 mg PO QDAY [facility] Last Admin: 12/08/20 10:19 Dose: 2.5 mg Documented by: Methylprednisolone Sodium Succinate (Methylprednisolone Sod Succinate 40 Mg/1 Ml Inj) 40 mg IV Q6HR [facility] Last Admin: 12/08/20 05:22 Dose: 40 mg Documented by: Miscellaneous Medication (Seroquel Xr) 50 mg PO DAILY [facility] Montelukast Sodium (Montelukast 10 Mg Tab) 10 mg PO QHS [facility] Last Admin: 12/08/20 01:26 Dose: 10 mg Documented by: Ondansetron HCl (Ondansetron 4 Mg/2 Ml Inj) 4 mg IV Q8H PRN PRN Reason: Nausea And Vomiting Pantoprazole Sodium (Pantoprazole 40 Mg Tab) 40 mg PO DAILY [facility] Last Admin: 12/08/20 10:20 Dose: 40 mg Documented by: Risperidone (Risperidone 0.25 Mg Tab) 0.5 mg PO BID [facility] Last Admin: 12/08/20 10:19 Dose: 0.5 mg Documented by: Sodium Chloride (Sodium Chloride 0.9% 10 Ml Flush Syringe) 10 ml IV BID [facility] Last Admin: 12/08/20 10: Dose: 10 ml Documented by: Sodium Chloride (Sodium Chloride 0.9% 10 Ml Flush Syringe) 10 ml IV PRN PRN PRN Reason: LINE FLUSH Review of Systems Constitutional: chills, fatigue, no weight loss, no weight gain, no fever Cardiovascular: shortness of breath, no chest pain, no orthopnea, no palpitations, no rapid/irregular heart beat, no syncope Respiratory: cough, cough with sputum, shortness of breath, dyspnea on exertion, congestion, wheezing, no pleurisy Gastrointestinal: no abdominal pain, no nausea, no vomiting, no diarrhea, no constipation Musculoskeletal: no neck stiffness, no neck pain, no shooting arm pain, no low back pain, no shooting leg pain Neurological: no transient paralysis, no paralysis, no parathesias, no seizures, no tremors, no ataxia Endocrine: no cold intolerance, no heat intolerance, no polyphagia, no excessive thirst, no polydipsia Physical Examination Vital signs: Vital Signs Pulse Resp 74 17 12/07/20 18:26 12/07/20 18:26 General appearance: alert, other (mild resp distress) Eyes: non-icteric ENT: oropharynx moist Neck: supple, no lymphadenopathy, no JVD Effort: mildly labored Ascultation: Bilateral: diminished breath sounds, wheezes Cardiovascular: regular rate and rhythm, other (S1,S2) Gastrointestinal: normoactive bowel sounds, soft, non-tender, non-distended Integumentary: normal Extremities: no cyanosis, no edema, pink and warm, pulses normal Musculoskeletal: no deformities normal mental status, non-focal exam, pupils equal and round, CN II-XII normal, motor strength normal and mood appropriate, affect normal Results - Laboratory Findings CBC and BMP: 12/09/20 04:26 12/09/20 04:26 Abnormal lab findings: Abnormal Labs 12/07/20 12/07/20 12/08/20 19:29 19:29 04:47 Hgb 15.7 H 14.9 H Hct 46.7 H 44.0 H MCV 98 H MCH 33 H 33 H Lymph # (Auto) 0.9 L Seg Neutrophils % 84.2 H 79.0 H Sodium 133 L Glucose 124 H 12/08/20 04:47 Hgb Hct MCV MCH Lymph # (Auto) Seg Neutrophils % Sodium 134 L Glucose 137 H - Diagnostic Findings Chest x-ray: image reviewed (No acute infiltrates) Assessment and Plan Acute on chronic respiratory failure due to COPD exacerbation COPD exacerbation Tobacco abuse CAD (coronary artery disease) Bipolar disorder HTN (hypertension) Hepatitis C -ABG -Titrate supplemental oxygen to keep SpO2 88-92% -Bronchodilators- PHILIP/MAYUR -Antibiotics- add Ceftriaxone to Azithromycin -Steroids -VTE prophylaxis, heparin -Accucheck with glycemic control. Target blood glucose <180mg/dL -Smoking cessation counselling for 7 minutes at the bedside. -Nicotine withdrawal precautions -Pain management- limit narcotics -Chronic home medications - Discussed care plan with her and her daughter( over the phone). Updated then re care plan. I answered all their questions. Out patient pulmonary follow up 2 weeks post discharge. Thank you Dr. Edwards for letting me participate in the care of Ms Estrada. Will follow. Please do not hesitate to call with any questions or concerns
[2020-12-08] MEDS ORDERED: LIDOCAINE-MPF (1%) 10 MG/1 ML VIAL 5 ML INFILTRATI ONE (13:00)
[2020-12-08] MEDS: ERYTHROMYCIN 5 MG/1 GM OPHTH OINT OP SCH ×2 (13:46→22:35)
[2020-12-08] MEDS: cefTRIAXone/NS 1 GM/50 ML 1 GM/50 ML BAG IV SCH (16:58)
[2020-12-08] MEDS: BENZONATATE 100 MG CAP PO PRN (23:49)
[2020-12-09] MEDS: IPRATROPIUM/ALBUTEROL SULFATE 3 ML AMPUL.NEB IH SCH ×5 (04:47→21:00)
[2020-12-09 05:02] LABS: Hematocrit 41.5 % (30.3-42.9); Hemoglobin 14.3 gm/dl (10.1-14.3); Mean Corpuscular HGB Conc 34 % (30-34); Mean Corpuscular Volume 97 fl (79-97); Platelet Count 160 K/mm3 (140-440); Red Blood Count 4.26 M/mm3 (3.65-5.03); Red Cell Distribution Width 13.6 % (13.2-15.2)
[2020-12-09 05:19] LABS: Blood Urea Nitrogen 14 mg/dL (7-17); Calcium 9.1 mg/dL (8.4-10.2); Hemolysis Index 7
[2020-12-09 05:58] LABS: BUN/Creatinine Ratio 20
[2020-12-09] MEDS: methylPREDNISolone Sod Succinate 40 MG/1 ML INJ IV SCH ×2 (06:40→17:23)
[2020-12-09] MEDS: HEPARIN 5,000 UNIT/1 ML VIAL SUB-Q SCH ×3 (06:40→21:48)
--- NOTE | 2020-12-09 08:30 | Progress Note ---
Assessment and Plan Assessment and plan: Acute on chronic respiratory failure due to COPD exacerbation Supplemental Oxygen Consulted Pulm COPD exacerbation Cont Oxygen by nasal cannula ,titrate to keep Oxygen sat >92%. At home she was on Oxygen by NC at 3.5 l/min DuoNeb by nebulizer every 4 hours. Albuterol via nebulizer every 4 hours as needed. Solu-Medrol 40 mg IV every 6 hours. Taper steroids CAD (coronary artery disease) Stable. On aspirin 81 mg p.o. daily Coreg 3.125 mg p.o. twice daily. We will monitor the patient closely Bipolar disorder Stable, continue the home medication. HTN (hypertension) Coreg 3.125 mg p.o. twice daily hydralazine 10 mg IV every 6 hours as needed. We will monitor the blood pressure closely Hepatitis C Stable. We will continue home medication outpatient follow-up with GI Tobacco abuse Patient counseled regarding quit smoking. Patient provided nicotine patch. DVT prophylaxis Heparin 5000 units subcu every 8 hours for DVT prophylaxis. History Interval history: No new issues overnight Hospitalist Physical - Constitutional Vitals: Temp Pulse Resp BP Pulse Ox 98.6 F 71 18 120/58 94 12/09/20 07:20 12/09/20 07:20 12/09/20 07:20 12/09/20 07:20 12/09/20 08:05 General appearance: Present: no acute distress, well-nourished - EENT Eyes: Present: PERRL, EOM intact ENT: hearing intact, clear oral mucosa, dentition normal - Neck Neck: Present: supple, normal ROM - Respiratory Respiratory effort: normal Respiratory: bilateral: CTA - Cardiovascular Rhythm: regular Heart Sounds: Present: S1 & S2. Absent: gallop, rub - Extremities Extremities: no ischemia, No edema, Full ROM - Abdominal General gastrointestinal: soft, non-tender, non-distended, normal bowel sounds - Integumentary Integumentary: Present: clear, warm, dry - Neurologic Neurologic: CNII-XII intact, moves all extremities Results - Labs CBC & Chem 7: 12/09/20 04:26 12/09/20 04:26 Labs: Laboratory Last Values WBC 11.0 K/mm3 (4.5-11.0) 12/09/20 04:26 RBC 4.26 M/mm3 (3.65-5.03) 12/09/20 04:26 Hgb 14.3 gm/dl (10.1-14.3) 12/09/20 04:26 Hct 41.5 % (30.3-42.9) 12/09/20 04:26 MCV 97 fl (79-97) 12/09/20 04:26 MCH 33 pg (28-32) H 12/09/20 04:26 MCHC 34 % (30-34) 12/09/20 04:26 RDW 13.6 % (13.2-15.2) 12/09/20 04:26 Plt Count 160 K/mm3 (140-440) 12/09/20 04:26 Lymph % (Auto) 18.4 % (13.4-35.0) 12/08/20 04:47 Rock % (Auto) 2.3 % (0.0-7.3) 12/08/20 04:47 Eos % (Auto) 0.1 % (0.0-4.3) 12/08/20 04:47 Baso % (Auto) 0.2 % (0.0-1.8) 12/08/20 04:47 Lymph # (Auto) 1.2 K/mm3 (1.2-5.4) 12/08/20 04:47 Rock # (Auto) 0.2 K/mm3 (0.0-0.8) 12/08/20 04:47 Eos # (Auto) 0.0 K/mm3 (0.0-0.4) 12/08/20 04:47 Baso # (Auto) 0.0 K/mm3 (0.0-0.1) 12/08/20 04:47 Seg Neutrophils % 79.0 % (40.0-70.0) H 12/08/20 04:47 Seg Neutrophils # 5.2 K/mm3 (1.8-7.7) 12/08/20 04:47 Sodium 136 mmol/L (137-145) L 12/09/20 04:26 Potassium 4.8 mmol/L (3.6-5.0) 12/09/20 04:26 Chloride 101.2 mmol/L (98-107) 12/09/20 04:26 Carbon Dioxide 26 mmol/L (22-30) 12/09/20 04:26 Anion Gap 14 mmol/L 12/09/20 04:26 BUN 14 mg/dL (7-17) 12/09/20 04:26 Creatinine 0.7 mg/dL (0.6-1.2) 12/09/20 04:26 Estimated GFR > 60 ml/min 12/09/20 04:26 BUN/Creatinine Ratio 20 % 12/09/20 04:26 Glucose 142 mg/dL (65-100) H 12/09/20 04:26 Calcium 9.1 mg/dL (8.4-10.2) 12/09/20 04:26 NT-Pro-B Natriuret Pep 116.9 pg/mL (0-900) 12/07/20 19:29 Fernando/IV: Voiding Method Toilet Active Medications - Current Medications Current Medications: Generic Name Dose Route Start Last Admin Trade Name Freq PRN Reason Stop Dose Admin Acetaminophen 650 mg 12/07/20 21:50 12/08/20 03:05 Acetaminophen 325 Mg Tab PO 650 mg Q4H PRN Administration Pain MILD(1-3)/Fever >100.5/MIMS Hydrocodone Bitart/Acetaminophen 1 each 12/08/20 09:58 12/08/20 20:56 Hydrocodone/Acetaminophen 5-325 Mg Tab PO 1 each Q6H PRN Administration Pain, Moderate (4-6) Albuterol/Ipratropium 1 ampul 12/08/20 02:00 12/09/20 08:04 Ipratropium/Albuterol Sulfate 3 Ml Ampul.Neb IH 1 ampul Q6HRT HUMBERTO Administration Amlodipine Besylate 10 mg 12/08/20 10:00 12/08/20 10:20 Amlodipine 10 Mg Tab PO 10 mg DAILY HUMBERTO Administration Aspirin 81 mg 12/08/20 10:00 12/08/20 10:21 Aspirin 81 Mg Tab Chew PO 81 mg QDAY HUMBERTO Administration Azithromycin 250 mg 12/08/20 10:00 12/08/20 10:21 Azithromycin 250 Mg Tab PO 12/12/20 10:01 250 mg QDAY HUMBERTO Administration Protocol Benzonatate 100 mg 12/07/20 21:52 12/08/20 23:49 Benzonatate 100 Mg Cap PO 100 mg Q8HR PRN Administration Cough Carvedilol 3.125 mg 12/07/20 22:00 12/08/20 21:05 Carvedilol 3.125 Mg Tab PO 3.125 mg BID HUMBERTO Administration Cetirizine HCl 10 mg 12/08/20 10:00 12/08/20 10:21 Cetirizine 10 Mg Tab PO 10 mg QDAY HUMBERTO Administration Duloxetine HCl 60 mg 12/08/20 10:00 12/08/20 10:18 Duloxetine 30 Mg Cap PO 60 mg DAILY HUMBERTO Administration Erythromycin 10 applic 12/07/20 22:00 12/08/20 22:35 Erythromycin 5 Mg/1 Gm Ophth Oint OP 12/14/20 10:01 10 applic BID HUMBERTO Administration Guaifenesin 200 mg 12/08/20 09:11 12/08/20 15:27 Guaifenesin 100 Mg/5 Ml Oral Liqd PO 200 mg Q4H PRN Administration Cough Heparin Sodium (Porcine) 5,000 unit 12/07/20 22:00 12/09/20 06:40 Heparin 5,000 Unit/1 Ml Vial SUB-Q 5,000 unit Q8HR HUMBERTO Administration Hydralazine HCl 10 mg 12/07/20 21:53 Hydralazine 20 Mg/1 Ml Inj IV Q6H PRN SBP >/=160; DBP >/=100 Ceftriaxone Sodium 1 gm in 50 mls @ 100 mls/hr 12/08/20 13:00 12/08/20 16:58 Rocephin/Ns 1 Gm/50 Ml IV 12/12/20 13:29 100 mls/hr Q24H HUMBERTO Administration Levalbuterol HCl 0.63 mg 12/07/20 21:52 Levalbuterol 0.63 Mg/3 Ml Nebu IH Q4HRT PRN Wheezing Lisinopril 2.5 mg 12/08/20 10:00 12/08/20 10:19 Lisinopril 5 Mg Tab PO 2.5 mg QDAY HUMBERTO Administration Methylprednisolone Sodium Succinate 40 mg 12/08/20 00:00 12/09/20 06:40 Methylprednisolone Sod Succinate 40 Mg/1 Ml Inj IV 40 mg Q6HR HUMBERTO Administration Miscellaneous Medication 100 mg 12/08/20 11:53 Seroquel Xr PO DAILY HUMBERTO Montelukast Sodium 10 mg 12/07/20 22:00 12/08/20 21:00 Montelukast 10 Mg Tab PO 10 mg QHS HUMBERTO Administration Ondansetron HCl 4 mg 12/07/20 21:50 Ondansetron 4 Mg/2 Ml Inj IV Q8H PRN Nausea And Vomiting Pantoprazole Sodium 40 mg 12/08/20 10:00 12/08/20 10:20 Pantoprazole 40 Mg Tab PO 40 mg DAILY HUMBERTO Administration Risperidone 0.5 mg 12/08/20 10:00 12/08/20 21:00 Risperidone 0.25 Mg Tab PO 0.5 mg BID HUMBERTO Administration Sodium Chloride 10 ml 12/07/20 22:00 12/08/20 22:35 Sodium Chloride 0.9% 10 Ml Flush Syringe IV 10 ml BID HUMBERTO Administration Sodium Chloride 10 ml 12/07/20 21:50 Sodium Chloride 0.9% 10 Ml Flush Syringe IV PRN PRN LINE FLUSH
[2020-12-09] MEDS: ASPIRIN 81 MG TAB CHEW PO SCH (11:05)
[2020-12-09] MEDS: risperiDONE 0.25 MG TAB PO SCH ×2 (11:05→21:45)
[2020-12-09] MEDS: AZITHROMYCIN 250 MG TAB PO SCH (11:06)
[2020-12-09] MEDS: carvediloL 3.125 MG TAB PO SCH ×2 (11:06→21:45)
[2020-12-09] MEDS: DULoxetine 30 MG CAP PO SCH (11:06)
[2020-12-09] MEDS: amLODIPine 10 MG TAB PO SCH (11:07)
[2020-12-09] MEDS: PANTOPRAZOLE 40 MG TAB PO SCH (11:07)
[2020-12-09] MEDS: CETIRIZINE 10 MG TAB PO SCH (11:07)
--- NOTE | 2020-12-09 14:04 | Progress Note ---
Assessment and Plan Patient alert, awake. Resting on 4 litres O2. o2 saturation running 90%. Patient says breathing alright. has some cough. Patient has history of smoking. 2 cigaretts a day for 35 years. Counseled to stop smoking. Denies alcohol or drug abuse. Patient has history of hypertension. Worked for [employer]. and has two children. Allergic to laughing gas. Patient afebrile. Mild leukocytosis. Blood pressure 108/50. Chest xray done 12/07/20 Stable chronic findings in the lungs. No acute chest process identified. Patient presently on albuterol/atrovent aerosol treatments, S/C Heparin, Zithromax and I/V solumedrol. - Patient Problems (1) Acute and chronic respiratory failure Current Visit: No Status: Acute Plan to address problem: On 4 litres O2. On I/V solumedrol. Albuterol/atrovent aerosol treatments S/C Heparin, Protonix. ABGs on room air. (2) COPD exacerbation Current Visit: Yes Status: Acute Plan to address problem: On 4 litres O2. On I/V solumedrol. Albuterol/atrovent aerosol treatments S/C Heparin, Protonix. I/V Zithromax I/V Ceftriaxone. PFTs as out patient. Counseled to stop smoking. (3) CAD (coronary artery disease) Current Visit: Yes Status: Acute Plan to address problem: Management as per cardiology. (4) Tobacco abuse Current Visit: Yes Status: Acute Plan to address problem: Counseled to stop smoking. (5) Atrial fibrillation Current Visit: No Status: Acute Plan to address problem: management as per cardiology. (6) Bipolar disorder Current Visit: No Status: Acute Plan to address problem: Management as per psychiatry and primary care. (7) HTN (hypertension) Current Visit: No Status: Acute Plan to address problem: Management as per primary care. Subjective Date of service: 12/09/20 Interval history: Patient alert, awake. Resting on 4 litres O2. o2 saturation running 90%. Patient says breathing alright. has some cough. Patient has history of smoking. 2 cigaretts a day for 35 years. Counseled to stop smoking. Denies alcohol or drug abuse. Patient has history of hypertension. Worked for [employer]. and has two children. Allergic to laughing gas. Patient afebrile. Mild leukocytosis. Blood pressure 108/50. Chest xray done 12/07/20 Stable chronic findings in the lungs. No acute chest process identified. Patient presently on albuterol/atrovent aerosol treatments, S/C Heparin, Zithromax and I/V solumedrol. Objective Vital Signs - 12hr 12/09/20 12/09/20 12/09/20 03:23 07:20 08:05 Temperature 97.9 F 98.6 F Pulse Rate 77 71 Pulse Rate [ Anterior Bilateral Throughout] Respiratory 18 18 Rate Respiratory Rate [Anterior Bilateral Throughout] Blood Pressure 140/62 120/58 O2 Sat by Pulse 93 94 94 Oximetry 12/09/20 08:21 Temperature Pulse Rate Pulse Rate [ 70 Anterior Bilateral Throughout] Respiratory Rate Respiratory 20 Rate [Anterior Bilateral Throughout] Blood Pressure O2 Sat by Pulse Oximetry Constitutional: alert, appears uncomfortable, other (Mild respiratory distress.) Eyes: non-icteric ENT: oropharynx moist Neck: supple, no lymphadenopathy Effort: mildly labored Ascultation: Bilateral: rhonchi, other (Prolonged expiratory phase.) Cardiovascular: irregular rhythm Gastrointestinal: normoactive bowel sounds, soft, non-tender Integumentary: normal Extremities: no cyanosis, no edema Neurologic: non-focal exam, pupils equal and round, CN II-XII normal Psychiatric: depressed CBC and BMP: 12/09/20 04:26 12/09/20 04:26 Abnormal lab findings: Abnormal Labs 12/07/20 12/07/20 12/08/20 19:29 19:29 04:47 Hgb 15.7 H 14.9 H Hct 46.7 H 44.0 H MCV 98 H MCH 33 H 33 H Lymph # (Auto) 0.9 L Seg Neutrophils % 84.2 H 79.0 H Sodium 133 L Glucose 124 H 12/08/20 12/09/20 12/09/20 04:47 04:26 04:26 Hgb Hct MCV MCH 33 H Lymph # (Auto) Seg Neutrophils % Sodium 134 L 136 L Glucose 137 H 142 H Chest x-ray: report reviewed, image reviewed Additional Studies: XR chest 1V ap 12/07/20 INDICATION / CLINICAL INFORMATION: Shortness of breath, COPD, wheezing. COMPARISON: 11/12/2020 FINDINGS: SUPPORT DEVICES: None. HEART /PULMONARY VASCULATURE: No significant abnormality. LUNGS / PLEURA: Similar diffuse increased interstitial markings, likely chronic. Linear bibasilar opacities likely reflect scarring/fibrotic changes. No new or increasing airspace consolidation. There is no pleural effusion or pneumothorax. ADDITIONAL FINDINGS: No significant additional findings. IMPRESSION: Stable chronic findings in the lungs. No acute chest process identified.
[2020-12-09] MEDS: ERYTHROMYCIN 5 MG/1 GM OPHTH OINT OP SCH ×2 (17:05→22:50)
[2020-12-09] MEDS: cefTRIAXone/NS 1 GM/50 ML 1 GM/50 ML BAG IV SCH (17:21)
[2020-12-09] MEDS: MONTELUKAST 10 MG TAB PO SCH (21:44)
[2020-12-10] MEDS: IPRATROPIUM/ALBUTEROL SULFATE 3 ML AMPUL.NEB IH SCH ×3 (03:07→14:33)
[2020-12-10] MEDS: methylPREDNISolone Sod Succinate 40 MG/1 ML INJ IV SCH (05:20)
[2020-12-10] MEDS: HEPARIN 5,000 UNIT/1 ML VIAL SUB-Q SCH (05:20)
[2020-12-10 07:43] VITALS: BP 147/60
[2020-12-10] MEDS: BENZONATATE 100 MG CAP PO PRN (08:17)
--- NOTE | 2020-12-10 08:36 | Discharge Summary ---
Providers - Providers Date of Admission: 12/07/20 23:14 Date of discharge: 12/10/20 Attending physician: JOHN ERVIN 12/08/20 07:25 Consult to Physician [CONS] Routine Comment: Consulting Provider: VY FLORES Physician Instructions: Reason For Exam: COPD exacerbation 12/10/20 07:14 Physical Therapy Evaluation and Treat [CONS] Urgent Comment: Reason For Exam: Debility 12/10/20 07:15 Occupational Therapy Evaluate and Treat [CONS] Urgent Comment: Reason For Exam: Debility Primary care physician: SHACTOR Hospitalization Reason for admission: Copd exac Condition: Fair Hospital course: 60-year-old female with past medical history of COPD on home oxygen of 4 L, hypertension, hepatitis C, cocaine abuse, mitral valve prolapse, bipolar disorder and depression who was admitted through the emergency department with diagnosis of COPD exacerbation and acute hypoxic respiratory failure. The patient received appropriate treatment with bronchodilators/nebulizers and IV steroids. Patient returned back to her baseline respiratory status requiring 2 L nasal cannula satting at 95%. Patient is felt to have received maximal hospital benefit and will be discharged home. Dedicated discharge time 35 minutes. Disposition: DC-01 TO HOME OR SELFCARE Final Discharge Diagnosis (Prints w/discharge instructions): Acute hypoxic respiratory failure, COPD exacerbation Core Measure Documentation - Palliative Care Palliative Care/ Comfort Measures: Not Applicable - Core Measures Any of the following diagnoses?: none Exam - Constitutional Vitals: Temp Pulse Resp BP Pulse Ox 98.4 F 77 18 147/60 90 12/10/20 07:37 12/10/20 07:37 12/10/20 07:37 12/10/20 07:37 12/10/20 07:37 General appearance: Present: no acute distress, well-nourished - EENT Eyes: Present: PERRL ENT: hearing intact, clear oral mucosa - Neck Neck: Present: supple, normal ROM - Respiratory Respiratory effort: normal Respiratory: bilateral: CTA - Cardiovascular Heart Sounds: Present: S1 & S2. Absent: rub, click - Extremities Extremities: pulses symmetrical, No edema Peripheral Pulses: within normal limits - Abdominal General gastrointestinal: Present: soft, non-tender, non-distended, normal bowel sounds Female genitourinary: Present: normal - Integumentary Integumentary: Present: clear, warm, dry - Musculoskeletal Musculoskeletal: gait normal, strength equal bilaterally - Psychiatric Psychiatric: appropriate mood/affect, intact judgment & insight - Neurologic Neurologic: CNII-XII intact, moves all extremities Plan Activity: advance as tolerated Weight Bearing Status: Weight Bear as Tolerated Diet: regular Follow up with: PRIMARY CAREMD [Primary Care Provider] - 7 Days VY FLORES MD [Staff Physician] - 7 Days Prescriptions: Albuterol 0.63% NEBS 3 ml INHALATION Q4H PRN 30 Days PRN Reason: Wheezing amLODIPine 10 mg PO DAILY 30 Days #30 tablet Aspirin [Aspirin BABY CHEW TAB] 81 mg PO QDAY #30 tab.chew carvediloL [Coreg] 3.125 mg PO BID #60 tablet Cymbalta 60 mg PO DAILY #30 Metoprolol [Lopressor TAB] 50 mg PO DAILY #30 Prednisone [predniSONE 5 mg (6-Day Pack, 21 Tabs)] 5 mg PO .TAPER #1 tab.ds.pk Albuterol Sulfate [Proair Respiclick] 90 mcg IH Q4HR PRN #2 aer.pow.ba PRN Reason: Wheezing Protonix 40 mg PO DAILY #30 risperiDONE [RisperDAL] 0.5 mg PO BID #30 tablet Montelukast [Singulair] 10 mg PO QHS #30 tablet Benzonatate [Tessalon Perles] 100 mg PO Q8HR PRN #30 capsule PRN Reason: Cough Azithromycin [Zithromax TAB] 250 mg PO QDAY 5 Days tablet Cetirizine HCl [ZyrTEC 10mg cap] 10 mg PO QDAY 14 Days #14 capsule
[2020-12-10] MEDS: PANTOPRAZOLE 40 MG TAB PO SCH (10:28)
[2020-12-10] MEDS: ASPIRIN 81 MG TAB CHEW PO SCH (10:28)
[2020-12-10] MEDS: risperiDONE 0.25 MG TAB PO SCH (10:28)
[2020-12-10] MEDS: amLODIPine 10 MG TAB PO SCH (10:28)
[2020-12-10] MEDS: DULoxetine 30 MG CAP PO SCH (10:28)
[2020-12-10] MEDS: carvediloL 3.125 MG TAB PO SCH (10:29)
[2020-12-10] MEDS: AZITHROMYCIN 250 MG TAB PO SCH (10:29)
[2020-12-10] MEDS: CETIRIZINE 10 MG TAB PO SCH (10:30)
[2020-12-10] MEDS: HYDROcodone/ACETAMINOPHEN 5-325 MG TAB PO PRN (10:41)
--- NOTE | 2020-12-10 10:46 | Progress Note ---
Assessment and Plan Patient alert, awake. Resting on 4 litres O2. o2 saturation running 90%. Patient says breathing alright. has some cough. Patient has history of smoking. 2 cigaretts a day for 35 years. Counseled to stop smoking. Denies alcohol or drug abuse. Patient has history of hypertension. Worked for [employer]. and has two children. Allergic to laughing gas. Patient afebrile. Mild leukocytosis. Blood pressure 108/50. Chest xray done 12/07/20 Stable chronic findings in the lungs. No acute chest process identified. Patient presently on albuterol/atrovent aerosol treatments, S/C Heparin, Zithromax and I/V solumedrol. - Patient Problems (1) Acute and chronic respiratory failure Current Visit: No Status: Acute Plan to address problem: On 4 litres O2. On I/V solumedrol. Albuterol/atrovent aerosol treatments S/C Heparin, Protonix. ABGs on room air. (2) COPD exacerbation Current Visit: Yes Status: Acute Plan to address problem: On 4 litres O2. On I/V solumedrol. Albuterol/atrovent aerosol treatments S/C Heparin, Protonix. I/V Zithromax I/V Ceftriaxone. PFTs as out patient. Counseled to stop smoking. (3) CAD (coronary artery disease) Current Visit: Yes Status: Acute Plan to address problem: Management as per cardiology. (4) Tobacco abuse Current Visit: Yes Status: Acute Plan to address problem: Counseled to stop smoking. (5) Atrial fibrillation Current Visit: No Status: Acute Plan to address problem: management as per cardiology. (6) Bipolar disorder Current Visit: No Status: Acute Plan to address problem: Management as per psychiatry and primary care. (7) HTN (hypertension) Current Visit: No Status: Acute Plan to address problem: Management as per primary care. Subjective Date of service: 12/10/20 Interval history: Patient alert, awake. Resting on 4 litres O2. o2 saturation running 90%. Patient says breathing alright. has some cough. Patient has history of smoking. 2 cigaretts a day for 35 years. Counseled to stop smoking. Denies alcohol or drug abuse. Patient has history of hypertension. Worked for [employer] and [employer]. and has two children. Allergic to laughing gas. Patient afebrile. Mild leukocytosis. Blood pressure 108/50. Chest xray done 12/07/20 Stable chronic findings in the lungs. No acute chest process identified. Patient presently on albuterol/atrovent aerosol treatments, S/C Heparin, Zithromax and I/V solumedrol. Objective Vital Signs - 12hr 12/09/20 12/10/20 12/10/20 23:25 02:00 03:45 Temperature 97.7 F 98.6 F Pulse Rate 88 96 H 80 Pulse Rate [ Anterior Bilateral Throughout] Respiratory 19 18 Rate Respiratory Rate [Anterior Bilateral Throughout] Blood Pressure 142/60 134/68 O2 Sat by Pulse 93 83 L Oximetry 12/10/20 12/10/20 12/10/20 03:46 06:57 07:37 Temperature 98.4 F Pulse Rate 85 77 Pulse Rate [ Anterior Bilateral Throughout] Respiratory 18 Rate Respiratory Rate [Anterior Bilateral Throughout] Blood Pressure 147/60 O2 Sat by Pulse 93 90 Oximetry 12/10/20 12/10/20 12/10/20 08:41 08:42 10:28 Temperature Pulse Rate 78 Pulse Rate [ 85 Anterior Bilateral Throughout] Respiratory Rate Respiratory 20 Rate [Anterior Bilateral Throughout] Blood Pressure O2 Sat by Pulse 94 Oximetry 12/10/20 10:29 Temperature Pulse Rate 79 Pulse Rate [ Anterior Bilateral Throughout] Respiratory Rate Respiratory Rate [Anterior Bilateral Throughout] Blood Pressure O2 Sat by Pulse Oximetry Constitutional: alert, other (mild resp distress) Eyes: non-icteric ENT: oropharynx moist Neck: supple, no lymphadenopathy, no JVD Effort: mildly labored Ascultation: Bilateral: diminished breath sounds, wheezes, rhonchi, other (Prolonged expiratory phase.) Cardiovascular: regular rate and rhythm, other (S1,S2) Gastrointestinal: normoactive bowel sounds, soft, non-tender, non-distended Integumentary: normal Extremities: no cyanosis, no edema, pink and warm, pulses normal Neurologic: normal mental status, non-focal exam, pupils equal and round, CN II- XII normal, motor strength normal and Psychiatric: mood appropriate, affect normal CBC and BMP: 12/09/20 04:26 12/09/20 04:26 Abnormal lab findings: Abnormal Labs 12/07/20 12/07/20 12/08/20 19:29 19:29 04:47 Hgb 15.7 H 14.9 H Hct 46.7 H 44.0 H MCV 98 H MCH 33 H 33 H Lymph # (Auto) 0.9 L Seg Neutrophils % 84.2 H 79.0 H Sodium 133 L Glucose 124 H 12/08/20 12/09/20 12/09/20 04:47 04:26 04:26 Hgb Hct MCV MCH 33 H Lymph # (Auto) Seg Neutrophils % Sodium 134 L 136 L Glucose 137 H 142 H
[2020-12-10] MEDS: guaiFENesin 100 MG/5 ML ORAL LIQD PO PRN (10:54)
[2020-12-10] MEDS ORDERED: QUEtiapine 25 MG TAB PO SCH (22:00)
== END 2020-12-10 14:15 | disposition home or self-care (01) ==
LOC: ED 16:13 → 4A 23:14
PROVIDERS: ADMIT Hospitalist; ATTEND Hospitalist
DX: J96.20 Acute and chronic respiratory failure, unspecified whether with hypoxia or hypercapnia (principal); J44.1 Chronic obstructive pulmonary disease with (acute) exacerbation; I25.10 Atherosclerotic heart disease of native coronary artery without angina pectoris; I10 Essential (primary) hypertension; F31.9 Bipolar disorder, unspecified; J18.9 Pneumonia, unspecified organism; I48.91 Unspecified atrial fibrillation; B19.20 Unspecified viral hepatitis C without hepatic coma; F17.210 Nicotine dependence, cigarettes, uncomplicated; F14.10 Cocaine abuse, uncomplicated; Z79.82 Long term (current) use of aspirin; Z90.710 Acquired absence of both cervix and uterus; Z79.899 Other long term (current) drug therapy; Z98.890 Other specified postprocedural states
CPT/HCPCS: 36415; 36600; 71045; 80048; 82805; 83880; 85025; 85027; 94640; 94644; 96365; 96366; 96372; 96375; 96376; 99284; 99406; G0378; J0360; J0696; J1644; J2920